=== PATIENT | male | born 1965 | race Hispanic/Latino ===

== ENCOUNTER 2017-10-20 10:09 | Inpatient (IN) | payer MEDICAID, SELFPAY ==
[2017-10-20 11:10] LABS: INR-International Normal Ratio 1.3; PTT 39.8 SEC (22.9-36.1); Prothrombin Time 16.7 SEC (12.0-14.7)
[2017-10-20] MEDS ORDERED: Piperacillin/Tazobactam 4.5 GM in Sodium Chloride 0.9% 100 ML IVPB SCH (11:15)
[2017-10-20] MEDS ORDERED: Oseltamivir 6 MG/ML ORAL SUSP PER TUBE SCH (11:15)
[2017-10-20 11:28] LABS: ALT (SGPT) 16 U/L (8-55); AST (SGOT) 15 U/L (5-34); Albumin 3.6 g/dL (3.5-5.0); Alkaline Phosphatase 88 U/L (40-150); Anion Gap 23 mmol/L (10-20); BUN (Urea Nitrogen) 50 mg/dL (8.4-25.7); Bilirubin, Total 1.1 mg/dL (0.2-1.2); CK (CPK) 77 U/L (30-200); Calc. Creatinine Clearance 0 mL/min (70-130); Calcium 9.8 mg/dL (7.8-10.44); Carbon Dioxide 20 mmol/L (22-29); Chloride 101 mmol/L (98-107); Estimated GFR-MDRD 40; Globulin 3.7 g/dL (2.4-3.5); Glucose 170 mg/dL (70-105); Lipase Less than 4 U/L (8-78); Potassium 4.6 mmol/L (3.5-5.1); Protein, Total 7.3 g/dL (6.0-8.3); Sodium 139 mmol/L (136-145)
[2017-10-20 11:31] LABS: Hemoglobin 13.1 g/dL (14.0-18.0); Red Blood Cell (RBC) Count 4.21 mill/uL (4.70-6.10); Troponin I 0.016 ng/mL (< 0.028); White Blood Cell (WBC) Count 4.6 thou/uL (4.8-10.8)
[2017-10-20 11:32] LABS: Band 50 % (5-11); Lymphocytes 9 % (21-51); MDiff Complete? YES; Mean Corpuscular HGB CONC 32.9 g/dL (32.0-36.0); Mean Corpuscular Hemoglobin 31.1 pg (27.0-31.0); Mean Corpuscular Volume 94.5 fl (80.0-94.0); Mean Platelet Volume 8.5 fL (7.4-10.4); Metamyelocyte 4 % (0-0); Monocytes 3 % (0-10); Neutrophil 34 % (42-75); Platelet Count 349 thou/uL (130-400); RBC Distribution Width 14.8 % (11.5-14.5); Reflex for Review?? YES
[2017-10-20] MEDS ORDERED: Acetaminophen 325 MG/10.15 ML UDCUP ONE ×2 (11:56→12:00)
--- NOTE | 2017-10-20 12:43 | RAD ---
CHEST 1 VIEW: Date: 10/20/17 HISTORY: Nausea and vomiting. COMPARISON: Chest 1 view dated 05/26/17. FINDINGS: There are multiple left-sided skin folds. There are increased perihilar opacities bilaterally. IMPRESSION: 1. Bilateral perihilar air space opacities concerning for infection. 2. Somewhat of a permeative appearance of the left humeral neck and mid diaphysis. Recommend dedicat ed humeral radiographs. POS: [facility]
[2017-10-20 13:35] LABS: Bilirubin Negative (Negative); Blood, Urine Negative (Negative); Clarity CLOUDY (Clear); Glucose, Urine (Dipstick) Negative (Negative); Leukocyte Small (Negative); Nitrite Negative (Negative); Protein, Urine (Dipstick) 30 mg/dL (Neg-Trace); Specific Gravity, Urine 1.035 (1.002-1.036); Urobilinogen 0.2 mg/dL (0.2-1.0); pH, Urine 5.5 (5.0-9.0)
[2017-10-20 13:37] LABS: WBC/HPF 21-50 HPF (0-3)
[2017-10-20 13:39] LABS: Pathc Cast-AUWi Flag 18.42 (0-2.49)
[2017-10-20 13:46] LABS: RBC/HPF 0-3 HPF (0-3); Renal Epithelial None Seen HPF (0-3); Transitional Epithelial 0-3 HPF (0-3)
[2017-10-20 13:47] LABS: Bacteria/HPF 2+ HPF (None Seen); Hyaline Casts/LPF 0-3 HYALINE CAST LPF (0-3 Hyaline); Manual Microscopic Reviewed? No Path Casts Seen; Other Casts/LPF 4-6 FINELY GRAN LPF (0-3 Hyaline)
--- NOTE | 2017-10-20 14:19 | CT ---
CONTRAST ENHANCED CTA CHEST: Date: 10/20/17 HISTORY: Fever, shortness of breath. Contrast enhanced CTA of chest performed. 2D and 3D reconstructed images performed on a 3D workstatio n. FINDINGS: Images demonstrate a gastrostomy tube in place. Calcifications seen in the gallbladder compatible wit h calcified gallstones. No evidence of filling defects seen in the pulmonary arteries to suggest pulmonary emboli. There appears to be some thickening in the mid esophagus compatible with esophagitis or possible esop hageal fluid. There are extensive multilobar air space opacities, less pronounced in the right upper lobe with some opacification seen in the right middle lobe and right lower lobe. The most extensive degree of air s pace opacities are in the left upper lobe and left lower lobe. Findings compatible with extensive multilobar pneumonia. Coronary artery calcifications seen. Sternotomy wires also noted. IMPRESSION: 1. Cholelithiasis. 2. Extensive multilobar pneumonia. The most significant degree of pneumonia appears to be in the lef t upper lobe and left lower lobe. POS: [facility]
[2017-10-20] MEDS ORDERED: EPINEPHrine 1 MG/10 ML Abboject SYRINGE ONE (14:43)
[2017-10-20] MEDS ORDERED: Rocuronium Bromide 50 MG/5 ML VIAL ONE (14:46)
[2017-10-20 14:55] LABS: Hemoglobin 10.2 g/dL (14.0-18.0); Mean Corpuscular HGB CONC 33.4 g/dL (32.0-36.0); Mean Corpuscular Hemoglobin 31.5 pg (27.0-31.0); Mean Corpuscular Volume 94.3 fl (80.0-94.0); Mean Platelet Volume 7.8 fL (7.4-10.4); Platelet Count 225 thou/uL (130-400); RBC Distribution Width 14.8 % (11.5-14.5); Red Blood Cell (RBC) Count 3.24 mill/uL (4.70-6.10); White Blood Cell (WBC) Count 1.6 thou/uL (4.8-10.8)
[2017-10-20] MEDS ORDERED: Fentanyl 100 MCG/2 ML VIAL ONE (15:08)
[2017-10-20] MEDS ORDERED: Pantoprazole 40 MG VIAL ONE (15:16)
[2017-10-20 15:17] LABS: Lactic Acid 7.5 mmol/L (0.5-2.2)
[2017-10-20 15:19] LABS: Troponin I 0.018 ng/mL (< 0.028)
[2017-10-20] MEDS ORDERED: Fentanyl CADD 250 ML IVPB SCH ×2 (15:20→15:59)
[2017-10-20 15:26] LABS: Base Excess (BEa) -5.8 mEq/L (0 (+/-) 2.5); CO2 Tension 46.8 mmHg (35.0-45.0); Calcium, Ionized 1.2 mmol/L (1.12-1.30); Hematocrit-ABG 35.4 % (42.0-52.0); Hemoglobin (Hb) 11.7 g/dL (14.0-18.0); O2 Tension (PaO2) 66.8 mmHg (80.0-100.0); pH, Arterial 7.27 (7.35-7.45)
[2017-10-20 15:28] LABS: Analyzer IN Cardio ER; Puncture Site LRA
[2017-10-20 15:37] LABS: Anisocytosis SLIGHT = 6-15 cells (100X) (0-5/hpf); Band 52 % (5-11); Lymphocytes 18 % (21-51); MDiff Complete? YES; Metamyelocyte 5 % (0-0); Myelocyte 2 % (0-0); Neutrophil 23 % (42-75); PLT Morphology Comment Appears Adequate
--- NOTE | 2017-10-20 15:49 | RAD ---
ABDOMEN 1 VIEW: Date: 10/20/17 HISTORY: Status post tube placement. 52-year-old male with history of fever, shortness of breath, and vomiting . FINDINGS: AP view of abdomen demonstrates a large amount of stool in the colon. There is a radiopaque Tobin tip catheter in place. Radiopaque contrast seen in the bladder and urinary tract. There is a NG tube in place. There is a gastrostomy tube in place. Abdominal gas pattern is nonspecific. IMPRESSION: Placement of a NG tube. POS: [facility]
[2017-10-20] MEDS ORDERED: CCU Electrolyte Replacement 1 EACH FS ONE (15:51)
[2017-10-20] MEDS ORDERED: Ventilator Sedation Protocol 1 EACH FS ONE ×2 (15:51)
[2017-10-20] MEDS ORDERED: Propofol 1,000 MG/100 ML VIAL IV PRN (15:59)
[2017-10-20] MEDS ORDERED: Fentanyl BOLUS 250 ML IVPB PRN (15:59)
[2017-10-20] MEDS ORDERED: CCU ELECTROLYTE REPLACEMENT PROTOCOL FS PRN (15:59)
[2017-10-20] MEDS ORDERED: Potassium Chloride 40 MEQ in Sodium Chloride 0.9% 250 ML 250 ML IVPB PRN (15:59)
[2017-10-20] MEDS ORDERED: Magnesium 2 GM/NS 0.9% 100 ML 2 GM in Premix Bag 1 BAG IVPB PRN (15:59)
[2017-10-20] MEDS ORDERED: Potassium Chloride 20 MEQ TAB PO PRN (15:59)
[2017-10-20] MEDS ORDERED: Potassium Phosphate 15 MMOL in Sodium Chloride 0.9% 250 ML 250 ML IV PRN (15:59)
[2017-10-20] MEDS ORDERED: DISCONTINUE PREVIOUS NARCOTIC PAIN MEDICATIONS AND BENZODIAZEPINES FS SCH (15:59)
[2017-10-20] MEDS ORDERED: Lorazepam 2 MG/ML VIAL SLOW IVP PRN (15:59)
[2017-10-20] MEDS ORDERED: Potassium Phosphate 9 MMOL in Sodium Chloride 0.9% 100 ML IVPB PRN (15:59)
[2017-10-20] MEDS ORDERED: Potassium Phosphate 12 MMOL in Sodium Chloride 0.9% 250 ML 250 ML IV PRN (15:59)
[2017-10-20] MEDS ORDERED: Magnesium Oxide 400 MG TAB PO PRN ×2 (15:59)
--- NOTE | 2017-10-20 17:04 | RAD ---
CHEST ONE VIEW: 10/20/17 HISTORY: 52-year-old male with sepsis. COMPARISON: 10/20/17. NG tube, endotracheal tube, and right subclavian catheters have been placed in satisfactory location. There has been extensive worsening of bilateral confluent alveolar parenchymal disease worse in the left lung involving almost the entire left lung and primarily in the right lung in the perihilar debby ons, evidence for extensive bilateral pneumonia. IMPRESSION: Much worsening extensive bilateral alveolar pneumonia. Life support tube placement in satisfactory l ocation. POS: [facility]
[2017-10-20 17:45] VITALS: BMI 20.2
[2017-10-20 18:01] LABS: Actual Bicarbonate (HCO3a) 22.5 mEq/L (22-26); Base Excess (BEa) -4.3 mEq/L (0 (+/-) 2.5); CO2 Tension 48.7 mmHg (35.0-45.0); Calcium, Ionized 1.2 mmol/L (1.12-1.30); Hematocrit-ABG 38.9 % (42.0-52.0); Hemoglobin (Hb) 12.8 g/dL (14.0-18.0); O2 Tension (PaO2) 76.3 mmHg (80.0-100.0); pH, Arterial 7.28 (7.35-7.45)
[2017-10-20] MEDS: Sodium Chloride 0.9% 1,000 ML IV SCH (18:17)
[2017-10-20 18:25] LABS: ALV-art Gradient 361.925 (0-20); Puncture Site RBA
[2017-10-20] MEDS: Pantoprazole 80 MG in Sodium Chloride 0.9% 100 ML IVP SCH (18:28)
[2017-10-20] MEDS: Cefepime 1 GM, Admixture Fee 1 EACH in Sterile Water 10 ML SLOW IVP SCH (19:00)
--- NOTE | 2017-10-20 19:32 | HP ---
REASON FOR ADMISSION: Acute respiratory failure with hypoxia, sepsis with likely aspiration pneumonia, GI bleed, septic shock, urinary tract infection, influenza A, acute kidney injury, metabolic acidosis. HISTORY OF PRESENT ILLNESS: Please note the majority of this history is obtained by my talking to patient's sister who is at bedside, ER records, ER physician, and prior medical records as patient is aphasic from prior CVA. The patient apparently was having nausea and vomiting and was short of breath from last night. He has been having hiccups from last 3 days prior to this. This morning his vomitus started to have dark material in them. The sister at bedside adds that he chokes every time he tries to feed himself. He has a PEG tube with prior history of left hemiplegia. He has been fed chocolate milk, one bottle 3 times daily. He apparently was living with his girlfriend and a 13 -year-old son in [place]. The girlfriend dropped him off to his sister's place and went to [place]. She had informed that she would not be returning back to him to his sister. Here in the ER, patient was found to have bilateral pneumonia. He had systolic blood pressures in the 60s. He has had nearly 3 liters of IV fluid boluses given. The patient's shortness of breath got worse and he was finely intubated. Also, patient had H and H of 13 and 39. He had a point of care reading for H and H which apparently gave a reading of hematocrit of 10, and he was given 2 units of packed cell transfusion per massive transfusion protocol. He had a temperature of 100 degrees on arrival in the ER. PAST MEDICAL AND SURGICAL HISTORY: History of left hemiplegia with aphasia and dysphagia which he sustained apparently 1 or 2 years ago. He gets all his care in [facility]. Hypertension, depression, history of hernia repair, PEG tube, right carotid endarterectomy. CURRENT MEDICATIONS: His sister does not know what medications he has been taking. Apparently, the girlfriend did not leave much information to her. ALLERGIES: No known drug allergies. PERSONAL HISTORY: Does not smoke or abuse alcohol. He is currently wheelchair bound. No history of drug abuse. FAMILY HISTORY: Father is . Mother lives in [place] with history of diabetes per prior records in the family. MEDICATIONS: Per prior records, the patient was on donepezil 10 mg at bedtime when he was hospitalized here in 04/2017, Norvasc 10 mg daily, baclofen 10 mg 3 times daily, omeprazole 20 mg twice daily, lisinopril 20 mg twice daily, Plavix 75 mg daily, iron 65 mg daily. REVIEW OF SYSTEMS: Cannot be obtained as patient is currently intubated. PHYSICAL EXAMINATION: GENERAL: The patient is a 52-year-old male who is cachectic and is on the ventilator at present. VITAL SIGNS: Blood pressure on arrival was 60/40 currently, it has come up to 150/84, pulse 126 per minute on arrival, respiratory rate 22 per minute, temperature 100.2 degrees Fahrenheit on arrival, saturating 80% on room air on arrival, currently 94% on 100% FiO2 on the ventilator. NECK: Supple. No elevated JVD. HEENT: Eyes, extraocular muscles are intact. Pupils reacting to light. Oral cavity, mucous membranes are dry. No exudates or congestion. Patient does not appear to have any teeth. RESPIRATORY: Air entry 1+ bilateral. Scattered rhonchi plus bilateral. ABDOMEN: Soft. Bowel sounds heard. Has a PEG tube. No rigidity or guarding. There is maceration of the scrotum. EXTREMITIES: No peripheral edema or calf tenderness. VASCULAR: Peripheral pulses 1+ bilateral in the upper extremities, lower extremities are barely palpable. CENTRAL NERVOUS SYSTEM: The patient has chronic left hemiplegia. He was freely moving right upper and lower extremity on arrival. PSYCHIATRIC: Cannot be assessed as the patient is currently intubated. LABORATORY AND DIAGNOSTIC DATA: CT angio chest done on arrival showed cholelithiasis, extensive multilobar pneumonia, abdominal x-ray done shows large amount of stool in the colon. NG tube in place. Gastrostomy tube in place. Bowel gas pattern is nonspecific. Respiratory virus panel, PCR was positive for influenza AH3 and influenza A. Stool occult blood was positive. BUN is 50, creatinine 1.78, glucose 170. Serum bicarbonate 20. Lactic acid 7.6. Liver enzymes within normal limits. Troponin x2 is negative. Albumin is 3.6. PT/INR is 16 and 1.3, PTT 38. D-dimer is 3.0. Blood gas done shows a pH of 7.27, pCO2 of 46, pO2 of 66. H and H on arrival was 13 and 39, a repeat done after 3 hours is 10 and 30. Had a white count of 4.6 with 50% bands on arrival, neutrophils with 34%, platelet count is 349 on arrival. UA is positive for small leukocyte esterase with 2+ bacteria. EKG done shows sinus tachycardia at 126 beats per minute with left anterior fascicular block with nonspecific ST-T wave changes seen. CLINICAL IMPRESSION AND PLAN: Patient will be admitted to ICU for septic shock ; acute respiratory failure with hypoxia, likely aspiration pneumonia, bilateral ; acute kidney injury; metabolic acidosis; gastrointestinal bleed. He will be on Protonix drip. The patient was pancultured and he will be placed on Levaquin , cefepime and vancomycin until cultures are available based on renal function. The dose based on renal function. He will also be given stress dose of steroids. The patient will be kept n.p.o. for the next 24 hours. His overall prognosis is poor. I have explained this to the patient's sister and brother who is here at bedside. The patient is not at present. His girlfriend has left him. The next of kin is his mom who lives in [place]. The number to reach her is [phone]. He also apparently has a 22-year-old daughter , whom he has not seen for last 19 years or so. She lives in [place], her name is Maria M. The number to reach her is [phone]. The girlfriend's name is Dahiana Donnelly, her number is [phone]. For now, he is a FULL CODE. If the patient were to decompensate, likely person to contact for his code status will be his mom. She is currently unavailable on the phone. I have discussed his findings with Dr. Leroy for Pulmonology and Critical Care and Anita for possible upper endoscopy for Gastroenterology. [facility] HOSPITALBecka
[2017-10-20] MEDS: Norepinephrine 8 MG/0.9% NS 250 ML IVPB PRN (20:04)
[2017-10-20] MEDS ORDERED: Vancomycin HCl 1 GM in Sodium Chloride 0.9% 250 ML 250 ML IVPB SCH (21:00)
[2017-10-20] MEDS ORDERED: Cefepime 1 GM in Sodium Chloride 0.9% 100 ML IVPB SCH (21:00)
[2017-10-20] MEDS: Oseltamivir 75 MG CAP PO SCH (21:50)
[2017-10-20] MEDS ORDERED: Vancomycin HCl 1 GM in Premix Bag 1 BAG IVPB SCH (23:59)
[2017-10-21] MEDS: Vancomycin HCl 750 MG in Sodium Chloride 0.9% 250 ML 250 ML IVPB SCH ×2 (00:03→12:48)
--- NOTE | 2017-10-21 00:10 | CON ---
DATE OF CONSULTATION: 10/20/2017 REFERRING PHYSICIAN: Dr. Samira Sutton. REASON FOR CONSULTATION: Hemetemesis. HISTORY OF PRESENT ILLNESS: Tarik Robles is a 52-year-old fragile looking male seen in the ER this afternoon with coughing and spitting up some mucoid material. The patient apparently came in with some respiratory symptoms. While in the ER, he was being evaluated. He started having some vomiting blood, he had a CBC done on arrival to the ER. At that time, CBC was actually normal with a WBC count of 4,600, hemoglobin 13.1 and hematocrit 39.8. He vommited several times in the ER with fresh blood vomiting. The hemoglobin dropped to 10.2, hematocrit dropping down to 30.6, subsequently hypotensive. He was given 2 cc of_ epinephrine, and her blood pressure came back to normal. His repeat CBC showed drop in blood count from 13.1-10.2, hematocrit from 39.8-30.7. The patient had a chest CAT scan, which revealed extensive pneumonia. The patient has been intubated and is on sedation. So most of the history was obtained by talking to the ER doctor and also Dr. Samira Sutton from hospice. The patient apparently has had a stroke in the past and has had PEG tube placement done. He is actually aphasic but as per Dr. Sutton, he was able to understand nodding his head and able to communicate to some extent. The patient had seen Dr. Lopez in the past and some of the history was obtained by going over the consult by Dr. Onesimo Lopez, which was done in 04/2017. ALLERGIES: None. PAST MEDICAL HISTORY: 1. Hypertension. 2. Depression. 3. Status post cerebrovascular accident with gastrostomy tube placement. SURGERIES: 1. Status post herniography. 2. PEG tube placement. 3. Right carotid endarterectomy. SOCIAL HISTORY: He is . He does not smoke or drink alcohol. MEDICATIONS: Include Plavix 70 once a day, lisinopril, omeprazole, baclofen, amlodipine, benazepril. REVIEW OF SYSTEMS: Not obtainable as he is on the ventilator. PHYSICAL EXAMINATION: GENERAL: Reveals a very fragile looking male. He is on the ventilator. VITAL SIGNS: His pulse is around 132, mostly from the epinephrine, his blood pressure is actually stable at the present time, was found on 160/106. HEENT: Conjunctivae clear. NECK: Supple. CARDIOVASCULAR: First and second heart sounds are normal. LUNGS: Clear to auscultation. ABDOMEN: Soft. Nondistended and nontender. He has G tube over the left lower quadrant. No organomegaly. LABORATORY DATA: Shows a hemoglobin dropping to 13.1-10.2. WBC count is 1600. He has got 2 units of packed RBCs so far. He is not on any vasopressors. CLINICAL IMPRESSION: 1. The patient appears to have an upper gastrointestinal bleeding, and the bleeding has actually resolved. His NG tube is not really draining a whole lot of material. It is possible that the patient could have either bleeding ulcer or possibly vascular malformation or some other pathology. 2. Status post cerebrovascular accident with status post PEG tube placement. 3. Hypertension. RECOMMENDATIONS: 1. IV PPI. 2. Serial H&H. 3. Transfuse p.r.n. 4. Possible EGD tomorrow. MTDD
[2017-10-21 05:35] LABS: ALT (SGPT) 26 U/L (8-55); AST (SGOT) 38 U/L (5-34); Albumin 2.5 g/dL (3.5-5.0); Alkaline Phosphatase 49 U/L (40-150); Anion Gap 11 mmol/L (10-20); BUN (Urea Nitrogen) 36 mg/dL (8.4-25.7); Bilirubin, Total 1.3 mg/dL (0.2-1.2); Calc. Creatinine Clearance 61 mL/min (70-130); Calcium 8.3 mg/dL (7.8-10.44); Carbon Dioxide 22 mmol/L (22-29); Chloride 110 mmol/L (98-107); Estimated GFR-MDRD 77; Globulin 2.8 g/dL (2.4-3.5); Glucose 86 mg/dL (70-105); Potassium 4.4 mmol/L (3.5-5.1); Protein, Total 5.3 g/dL (6.0-8.3); Sodium 139 mmol/L (136-145)
[2017-10-21] MEDS: Cefepime 1 GM, Admixture Fee 1 EACH in Sterile Water 10 ML SLOW IVP SCH ×2 (05:41→17:15)
[2017-10-21] MEDS: Sodium Chloride 0.9% 1,000 ML IV SCH ×3 (05:41→21:42)
--- NOTE | 2017-10-21 07:16 | CON ---
DATE OF CONSULTATION: 10/20/2017 Mr. Robles is a 52-year-old male. Apparently the family and the patient is German speaking only. Wh en I evaluated him, he is intubated. He presented with nausea, vomiting, and shortness of breath. He has a history of a CVA and aphasia. He also has a history of swallowing dysfunction according to the admitting records. He has a PEG tub e in place. Apparently he resides with a girlfriend in [place]. His girlfriend apparently dropped him off at his sister's and left for [place] and left a message that she would not be coming back. He was in the emergency room with bilateral chest radiograph abnormalities and bilateral CT of his ch est showing patchy infiltrates bilaterally. He was in the emergency room for several hours and then subsequently intubated. After he is intubated, an NG tube was placed. The NG tube was connected to suction. When I saw him in the emergency department, he had what appeared to be 200 mL of liquid sto ol coming out of his NG tube. PAST MEDICAL HISTORY: 1. Remarkable for cerebrovascular accident. 2. Hypertension. 3. History of herniorrhaphy. 4. History of PEG. 5. History of a carotid endarterectomy. MEDICATIONS: Unknown. There are no known drug allergies. SOCIAL HISTORY: He is a nonsmoker, nondrinker. He apparently gets around in a wheelchair, according to records. FAMILY HISTORY: Mother lives in [place]. There is a family history of diabetes. Father . MEDICATIONS: Prior to admission: Donepezil, Norvasc, baclofen, omeprazole, lisinopril, Plavix, iron . REVIEW OF SYSTEMS: Cannot be obtained. PHYSICAL EXAMINATION: VITAL SIGNS: Blood pressure is in the 80s in the emergency department. Heart rate was in the one-te ens. He is in sinus rhythm, respiratory rate is in the teens, oximetry is 100%. HEENT: Sclerae is anicteric. NECK: Supple. LUNGS: Remarkable for coarse equal breath sounds. HEART: Regular rhythm. ABDOMEN: Soft. EXTREMITIES: Without asymmetry. LABORATORY FINDINGS: At 10:56 this morning, white count was 4.6 with 50% bands; at 2:41, white count was 1.6 with 52% bands, 5% metamyelocytes. Sodium 139, potassium 4.6, chloride 101, bicarb 20, BUN 50, creatinine 1.78. Blood gas pH 7.28, CO2 of 48, pO2 of 76. IMPRESSION: Respiratory failure with bilateral pneumonia, adult respiratory distress syndrome and cl inical sepsis. PLAN: Volume resuscitation central line placement by the ER physician, pressors, antimicrobial thera py, sedation, steroids, DVT prophylaxis. He is apparently flu positive, although I doubt this is inf luenza pneumonia. Critical care time was 30 minutes.
[2017-10-21 07:53] LABS: Actual Bicarbonate (HCO3a) 20.8 mEq/L (22-26); Base Excess (BEa) -3.9 mEq/L (0 (+/-) 2.5); CO2 Tension 35.9 mmHg (35.0-45.0); Calcium, Ionized 1.2 mmol/L (1.12-1.30); Hemoglobin (Hb) 9.8 g/dL (14.0-18.0); O2 Tension (PaO2) 58.5 mmHg (80.0-100.0); pH, Arterial 7.38 (7.35-7.45)
[2017-10-21 07:54] LABS: ALV-art Gradient 181.825 (0-20); Puncture Site RBA
[2017-10-21] MEDS: Pantoprazole 80 MG in Sodium Chloride 0.9% 100 ML IVP SCH (08:17)
[2017-10-21] MEDS: Oseltamivir 75 MG CAP PO SCH ×2 (08:23→21:42)
[2017-10-21] MEDS: Acetaminophen 325 MG TAB PO PRN (08:23)
[2017-10-21] MEDS: Norepinephrine 8 MG/0.9% NS 250 ML IVPB PRN (08:36)
[2017-10-21 09:48] LABS: HBCM Index 0.06 S/CO (0-0.79); HBSAg Index 0.22 S/CO (0-0.99); HIV (1/2) Antibody/Antigen Non-Reactive (NonReactive); HIV 1/2 INDEX 0.17 S/CO (<1.00); Hep A IgM AB Non-Reactive (NonReactive); Hep A IgM S/CO 0.14 S/CO (0-0.79); Hep B Surf Ag Non-Reactive S/CO (NonReactive); Hep C IgG Ab Non-Reactive (NonReactive); Hep C Index 0.17 S/CO (0-0.79); Hepatitis B Core IGM Abs Non-Reactive (NonReactive)
[2017-10-21 09:48] LABS: Band 54 % (5-11); Hemoglobin 11.4 g/dL (14.0-18.0); Lymphocytes 16 % (21-51); MDiff Complete? YES; Mean Corpuscular HGB CONC 33.4 g/dL (32.0-36.0); Mean Corpuscular Hemoglobin 31.6 pg (27.0-31.0); Mean Corpuscular Volume 94.7 fl (80.0-94.0); Metamyelocyte 6 % (0-0); Monocytes 2 % (0-10); Myelocyte 1 % (0-0); Neutrophil 21 % (42-75); Platelet Count 234 thou/uL (130-400); RBC Distribution Width 15.1 % (11.5-14.5); White Blood Cell (WBC) Count 4.2 thou/uL (4.8-10.8)
[2017-10-21] MEDS ORDERED: Fluconazole 100 MG TAB PO SCH (11:21)
--- NOTE | 2017-10-21 11:23 | RAD ---
AP VIEW OF CHEST: Date: 10/21/17 HISTORY: ARDS. FINDINGS: Comparison made to previous exam from 10/20/17. AP view of chest demonstrates sternotomy wires seen. Nasogastric and endotracheal tubes are in place. A right subclavian central line is again seen. There are bilateral air space opacities seen, more pronounced on the left than on the right lung. The se air space opacities are less pronounced than on the previous comparison exam from one day earlier. There does continue to be asymmetry with left lung worse than right. IMPRESSION: Bilateral air space opacities, worse on the left than on the right. Overall extent of air space opaci ties have decreased compared to the previous exam from one day earlier. POS: [facility]
--- NOTE | 2017-10-21 11:24 | PDOC.PN ---
- Subjective Encounter Start Date: 10/21/17 Encounter Start Time: 10:00 Subjective: on vent, sedated - Objective MAR Reviewed: Yes Vital Signs & Weight: Vital Signs (12 hours) Temp Pulse Resp BP Pulse Ox 10/21/17 08:00 101.1 F H 108 H 18 10/21/17 07:35 120 H 92/57 L 10/21/17 07:26 117 H 22 H 100 10/21/17 06:00 22 H 10/21/17 04:00 21 H 10/21/17 02:06 118 H 107/71 10/21/17 02:00 24 H 10/21/17 00:19 115 H 18 100 10/21/17 00:00 18 Weight Admit Weight 114 lb 10.24 oz Weight 114 lb 10.24 oz Most Recent Monitor Data Heart Rate from ECG 112 NIBP 88/62 NIBP BP-Mean 67 Respiration from ECG 18 SpO2 100 I&O: 10/20/17 10/21/17 10/22/17 06:59 06:59 06:59 Intake Total 1584.1 60 Output Total 2221 220 Balance -636.9 -160 Result Diagrams: 10/21/17 04:30 10/21/17 04:30 Phys Exam - Physical Examination HEENT: PERRLA, sclera anicteric Neck: no JVD, supple Respiratory: no wheezing rhonchi+ Cardiovascular: RRR, no significant murmur Gastrointestinal: soft, no distention, positive bowel sounds peg+ Musculoskeletal: no edema, pulses present left hemiplegia, aphasia, dysphagia Dx/Plan (1) Sepsis Code(s): A41.9 - SEPSIS, UNSPECIFIED ORGANISM Status: Acute Qualifiers: Sepsis type: sepsis due to unspecified organism Qualified Code(s): A41.9 - Sepsis, unspecified organism Comment: in septic shock (2) Acute respiratory failure with hypoxia Code(s): J96.01 - ACUTE RESPIRATORY FAILURE WITH HYPOXIA Status: Acute (3) Influenza A Code(s): J10.1 - FLU DUE TO OTH IDENT INFLUENZA VIRUS W OTH RESP MANIFEST Status: Acute (4) Aspiration pneumonia Code(s): J69.0 - PNEUMONITIS DUE TO INHALATION OF FOOD AND VOMIT Status: Acute Qualifiers: Aspiration pneumonia type: due to regurgitated food (5) CVA, old, hemiparesis Code(s): I69.359 - HEMIPLGA FOLLOWING CEREBRAL INFARCTION AFFECTING UNSP SIDE Status: Chronic Comment: left hemiplegia, aphasia and dysphagia (6) HYUN (acute kidney injury) Code(s): N17.9 - ACUTE KIDNEY FAILURE, UNSPECIFIED Status: Acute Comment: resolving (7) Metabolic acidosis Code(s): E87.2 - ACIDOSIS Status: Acute Comment: resolving (8) FTT (failure to thrive) in adult Status: Chronic (9) Dementia Code(s): F03.90 - UNSPECIFIED DEMENTIA WITHOUT BEHAVIORAL DISTURBANCE Status: Chronic Qualifiers: Dementia type: vascular dementia - Plan is on broad spectrum iv antibiotics, tamiflu -: will add fluconazole -: iv hydration, may start peg feeding -: still on levophed, ?egd at bedside or when stable -: poor prognosis, 2 siblings are aware. * . Review of Systems - Medications/Allergies Allergies/Adverse Reactions: Allergies Allergy/AdvReac Type Severity Reaction Status Date / Time No Known Drug Allergies Allergy Verified 05/24/17 10:23 Medications: Current Medications Acetaminophen (Tylenol) 650 mg PO Q4H PRN PRN Reason: Headache/Fever or Pain Last Admin: 10/21/17 08:23 Dose: 650 mg Albuterol/Ipratropium (Duoneb) 3 ml NEB [id number] MIKHAIL Last Admin: 10/21/17 07:26 Dose: 3 ml Fluconazole (Diflucan) 100 mg PO DAILY MIKHAIL Fluconazole (Diflucan) 200 mg PO ONE STA Stop: 10/21/17 11:22 Fentanyl (Fentanyl Cadd) 250 mls @ 0 mls/hr IVPB INF MIKHAIL; Titrate PRN Reason: Protocol Stop: 11/19/17 15:20 Levofloxacin 500 mg/ Device 100 mls @ 100 mls/hr IVPB 1400 MIKHAIL Norepinephrine Bitartrate (Levophed) 250 mls @ 0 mls/hr IVPB INF PRN; Protocol ; Titrate PRN Reason: sbp<80 Last Admin: 10/21/17 08:36 Dose: 250 mls Sodium Chloride (Normal Saline 0.9%) 1,000 mls @ 100 mls/hr IV .Q10H MIKHAIL Last Admin: 10/21/17 05:41 Dose: 1,000 mls Potassium Chloride 40 meq/ (Sodium Chloride) 270 mls @ 135 mls/hr IVPB ASDIR PRN PRN Reason: FOR SERUM K+ 2.5 - 3.5 Potassium Chloride 40 meq/ (Device) 100 mls @ 50 mls/hr IVPB ASDIR PRN PRN Reason: FOR SERUM K+ 2.5 - 3.5 Magnesium Sulfate 1 gm/ Sodium (Chloride) 102 mls @ 102 mls/hr IV PRN PRN PRN Reason: MAG LEVEL 1.4 - 2.0 Magnesium Sulfate 2 gm/ Device 100 mls @ 100 mls/hr IVPB ASDIR PRN PRN Reason: MAGNESIUM < 1.4 Potassium Phosphate 9 mmol/ (Sodium Chloride) 103 mls @ 25.75 mls/hr IVPB ASDIR PRN PRN Reason: Phosphate 1.0-1.8 Potassium Phosphate 12 mmol/ (Sodium Chloride) 254 mls @ 63.5 mls/hr IV ASDIR PRN PRN Reason: Serum phosphate 0.5-0.9 Potassium Phosphate 15 mmol/ (Sodium Chloride) 255 mls @ 63.75 mls/hr IV ASDIR PRN PRN Reason: Serum Phos < 0.5 Fentanyl (Fentanyl Cadd) 250 mls @ 0 mls/hr IVPB INF MIKHAIL; Titrate PRN Reason: Protocol Stop: 11/19/17 15:59 Fentanyl Citrate (Fentanyl Bolus) 250 mls @ 0 mls/hr IVPB PRN PRN; As Directed PRN Reason: Breakthrough pain Stop: 11/19/17 15:59 Pantoprazole Sodium 80 mg/ (Sodium Chloride) 100 mls @ 10 mls/hr IVP INF [facility] Last Admin: 10/21/17 08:17 Dose: 100 mls Cefepime HCl 1 gm/Miscellaneous Medication 1 each/ Sterile Water 10 mls @ 120 mls/hr SLOW IVP 0600,1800 [facility] Last Admin: 10/21/17 05:41 Dose: 10 mls Vancomycin HCl 750 mg/ Sodium (Chloride) 250 mls @ 250 mls/hr IVPB 1200,2359 [facility] Last Admin: 10/21/17 00:03 Dose: 250 mls Lorazepam (Ativan) 2 mg SLOW IVP Q2H PRN PRN Reason: Anxiety to achieve Boyd 2-3 Stop: 11/19/17 15:59 Last Admin: 10/20/17 23:18 Dose: 2 mg Magnesium Oxide (Magnesium Oxide) 400 mg PO BIDPRN PRN PRN Reason: FOR SERUM MAG 1.4 - 2.0 Magnesium Oxide (Magnesium Oxide) 800 mg PO PRN PRN PRN Reason: FOR SERUM MAG < 1.4 Methylprednisolone Sodium Succinate (Solu-Medrol) 20 mg IVP Q8HR [facility] Last Admin: 10/21/17 05:40 Dose: 20 mg Miscellaneous Medication (Phos-Nak) 1 pkt PO TIDPRN PRN PRN Reason: FOR PHOS LEVEL 1.0 - 1.8 Miscellaneous Medication (Phos-Nak) 2 pkt PO TIDPRN PRN PRN Reason: FOR PHOS LEVEL 0.5 - 1.0 Miscellaneous Medication (Pharmacy To Dose) 1 each IVPB PRN PRN PRN Reason: Pharmacy to dose Morphine Sulfate (Morphine) 2 mg IVP Q2H PRN PRN Reason: Breakthrough pain Stop: 11/19/17 15:59 Ccu Electrolyte (Replacement Protocol) 0 each FS PRN PRN PRN Reason: FOR ELECTROLYTE REPLACEMENT Ondansetron HCl (Zofran) 4 mg IVP Q6H PRN PRN Reason: Nausea/Vomiting Oseltamivir Phosphate (Tamiflu) 75 mg PO BID [facility] Stop: 10/25/17 09:01 Last Admin: 10/21/17 08:23 Dose: 75 mg Potassium Chloride (K-Dur) 40 meq PO ASDIR PRN PRN Reason: FOR SERUM K+ 2.5 - 3.5 Potassium Chloride (Klor-Con) 40 meq PER TUBE ASDIR PRN PRN Reason: FOR SERUM K+ 2.5-3.5 Propofol (Diprivan) 1,000 mg IV INF PRN; Protocol PRN Reason: TO ACHIEVE BOYD SCORE 2-3 Stop: 11/19/17 15:59 Sodium Chloride (Flush - Normal Saline) 10 ml IVF PRN PRN PRN Reason: Saline Flush Last Admin: 10/21/17 08:23 Dose: 10 ml
[2017-10-21] MEDS: Levofloxacin 750 mg/D5W 500 MG in Premix Bag 1 BAG IVPB SCH (13:39)
--- NOTE | 2017-10-21 14:39 | PRG ---
DATE OF SERVICE: 10/21/2017 FOLLOWUP VISIT NOTE SUBJECTIVE: Mr. Tarik Robles is a 52-year-old male with previous CVA, status post PEG tube placement. He came to the ER basically because of coughing and some respiratory symptoms. In the ER, he had an episode of hypotension and also vomited what I was told to be a large amount of blood. At times, he was hypotensive. He has some blood transfusion in the ER. His blood pressure came to normal. Over through the night, his NG has been draining mostly dark brownish material, does not appear to be blood or any coffee-ground material. The patient's CAT scan shows bilateral pneumonia. He is also septic. It appears he has more septic shock than hypotensive bleeding. He is on the ventilator. He is sedated. PHYSICAL EXAMINATION: VITAL SIGNS: His pulse rate is 120, blood pressure 92/57 and he is on low-dose Levophed. CARDIOVASCULAR SYSTEM: First and second heart sounds normal. LUNGS: Clear to auscultation. ABDOMEN: Nondistended. He has a PEG tube placed over the left upper quadrant. LABORATORY DATA: From today shows WBC of 4,200, hemoglobin 11.4, hematocrit 36.1, MCV 94.7, and platelet count 234,000. His bandemia is 54% and polymorphs 21. His chemistry panel shows normal electrolytes, BUN is 36, creatinine 1.01, bilirubin 1.3, AST 38, ALT 26, alkaline phosphatase 49, albumin 2.5. CLINICAL IMPRESSION: 1. Septic shock, bilateral pneumonia. 2. History of hematemesis, but appears symptoms more suggestive of septic shock and bilateral pneumonia. Blood count is stable. RECOMMENDATIONS: 1. My plan was for EGD this morning, but I feel that he does not need an EGD at the present time. 2. Follow up labs and continue on antibiotics. 3. Ventilator support. 4. IV Protonix. MTDD
--- NOTE | 2017-10-21 21:19 | PRG ---
DATE OF SERVICE: 10/21/2017 SUBJECTIVE: Mr. Robles remains hemodynamically stable. He is sedated for ventilation. OBJECTIVE: VITAL SIGNS: Heart rate 98, 102 this evening. Blood pressure today is 124/68, respiratory rate is 2 0, oximetry is 100%. Intake and output is negative 636. LUNGS: Remarkable for coarse equal breath sounds. HEART: Regular rhythm, no S3. ABDOMEN: Soft and nontender. EXTREMITIES: Without asymmetry. LABORATORY DATA: White count 4.2, hemoglobin 11.4, platelets 234,000. Sodium 139, potassium 4.4, ch loride 110, bicarbonate 22, BUN 36, creatinine 1.01. Albumin is 2.5, pH 7.38, CO2 of 35, pO2 of 58. IMAGING: Chest radiograph reviewed by me shows right greater than left alveolar infiltrates. IMPRESSION: 1. Pneumonia with adult respiratory distress syndrome. 2. History of cerebrovascular accident. 3. ? gastrointestinal blood loss, I feel the primary problem is sepsis and not a gastrointestinal bl eed and I will think endoscopy is a priority at this point. I have discussed the above with Dr. Howard and he feels the same way. He does have a mild coagulopathy without anyclinical issue at this point in time. He also has active urine sediment. His hepatitis serologies all negative. Will continue mechanical ventilation. He is currently not willing to pull and probably will be for q uite some time. Critical care time 30 minutes.
[2017-10-21 23:25] LABS: Vancomycin, Trough 13.9 ug/mL
[2017-10-22] MEDS: Vancomycin HCl 750 MG in Sodium Chloride 0.9% 250 ML 250 ML IVPB SCH ×2 (00:01→12:04)
[2017-10-22 05:26] LABS: Anion Gap 10 mmol/L (10-20); BUN (Urea Nitrogen) 32 mg/dL (8.4-25.7); Calc. Creatinine Clearance 71 mL/min (70-130); Carbon Dioxide 22 mmol/L (22-29); Chloride 113 mmol/L (98-107); Estimated GFR-MDRD Greater than 90; Glucose 72 mg/dL (70-105); Potassium 3.9 mmol/L (3.5-5.1); Sodium 141 mmol/L (136-145)
[2017-10-22] MEDS: Cefepime 1 GM, Admixture Fee 1 EACH in Sterile Water 10 ML SLOW IVP SCH ×2 (06:15→17:56)
[2017-10-22 06:22] LABS: Band 41 % (5-11); Hemoglobin 9.5 g/dL (14.0-18.0); Lymphocytes 4 % (21-51); MDiff Complete? YES; Mean Corpuscular HGB CONC 33.3 g/dL (32.0-36.0); Mean Corpuscular Hemoglobin 31.6 pg (27.0-31.0); Mean Corpuscular Volume 94.8 fl (80.0-94.0); Mean Platelet Volume 8.8 fL (7.4-10.4); Monocytes 6 % (0-10); Myelocyte 1 % (0-0); Neutrophil 48 % (42-75); Platelet Count 166 thou/uL (130-400); RBC Distribution Width 15.1 % (11.5-14.5); Red Blood Cell (RBC) Count 3.01 mill/uL (4.70-6.10); White Blood Cell (WBC) Count 8.1 thou/uL (4.8-10.8)
[2017-10-22] MEDS: Sodium Chloride 0.9% 1,000 ML IV SCH ×2 (08:17→16:38)
[2017-10-22 08:51] LABS: Actual Bicarbonate (HCO3a) 19.7 mEq/L (22-26); Base Excess (BEa) -4.1 mEq/L (0 (+/-) 2.5); CO2 Tension 30.1 mmHg (35.0-45.0); Calcium, Ionized 1.2 mmol/L (1.12-1.30); Hematocrit-ABG 20.1 % (42.0-52.0); Hemoglobin (Hb) 7.1 g/dL (14.0-18.0); O2 Tension (PaO2) 93.5 mmHg (80.0-100.0); pH, Arterial 7.43 (7.35-7.45)
[2017-10-22 08:53] LABS: ALV-art Gradient 156.875 (0-20); Puncture Site RBA
[2017-10-22] MEDS: Fluconazole 100 MG TAB PO SCH (09:10)
[2017-10-22] MEDS: Pantoprazole 40 MG VIAL IVP SCH (09:11)
[2017-10-22] MEDS: Oseltamivir 75 MG CAP PO SCH ×2 (09:11→21:07)
--- NOTE | 2017-10-22 09:37 | RAD ---
AP VIEW CHEST: Date: 10/22/17 HISTORY: Ventilator dependent patient. FINDINGS: Comparison made to previous exam from 10/21/17. AP view of chest demonstrates lines and tubes to be unchanged. Bilateral air space opacities seen, mo re prominent on the left than on the right. Radiographic appearance of the chest is stable. No newly developed masses or lesions seen. IMPRESSION: Stable AP view of chest. POS: [facility]
--- NOTE | 2017-10-22 10:09 | PRG ---
DATE OF SERVICE: 10/22/2017 Thirty-five minutes critical care time. Mr. Robles remains intubated on mechanical ventilation. He will wake up and follow commands in [place]. PHYSICAL EXAMINATION: VITAL SIGNS: Temperature is 99.0 with a T-max of 99.9, pulse 79, blood pressure 114/71. 24 hour int [facility] daniel 3116, output 1210. HEENT: Pupils react. Sclerae are anicteric. Oropharynx is clear. NECK: No JVD, or bruits. LUNGS: Fairly clear anteriorly without wheezes or rhonchi. CARDIOVASCULAR: S1, S2, slightly tachycardic without murmur, rub or gallop. ABDOMEN: Soft, nontender. EXTREMITIES: Without clubbing, cyanosis or edema or skin findings. LABORATORY DATA: PH 7.43, pCO2 of 30, pO2 of 93 on SIMV rate 18, tidal volume 500, PEEP 5, pressure support 10, FiO2 40%. White blood cell count 8.1, hemoglobin 9.5, hematocrit 28.5, platelet count 16 6. Sodium 141, potassium 3.9, chloride 113, CO2 22, BUN 32, creatinine 0.8, glucose 72. Chest x-ray shows a left upper lobe infiltrate which is improved compared to a film 2 days ago. ASSESSMENT: 1. Pneumonia. 2. History of cerebrovascular accident. 3. Possible gastrointestinal blood loss. PLAN: 1. Spontaneous breathing trial and reevaluate for the potential for extubation. 2. He is being covered for the influenza with Tamiflu. 3. Continue cefepime and Levaquin. 4. Continue vancomycin for the time being, but that can probably stopped by tomorrow. 5. He is off the vasopressors.
--- NOTE | 2017-10-22 10:36 | PDOC.PN ---
- Subjective Encounter Start Date: 10/22/17 Encounter Start Time: 09:50 Subjective: awake, on vent -: is off levophed - Objective MAR Reviewed: Yes Vital Signs & Weight: Vital Signs (12 hours) Temp Pulse Resp BP Pulse Ox 10/22/17 10:00 14 10/22/17 09:26 72 18 10 L 10/22/17 08:31 71 114/68 10/22/17 08:00 99.0 F 74 18 100 10/22/17 07:00 99.0 F 10/22/17 06:00 18 10/22/17 04:00 99.9 F H 18 10/22/17 02:00 18 10/22/17 01:53 88 110/66 10/22/17 00:07 88 18 100 10/22/17 00:00 99.5 F 18 Weight Admit Weight 114 lb 10.24 oz Weight 114 lb 10.24 oz Most Recent Monitor Data Heart Rate from ECG 105 NIBP 114/71 NIBP BP-Mean 88 Respiration from ECG 14 SpO2 99 I&O: 10/21/17 10/22/17 10/23/17 06:59 06:59 06:59 Intake Total 1584.1 3116.1 60 Output Total 2221 1210 160 Balance -636.9 1906.1 -100 Result Diagrams: 10/22/17 04:32 10/22/17 04:32 Phys Exam - Physical Examination HEENT: PERRLA, sclera anicteric Neck: no JVD, supple Respiratory: no wheezing, no rales Cardiovascular: RRR, no significant murmur Gastrointestinal: soft, non-tender, positive bowel sounds peg Musculoskeletal: no edema, pulses present left hemiplegia, dysarthria, dysphagia Dx/Plan (1) Sepsis Code(s): A41.9 - SEPSIS, UNSPECIFIED ORGANISM Status: Acute Qualifiers: Sepsis type: sepsis due to unspecified organism Qualified Code(s): A41.9 - Sepsis, unspecified organism (2) Acute respiratory failure with hypoxia Code(s): J96.01 - ACUTE RESPIRATORY FAILURE WITH HYPOXIA Status: Acute (3) Influenza A Code(s): J10.1 - FLU DUE TO OTH IDENT INFLUENZA VIRUS W OTH RESP MANIFEST Status: Acute (4) Aspiration pneumonia Code(s): J69.0 - PNEUMONITIS DUE TO INHALATION OF FOOD AND VOMIT Status: Acute Qualifiers: Aspiration pneumonia type: due to regurgitated food (5) CVA, old, hemiparesis Code(s): I69.359 - HEMIPLGA FOLLOWING CEREBRAL INFARCTION AFFECTING UNSP SIDE Status: Chronic Comment: left hemiplegia, aphasia/dysarthria and dysphagia (6) HYUN (acute kidney injury) Code(s): N17.9 - ACUTE KIDNEY FAILURE, UNSPECIFIED Status: Acute Comment: resolving (7) Metabolic acidosis Code(s): E87.2 - ACIDOSIS Status: Acute Comment: resolving (8) FTT (failure to thrive) in adult Status: Chronic (9) Dementia Code(s): F03.90 - UNSPECIFIED DEMENTIA WITHOUT BEHAVIORAL DISTURBANCE Status: Chronic Qualifiers: Dementia type: vascular dementia - Plan is on cefi, levaq and vanc -: tamiflu for flu, fluconazole for budding yeast in prelim resp cs -: iv steroids, gentle hydration, is off levophed and sbp around 110 -: is wheelchair bound at baseline due to prior cva -: weaning per pulm advice. Has 12 siblings and likely one of them have to [place] * . -e him with them as pt has no funding for dc plan. Review of Systems - Medications/Allergies Allergies/Adverse Reactions: Allergies Allergy/AdvReac Type Severity Reaction Status Date / Time No Known Drug Allergies Allergy Verified 05/24/17 10:23 Medications: Current Medications Acetaminophen (Tylenol) 650 mg PO Q4H PRN PRN Reason: Headache/Fever or Pain Last Admin: 10/21/17 08:23 Dose: 650 mg Albuterol/Ipratropium (Duoneb) 3 ml NEB [id number] [facility] Last Admin: 10/22/17 09:26 Dose: 3 ml Fluconazole (Diflucan) 100 mg PO DAILY [facility] Last Admin: 10/22/17 09:10 Dose: 100 mg Levofloxacin 500 mg/ Device 100 mls @ 100 mls/hr IVPB 1400 [facility] Last Admin: 10/21/17 13:39 Dose: 100 mls Sodium Chloride (Normal Saline 0.9%) 1,000 mls @ 100 mls/hr IV .Q10H [facility] Last Admin: 10/22/17 08:17 Dose: Not Given Potassium Chloride 40 meq/ (Sodium Chloride) 270 mls @ 135 mls/hr IVPB ASDIR PRN PRN Reason: FOR SERUM K+ 2.5 - 3.5 Potassium Chloride 40 meq/ (Device) 100 mls @ 50 mls/hr IVPB ASDIR PRN PRN Reason: FOR SERUM K+ 2.5 - 3.5 Magnesium Sulfate 1 gm/ Sodium (Chloride) 102 mls @ 102 mls/hr IV PRN PRN PRN Reason: MAG LEVEL 1.4 - 2.0 Magnesium Sulfate 2 gm/ Device 100 mls @ 100 mls/hr IVPB ASDIR PRN PRN Reason: MAGNESIUM < 1.4 Potassium Phosphate 9 mmol/ (Sodium Chloride) 103 mls @ 25.75 mls/hr IVPB ASDIR PRN PRN Reason: Phosphate 1.0-1.8 Potassium Phosphate 12 mmol/ (Sodium Chloride) 254 mls @ 63.5 mls/hr IV ASDIR PRN PRN Reason: Serum phosphate 0.5-0.9 Potassium Phosphate 15 mmol/ (Sodium Chloride) 255 mls @ 63.75 mls/hr IV ASDIR PRN PRN Reason: Serum Phos < 0.5 Fentanyl (Fentanyl Cadd) 250 mls @ 0 mls/hr IVPB INF MIKHAIL; Titrate PRN Reason: Protocol Stop: 11/19/17 15:59 Fentanyl Citrate (Fentanyl Bolus) 250 mls @ 0 mls/hr IVPB PRN PRN; As Directed PRN Reason: Breakthrough pain Stop: 11/19/17 15:59 Last Admin: 10/22/17 09:14 Dose: 50 mls Cefepime HCl 1 gm/Miscellaneous Medication 1 each/ Sterile Water 10 mls @ 120 mls/hr SLOW IVP 0600,1800 [facility] Last Admin: 10/22/17 06:15 Dose: 10 mls Vancomycin HCl 750 mg/ Sodium (Chloride) 250 mls @ 250 mls/hr IVPB 1200,2359 [facility] Last Admin: 10/22/17 00:01 Dose: 250 mls Lorazepam (Ativan) 2 mg SLOW IVP Q2H PRN PRN Reason: Anxiety to achieve Boyd 2-3 Stop: 11/19/17 15:59 Last Admin: 10/20/17 23:18 Dose: 2 mg Magnesium Oxide (Magnesium Oxide) 400 mg PO BIDPRN PRN PRN Reason: FOR SERUM MAG 1.4 - 2.0 Magnesium Oxide (Magnesium Oxide) 800 mg PO PRN PRN PRN Reason: FOR SERUM MAG < 1.4 Methylprednisolone Sodium Succinate (Solu-Medrol) 20 mg IVP Q8HR [facility] Last Admin: 10/22/17 06:15 Dose: 20 mg Miscellaneous Medication (Phos-Nak) 1 pkt PO TIDPRN PRN PRN Reason: FOR PHOS LEVEL 1.0 - 1.8 Miscellaneous Medication (Phos-Nak) 2 pkt PO TIDPRN PRN PRN Reason: FOR PHOS LEVEL 0.5 - 1.0 Miscellaneous Medication (Pharmacy To Dose) 1 each IVPB PRN PRN PRN Reason: Pharmacy to dose Morphine Sulfate (Morphine) 2 mg IVP Q2H PRN PRN Reason: Breakthrough pain Stop: 11/19/17 15:59 Ccu Electrolyte (Replacement Protocol) 0 each FS PRN PRN PRN Reason: FOR ELECTROLYTE REPLACEMENT Ondansetron HCl (Zofran) 4 mg IVP Q6H PRN PRN Reason: Nausea/Vomiting Oseltamivir Phosphate (Tamiflu) 75 mg PO BID [facility] Stop: 10/25/17 09:01 Last Admin: 10/22/17 09:11 Dose: 75 mg Pantoprazole Sodium (Protonix) 40 mg IVP DAILY [facility] Last Admin: 10/22/17 09:11 Dose: 40 mg Potassium Chloride (K-Dur) 40 meq PO ASDIR PRN PRN Reason: FOR SERUM K+ 2.5 - 3.5 Potassium Chloride (Klor-Con) 40 meq PER TUBE ASDIR PRN PRN Reason: FOR SERUM K+ 2.5-3.5 Propofol (Diprivan) 1,000 mg IV INF PRN; Protocol PRN Reason: TO ACHIEVE BOYD SCORE 2-3 Stop: 11/19/17 15:59 Sodium Chloride (Flush - Normal Saline) 10 ml IVF PRN PRN PRN Reason: Saline Flush Last Admin: 10/21/17 08:23 Dose: 10 ml
[2017-10-22] MEDS: Levofloxacin 750 mg/D5W 500 MG in Premix Bag 1 BAG IVPB SCH (13:23)
[2017-10-23 00:29] LABS: Vancomycin, Trough 11.9 ug/mL
[2017-10-23] MEDS: Vancomycin HCl 750 MG in Sodium Chloride 0.9% 250 ML 250 ML IVPB SCH (01:00)
[2017-10-23] MEDS ORDERED: Budesonide 0.5 MG/2 ML NEB ONE (04:34)
[2017-10-23] MEDS: Cefepime 1 GM, Admixture Fee 1 EACH in Sterile Water 10 ML SLOW IVP SCH ×2 (05:15→18:25)
[2017-10-23 05:23] LABS: Anion Gap 8 mmol/L (10-20); BUN (Urea Nitrogen) 23 mg/dL (8.4-25.7); Calc. Creatinine Clearance 89 mL/min (70-130); Calcium 7.8 mg/dL (7.8-10.44); Carbon Dioxide 24 mmol/L (22-29); Chloride 111 mmol/L (98-107); Estimated GFR-MDRD Greater than 90; Glucose 181 mg/dL (70-105); Sodium 140 mmol/L (136-145)
[2017-10-23 05:33] LABS: Anisocytosis SLIGHT = 6-15 cells (100X) (0-5/hpf); Band 17 % (5-11); Hemoglobin 9.7 g/dL (14.0-18.0); Hypochromia SLIGHT = 6-15 cells (100X) (0-5/hpf); Lymphocytes 16 % (21-51); MDiff Complete? YES; Mean Corpuscular HGB CONC 32.7 g/dL (32.0-36.0); Mean Corpuscular Hemoglobin 30.9 pg (27.0-31.0); Mean Corpuscular Volume 94.5 fl (80.0-94.0); Mean Platelet Volume 8.7 fL (7.4-10.4); Monocytes 2 % (0-10); Neutrophil 65 % (42-75); Platelet Count 151 thou/uL (130-400); Potassium 2.9 mmol/L (3.5-5.1); RBC Distribution Width 15.2 % (11.5-14.5); Red Blood Cell (RBC) Count 3.13 mill/uL (4.70-6.10); White Blood Cell (WBC) Count 7.7 thou/uL (4.8-10.8)
[2017-10-23] MEDS: Sodium Chloride 0.9% 1,000 ML IV SCH (05:33)
[2017-10-23] MEDS: Potassium Chloride 40 MEQ in Premix Bag 1 BAG IVPB PRN (06:15)
[2017-10-23] MEDS ORDERED: Sodium Chloride 0.9% 1,000 ML IV SCH (08:00)
[2017-10-23] MEDS ORDERED: DC Sedation Protocol FS ONE (08:41)
--- NOTE | 2017-10-23 08:41 | RAD ---
SINGLE VIEW CHEST: Date: 10/23/17 COMPARISON: 10/22/17. HISTORY: Ventilated patient with respiratory failure. FINDINGS: Single view of the chest shows a normal sized cardiomediastinal silhouette. The patient is status pos t sternotomy. The central venous catheter is unchanged in position. The endotracheal tube and NG tube have been removed. There are multifocal air space opacities scattered throughout the lungs, left gre ater than right. Lower lung volumes are present, but the infiltrate in the left lung appears more pro nounced on today's radiograph. IMPRESSION: Multifocal pneumonia. POS: [facility]
--- NOTE | 2017-10-23 08:54 | PRG ---
DATE OF SERVICE: 10/23/2017 He was extubated yesterday. Influenza A. He has had a CVA with weakness on one side. He is verbali zing with some difficulty. PHYSICAL EXAMINATION: VITAL SIGNS: Sats are 98%, pulse 80, blood pressure 130/80. CHEST: Chest revealed extensive rhonchi. CARDIAC: Normal S1-S2. ABDOMEN: Soft, no masses. IMPRESSION: 1. Respiratory failure. 2. Influenza on Tamiflu. 3. Extensive bilateral pneumonia. 4. Previous cerebrovascular accident with a PEG in place. PLAN: The patient can now be transferred out of the ICU. Continue PT, nutrition, and supportive car e. Cultures are negative. We will discontinue vancomycin. Continue Levaquin. Supportive care. One-half hour critical care time.
[2017-10-23] MEDS: Fluconazole 100 MG TAB PO SCH (09:25)
[2017-10-23] MEDS: Oseltamivir 75 MG CAP PO SCH ×2 (09:25→20:58)
[2017-10-23] MEDS: Pantoprazole 40 MG VIAL IVP SCH (09:30)
[2017-10-23] MEDS: NS 0.9% w/ 20 MEQ KCL 1,000 ML IV SCH (09:50)
[2017-10-23] MEDS: Vancomycin HCl 1.25 GM in Sodium Chloride 0.9% 250 ML 250 ML IVPB SCH ×2 (10:15→20:58)
--- NOTE | 2017-10-23 11:33 | PDOC.PN ---
- Subjective Encounter Start Date: 10/23/17 Encounter Start Time: 10:30 Subjective: no sob, tries to talk -: got extubated yesterday - Objective MAR Reviewed: Yes Vital Signs & Weight: Vital Signs (12 hours) Temp Pulse Resp Pulse Ox 10/23/17 08:00 98.0 F 10/23/17 04:00 97.6 F 10/23/17 02:52 99 10/23/17 00:12 101 H 20 100 10/23/17 00:00 99.5 F Weight Admit Weight 114 lb 10.24 oz Weight 114 lb 10.24 oz Most Recent Monitor Data Heart Rate from ECG 77 NIBP 105/63 NIBP BP-Mean 76 Respiration from ECG 25 SpO2 98 I&O: 10/22/17 10/23/17 10/24/17 06:59 06:59 06:59 Intake Total 3116.1 3281 Output Total 1210 2210 400 Balance 1906.1 1071 -400 Result Diagrams: 10/23/17 04:23 10/23/17 04:23 Phys Exam - Physical Examination HEENT: PERRLA, sclera anicteric Neck: no JVD, supple Respiratory: no wheezing, no rales rhonchi++ Cardiovascular: RRR, no significant murmur Gastrointestinal: soft, no distention, positive bowel sounds peg+ Musculoskeletal: no edema, pulses present left hemiplegia, dysarthria, dysphagia Dx/Plan (1) Sepsis Code(s): A41.9 - SEPSIS, UNSPECIFIED ORGANISM Status: Acute Qualifiers: Sepsis type: sepsis due to unspecified organism Qualified Code(s): A41.9 - Sepsis, unspecified organism (2) Acute respiratory failure with hypoxia Code(s): J96.01 - ACUTE RESPIRATORY FAILURE WITH HYPOXIA Status: Acute Comment: extubated 10/22/2016 (3) Influenza A Code(s): J10.1 - FLU DUE TO OTH IDENT INFLUENZA VIRUS W OTH RESP MANIFEST Status: Acute (4) Aspiration pneumonia Code(s): J69.0 - PNEUMONITIS DUE TO INHALATION OF FOOD AND VOMIT Status: Acute Qualifiers: Aspiration pneumonia type: due to regurgitated food (5) CVA, old, hemiparesis Code(s): I69.359 - HEMIPLGA FOLLOWING CEREBRAL INFARCTION AFFECTING UNSP SIDE Status: Chronic Comment: left hemiplegia, aphasia/dysarthria and dysphagia (6) HYUN (acute kidney injury) Code(s): N17.9 - ACUTE KIDNEY FAILURE, UNSPECIFIED Status: Acute Comment: resolving (7) Metabolic acidosis Code(s): E87.2 - ACIDOSIS Status: Acute Comment: resolving (8) FTT (failure to thrive) in adult Status: Chronic (9) Dementia Code(s): F03.90 - UNSPECIFIED DEMENTIA WITHOUT BEHAVIORAL DISTURBANCE Status: Chronic Qualifiers: Dementia type: vascular dementia - Plan is on cefepime and levaquin -: tamiflu, diflucan, nebs, steroids -: gentle iv hydration -: PT eval, oob to chair as tolerated -: prognosis guarded * . Review of Systems - Medications/Allergies Allergies/Adverse Reactions: Allergies Allergy/AdvReac Type Severity Reaction Status Date / Time No Known Drug Allergies Allergy Verified 05/24/17 10:23 Medications: Current Medications Acetaminophen (Tylenol) 650 mg PO Q4H PRN PRN Reason: Headache/Fever or Pain Last Admin: 10/21/17 08:23 Dose: 650 mg Albuterol/Ipratropium (Duoneb) 3 ml NEB [id number] MIKHAIL Last Admin: 10/23/17 00:12 Dose: 3 ml Fluconazole (Diflucan) 100 mg PO DAILY [facility] Last Admin: 10/23/17 09:25 Dose: 100 mg Levofloxacin 500 mg/ Device 100 mls @ 100 mls/hr IVPB 1400 [facility]KHAIL Last Admin: 10/22/17 13:23 Dose: 100 mls Potassium Chloride 40 meq/ (Sodium Chloride) 270 mls @ 135 mls/hr IVPB ASDIR PRN PRN Reason: FOR SERUM K+ 2.5 - 3.5 Potassium Chloride 40 meq/ (Device) 100 mls @ 50 mls/hr IVPB ASDIR PRN PRN Reason: FOR SERUM K+ 2.5 - 3.5 Last Admin: 10/23/17 06:15 Dose: 100 mls Magnesium Sulfate 1 gm/ Sodium (Chloride) 102 mls @ 102 mls/hr IV PRN PRN PRN Reason: MAG LEVEL 1.4 - 2.0 Magnesium Sulfate 2 gm/ Device 100 mls @ 100 mls/hr IVPB ASDIR PRN PRN Reason: MAGNESIUM < 1.4 Potassium Phosphate 9 mmol/ (Sodium Chloride) 103 mls @ 25.75 mls/hr IVPB ASDIR PRN PRN Reason: Phosphate 1.0-1.8 Potassium Phosphate 12 mmol/ (Sodium Chloride) 254 mls @ 63.5 mls/hr IV ASDIR PRN PRN Reason: Serum phosphate 0.5-0.9 Potassium Phosphate 15 mmol/ (Sodium Chloride) 255 mls @ 63.75 mls/hr IV ASDIR PRN PRN Reason: Serum Phos < 0.5 Cefepime HCl 1 gm/Miscellaneous Medication 1 each/ Sterile Water 10 mls @ 120 mls/hr SLOW IVP 0600,1800 [facility] Last Admin: 10/23/17 05:15 Dose: 10 mls Vancomycin HCl 1.25 gm/ Sodium (Chloride) 250 mls @ 250 mls/hr IVPB 0800,2000 [facility] Last Admin: 10/23/17 10:15 Dose: 250 mls Potassium Chloride/Sodium Chloride (Ns 0.9% W/ 20 Meq Kcl) 1,000 mls @ 50 mls/ hr IV .Q20H [facility] Last Admin: 10/23/17 09:50 Dose: 1,000 mls Lorazepam (Ativan) 2 mg SLOW IVP Q2H PRN PRN Reason: Anxiety to achieve Boyd 2-3 Stop: 11/19/17 15:59 Last Admin: 10/20/17 23:18 Dose: 2 mg Magnesium Oxide (Magnesium Oxide) 400 mg PO BIDPRN PRN PRN Reason: FOR SERUM MAG 1.4 - 2.0 Magnesium Oxide (Magnesium Oxide) 800 mg PO PRN PRN PRN Reason: FOR SERUM MAG < 1.4 Methylprednisolone Sodium Succinate (Solu-Medrol) 20 mg IVP Q8HR [facility] Last Admin: 10/23/17 05:15 Dose: 20 mg Miscellaneous Medication (Phos-Nak) 1 pkt PO TIDPRN PRN PRN Reason: FOR PHOS LEVEL 1.0 - 1.8 Miscellaneous Medication (Phos-Nak) 2 pkt PO TIDPRN PRN PRN Reason: FOR PHOS LEVEL 0.5 - 1.0 Miscellaneous Medication (Pharmacy To Dose) 1 each IVPB PRN PRN PRN Reason: Pharmacy to dose Ccu Electrolyte (Replacement Protocol) 0 each FS PRN PRN PRN Reason: FOR ELECTROLYTE REPLACEMENT Ondansetron HCl (Zofran) 4 mg IVP Q6H PRN PRN Reason: Nausea/Vomiting Oseltamivir Phosphate (Tamiflu) 75 mg PO BID [facility] Stop: 10/25/17 09:01 Last Admin: 10/23/17 09:25 Dose: 75 mg Pantoprazole Sodium (Protonix) 40 mg IVP DAILY [facility] Last Admin: 10/23/17 09:30 Dose: 40 mg Potassium Chloride (K-Dur) 40 meq PO ASDIR PRN PRN Reason: FOR SERUM K+ 2.5 - 3.5 Potassium Chloride (Klor-Con) 40 meq PER TUBE ASDIR PRN PRN Reason: FOR SERUM K+ 2.5-3.5 Propofol (Diprivan) 1,000 mg IV INF PRN; Protocol PRN Reason: TO ACHIEVE BOYD SCORE 2-3 Stop: 11/19/17 15:59 Sodium Chloride (Flush - Normal Saline) 10 ml IVF PRN PRN PRN Reason: Saline Flush Last Admin: 10/21/17 08:23 Dose: 10 ml
[2017-10-23] MEDS: Levofloxacin 750 mg/D5W 500 MG in Premix Bag 1 BAG IVPB SCH (14:19)
[2017-10-23] MEDS ORDERED: Lidocaine 1% w/Epinephrine 1:200K 30 ML VIAL ONE (17:11)
[2017-10-24 04:55] LABS: Anion Gap 9 mmol/L (10-20); BUN (Urea Nitrogen) 20 mg/dL (8.4-25.7); Calc. Creatinine Clearance 97 mL/min (70-130); Calcium 7.7 mg/dL (7.8-10.44); Carbon Dioxide 26 mmol/L (22-29); Chloride 110 mmol/L (98-107); Estimated GFR-MDRD Greater than 90; Glucose 162 mg/dL (70-105); Sodium 142 mmol/L (136-145)
[2017-10-24] MEDS: NS 0.9% w/ 20 MEQ KCL 1,000 ML IV SCH (05:15)
[2017-10-24] MEDS: Cefepime 1 GM, Admixture Fee 1 EACH in Sterile Water 10 ML SLOW IVP SCH ×2 (05:17→18:17)
[2017-10-24 05:19] LABS: Potassium 2.9 mmol/L (3.5-5.1)
[2017-10-24] MEDS: Potassium Chloride 40 MEQ in Premix Bag 1 BAG IVPB PRN (05:21)
[2017-10-24 05:56] LABS: Band 10 % (5-11); Hemoglobin 9.5 g/dL (14.0-18.0); Lymphocytes 2 % (21-51); MDiff Complete? YES; Mean Corpuscular HGB CONC 32.8 g/dL (32.0-36.0); Mean Corpuscular Hemoglobin 30.7 pg (27.0-31.0); Mean Corpuscular Volume 93.6 fl (80.0-94.0); Mean Platelet Volume 8.8 fL (7.4-10.4); Monocytes 2 % (0-10); Neutrophil 86 % (42-75); Platelet Count 139 thou/uL (130-400); RBC Distribution Width 15.2 % (11.5-14.5); Red Blood Cell (RBC) Count 3.09 mill/uL (4.70-6.10); White Blood Cell (WBC) Count 9.6 thou/uL (4.8-10.8)
--- NOTE | 2017-10-24 08:19 | RAD ---
PORTABLE CHEST: Date: 10-24-17 Provided Clinical History: Pneumonia. FINDINGS: Comparison is made with the study dated 10-23-17. Significant interval change with respect to the maximo st is not apparent. IMPRESSION: As above. POS: [facility]
[2017-10-24] MEDS: Pantoprazole 40 MG VIAL IVP SCH (09:02)
[2017-10-24] MEDS: Fluconazole 100 MG TAB PO SCH (09:02)
[2017-10-24] MEDS ORDERED: DC Sedation Protocol FS ONE (09:13)
--- NOTE | 2017-10-24 09:29 | PRG ---
DATE OF SERVICE: 10/24/2017 This is a Croatian speaking gentleman who denies any difficulty breathing or shortness of breath. PHYSICAL EXAMINATION: VITAL SIGNS: Sats are 97% on 3 liters, temperature 98, pulse 80. CHEST: Chest reveals decreased breath sounds without any wheezing. CARDIAC: Normal S1, S2. ABDOMEN: Soft, no masses. LABORATORY DATA: White count 9000, H&H 9 and 28, platelet count 139, potassium 2.9. So far all cult ures are negative. X-ray shows still persistent left-sided infiltrate. IMPRESSION: 1. Influenza A. 2. Left-sided pneumonia. 3. Cerebrovascular accident status post PEG for dysphagia. PLAN: I am discontinuing vancomycin, no other indication of Staph. Continue Maxipime and switch Lev aquin by mouth per PEG. He could probably transfer out of the ICU. I will follow.
[2017-10-24] MEDS: Oseltamivir 75 MG CAP PO SCH ×2 (09:54→20:56)
--- NOTE | 2017-10-24 11:27 | PDOC.PN ---
- Subjective Encounter Start Date: 10/24/17 Encounter Start Time: 07:00 Subjective: awake, no sob - Objective MAR Reviewed: Yes Vital Signs & Weight: Vital Signs (12 hours) Temp Pulse Resp Pulse Ox 10/24/17 08:28 92 21 H 10/24/17 07:44 98.7 F 72 17 97 10/24/17 04:00 98.7 F 10/24/17 00:00 99 F 10/23/17 23:25 88 25 H 100 Weight Admit Weight 114 lb 10.24 oz Weight 114 lb 10.24 oz Most Recent Monitor Data Heart Rate from ECG 82 NIBP 107/67 NIBP BP-Mean 81 Respiration from ECG 32 SpO2 97 I&O: 10/23/17 10/24/17 10/25/17 06:59 06:59 06:59 Intake Total 3281 2551 Output Total 2210 1770 Balance 1071 781 Result Diagrams: 10/24/17 04:10 10/24/17 04:10 Phys Exam - Physical Examination HEENT: PERRLA, sclera anicteric Neck: no JVD, supple Respiratory: no wheezing rhonchi++ Cardiovascular: RRR, no significant murmur Gastrointestinal: soft, no distention, positive bowel sounds peg+ Musculoskeletal: no edema, pulses present chronic left hemiplegia, dysarthria, vasc dementia Dx/Plan (1) Sepsis Code(s): A41.9 - SEPSIS, UNSPECIFIED ORGANISM Status: Acute Qualifiers: Sepsis type: sepsis due to unspecified organism Qualified Code(s): A41.9 - Sepsis, unspecified organism (2) Acute respiratory failure with hypoxia Code(s): J96.01 - ACUTE RESPIRATORY FAILURE WITH HYPOXIA Status: Acute Comment: extubated 10/22/2016 (3) Influenza A Code(s): J10.1 - FLU DUE TO OTH IDENT INFLUENZA VIRUS W OTH RESP MANIFEST Status: Acute (4) Aspiration pneumonia Code(s): J69.0 - PNEUMONITIS DUE TO INHALATION OF FOOD AND VOMIT Status: Acute Qualifiers: Aspiration pneumonia type: due to regurgitated food (5) CVA, old, hemiparesis Code(s): I69.359 - HEMIPLGA FOLLOWING CEREBRAL INFARCTION AFFECTING UNSP SIDE Status: Chronic Comment: left hemiplegia, aphasia/dysarthria and dysphagia (6) HYUN (acute kidney injury) Code(s): N17.9 - ACUTE KIDNEY FAILURE, UNSPECIFIED Status: Acute Comment: resolving (7) Metabolic acidosis Code(s): E87.2 - ACIDOSIS Status: Acute Comment: resolving (8) FTT (failure to thrive) in adult Status: Chronic (9) Dementia Code(s): F03.90 - UNSPECIFIED DEMENTIA WITHOUT BEHAVIORAL DISTURBANCE Status: Chronic Qualifiers: Dementia type: vascular dementia - Plan is on levaq and cefepime -: off vanc. On tamiflu and diflucan -: steroids, nebs -: peg feeding, replace K -: tx to med floor. CM to talk to siblings to arrange outpt dc plan * . Has no insurance and will need to go home with one of his siblings. Review of Systems - Medications/Allergies Allergies/Adverse Reactions: Allergies Allergy/AdvReac Type Severity Reaction Status Date / Time No Known Drug Allergies Allergy Verified 05/24/17 10:23 Medications: Current Medications Acetaminophen (Tylenol) 650 mg PO Q4H PRN PRN Reason: Headache/Fever or Pain Last Admin: 10/21/17 08:23 Dose: 650 mg Albuterol/Ipratropium (Duoneb) 3 ml NEB [id number] [facility] Last Admin: 10/24/17 08:28 Dose: 3 ml Fluconazole (Diflucan) 100 mg PO DAILY [facility] Last Admin: 10/24/17 09:02 Dose: 100 mg Potassium Chloride 40 meq/ (Sodium Chloride) 270 mls @ 135 mls/hr IVPB ASDIR PRN PRN Reason: FOR SERUM K+ 2.5 - 3.5 Potassium Chloride 40 meq/ (Device) 100 mls @ 50 mls/hr IVPB ASDIR PRN PRN Reason: FOR SERUM K+ 2.5 - 3.5 Last Admin: 10/24/17 05:21 Dose: 100 mls Magnesium Sulfate 1 gm/ Sodium (Chloride) 102 mls @ 102 mls/hr IV PRN PRN PRN Reason: MAG LEVEL 1.4 - 2.0 Magnesium Sulfate 2 gm/ Device 100 mls @ 100 mls/hr IVPB ASDIR PRN PRN Reason: MAGNESIUM < 1.4 Potassium Phosphate 9 mmol/ (Sodium Chloride) 103 mls @ 25.75 mls/hr IVPB ASDIR PRN PRN Reason: Phosphate 1.0-1.8 Potassium Phosphate 12 mmol/ (Sodium Chloride) 254 mls @ 63.5 mls/hr IV ASDIR PRN PRN Reason: Serum phosphate 0.5-0.9 Potassium Phosphate 15 mmol/ (Sodium Chloride) 255 mls @ 63.75 mls/hr IV ASDIR PRN PRN Reason: Serum Phos < 0.5 Cefepime HCl 1 gm/Miscellaneous Medication 1 each/ Sterile Water 10 mls @ 120 mls/hr SLOW IVP 0600,1800 [facility] Last Admin: 10/24/17 05:17 Dose: 10 mls Potassium Chloride/Sodium Chloride (Ns 0.9% W/ 20 Meq Kcl) 1,000 mls @ 50 mls/ hr IV .Q20H [facility] Last Admin: 10/24/17 05:15 Dose: Not Given Levofloxacin (Levaquin) 500 mg PO 0600 [facility] Stop: 10/30/17 06:01 Levofloxacin (Levaquin) 500 mg PO NOW [facility] Stop: 10/24/17 11:45 Last Admin: 10/24/17 10:00 Dose: 500 mg Magnesium Oxide (Magnesium Oxide) 400 mg PO BIDPRN PRN PRN Reason: FOR SERUM MAG 1.4 - 2.0 Magnesium Oxide (Magnesium Oxide) 800 mg PO PRN PRN PRN Reason: FOR SERUM MAG < 1.4 Methylprednisolone Sodium Succinate (Solu-Medrol) 20 mg IVP Q8HR [facility] Last Admin: 10/24/17 05:17 Dose: 20 mg Miscellaneous Medication (Phos-Nak) 1 pkt PO TIDPRN PRN PRN Reason: FOR PHOS LEVEL 1.0 - 1.8 Miscellaneous Medication (Phos-Nak) 2 pkt PO TIDPRN PRN PRN Reason: FOR PHOS LEVEL 0.5 - 1.0 Miscellaneous Medication (Pharmacy To Dose) 1 each IVPB PRN PRN PRN Reason: Pharmacy to dose Ccu Electrolyte (Replacement Protocol) 0 each FS PRN PRN PRN Reason: FOR ELECTROLYTE REPLACEMENT Ondansetron HCl (Zofran) 4 mg IVP Q6H PRN PRN Reason: Nausea/Vomiting Oseltamivir Phosphate (Tamiflu) 75 mg PO BID [facility] Stop: 10/25/17 09:01 Last Admin: 10/24/17 09:54 Dose: 75 mg Pantoprazole Sodium (Protonix) 40 mg IVP DAILY [facility] Last Admin: 10/24/17 09:02 Dose: 40 mg Potassium Chloride (K-Dur) 40 meq PO ASDIR PRN PRN Reason: FOR SERUM K+ 2.5 - 3.5 Potassium Chloride (Klor-Con) 40 meq PER TUBE ASDIR PRN PRN Reason: FOR SERUM K+ 2.5-3.5 Sodium Chloride (Flush - Normal Saline) 10 ml IVF PRN PRN PRN Reason: Saline Flush Last Admin: 10/21/17 08:23 Dose: 10 ml
[2017-10-24] MEDS: Vancomycin HCl 1.25 GM in Sodium Chloride 0.9% 250 ML 250 ML IVPB SCH (14:06)
[2017-10-25] MEDS: NS 0.9% w/ 20 MEQ KCL 1,000 ML IV SCH (03:25)
[2017-10-25 04:41] LABS: Anion Gap 10 mmol/L (10-20); BUN (Urea Nitrogen) 17 mg/dL (8.4-25.7); Calc. Creatinine Clearance 100 mL/min (70-130); Calcium 7.7 mg/dL (7.8-10.44); Carbon Dioxide 25 mmol/L (22-29); Chloride 109 mmol/L (98-107); Estimated GFR-MDRD Greater than 90; Glucose 195 mg/dL (70-105); Potassium 3.1 mmol/L (3.5-5.1); Sodium 141 mmol/L (136-145)
[2017-10-25 05:33] LABS: Anisocytosis SLIGHT = 6-15 cells (100X) (0-5/hpf); Band 14 % (5-11); Bite Cells SLIGHT = 2-5 cells (100X) (0-1/hpf); Hemoglobin 10.2 g/dL (14.0-18.0); Lymphocytes 4 % (21-51); MDiff Complete? YES; Mean Corpuscular HGB CONC 32.6 g/dL (32.0-36.0); Mean Corpuscular Hemoglobin 30.1 pg (27.0-31.0); Mean Corpuscular Volume 92.6 fl (80.0-94.0); Mean Platelet Volume 9.4 fL (7.4-10.4); Monocytes 2 % (0-10); Neutrophil 80 % (42-75); PLT Morphology Comment Appears Adequate; Platelet Count 127 thou/uL (130-400); RBC Distribution Width 15.1 % (11.5-14.5); Schistocytes SLIGHT = 2-5 cells (100X) (0-1/hpf); White Blood Cell (WBC) Count 9.8 thou/uL (4.8-10.8)
[2017-10-25] MEDS: Cefepime 1 GM, Admixture Fee 1 EACH in Sterile Water 10 ML SLOW IVP SCH (05:53)
--- NOTE | 2017-10-25 10:21 | PDOC.PN ---
- Subjective Encounter Start Date: 10/25/17 Encounter Start Time: 07:30 Subjective: awake, not in distress - Objective MAR Reviewed: Yes Vital Signs & Weight: Vital Signs (12 hours) Temp Pulse Resp BP Pulse Ox 10/25/17 07:41 98.4 F 89 20 125/68 90 L 10/25/17 06:08 81 16 91 L 10/25/17 05:00 99.5 F 96 16 147/84 H 10/25/17 00:12 98.6 F 77 22 H 125/74 96 Weight Admit Weight 114 lb 10.24 oz Weight 114 lb 10.24 oz Most Recent Monitor Data Heart Rate from ECG 101 NIBP 125/84 NIBP BP-Mean 93 Respiration from ECG 33 SpO2 93 I&O: 10/24/17 10/25/17 10/26/17 06:59 06:59 06:59 Intake Total 2551 1440 Output Total 1770 1260 Balance 781 180 Result Diagrams: 10/25/17 03:32 10/25/17 03:32 Phys Exam - Physical Examination HEENT: PERRLA, sclera anicteric Neck: no JVD, supple Respiratory: no wheezing rhonchi++ Cardiovascular: RRR, no significant murmur Gastrointestinal: soft, non-tender, positive bowel sounds peg+ Musculoskeletal: no edema, pulses present Neurological: non-focal left hemiplegia, aphasia/dysphagia/dysarthria Dx/Plan (1) Sepsis Code(s): A41.9 - SEPSIS, UNSPECIFIED ORGANISM Status: Acute Qualifiers: Sepsis type: sepsis due to unspecified organism Qualified Code(s): A41.9 - Sepsis, unspecified organism (2) Acute respiratory failure with hypoxia Code(s): J96.01 - ACUTE RESPIRATORY FAILURE WITH HYPOXIA Status: Acute Comment: extubated 10/22/2016 (3) Influenza A Code(s): J10.1 - FLU DUE TO OTH IDENT INFLUENZA VIRUS W OTH RESP MANIFEST Status: Acute (4) Aspiration pneumonia Code(s): J69.0 - PNEUMONITIS DUE TO INHALATION OF FOOD AND VOMIT Status: Acute Qualifiers: Aspiration pneumonia type: due to regurgitated food (5) CVA, old, hemiparesis Code(s): I69.359 - HEMIPLGA FOLLOWING CEREBRAL INFARCTION AFFECTING UNSP SIDE Status: Chronic Comment: left hemiplegia, aphasia/dysarthria and dysphagia (6) HYUN (acute kidney injury) Code(s): N17.9 - ACUTE KIDNEY FAILURE, UNSPECIFIED Status: Resolved (7) Metabolic acidosis Code(s): E87.2 - ACIDOSIS Status: Resolved (8) FTT (failure to thrive) in adult Status: Chronic (9) Dementia Code(s): F03.90 - UNSPECIFIED DEMENTIA WITHOUT BEHAVIORAL DISTURBANCE Status: Chronic Qualifiers: Dementia type: vascular dementia - Plan is on levaquin, cefepime -: steroids, nebs -: tamiflu and diflucan -: peg feeding -: poor prognosis, d/w cm reg dc planning * . Review of Systems - Medications/Allergies Allergies/Adverse Reactions: Allergies Allergy/AdvReac Type Severity Reaction Status Date / Time No Known Drug Allergies Allergy Verified 05/24/17 10:23 Medications: Current Medications Acetaminophen (Tylenol) 650 mg PO Q4H PRN PRN Reason: Headache/Fever or Pain Last Admin: 10/21/17 08:23 Dose: 650 mg Albuterol/Ipratropium (Duoneb) 3 ml NEB [id number] [facility] Last Admin: 10/25/17 06:08 Dose: 3 ml Fluconazole (Diflucan) 100 mg PO DAILY [facility] Last Admin: 10/24/17 09:02 Dose: 100 mg Levofloxacin (Levaquin) 500 mg PO 0600 [facility] Stop: 10/30/17 06:01 Last Admin: 10/25/17 05:53 Dose: 500 mg Ondansetron HCl (Zofran) 4 mg IVP Q6H PRN PRN Reason: Nausea/Vomiting Pantoprazole Sodium (Protonix) 40 mg IVP DAILY [facility] Last Admin: 10/24/17 09:02 Dose: 40 mg Prednisone (Prednisone) 20 mg PO QAM-WM [facility]
[2017-10-25] MEDS: Pantoprazole 40 MG VIAL IVP SCH (11:19)
[2017-10-25] MEDS: Fluconazole 100 MG TAB PO SCH (11:19)
[2017-10-25] MEDS: Oseltamivir 75 MG CAP PO SCH (11:19)
--- NOTE | 2017-10-25 18:44 | PRG ---
DATE OF SERVICE: 10/25/2017 SUBJECTIVE: Tarik Robles is status post respiratory failure, status post pneumonia. He is better. H e is afebrile. His last x-ray did show right-sided pneumonia; he is not coughing or wheezing. He has a PEG in place . IMPRESSION: 1. Left-sided pneumonia. 2. Influenza. 3. Cerebrovascular accident. 4. PEG. All cultures are negative. PLAN: I will suggest switching him to oral prednisone and antibiotics. He can be discharged home an ytime in the next 24 to 48 hours.
[2017-10-26 04:54] LABS: Anion Gap 10 mmol/L (10-20); BUN (Urea Nitrogen) 15 mg/dL (8.4-25.7); Calc. Creatinine Clearance 104 mL/min (70-130); Calcium 7.6 mg/dL (7.8-10.44); Carbon Dioxide 27 mmol/L (22-29); Chloride 108 mmol/L (98-107); Estimated GFR-MDRD Greater than 90; Glucose 188 mg/dL (70-105); Sodium 142 mmol/L (136-145)
[2017-10-26 05:00] LABS: Band 12 % (5-11); Hemoglobin 10.3 g/dL (14.0-18.0); Lymphocytes 5 % (21-51); MDiff Complete? YES; Mean Corpuscular HGB CONC 32.3 g/dL (32.0-36.0); Mean Corpuscular Hemoglobin 30.2 pg (27.0-31.0); Mean Corpuscular Volume 93.4 fl (80.0-94.0); Mean Platelet Volume 9.3 fL (7.4-10.4); Monocytes 2 % (0-10); Neutrophil 81 % (42-75); PLT Morphology Comment Appears Adequate; Platelet Count 137 thou/uL (130-400); White Blood Cell (WBC) Count 14.8 thou/uL (4.8-10.8)
[2017-10-26 05:30] LABS: Potassium 2.7 mmol/L (3.5-5.1)
[2017-10-26] MEDS: Fluconazole 100 MG TAB PO SCH (09:41)
[2017-10-26] MEDS: predniSONE 20 MG TAB PO SCH (09:41)
[2017-10-26] MEDS: Pantoprazole 40 MG VIAL IVP SCH (09:41)
[2017-10-26] MEDS: Ondansetron HCl/PF 4 MG/2 ML Vial IVP PRN ×2 (09:57→21:26)
--- NOTE | 2017-10-26 11:50 | PDOC.PN ---
- Subjective Encounter Start Date: 10/26/17 Encounter Start Time: 09:15 Subjective: awake, watching tv -: no sob - Objective MAR Reviewed: Yes Vital Signs & Weight: Vital Signs (12 hours) Temp Pulse Resp BP Pulse Ox 10/26/17 08:50 105 H 20 93 L 10/26/17 08:00 98.1 F 105 H 20 131/83 94 L 10/26/17 00:51 94 L 10/26/17 00:49 94 L Weight Admit Weight 114 lb 10.24 oz Weight 114 lb 10.24 oz Most Recent Monitor Data Heart Rate from ECG 101 NIBP 125/84 NIBP BP-Mean 93 Respiration from ECG 33 SpO2 93 I&O: 10/25/17 10/26/17 10/27/17 06:59 06:59 06:59 Intake Total 1440 383 Output Total 1260 1300 Balance 180 -917 Result Diagrams: 10/26/17 03:40 10/26/17 03:40 Phys Exam - Physical Examination HEENT: PERRLA, sclera anicteric Neck: no JVD, supple Respiratory: no wheezing, no rales Cardiovascular: RRR, no significant murmur Gastrointestinal: soft, no distention, positive bowel sounds peg+ Musculoskeletal: no edema, pulses present left hemiplegia Dx/Plan (1) Sepsis Code(s): A41.9 - SEPSIS, UNSPECIFIED ORGANISM Status: Acute Qualifiers: Sepsis type: sepsis due to unspecified organism Qualified Code(s): A41.9 - Sepsis, unspecified organism (2) Acute respiratory failure with hypoxia Code(s): J96.01 - ACUTE RESPIRATORY FAILURE WITH HYPOXIA Status: Acute Comment: extubated 10/22/2016 (3) Influenza A Code(s): J10.1 - FLU DUE TO OTH IDENT INFLUENZA VIRUS W OTH RESP MANIFEST Status: Acute (4) Aspiration pneumonia Code(s): J69.0 - PNEUMONITIS DUE TO INHALATION OF FOOD AND VOMIT Status: Acute Qualifiers: Aspiration pneumonia type: due to regurgitated food (5) CVA, old, hemiparesis Code(s): I69.359 - HEMIPLGA FOLLOWING CEREBRAL INFARCTION AFFECTING UNSP SIDE Status: Chronic Comment: left hemiplegia, aphasia/dysarthria and dysphagia (6) HYUN (acute kidney injury) Code(s): N17.9 - ACUTE KIDNEY FAILURE, UNSPECIFIED Status: Resolved (7) Metabolic acidosis Code(s): E87.2 - ACIDOSIS Status: Resolved (8) FTT (failure to thrive) in adult Status: Chronic (9) Dementia Code(s): F03.90 - UNSPECIFIED DEMENTIA WITHOUT BEHAVIORAL DISTURBANCE Status: Chronic Qualifiers: Dementia type: vascular dementia - Plan on levaq, prednisone, nebs -: for help with dc plan -: needs help with peg feeds, levaq for 5 days and steroids -: will need nebulizer machine, wheelchair, shower chair etc for home use * . Review of Systems - Medications/Allergies Allergies/Adverse Reactions: Allergies Allergy/AdvReac Type Severity Reaction Status Date / Time No Known Drug Allergies Allergy Verified 05/24/17 10:23 Medications: Current Medications Acetaminophen (Tylenol) 650 mg PO Q4H PRN PRN Reason: Headache/Fever or Pain Last Admin: 10/21/17 08:23 Dose: 650 mg Albuterol/Ipratropium (Duoneb) 3 ml NEB [id number] [facility] Last Admin: 10/26/17 08:50 Dose: 3 ml Fluconazole (Diflucan) 100 mg PO DAILY [facility] Last Admin: 10/26/17 09:41 Dose: 100 mg Levofloxacin (Levaquin) 500 mg PO 0600 [facility] Stop: 10/30/17 06:01 Last Admin: 10/26/17 04:59 Dose: 500 mg Ondansetron HCl (Zofran) 4 mg IVP Q6H PRN PRN Reason: Nausea/Vomiting Last Admin: 10/26/17 09:57 Dose: 4 mg Pantoprazole Sodium (Protonix) 40 mg IVP DAILY [facility] Last Admin: 10/26/17 09:41 Dose: 40 mg Potassium Chloride (Klor-Con) 40 meq PER TUBE TID [facility] Prednisone (Prednisone) 20 mg PO QAM-[facility] Last Admin: 10/26/17 09:41 Dose: 20 mg
--- NOTE | 2017-10-26 12:33 | PRG ---
DATE OF SERVICE: 10/26/2017. SUBJECTIVE: The patient is doing well. No complaints. OBJECTIVE: VITAL SIGNS: Temperature 98.1, pulse 105, respiratory rate 20, sats 93% on 2 liters. HEENT: Unremarkable. NECK: No JVD. CHEST: Clear. LUNGS: Diminished breath sounds at the bases. CARDIAC: S1 and S2 regular. ABDOMEN: Soft. EXTREMITIES: No edema. LABORATORY DATA: White blood cell count 14.8, hematocrit 31.8, platelet count 137. Sodium 142, pota ssium 2.7, BUN 15, creatinine 0.6, glucose 188. ASSESSMENT: 1. Status post respiratory failure, requiring mechanical ventilation. 2. Left-sided pneumonia. 3. Influenza. 4. History of cerebrovascular accident. PLAN: The patient is currently on oral antibiotics and oral steroids. He is approaching the point w here he could be discharged. No further pulmonary critical care input. We will sign off. Please re call if further assistance is needed.
[2017-10-26] MEDS: Acetaminophen 325 MG TAB PO PRN (21:21)
[2017-10-27] MEDS: Pantoprazole 40 MG GRANULES PACKET PO SCH (07:44)
[2017-10-27] MEDS: Fluconazole 100 MG TAB PO SCH (07:44)
[2017-10-27] MEDS: predniSONE 20 MG TAB PO SCH (07:44)
[2017-10-27 08:03] LABS: Band 5 % (5-11); Hemoglobin 11.5 g/dL (14.0-18.0); Lymphocytes 5 % (21-51); MDiff Complete? YES; Mean Corpuscular HGB CONC 30.6 g/dL (32.0-36.0); Mean Corpuscular Hemoglobin 28.7 pg (27.0-31.0); Mean Corpuscular Volume 93.8 fl (80.0-94.0); Mean Platelet Volume 9.6 fL (7.4-10.4); Neutrophil 90 % (42-75); PLT Morphology Comment Appears Adequate; Platelet Count 156 thou/uL (130-400); Polychromasia SLIGHT = 2-3 cells (100X) (0-2/hpf); RBC Distribution Width 15.3 % (11.5-14.5); Red Blood Cell (RBC) Count 4.02 mill/uL (4.70-6.10); Reflex for Review?? NO; White Blood Cell (WBC) Count 18.8 thou/uL (4.8-10.8)
[2017-10-27 08:37] LABS: Anion Gap 10 mmol/L (10-20); BUN (Urea Nitrogen) 12 mg/dL (8.4-25.7); Calc. Creatinine Clearance 104 mL/min (70-130); Calcium 7.7 mg/dL (7.8-10.44); Carbon Dioxide 28 mmol/L (22-29); Chloride 102 mmol/L (98-107); Estimated GFR-MDRD Greater than 90; Glucose 172 mg/dL (70-105); Potassium 3.6 mmol/L (3.5-5.1); Sodium 136 mmol/L (136-145)
--- NOTE | 2017-10-27 11:53 | PDOC.PN ---
- Subjective Encounter Start Date: 10/27/17 Encounter Start Time: 10:15 Subjective: awake, watching tv, follows verbal stimuli -: moves right extre well - Objective MAR Reviewed: Yes Vital Signs & Weight: Vital Signs (12 hours) Temp Pulse Resp BP Pulse Ox 10/27/17 08:00 98.3 F 105 H 22 H 95 10/27/17 07:32 98.3 F 105 H 22 H 135/84 94 L 10/27/17 07:04 99 20 93 L 10/27/17 03:03 94 L 10/27/17 01:30 91 16 94 L Weight Admit Weight 114 lb 10.24 oz Weight 114 lb 10.24 oz Most Recent Monitor Data Heart Rate from ECG 101 NIBP 125/84 NIBP BP-Mean 93 Respiration from ECG 33 SpO2 93 I&O: 10/26/17 10/27/17 10/28/17 06:59 06:59 06:59 Intake Total 383 472 Output Total 1300 1350 Balance -987 -638 Result Diagrams: 10/27/17 06:30 10/27/17 06:30 Additional Labs: Accuchecks 10/27/17 10/26/17 05:16 18:56 POC Glucose 156 H 204 H Phys Exam - Physical Examination HEENT: PERRLA, sclera anicteric Neck: no JVD, supple Respiratory: no wheezing rales+ Cardiovascular: RRR, no significant murmur Gastrointestinal: soft, no distention, positive bowel sounds peg+ Musculoskeletal: no edema, pulses present Neurological: non-focal chronic left hemiplegia, dysarthria and dysphagia Dx/Plan (1) Sepsis Code(s): A41.9 - SEPSIS, UNSPECIFIED ORGANISM Status: Resolved Qualifiers: Sepsis type: sepsis due to unspecified organism Qualified Code(s): A41.9 - Sepsis, unspecified organism (2) Acute respiratory failure with hypoxia Code(s): J96.01 - ACUTE RESPIRATORY FAILURE WITH HYPOXIA Status: Resolved Comment: extubated 10/22/2016 (3) Influenza A Code(s): J10.1 - FLU DUE TO OTH IDENT INFLUENZA VIRUS W OTH RESP MANIFEST Status: Acute (4) Aspiration pneumonia Code(s): J69.0 - PNEUMONITIS DUE TO INHALATION OF FOOD AND VOMIT Status: Acute Qualifiers: Aspiration pneumonia type: due to regurgitated food (5) CVA, old, hemiparesis Code(s): I69.359 - HEMIPLGA FOLLOWING CEREBRAL INFARCTION AFFECTING UNSP SIDE Status: Chronic Comment: left hemiplegia, dysarthria and dysphagia (6) HYUN (acute kidney injury) Code(s): N17.9 - ACUTE KIDNEY FAILURE, UNSPECIFIED Status: Resolved (7) Metabolic acidosis Code(s): E87.2 - ACIDOSIS Status: Resolved (8) FTT (failure to thrive) in adult Status: Chronic (9) Dementia Code(s): F03.90 - UNSPECIFIED DEMENTIA WITHOUT BEHAVIORAL DISTURBANCE Status: Chronic Qualifiers: Dementia type: vascular dementia - Plan may dc home if family has all necessary equipments and feeds to take care o -: -f him, its unclear which family member/sibling will take him home -: oral levaquin and prednisone -: dc diflucan in am -: CM for help with DC plan, overall prognosis is poor * . Review of Systems - Medications/Allergies Allergies/Adverse Reactions: Allergies Allergy/AdvReac Type Severity Reaction Status Date / Time No Known Drug Allergies Allergy Verified 05/24/17 10:23 Medications: Current Medications Acetaminophen (Tylenol) 650 mg PO Q4H PRN PRN Reason: Headache/Fever or Pain Last Admin: 10/26/17 21:21 Dose: 650 mg Albuterol/Ipratropium (Duoneb) 3 ml NEB [id number] [facility] Last Admin: 10/27/17 07:04 Dose: 3 ml Fluconazole (Diflucan) 100 mg PO DAILY [facility] Last Admin: 10/27/17 07:44 Dose: 100 mg Levofloxacin (Levaquin) 500 mg PO 0600 [facility] Stop: 10/30/17 06:01 Last Admin: 10/27/17 06:00 Dose: 500 mg Ondansetron HCl (Zofran) 4 mg IVP Q6H PRN PRN Reason: Nausea/Vomiting Last Admin: 10/26/17 21:26 Dose: 4 mg Pantoprazole Sodium (Protonix) 40 mg PO DAILY [facility] Last Admin: 10/27/17 07:44 Dose: 40 mg Potassium Chloride (Klor-Con) 40 meq PER TUBE TID [facility] Last Admin: 10/27/17 07:44 Dose: 40 meq Prednisone (Prednisone) 20 mg PO QAM-[facility] Last Admin: 10/27/17 07:44 Dose: 20 mg
[2017-10-28 05:21] LABS: Anion Gap 9 mmol/L (10-20); BUN (Urea Nitrogen) 15 mg/dL (8.4-25.7); Calc. Creatinine Clearance 96 mL/min (70-130); Calcium 7.7 mg/dL (7.8-10.44); Carbon Dioxide 28 mmol/L (22-29); Chloride 103 mmol/L (98-107); Estimated GFR-MDRD Greater than 90; Glucose 170 mg/dL (70-105); Sodium 136 mmol/L (136-145)
[2017-10-28 05:39] LABS: Band 8 % (5-11); Hemoglobin 10.3 g/dL (14.0-18.0); Lymphocytes 2 % (21-51); MDiff Complete? YES; Mean Corpuscular HGB CONC 31.7 g/dL (32.0-36.0); Mean Corpuscular Hemoglobin 29.9 pg (27.0-31.0); Mean Corpuscular Volume 94.1 fl (80.0-94.0); Mean Platelet Volume 9.4 fL (7.4-10.4); Monocytes 2 % (0-10); Neutrophil 88 % (42-75); PLT Morphology Comment Appears Adequate; Platelet Count 199 thou/uL (130-400); RBC Distribution Width 15.2 % (11.5-14.5); RBC Morphology Normal; Red Blood Cell (RBC) Count 3.45 mill/uL (4.70-6.10); White Blood Cell (WBC) Count 18.4 thou/uL (4.8-10.8)
[2017-10-28] MEDS: Fluconazole 100 MG TAB PO SCH (07:42)
[2017-10-28] MEDS: Pantoprazole 40 MG GRANULES PACKET PO SCH (07:42)
[2017-10-28] MEDS: predniSONE 20 MG TAB PO SCH (07:43)
--- NOTE | 2017-10-28 17:04 | PDOC.PN ---
- Subjective Encounter Start Date: 10/28/17 Encounter Start Time: 17:03 Subjective: Seen and examined with no new complaint - Objective Vital Signs & Weight: Vital Signs (12 hours) Temp Pulse Resp BP Pulse Ox 10/28/17 13:56 100 18 10/28/17 08:00 98.0 F 110 H 20 125/77 94 L 10/28/17 07:25 90 16 Weight Admit Weight 114 lb 10.24 oz Weight 114 lb 10.24 oz Most Recent Monitor Data Heart Rate from ECG 101 NIBP 125/84 NIBP BP-Mean 93 Respiration from ECG 33 SpO2 93 I&O: 10/27/17 10/28/17 10/29/17 06:59 06:59 06:59 Intake Total 472 680 Output Total 1350 900 Balance -878 -220 Result Diagrams: 10/28/17 03:52 10/28/17 03:52 Phys Exam - Physical Examination Constitutional: NAD HEENT: PERRLA, moist MMs, sclera anicteric, TM's clear Neck: no nodes, no JVD, supple, full ROM Respiratory: no wheezing, no rales, no rhonchi, clear to auscultation bilateral Cardiovascular: RRR, no significant murmur, no rub Gastrointestinal: soft, non-tender, no distention, positive bowel sounds Musculoskeletal: no edema, pulses present Dx/Plan (1) Aspiration pneumonia Code(s): J69.0 - PNEUMONITIS DUE TO INHALATION OF FOOD AND VOMIT Status: Acute Qualifiers: Aspiration pneumonia type: due to regurgitated food (2) Influenza A Code(s): J10.1 - FLU DUE TO OTH IDENT INFLUENZA VIRUS W OTH RESP MANIFEST Status: Acute (3) CVA, old, hemiparesis Code(s): I69.359 - HEMIPLGA FOLLOWING CEREBRAL INFARCTION AFFECTING UNSP SIDE Status: Chronic Comment: left hemiplegia, dysarthria and dysphagia (4) Dementia Code(s): F03.90 - UNSPECIFIED DEMENTIA WITHOUT BEHAVIORAL DISTURBANCE Status: Chronic Qualifiers: Dementia type: vascular dementia (5) FTT (failure to thrive) in adult Status: Chronic (6) HYUN (acute kidney injury) Code(s): N17.9 - ACUTE KIDNEY FAILURE, UNSPECIFIED Status: Resolved (7) Acute respiratory failure with hypoxia Code(s): J96.01 - ACUTE RESPIRATORY FAILURE WITH HYPOXIA Status: Resolved Comment: extubated 10/22/2016 (8) Metabolic acidosis Code(s): E87.2 - ACIDOSIS Status: Resolved - Plan plan discussed w/ family, continue antibiotics, PT/OT, [employer] teacher, respiratory therapy A little bit of a dispo challenge-which family memeber can take care of him * .
[2017-10-29 05:10] LABS: Anion Gap 12 mmol/L (10-20); BUN (Urea Nitrogen) 17 mg/dL (8.4-25.7); Calc. Creatinine Clearance 104 mL/min (70-130); Calcium 7.8 mg/dL (7.8-10.44); Carbon Dioxide 25 mmol/L (22-29); Chloride 105 mmol/L (98-107); Estimated GFR-MDRD Greater than 90; Glucose 143 mg/dL (70-105); Potassium 3.8 mmol/L (3.5-5.1); Sodium 138 mmol/L (136-145)
[2017-10-29 05:30] LABS: Band 14 % (5-11); Lymphocytes 3 % (21-51); MDiff Complete? YES; Mean Corpuscular Volume 93.8 fl (80.0-94.0); Mean Platelet Volume 8.6 fL (7.4-10.4); Monocytes 1 % (0-10); Neutrophil 82 % (42-75); PLT Morphology Comment Appears Adequate; Platelet Count 257 thou/uL (130-400); RBC Distribution Width 14.9 % (11.5-14.5); Red Blood Cell (RBC) Count 3.31 mill/uL (4.70-6.10); White Blood Cell (WBC) Count 20.6 thou/uL (4.8-10.8)
[2017-10-29] MEDS: Fluconazole 100 MG TAB PO SCH (07:43)
[2017-10-29] MEDS: predniSONE 20 MG TAB PO SCH (07:43)
[2017-10-29] MEDS: Pantoprazole 40 MG GRANULES PACKET PO SCH (07:44)
[2017-10-29 09:39] VITALS: BP 100/65; TEMP 98.5
--- NOTE | 2017-10-29 10:57 | PDOC.PN ---
- Subjective Encounter Start Date: 10/29/17 Encounter Start Time: 12:00 Subjective: No complaints. No changes. Family understands how to do PEG feeds. - Objective MAR Reviewed: Yes Vital Signs & Weight: Vital Signs (12 hours) Temp Pulse Resp BP BP Pulse Ox 10/29/17 09:00 98.5 F 93 18 100/65 94 L 10/29/17 08:00 98.2 F 93 20 98 10/29/17 04:00 98.2 F 93 20 107/64 95 10/29/17 00:42 89 18 94 L Weight Admit Weight 114 lb 10.24 oz Weight 114 lb 10.24 oz Most Recent Monitor Data Heart Rate from ECG 101 NIBP 125/84 NIBP BP-Mean 93 Respiration from ECG 33 SpO2 93 I&O: 10/28/17 10/29/17 10/30/17 06:59 06:59 06:59 Intake Total 680 Output Total 900 Balance -220 Result Diagrams: 10/29/17 04:08 10/29/17 04:08 Phys Exam - Physical Examination Constitutional: NAD HEENT: moist MMs Respiratory: no wheezing, no rales, no rhonchi, clear to auscultation bilateral Cardiovascular: RRR, no significant murmur Gastrointestinal: soft, non-tender, positive bowel sounds PEG in place Psychiatric: normal affect Deviation from normal: Dysarthria Dx/Plan (1) Aspiration pneumonia Code(s): J69.0 - PNEUMONITIS DUE TO INHALATION OF FOOD AND VOMIT Status: Acute Qualifiers: Aspiration pneumonia type: due to regurgitated food (2) Influenza A Code(s): J10.1 - FLU DUE TO OTH IDENT INFLUENZA VIRUS W OTH RESP MANIFEST Status: Acute (3) CVA, old, hemiparesis Code(s): I69.359 - HEMIPLGA FOLLOWING CEREBRAL INFARCTION AFFECTING UNSP SIDE Status: Chronic Comment: left hemiplegia, dysarthria and dysphagia (4) Sepsis Code(s): A41.9 - SEPSIS, UNSPECIFIED ORGANISM Status: Acute Qualifiers: Sepsis type: sepsis due to unspecified organism Qualified Code(s): A41.9 - Sepsis, unspecified organism Comment: Temp returned last night, just to 100.3, and WBC climbing. Will check CXR for any fluid collection. If neg likely just rebound WBC now that improved as was suppressed on admit. (5) Dementia Code(s): F03.90 - UNSPECIFIED DEMENTIA WITHOUT BEHAVIORAL DISTURBANCE Status: Chronic Qualifiers: Dementia type: vascular dementia (6) FTT (failure to thrive) in adult Status: Chronic (7) HYUN (acute kidney injury) Code(s): N17.9 - ACUTE KIDNEY FAILURE, UNSPECIFIED Status: Resolved - Plan cont current plan of care, continue antibiotics Home with family if no evidence of worsening pneumonia/effusion on CXR. * . - Discharge Day Encounter end time: 12:30
--- NOTE | 2017-10-29 14:20 | DIS ---
PRIMARY CARE PHYSICIAN: [facility]. ADMISSION DIAGNOSES: 1. Pneumonia. 2. Septic shock. 3. Influenza. 4. Previous stroke with aphasia. 5. PEG tube. DISCHARGE DIAGNOSES: 1. Aspiration pneumonia. 2. Influenza A. 3. Septic shock, resolved. 4. Previous cerebrovascular accident with left hemiparesis, dysphagia and dysarthria. 5. Acute kidney injury, resolved. 6. Failure to thrive in adult. PROCEDURES: 1. CTA of the chest with and without contrast showing cholelithiasis, extensive multilobar pneumonia , worse in the left upper and left lower lobe. 2. Chest x-ray showing persistent pneumonia. 3. Abdominal x-ray showing adequate tube placement. CONSULTATIONS: 1. Pulmonology, Dr. Leroy. 2. Gastroenterology, Dr. Howard. SUMMARY OF HOSPITAL COURSE: This is a 52-year-old male with a known history of previous CVA with dysphagia and dysarthria with a PEG tube. He has had nausea and vomiting for 3 days prior to a dmission. Also, he was choking on everything he tried to feed himself, recently [facility] [place] [facility] who then left with his 13-year-old son to [place], currently his sisters are taking care of [facility]. The patient was seen in the emergency room, he was found to be in septic shock, had multiple lite rs of fluid given, he also was noticed to have a drop in hematocrit was given a couple units of packe d red blood cells, also was febrile in the emergency room. The patient was diagnosed with flu and al so with a pneumonia. Dr. Leroy was consulted for Pulmonology. He was put on broad spectrum IV antib iotics. The patient had cefepime, Levaquin and vancomycin for 5 days at which point he was changed t o oral Levaquin and Diflucan. The patient also had some blood from his G-tube, a small amount and th ere was concern for GI bleed. Dr. Howard was consulted and eventually determined that this was li les due to sepsis and he did not require an EGD. The patient has been doing well since the course o f IV antibiotic treatment. He is breathing well, he has not had any more vomiting. He has been taki ng tube feeds through his PEG tube well and his pneumonia has been improved. The patient did have a low white blood cell count when he came in, this eventually came up to normal and then started increa sing and is now up to 20,000. He did have a current temperature of 100.3 yesterday; however, this mosqueda s come back down and he continues to look clinically better. I did discuss these findings with Pulmo nology, Dr. Russell, and he asked for a repeat chest x-ray which just showed improving pneumonia, no evidence of pleural fluid that needed to be tapped. At this point, Dr. Russell stated that given his clinical improvement, the increased white count was likely an appropriate response to the infection and has more to do with his body actually recovering enough to show a response along with the steroid s he has been given. He has not had any temperature above 100.4 in the last week. On the day of dis charge the patient is doing well. His sisters decided to take him in to care for him and he is being discharged home. DISCHARGE MANAGEMENT: Discharged home with family. ACTIVITY: Activity as tolerated. DIET: Tube feeding diet only with PEG tube care. FOLLOWUP: Follow up with primary care physician in 1 week. DISCHARGE MEDICATIONS: 1. Prednisone 5 mg twice a day for 7 more days. 2. Potassium chloride packets 20 mEq per packet 2 packets twice a day. 3. Levofloxacin 500 mg daily for another 4 days. 4. Diflucan 100 mg daily for another 4 days. 5. Acetaminophen as needed for fever. 6. Continue clopidogrel 75 mg daily. 7. Donepezil 10 mg at night. 8. Omeprazole 20 mg twice a day. 9. Atorvastatin 40 mg at night.
--- NOTE | 2017-10-29 15:23 | RAD ---
RADIOGRAPH CHEST 1 VIEW: Date: 10-29-2017 Time: 11:35 a.m. HISTORY: 52-year-old male with leukocytosis and fever. COMPARISON: 10-24-17 FINDINGS: The severe, extensive, dense airspace opacities throughout most of the left lung have improved. There continues to be significant airspace densities throughout the left upper, mid and lower lung zones, in a contiguous vertical orientation. The milder airspace density at the right lower lobe medially mosqueda s also improved. Right subclavian central line and sternotomy wires are again noted. Lateral costophr enic angles are sharp. No cardiomegaly. No pneumothorax. IMPRESSION: 1. Interval improvement in the very extensive left upper lobe and left lower lobe pneumonia. 2. Interval improvement in the mild right lower lobe pneumonia. JULITO POS: [facility]
--- NOTE | 2017-11-14 15:12 | EKG ---
Test Reason : DYSPNEA Blood Pressure : / mmHG Vent. Rate : 126 BPM Atrial Rate : 126 BPM P-R Int : 150 ms QRS Dur : 090 ms QT Int : 316 ms P-R-T Axes : 070 -77 043 degrees QTc Int : 457 ms Sinus tachycardia Left anterior fascicular block Nonspecific T wave abnormality Abnormal ECG Confirmed by SIDNEY SEO ([id number]), purchasing expeditor JONI PADRON ([id number]) on 11/14/2017 3:12:43 PM Referred By: Confirmed By:SIDNEY SEO
== END 2017-10-29 16:48 | disposition home or self-care (01) | DRG 871 ==
LOC: ERS 10:09 → CCU 17:35 → T4-B 10-24 12:50
PROVIDERS: ADMIT Internal Medicine; ATTEND Internal Medicine
PROC: 30233N1 Transfusion of Nonautologous Red Blood Cells into Peripheral Vein, Percutaneous Approach (ICD-10-PCS; principal; 2017-10-20)
PROC: 5A1945Z Respiratory Ventilation, 24-96 Consecutive Hours (ICD-10-PCS; 2017-10-20)
PROC: 05HY33Z Insertion of Infusion Device into Upper Vein, Percutaneous Approach (ICD-10-PCS; 2017-10-20)
PROC: 3E03329 Introduction of Other Anti-infective into Peripheral Vein, Percutaneous Approach (ICD-10-PCS; 2017-10-20)
PROC: 3E0G76Z Introduction of Nutritional Substance into Upper GI, Via Natural or Artificial Opening (ICD-10-PCS; 2017-10-25)
DX: A41.9 Sepsis, unspecified organism (principal); J69.0 Pneumonitis due to inhalation of food and vomit; J96.01 Acute respiratory failure with hypoxia; R65.21 Severe sepsis with septic shock; E87.2 Acidosis; J10.08 Influenza due to other identified influenza virus with other specified pneumonia; R64 Cachexia; I95.9 Hypotension, unspecified; K92.0 Hematemesis; I69.354 Hemiplegia and hemiparesis following cerebral infarction affecting left non-dominant side; N17.9 Acute kidney failure, unspecified; R13.10 Dysphagia, unspecified; R62.7 Adult failure to thrive; I10 Essential (primary) hypertension; K80.20 Calculus of gallbladder without cholecystitis without obstruction; I69.322 Dysarthria following cerebral infarction; I69.391 Dysphagia following cerebral infarction; I69.320 Aphasia following cerebral infarction; F01.50 Vascular dementia, unspecified severity, without behavioral disturbance, psychotic disturbance, mood disturbance, and anxiety; Z68.20 Body mass index [BMI] 20.0-20.9, adult
CPT/HCPCS: 31500; 36415; 36416; 36430; 36556; 51702; 71010; 71045; 71275; 74000; 80048; 80053; 80074; 80202; 81003; 81015; 82271; 82274; 82533; 82550; 82553; 82805; 83605; 83690; 84484; 85007; 85025; 85027; 85060; 85379; 85610; 85730; 86850; 86900; 86901; 87040; 87070; 87086; 87205; 87389; 87633; 87798; 87804; 89220; 93005; 94002; 94003; 94640; 96365; 96366; 96367; 96375; 96376; A4216; C9113; G8978-GP-CM; G8979-GP-CL; J0171; J0692; J1956; J2060; J2405; J2543; J2920; J3010; J3370; J3480; J7050; J7506; J7620; J7626; P9016

== ENCOUNTER 2017-11-07 18:18 | Emergency (ER) | payer SELFPAY | END 2017-11-07 21:00 | disposition home or self-care (01) | LOC: ERS 18:18 | DX: K94.23 Gastrostomy malfunction (principal); I10 Essential (primary) hypertension; F32.9 Major depressive disorder, single episode, unspecified; Z86.73 Personal history of transient ischemic attack (TIA), and cerebral infarction without residual deficits | CPT/HCPCS: 43760 ==

== ENCOUNTER 2017-11-09 04:23 | Outpatient (CLI) | payer OTHER | END 2017-11-09 04:24 | disposition home or self-care (01) | LOC: BICRAD 04:23 | PROVIDERS: ATTEND Nurse Practitioner Family | DX: Z00.00 Encounter for general adult medical examination without abnormal findings (principal); Z86.19 Personal history of other infectious and parasitic diseases | CPT/HCPCS: 71046 ==

== ENCOUNTER 2018-03-04 10:14 | Inpatient (IN) | payer MEDICAID, SELFPAY ==
[2018-03-04 10:50] LABS: Hemoglobin 12.8 g/dL (14.0-18.0); Mean Corpuscular HGB CONC 32.1 g/dL (32.0-36.0); Mean Corpuscular Hemoglobin 29.8 pg (27.0-31.0); Mean Platelet Volume 7.7 fL (7.4-10.4); Platelet Count 368 thou/uL (130-400); RBC Distribution Width 14.1 % (11.5-14.5); Red Blood Cell (RBC) Count 4.29 mill/uL (4.70-6.10)
--- NOTE | 2018-03-04 10:58 | RAD ---
SINGLE VIEW OF THE CHEST: Comparison: 10-29-17 History: Left sided abdominal pain. FINDINGS: Single view of the chest shows a normal sized cardiomediastinal silhouette. The patient is status pos t sternotomy. There are multifocal mixed alveolar/interstitial opacities. No pleural effusion is seen . IMPRESSION: Multifocal pneumonia. POS: [facility]
[2018-03-04 11:03] LABS: ALT (SGPT) 15 U/L (8-55); AST (SGOT) 13 U/L (5-34); Albumin 3.5 g/dL (3.5-5.0); Alkaline Phosphatase 102 U/L (40-150); Anion Gap 17 mmol/L (10-20); BUN (Urea Nitrogen) 41 mg/dL (8.4-25.7); CK (CPK) 84 U/L (30-200); Calc. Creatinine Clearance 0 mL/min (70-130); Calcium 8.7 mg/dL (7.8-10.44); Carbon Dioxide 21 mmol/L (22-29); Chloride 105 mmol/L (98-107); Estimated GFR-MDRD 80; Globulin 4.1 g/dL (2.4-3.5); Glucose 145 mg/dL (70-105); Lipase 5 U/L (8-78); Potassium 4.2 mmol/L (3.5-5.1); Protein, Total 7.6 g/dL (6.0-8.3); Sodium 139 mmol/L (136-145)
[2018-03-04 11:07] LABS: CKMB 1.3 ng/mL (0-6.6); Troponin I Less than 0.010 ng/mL (< 0.028)
[2018-03-04 11:15] LABS: Band 58 % (5-11); Lymphocytes 11 % (21-51); MDiff Complete? YES; Metamyelocyte 4 % (0-0); Myelocyte 2 % (0-0); Neutrophil 25 % (42-75); PLT Morphology Comment Appears Adequate; Reflex for Review?? YES
[2018-03-04] MEDS ORDERED: Piperacillin/Tazobactam 4.5 GM VIAL ONE (12:05)
[2018-03-04] MEDS ORDERED: Vancomycin HCl 750 MG in Sodium Chloride 0.9% 250 ML 250 ML IVPB SCH (12:30)
[2018-03-04] MEDS ORDERED: SODIUM CHLORIDE IVPB SCH (12:45)
[2018-03-04] MEDS ORDERED: ADMIXTURE FEE IVPB SCH (12:45)
[2018-03-04] MEDS ORDERED: GENTAMICIN SULFATE IVPB SCH (12:45)
[2018-03-04] MEDS ORDERED: Loratadine 10 MG TAB PER TUBE PRN (13:00)
[2018-03-04] MEDS ORDERED: Ondansetron ODT 4 MG TAB SL PRN (13:00)
[2018-03-04] MEDS ORDERED: Acetaminophen 325 MG TAB PER TUBE PRN (13:00)
[2018-03-04] MEDS ORDERED: Chloraseptic Spray 180 ml Bottle PO PRN (13:00)
[2018-03-04] MEDS ORDERED: Loperamide HCl 2 MG CAP PER TUBE PRN (13:00)
[2018-03-04] MEDS ORDERED: traMADol HCl 50 MG TAB PER TUBE PRN (13:00)
[2018-03-04] MEDS ORDERED: Sodium Chloride 0.65% Nasal 44 ML BOT EA NARE PRN (13:00)
[2018-03-04] MEDS ORDERED: Eucerin (Mineral Oil/Petrolatum,White) 30 gm Jar TOP PRN (13:00)
[2018-03-04] MEDS ORDERED: Artificial Tear Sol 15 ML BOT EA EYE PRN (13:00)
[2018-03-04] MEDS ORDERED: Milk Of Magnesia 30 ML UDCUP PER TUBE PRN (13:00)
[2018-03-04] MEDS ORDERED: Zolpidem Tartrate 5 MG TAB PER TUBE PRN (13:00)
[2018-03-04] MEDS ORDERED: Ondansetron HCl/PF 4 MG/2 ML Vial IVP PRN (13:00)
[2018-03-04] MEDS ORDERED: Bisacodyl 10 MG SUPP PR PRN (13:00)
--- NOTE | 2018-03-04 13:10 | HP ---
PRIMARY CARE PHYSICIAN: City call. REASON FOR ADMISSION: Sepsis, multifocal pneumonia. HISTORY OF PRESENT ILLNESS: This is a 53-year-old male, who is Upper Sorbian -speaking only, who was brought to emergency room for evaluation of cough. The patient is sick for the last 3 days. The patient is having cough productive of scant amount of sputum. He is also having increasing shortness of breath. He was having low-grade fever at home. He was reporting abdominal pain, because of coughing. He does not have any constipation or diarrhea. He does not have any hemoptysis. He did not pass out. He was not feeling any dizziness, but he was overall weak. He did have a recent upper respiratory tract infection. This patient has history of stroke and he has oropharyngeal dysphagia with PEG tube. He still gets nutritional support through the PEG tube. He was pointing diffuse, vague abdominal discomfort. When he arrived to emergency room, he was having low-grade fever as well as he was hypoxic with saturation of 84% on room air. Routine blood tests showed bandemia, lactic acidosis, and chest x-ray showed multifocal pneumonia. EMERGENCY ROOM COURSE: Patient is given gentamicin, vancomycin, Zosyn, and ringer lactate 2 liter. PAST MEDICAL HISTORY: History of cerebrovascular accident with residual oropharyngeal dysphagia with PEG as well as weakness; hypertension; dyslipidemia ; history of pneumonia; gastroesophageal reflux disease; history of respiratory failure, required mechanical ventilatory support in the past; protein-calorie malnutrition, moderate; vascular dementia. PAST SURGICAL HISTORY: Endotracheal intubation and mechanical ventilatory support, PEG tube placement, hernia repair. PAST PSYCHIATRIC HISTORY: Anxiety and depression. SOCIAL HISTORY: The patient lives at home with family. No history of tobacco, alcohol, or illicit drug abuse. FAMILY HISTORY: The patient does not have any strong family history of premature coronary artery disease, stroke, or cancer. ALLERGIES: No known drug allergy. CURRENT HOME MEDICATIONS: Aricept 10 mg p.o. daily, omeprazole 20 mg twice daily, Plavix 75 mg p.o. daily, prednisone 5 mg per tube daily, potassium chloride 20 mEq per tube daily, Lipitor 20 mg per tube daily. REVIEW OF SYSTEMS: The following complete review of systems was negative, unless otherwise mentioned in the HPI or below: Constitutional: Weight loss or gain, ability to conduct usual activities. Skin: Rash, itching. Eyes: Double vision, pain. ENT/Mouth: Nose bleeding, neck stiffness, pain, tenderness. Cardiovascular: Palpitations, dyspnea on exertion, orthopnea. Respiratory: Shortness of breath, wheezing, cough, hemoptysis, fever, or night sweats. Gastrointestinal: Poor appetite, abdominal pain, heartburn, nausea, vomiting, constipation, or diarrhea. Genitourinary: Urgency, frequency, dysuria, nocturia. Musculoskeletal: Pain, swelling. Neurologic/Psychiatric: Anxiety, depression. Allergy/Immunologic: Skin rash, bleeding tendency. Please see my HPI for pertinent positive and negative. All other review of systems reviewed and negative except as mentioned in the HPI. PHYSICAL EXAMINATION: VITAL SIGNS: Currently, blood pressure 134/67, pulse 108, respiratory rate 22, temperature 99.8, saturation 84% on room air, weight 49.9 kilograms. GENERAL: The patient currently appears sick, but nontoxic, no obvious acute distress. HEENT: Head: Normocephalic, atraumatic. Eyes: Pupils round and reactive to light. Extraocular muscle intact. ENT: Dry-appearing mucous membranes. No oral lesion, no pharyngeal erythema. NECK: Supple, no JVD, no thyromegaly, no carotid bruit. LUNGS: Bilateral scattered rales noted, a few end-expiratory wheezing heard. CARDIAC: S1 and S2 regular, tachycardia, no gross murmur or gallop noted. ABDOMEN: PEG tube in place. On deep palpation, patient does not have any abdominal tenderness, no peritoneal sign, no rebound, no rigidity, no suprapubic discomfort noted. BACK EXAMINATION: Unremarkable, no CVA tenderness. EXTREMITIES: Upper extremities, passive movement of all joints are normal. Lower extremities, no edema. Good peripheral pulsation. Muscle wasting noted. NEUROLOGIC: Patient is alert, arousable, follows simple command. The patient does have CVA with residual weakness and dysphagia. SKIN: No skin rash. HEMATOLOGICAL SYSTEM: No lymphadenopathy. PSYCHIATRIC: Normal affect. SIGNIFICANT LABORATORY DATA: EKG showing sinus tachycardia, right axis deviation. Repeat EKG showing left anterior fascicular block. Chest x-ray showing multifocal infiltration. CBC: WBC 8.0, hemoglobin 12.8, platelets 368 with bandemia. BMP: Sodium 139, potassium 4.2, chloride 105, carbon dioxide 21 , anion gap 17, BUN 41, creatinine 0.97, glucose 145, calcium 8.7. Lactic acid 9.2. LFT: AST 13, ALT 15, alkaline phosphatase is 102, albumin 3.5, lipase 5. CK 84, CK-MB 1.3, troponin I less than 0.010. ASSESSMENT AND PLAN: 1. Sepsis with acute organ dysfunction. Patient does have bandemia, lactic acidosis and hypoxic respiratory failure, and multifocal pneumonia on chest x- ray. We will also check stool for Clostridium difficile to rule out Clostridium difficile infection as well as we will also check urinalysis and send urine culture to rule out any urinary tract infection. We will also send blood culture in the emergency room and we will follow up on blood culture result. The patient has been given broad-spectrum antibiotic therapy in the emergency room, but I will continue vancomycin, Zosyn, and levofloxacin after admission, and based on culture result, we will change antibiotic therapy accordingly. 2. Multifocal pneumonia. We will check streptococcal urinary antigen, legionella urinary antigen, virus respiratory panel to rule out virus infection. Patient will be on broad-spectrum antibiotic therapy with vancomycin , Zosyn, and levofloxacin. We will give him Solu-Medrol 20 mg IV q.8 hourly 3 doses today only. We will provide Mucinex 600 mg 3 times daily and DuoNeb therapy every 6 hourly. 3. Lactic acidosis. Patient will be given IV fluid with NS at 100 mL per hour and we will repeat lactic acid level later on today as well as tomorrow morning. 4. Dehydration. Patient will be given gentle IV fluid and we will repeat BMP tomorrow. 5. History of cerebrovascular accident with residual weakness and dysphagia. The patient will need supportive care with PT, OT, tube feeding. 6. Gastroesophageal reflux disease. We will continue Pepcid 20 mg IV b.i.d. 7. Vascular dementia. Continue Aricept 10 mg p.o. as per tube at bedtime. 8. Hypertension and history of cerebrovascular accident. We will continue Lipitor 40 mg per tube at bedtime, Plavix 75 mg per tube daily, and we will monitor blood pressure while in hospital. 9. Deep venous thrombosis prophylaxis. Heparin 5000 units subcutaneously twice daily. 10. Gastrointestinal prophylaxis. Patient is already on Pepcid therapy. 11. Acute respiratory failure with hypoxia, likely due to underlying multifocal pneumonia. The patient will be given oxygen to maintain saturation above 92%. We will treat underlying multifocal pneumonia with broad-spectrum antibiotic therapy and we will closely monitor on telemetry floor. CODE STATUS: I spoke with the patient. Patient is FULL CODE. Patient's is surrogate decision maker. Disposition plan based on clinical course. We are expecting patient's stay in hospital more than 2 midnights. Plan of care discussed with the family member at bedside in the emergency room. EDGAR
[2018-03-04 13:32] LABS: Bilirubin Negative (Negative); Blood, Urine Negative (Negative); Clarity CLEAR (Clear); Glucose, Urine (Dipstick) Negative (Negative); Leukocyte Small (Negative); Nitrite Negative (Negative); Protein, Urine (Dipstick) 30 mg/dL (Neg-Trace); Specific Gravity, Urine 1.025 (1.002-1.036); Urobilinogen 0.2 mg/dL (0.2-1.0); pH, Urine 6.5 (5.0-9.0)
[2018-03-04 13:35] LABS: Bacteria/HPF None Seen HPF (None Seen); Hyaline Casts/LPF 4-6 HYALINE CAST LPF (0-3 Hyaline); Pathc Cast-AUWi Flag 0.43 (0-2.49); RBC/HPF 0-3 HPF (0-3); Squamous Epithelial 0-3 HPF (0-3)
[2018-03-04 13:56] LABS: Renal Epithelial None Seen HPF (0-3); Transitional Epithelial 0-3 HPF (0-3)
[2018-03-04] MEDS: guaiFENesin ER 600 MG TAB PER TUBE SCH ×2 (18:23→20:35)
[2018-03-04] MEDS: Piperacillin/Tazobactam 3.375 GM in Sodium Chloride 0.9% 100 ML IVPB SCH (18:37)
[2018-03-04] MEDS: Sodium Chloride 0.9% 1,000 ML IV SCH (18:37)
[2018-03-04] MEDS: Donepezil HCl 10 MG TAB PER TUBE SCH (20:35)
[2018-03-04] MEDS ORDERED: Famotidine/PF 20 mg/2ml Vial SLOW IVP SCH (21:00)
[2018-03-04] MEDS ORDERED: Atorvastatin Calcium 40 MG TAB PER TUBE SCH (21:00)
--- NOTE | 2018-03-04 21:32 | CON ---
DATE OF CONSULTATION: 03/04/2018 CONSULTING PHYSICIAN: Rommel Keys M.D. REASON FOR CONSULTATION: Pneumonia and sepsis. HISTORY OF PRESENT ILLNESS: This is a 53-year-old French-speaking only male. He was brought to the emergency room for evaluation of cough. He was found to have bilateral infiltrative changes on his chest x-ray. Apparently, he has been having some low-grade fever at home and has been coughing profu sely. He has been hospitalized in this hospital in the past and was taken care by my partner -- Dr. Leroy. At that time, he was intubated and on mechanical ventilation in 09/2017. PAST MEDICAL HISTORY: 1. He has had a cerebrovascular accident with left-sided hemiparesis and PEG tube placement. 2. Hypertension. 3. Hyperlipidemia. 4. Pneumonia. 5. Acute respiratory failure, requiring mechanical ventilation. 6. Protein-calorie malnutrition. 7. Vascular dementia. 8. Gastroesophageal reflux. PAST SURGICAL HISTORY: 1. PEG tube placement. 2. Hernia repair. SOCIAL HISTORY: Nonsmoker, does not consume alcohol, does not use illicit drugs. FAMILY MEDICAL HISTORY: Originally from [place]. Diabetes runs in the family. MEDICATIONS PRIOR TO ADMISSION: Aricept 10 mg daily, omeprazole 20 mg twice daily, Plavix 75 mg bernard y, prednisone 5 mg daily, potassium chloride 20 mEq daily, Lipitor 10 mg daily. REVIEW OF SYSTEMS: Could not be obtained secondary to language barrier and the patient's altered men nigel status. PHYSICAL EXAMINATION: VITAL SIGNS: Pulse is 106, blood pressure 139/72, O2 sat 93% on 40% facemask, temperature 99.8. GENERAL: This patient appears chronically ill, having severe muscle wasting in his jain area, in h is supraclavicular area, around his ribs and having profound muscle wasting in his extremities. He h as contracture of his left hand and elbow area. HEENT: Otherwise, unremarkable. NECK: No JVD. LUNGS: Coarse breath sounds bilaterally. CARDIOVASCULAR: S1, S2, slightly tachycardic without murmur. ABDOMEN: Soft, nontender. There is a PEG tube in place coming from the stomach area, which is well cared for. EXTREMITIES: No clubbing, cyanosis, or edema. IMAGING: His chest x-ray shows bilateral infiltrative changes. LABORATORY DATA: White blood cell count 8.0, hematocrit 39.9, platelet count 368 with 25% neutrophil s, 58% bands. Sodium 139, potassium 4.2, chloride 105, CO2 of 21, BUN 41, creatinine 0.9, glucose 14 5. Lactate is 9.2. Troponin less than 0.01. ASSESSMENT: 1. Bilateral pneumonia. 2. Sepsis syndrome. 3. I presume that he probably is a chronic aspirator. 4. Acute hypoxic respiratory failure. 5. Other medical problems as listed above. RECOMMENDATIONS: The patient is being admitted to the [facility] for close care. His respiratory status s eems adequate right now, but he could very well take a turn for the worse and ended up intubated. I do not think he would be a good candidate for noninvasive ventilation based on his mental status and comorbidities. He is being treated with Levaquin, Zosyn, and vancomycin, which should be more than a dequate coverage. He is being hydrated with normal saline. His steroids have been increased given t hat he may be adrenal insufficient with present illness. The above encompassed 70 minutes of time, of that time greater than 50% was spent with the patient an d/or in the patient's unit.
[2018-03-04] MEDS: Famotidine 40 MG/4 ML VIAL SLOW IVP SCH (22:15)
[2018-03-05] MEDS: Vancomycin HCl 750 MG in Sodium Chloride 0.9% 250 ML 250 ML IVPB SCH ×2 (02:27→13:51)
[2018-03-05 03:31] LABS: Legionella Urinary Ag Negative (Negative); Strep pneumo Urine Ag POSITIVE (NEGATIVE)
[2018-03-05 05:07] LABS: ALT (SGPT) 13 U/L (8-55); AST (SGOT) 17 U/L (5-34); Albumin 2.5 g/dL (3.5-5.0); Alkaline Phosphatase 52 U/L (40-150); Anion Gap 12 mmol/L (10-20); BUN (Urea Nitrogen) 31 mg/dL (8.4-25.7); Bilirubin, Total 0.8 mg/dL (0.2-1.2); Calc. Creatinine Clearance 68 mL/min (70-130); Calcium 8.1 mg/dL (7.8-10.44); Carbon Dioxide 23 mmol/L (22-29); Chloride 111 mmol/L (98-107); Estimated GFR-MDRD Greater than 90; Globulin 2.9 g/dL (2.4-3.5); Glucose 100 mg/dL (70-105); Potassium 3.7 mmol/L (3.5-5.1); Protein, Total 5.4 g/dL (6.0-8.3); Sodium 142 mmol/L (136-145)
[2018-03-05] MEDS: Sodium Chloride 0.9% 1,000 ML IV SCH (05:29)
[2018-03-05] MEDS: Piperacillin/Tazobactam 3.375 GM in Sodium Chloride 0.9% 100 ML IVPB SCH ×4 (05:29→17:03)
[2018-03-05 05:35] LABS: Band 51 % (5-11); Eosinophils 1 % (0-10); Lymphocytes 3 % (21-51); MDiff Complete? YES; Mean Corpuscular HGB CONC 32.6 g/dL (32.0-36.0); Mean Corpuscular Hemoglobin 29.9 pg (27.0-31.0); Mean Corpuscular Volume 91.8 fl (80.0-94.0); Mean Platelet Volume 8.1 fL (7.4-10.4); Metamyelocyte 32 % (0-0); Monocytes 3 % (0-10); Neutrophil 10 % (42-75); PLT Morphology Comment Appears Adequate; Platelet Count 223 thou/uL (130-400); White Blood Cell (WBC) Count 7.6 thou/uL (4.8-10.8)
[2018-03-05] MEDS: guaiFENesin ER 600 MG TAB PER TUBE SCH ×3 (07:44→20:09)
[2018-03-05] MEDS: Saccharomyces boulardii 250 MG CAP PER TUBE SCH (07:45)
[2018-03-05] MEDS ORDERED: Enoxaparin Sodium 30 MG/0.3 ML SYRINGE SC SCH (09:00)
[2018-03-05] MEDS ORDERED: Clopidogrel Bisulfate 75 MG TAB PER TUBE SCH (09:00)
[2018-03-05] MEDS: D5 1/2 NS w/20 mEq KCL 1,000 ML IV SCH ×2 (09:40→20:05)
[2018-03-05] MEDS: Famotidine 40 MG/4 ML VIAL SLOW IVP SCH (09:40)
--- NOTE | 2018-03-05 09:52 | PDOC.PN ---
- Subjective Encounter Start Date: 03/05/18 Encounter Start Time: 09:20 -: old records requested/rev last night pt had coffee ground material via peg tube, so kept NPO, GI consulted still requiring high flow oxygen has low grade fever c/o epigastric abdominal pain - Objective MAR Reviewed: Yes Vital Signs & Weight: Vital Signs (12 hours) Temp Pulse Resp BP Pulse Ox 03/05/18 07:52 99.8 F H 118 H 22 H 130/72 100 03/05/18 06:06 99 03/05/18 06:04 110 H 20 99 03/05/18 04:00 97.6 F 79 16 127/78 95 03/05/18 02:30 116 H 20 117/69 100 03/05/18 00:23 105 H 18 100 03/04/18 23:51 97.8 F 111 H 20 135/84 99 Weight Weight 93 lb 8 oz I&O: 03/04/18 03/05/18 03/06/18 06:59 06:59 06:59 Intake Total 1200 Balance 1200 Result Diagrams: 03/05/18 04:19 03/05/18 04:19 EKG Reviewed by me: Yes (tachycardia) Phys Exam - Physical Examination Constitutional: NAD cachectic HEENT: PERRLA, sclera anicteric dry MM Neck: no nodes, no JVD, supple Respiratory: no wheezing, no rhonchi bilateral scattered rales+ Cardiovascular: RRR, no significant murmur, no rub tachycardia Gastrointestinal: soft, no distention, positive bowel sounds peg tube in place, epigastric discomfort noted Musculoskeletal: no edema, pulses present residual weakness on left side Lymphatic: no nodes Psychiatric: normal affect Skin: no rash, normal turgor Dx/Plan (1) Acute respiratory failure with hypoxia Code(s): J96.01 - ACUTE RESPIRATORY FAILURE WITH HYPOXIA Status: Acute Comment: (2) Anemia due to acute blood loss Code(s): D62 - ACUTE POSTHEMORRHAGIC ANEMIA Status: Acute (3) Dehydration Code(s): E86.0 - DEHYDRATION Status: Acute (4) GI bleed Code(s): K92.2 - GASTROINTESTINAL HEMORRHAGE, UNSPECIFIED Status: Acute (5) Lactic acidosis Code(s): E87.2 - ACIDOSIS Status: Acute (6) Multifocal pneumonia Code(s): J18.9 - PNEUMONIA, UNSPECIFIED ORGANISM Status: Acute (7) Sepsis with acute organ dysfunction Code(s): A41.9 - SEPSIS, UNSPECIFIED ORGANISM; R65.20 - SEVERE SEPSIS WITHOUT SEPTIC SHOCK Status: Acute (8) CVA, old, hemiparesis Code(s): I69.359 - HEMIPLGA FOLLOWING CEREBRAL INFARCTION AFFECTING UNSP SIDE Status: Chronic Comment: left hemiplegia, dysarthria and dysphagia (9) HTN (hypertension) Code(s): I10 - ESSENTIAL (PRIMARY) HYPERTENSION Status: Chronic (10) Protein-calorie malnutrition, severe Code(s): E43 - UNSPECIFIED SEVERE PROTEIN-CALORIE MALNUTRITION Status: Chronic (11) Vascular dementia Code(s): F01.50 - VASCULAR DEMENTIA WITHOUT BEHAVIORAL DISTURBANCE Status: Chronic - Plan cont current plan of care, continue antibiotics, respiratory therapy * continue empiric vancomycin, zosyn and levaquin * urine antigen positive for streptococcal * GI consulted, will need EGD * continue IVF * DC plavix and lovenox for suspected GI bleed * repeat labs tomorrow * continue IV pepcid * medication reviewed as below * symptomatic treatment * prognosis is guarded * pulmonary recommendation appreciated. Review of Systems - Review of Systems Constitutional: weakness. negative: fever, chills, sweats, malaise, other ENT: negative: Ear Pain, Ear Discharge, Nose Pain, Nose Discharge, Nose Congestion, Mouth Pain, Mouth Swelling, Throat Pain, Throat Swelling, Other Respiratory: Cough, Shortness of Breath, SOB with Excertion. negative: Dry, Hemoptysis, Pleuritic Pain, Sputum, Wheezing Cardiovascular: negative: chest pain, palpitations, orthopnea, paroxysmal nocturnal dyspnea, edema, light headedness, other Gastrointestinal: Abdominal Pain. negative: Nausea, Vomiting, Diarrhea, Constipation, Melena, Hematochezia, Other Genitourinary: negative: Dysuria, Frequency, Incontinence, Hematuria, Retention , Other Musculoskeletal: negative: Neck Pain, Shoulder Pain, Arm Pain, Back Pain, Hand Pain, Leg Pain, Foot Pain, Other Skin: negative: Rash, Lesions, Michael, Bruising, Other - Medications/Allergies Allergies/Adverse Reactions: Allergies Allergy/AdvReac Type Severity Reaction Status Date / Time No Known Drug Allergies Allergy Verified 05/24/17 10:23 Medications: Current Medications Acetaminophen (Tylenol) 650 mg PER TUBE Q4H PRN PRN Reason: Headache/Fever or Pain Albuterol/Ipratropium (Duoneb) 3 ml NEB [id number] [facility] Last Admin: 03/05/18 06:04 Dose: 3 ml Artificial Tears (Tears Renewed 15ml Bottle) 0 drop EA EYE PRN PRN PRN Reason: Dry Eyes Atorvastatin Calcium (Lipitor) 20 mg PER TUBE [facility] Bisacodyl (Dulcolax) 10 mg TX Q24H PRN PRN Reason: Constipation Donepezil HCl (Aricept) 10 mg PER TUBE HS [facility] Last Admin: 03/04/18 20:35 Dose: Not Given Famotidine (Pepcid) 20 mg SLOW IVP Q12HR [facility] Last Admin: 03/05/18 09:40 Dose: 20 mg Guaifenesin (Robitussin Sf) 200 mg PER TUBE Q4H PRN PRN Reason: Cough Guaifenesin (Mucinex) 600 mg PER TUBE TID [facility] Last Admin: 03/05/18 07:44 Dose: Not Given Hydralazine HCl (Apresoline) 10 mg SLOW IVP Q4H PRN PRN Reason: Systolic BP > 180 Piperacillin Sod/Tazobactam (Sod 3.375 gm/ Sodium Chloride) 100 mls @ 200 mls/ hr IVPB Q6HR [facility] Last Admin: 03/05/18 05:29 Dose: 100 mls Vancomycin HCl 750 mg/ Sodium (Chloride) 250 mls @ 250 mls/hr IVPB 0100,1300 [facility] Last Admin: 03/05/18 02:27 Dose: 250 mls Levofloxacin 500 mg/ Device 100 mls @ 100 mls/hr IVPB 2000 [facility] Last Admin: 03/04/18 20:32 Dose: 100 mls Potassium Chloride/Dextrose/Sod Cl (D5 1/2 Ns W/20 Meq Kcl) 1,000 mls @ 100 mls /hr IV .Q10H [facility] Last Admin: 03/05/18 09:40 Dose: 1,000 mls Loperamide HCl (Imodium) 2 mg PER TUBE PRN PRN PRN Reason: Diarrhea/Loose Stools Loratadine (Claritin) 10 mg PER TUBE DAILYPRN PRN PRN Reason: Sinus Symptoms Magnesium Hydroxide (Milk Of Magnesium) 30 ml PER TUBE DAILYPRN PRN PRN Reason: Constipation Methylprednisolone Sodium Succinate (Solu-Medrol) 20 mg IVP Q8HR [facility] Last Admin: 03/05/18 05:27 Dose: 20 mg Mineral Oil/White Petrolatum (Eucerin Cream) 0 gm TOP BIDPRN PRN PRN Reason: Dry Skin Miscellaneous Medication (Pharmacy To Dose) 1 each IVPB PRN PRN PRN Reason: Pharmacy to dose Ondansetron HCl (Zofran Odt) 4 mg SL Q6H PRN PRN Reason: Nausea/Vomiting Ondansetron HCl (Zofran) 4 mg IVP Q6H PRN PRN Reason: Nausea/Vomiting Phenol (Chloraseptic [place] 180 Ml Bot) 0 ml PO PRN PRN PRN Reason: Sore Throat Saccharomyces Boulardii (Florastor) 250 mg PER TUBE DAILY [facility] Last Admin: 03/05/18 07:45 Dose: Not Given Sodium Chloride ([place] Nasal [place] 0.65%) 0 ml EA NARE QIDPRN PRN PRN Reason: Nasal Congestion Sodium Chloride (Flush - Normal Saline) 10 ml IVF Q12HR [facility] Last Admin: 03/05/18 09:40 Dose: 10 ml Sodium Chloride (Flush - Normal Saline) 10 ml IVF PRN PRN PRN Reason: Saline Flush Tramadol HCl (Ultram) 50 mg PER TUBE Q4H PRN PRN Reason: Moderate Pain (4-6) Zolpidem Tartrate (Ambien) 5 mg PER TUBE HSPRN PRN PRN Reason: Insomnia
[2018-03-05] MEDS: Pantoprazole 40 MG VIAL IVP SCH (15:59)
[2018-03-05] MEDS ORDERED: Pantoprazole 40 MG VIAL IVP SCH (16:00)
--- NOTE | 2018-03-05 16:46 | PRG ---
DATE OF SERVICE: 03/05/2018 SUBJECTIVE: Mr. Robles has no complaints. He says he feels better. He was hospitalized at the end of last year with an illness that required mechanical ventilation. He says he is feeling much better than he felt yesterday. OBJECTIVE: VITAL SIGNS: His temperature today has been less than 100, heart rate 100 right before lunch, respir atory rate 16, oximetry is 97 on room air, blood pressure 110/64. LUNGS: Clear anteriorly. HEART: Regular rhythm, no S3. ABDOMEN: Soft and nontender. EXTREMITIES: Without clubbing, cyanosis, or edema. IMAGING: Chest radiograph shows patchy bilateral alveolar infiltrates yesterday. LABORATORY DATA: White count 7.6, hemoglobin 9.0, platelets 223,000. Electrolytes: Sodium 142, pot assium 3.7, chloride 111, bicarbonate 23, BUN 31, creatinine 0.74. Albumin is 2.5. IMPRESSION: 1. Pneumonia. 2. Recent mechanical ventilation. 3. History of a cerebrovascular accident with left hemiparesis and a PEG. 4. Hypertension. 5. Lipid disorder. 6. Vascular dementia. I suspect he is aspirating oral secretions. He does not have any respiratory distress and likely will be able to avoid mechanical ventilation thi s admission. Continue to follow with the other physician's caring for him.
--- NOTE | 2018-03-05 19:34 | RAD ---
KUB: 03/05/18 HISTORY: Coffee ground emesis from PEG tube. Bowel gas pattern appears nonobstructive. Some linear metallic densities are seen overlying the right kidney. These were present on a prior 10/20/17 study. The PEG tube appears to be in position overlyi ng the body of the stomach. No evidence for free air on the supine film. There are arthritic changes of the spine. IMPRESSION: No acute findings. POS: RABIA
[2018-03-05] MEDS: Atorvastatin Calcium 20 MG TAB PER TUBE SCH (20:08)
[2018-03-05] MEDS: Donepezil HCl 10 MG TAB PER TUBE SCH (20:09)
[2018-03-06] MEDS: Piperacillin/Tazobactam 3.375 GM in Sodium Chloride 0.9% 100 ML IVPB SCH ×3 (00:07→12:46)
[2018-03-06 00:50] LABS: Vancomycin, Trough 4.7 ug/mL
[2018-03-06] MEDS: Vancomycin HCl 750 MG in Sodium Chloride 0.9% 250 ML 250 ML IVPB SCH (01:09)
[2018-03-06] MEDS: Vancomycin HCl 1 GM in Premix Bag 1 BAG IVPB SCH ×3 (02:07→16:48)
--- NOTE | 2018-03-06 02:56 | CON ---
DATE OF CONSULTATION: 03/05/2018 REASON FOR CONSULTATION: Coffee ground return from NG tube. HISTORY OF PRESENT ILLNESS: Mr. Robles is a 53-year-old cachectic gentleman who was brought in with jennie lo. Last year in early October of 2017, which time he was in with aspiration pneumonia. This admission, he was brought to the emergency room yesterday on 03/04/2018 for cough for the past 3 days . Prior to admission, he is having increasing shortness of breath and low grade fevers at home. In the emergency room, he had O2 sat of 84%, had a low grade fever and bandemia, lactic acidosis and x-r ay showed multifocal pneumonia and started on antibiotics, placed on Pepcid. Apparently last night o r early this morning, the patient had coffee ground material removed from his PEG tube when it was as pirated and I have been asked to evaluate him. In talking with the nurses today, he has had no bowel movements and he has had no NG output. The coffee ground material ultimately cleared, he is not yenifer ng fed presently. The patient prior CVA and he does not talk, although he seems to understand questions what I am saying when I talked about examining him. PAST MEDICAL HISTORY: 1. CVA with left-sided paresis and previous PEG tube placement. This was done about 3-4 years ago. It is unclear who placed his PEG. 2. Hypertension. 3. Hyperlipidemia. 4. Pneumonia with previous episodes requiring intubation, mechanical ventilation end of last year. 5. Protein calorie malnutrition. 6. Vascular dementia. 7. Reflux. PAST SURGICAL HISTORY: PEG tube placement, hiatal hernia repair. SOCIAL HISTORY: The patient does not smoke, drink or use drugs. FAMILY HISTORY: family. There is no history of GI illness. MEDICATIONS PRIOR TO ADMISSION: Aricept, omeprazole, Plavix, prednisone, potassium chloride, Lipitor . REVIEW OF SYSTEMS: Unable to obtain. PRESENT MEDICATIONS: Tylenol, DuoNeb, Lipitor, Aricept, Dulcolax, Robitussin, Mucinex, Apresoline, l evofloxacin, Imodium, Claritin, Solu-Medrol 20 IV q.8 hours and Pepcid. He is also on Zosyn, tramado l, vancomycin, Ambien. PHYSICAL EXAMINATION: VITAL SIGNS: Pulse 100-105, temperature is 98, O2 sat 98% on room air, blood pressure 125/65. LUNGS: Decreased breath sounds, some rhonchi. He is very cachectic with temporal muscle wasting and muscle wasting in upper and lower extremities. HEART: Regular rate and rhythm. ABDOMEN: Soft, nontender. PEG tube site is clean and dry. There is no evidence of distention or re bound or masses. The PEG tube bumper is at 3 cm. RECTAL: Reveals yellow stool. EXTREMITIES: Again revealed diffuse muscle wasting. LABORATORY STUDIES: White count was 8 on admission, 7.6 today; hemoglobin was 12.8 and 9 today; carr nathaniel, his baseline hemoglobin runs between 10 and 11 typically. MCV is 91, bands 51%, neutrophils 10% , eosinophils 1%. On 03/04/2018, urine is positive for Strep pneumoniae antigen. Sodium 142, potass ium 3.7, bicarbonate 111, CO2 of 23, BUN and creatinine 31 and 0.74. Lactic acid 3, AST and ALT are 17 and 13, total protein 5.4, albumin is 2.5. Urinalysis was negative on admission. On 09/2017, hep atitis A, B, and C and HIV were negative. ASSESSMENT: 1. Pneumonia, likely aspiration related. It is unclear on talking with the nurses if she has had as piration issues in the past. I will talk with his primary lung doctor. 2. Coffee ground return from NG tube. He did not want to pull this up, but this was removed on suct ioning. There are no signs of overt GI hemorrhage with brown stools from below. He has been on hepa rin for DVT prophylaxis and he was on Plavix before that. Now, he is on omeprazole. Here, he was ju st on a H2 rudy, although there was some drop in hemoglobin from admission of 12.8, it was likely related to dehydration, 9 is more close to his baseline today after hydration. RECOMMENDATIONS: 1. IV Protonix. 2. Plain films abdomen to rule out obstruction or ileus. There are no signs of fecal impaction or r ectal bleeding. At this time, if x-ray is clear, we will start his tube feeds on a low rate if okay with Pulmonary. We will follow along with you. 3. No plans for endoscopy at this time with recent acute multifocal pneumonia. He is high risk for complications with sedation and endoscopy. If he has acute bleeding, we have to consider intubating him for endoscopy. We will follow along with you.
[2018-03-06 04:21] LABS: Lactic Acid 0.9 mmol/L (0.5-2.2)
[2018-03-06] MEDS: D5 1/2 NS w/20 mEq KCL 1,000 ML IV SCH ×2 (04:21→10:03)
[2018-03-06 04:24] LABS: Anion Gap 11 mmol/L (10-20); BUN (Urea Nitrogen) 22 mg/dL (8.4-25.7); Band 41 % (5-11); Calc. Creatinine Clearance 71 mL/min (70-130); Calcium 8.4 mg/dL (7.8-10.44); Carbon Dioxide 22 mmol/L (22-29); Chloride 111 mmol/L (98-107); Estimated GFR-MDRD Greater than 90; Glucose 116 mg/dL (70-105); Hemoglobin 8.7 g/dL (14.0-18.0); Lymphocytes 8 % (21-51); MDiff Complete? YES; Mean Corpuscular HGB CONC 32.6 g/dL (32.0-36.0); Mean Corpuscular Hemoglobin 30.1 pg (27.0-31.0); Mean Corpuscular Volume 92.3 fl (80.0-94.0); Mean Platelet Volume 8.1 fL (7.4-10.4); Neutrophil 51 % (42-75); PLT Morphology Comment Appears Adequate; Platelet Count 207 thou/uL (130-400); Potassium 3.5 mmol/L (3.5-5.1); Red Blood Cell (RBC) Count 2.88 mill/uL (4.70-6.10); Sodium 140 mmol/L (136-145); White Blood Cell (WBC) Count 11.4 thou/uL (4.8-10.8)
[2018-03-06] MEDS: Saccharomyces boulardii 250 MG CAP PER TUBE SCH (09:49)
[2018-03-06] MEDS: guaiFENesin ER 600 MG TAB PER TUBE SCH ×3 (09:49→19:48)
[2018-03-06] MEDS: Pantoprazole 40 MG VIAL IVP SCH (09:49)
--- NOTE | 2018-03-06 10:23 | PDOC.PN ---
- Subjective Encounter Start Date: 03/06/18 Encounter Start Time: 09:00 Patient seen and examined for pneumonia. No new complaints. No overnight events now he is on room air, he still has cough with sputum, guiac is negative, tube feeding started this morning - Objective MAR Reviewed: Yes Vital Signs & Weight: Vital Signs (12 hours) Temp Pulse Resp BP Pulse Ox 03/06/18 08:11 99 03/06/18 08:09 92 28 H 99 03/06/18 07:12 98.0 F 88 16 124/71 100 03/06/18 04:10 100 03/06/18 04:00 99.3 F 98 17 124/77 100 03/06/18 03:42 82 18 100 03/06/18 02:09 83 18 119/65 100 03/05/18 23:46 98.6 F 90 18 122/64 100 Weight Admit Weight 93 lb 8 oz Weight 95 lb 3.835 oz I&O: 03/05/18 03/06/18 03/07/18 06:59 06:59 06:59 Intake Total 1200 1200 Balance 1200 1200 Result Diagrams: 03/06/18 03:52 03/06/18 03:52 Radiology Reviewed by me: Yes (xray abdomen) EKG Reviewed by me: Yes Phys Exam - Physical Examination Constitutional: NAD cachexia HEENT: PERRLA, moist MMs, sclera anicteric Neck: no JVD, supple Respiratory: no wheezing, no rhonchi coarse sound+ Cardiovascular: RRR, no significant murmur, no rub Gastrointestinal: soft, non-tender, no distention, positive bowel sounds PEG+ Musculoskeletal: no edema, pulses present left side residual weakness, contracture, muscle atrophy Lymphatic: no nodes Psychiatric: normal affect Skin: no rash, normal turgor Dx/Plan (1) Acute respiratory failure with hypoxia Code(s): J96.01 - ACUTE RESPIRATORY FAILURE WITH HYPOXIA Status: Resolved Comment: (2) Dehydration Code(s): E86.0 - DEHYDRATION Status: Resolved (3) GI bleed Code(s): K92.2 - GASTROINTESTINAL HEMORRHAGE, UNSPECIFIED Status: Ruled-out (4) Lactic acidosis Code(s): E87.2 - ACIDOSIS Status: Resolved (5) Multifocal pneumonia Code(s): J18.9 - PNEUMONIA, UNSPECIFIED ORGANISM Status: Acute (6) Sepsis with acute organ dysfunction Code(s): A41.9 - SEPSIS, UNSPECIFIED ORGANISM; R65.20 - SEVERE SEPSIS WITHOUT SEPTIC SHOCK Status: Acute (7) CVA, old, hemiparesis Code(s): I69.359 - HEMIPLGA FOLLOWING CEREBRAL INFARCTION AFFECTING UNSP SIDE Status: Chronic Comment: left hemiplegia, dysarthria and dysphagia (8) HTN (hypertension) Code(s): I10 - ESSENTIAL (PRIMARY) HYPERTENSION Status: Chronic (9) Protein-calorie malnutrition, severe Code(s): E43 - UNSPECIFIED SEVERE PROTEIN-CALORIE MALNUTRITION Status: Chronic (10) Vascular dementia Code(s): F01.50 - VASCULAR DEMENTIA WITHOUT BEHAVIORAL DISTURBANCE Status: Chronic - Plan cont current plan of care, continue antibiotics, respiratory therapy * guiac is negative, does not suspect any GI bleed * will start tube feeding * will transfer to medical floor * continue current iv antibiotics today, tomorrow will deescalate antibiotics if culture negative * still has bandemia, c-diff is negative. * medication reviewed as below * symptomatic treatment Review of Systems - Review of Systems Constitutional: negative: fever, chills, sweats, weakness, malaise, other Eyes: negative: Pain, Vision Change, Conjunctivae Inflammation, Eyelid Inflammation, Redness, Other ENT: negative: Ear Pain, Ear Discharge, Nose Pain, Nose Discharge, Nose Congestion, Mouth Pain, Mouth Swelling, Throat Pain, Throat Swelling, Other Respiratory: Cough, Shortness of Breath. negative: Dry, Hemoptysis, SOB with Excertion, Pleuritic Pain, Sputum, Wheezing Cardiovascular: negative: chest pain, palpitations, orthopnea, paroxysmal nocturnal dyspnea, edema, light headedness, other Gastrointestinal: negative: Nausea, Vomiting, Abdominal Pain, Diarrhea, Constipation, Melena, Hematochezia, Other Genitourinary: negative: Dysuria, Frequency, Incontinence, Hematuria, Retention , Other Musculoskeletal: negative: Neck Pain, Shoulder Pain, Arm Pain, Back Pain, Hand Pain, Leg Pain, Foot Pain, Other Skin: negative: Rash, Lesions, Michael, Bruising, Other - Medications/Allergies Allergies/Adverse Reactions: Allergies Allergy/AdvReac Type Severity Reaction Status Date / Time No Known Drug Allergies Allergy Verified 05/24/17 10:23 Medications: Current Medications Acetaminophen (Tylenol) 650 mg PER TUBE Q4H PRN PRN Reason: Headache/Fever or Pain Albuterol/Ipratropium (Duoneb) 3 ml NEB [id number] [facility] Last Admin: 03/06/18 08:09 Dose: 3 ml Artificial Tears (Tears Renewed 15ml Bottle) 0 drop EA EYE PRN PRN PRN Reason: Dry Eyes Atorvastatin Calcium (Lipitor) 20 mg PER TUBE HS [facility] Last Admin: 03/05/18 20:08 Dose: Not Given Bisacodyl (Dulcolax) 10 mg CA Q24H PRN PRN Reason: Constipation Donepezil HCl (Aricept) 10 mg PER TUBE HS [facility] Last Admin: 03/05/18 20:09 Dose: Not Given Guaifenesin (Robitussin Sf) 200 mg PER TUBE Q4H PRN PRN Reason: Cough Guaifenesin (Mucinex) 600 mg PER TUBE TID [facility] Last Admin: 03/06/18 09:49 Dose: 600 mg Hydralazine HCl (Apresoline) 10 mg SLOW IVP Q4H PRN PRN Reason: Systolic BP > 180 Piperacillin Sod/Tazobactam (Sod 3.375 gm/ Sodium Chloride) 100 mls @ 200 mls/ hr IVPB Q6HR [facility] Last Admin: 03/06/18 05:33 Dose: 100 mls Levofloxacin 500 mg/ Device 100 mls @ 100 mls/hr IVPB 2000 [facility] Last Admin: 03/05/18 20:06 Dose: 100 mls Potassium Chloride/Dextrose/Sod Cl (D5 1/2 Ns W/20 Meq Kcl) 1,000 mls @ 100 mls /hr IV .Q10H [facility] Last Admin: 03/06/18 10:03 Dose: 1,000 mls Vancomycin HCl 1 gm/ Device 200 mls @ 200 mls/hr IVPB 0200,1000,1800 [facility] Last Admin: 03/06/18 10:03 Dose: 200 mls Loperamide HCl (Imodium) 2 mg PER TUBE PRN PRN PRN Reason: Diarrhea/Loose Stools Loratadine (Claritin) 10 mg PER TUBE DAILYPRN PRN PRN Reason: Sinus Symptoms Magnesium Hydroxide (Milk Of Magnesium) 30 ml PER TUBE DAILYPRN PRN PRN Reason: Constipation Methylprednisolone Sodium Succinate (Solu-Medrol) 20 mg IVP Q8HR [facility] Last Admin: 03/06/18 05:33 Dose: 20 mg Mineral Oil/White Petrolatum (Eucerin Cream) 0 gm TOP BIDPRN PRN PRN Reason: Dry Skin Miscellaneous Medication (Pharmacy To Dose) 1 each IVPB PRN PRN PRN Reason: Pharmacy to dose Ondansetron HCl (Zofran Odt) 4 mg SL Q6H PRN PRN Reason: Nausea/Vomiting Ondansetron HCl (Zofran) 4 mg IVP Q6H PRN PRN Reason: Nausea/Vomiting Pantoprazole Sodium (Protonix) 40 mg IVP DAILY [facility] Last Admin: 03/06/18 09:49 Dose: 40 mg Phenol (Chloraseptic [place] 180 Ml Bot) 0 ml PO PRN PRN PRN Reason: Sore Throat Saccharomyces Boulardii (Florastor) 250 mg PER TUBE DAILY [facility] Last Admin: 03/06/18 09:49 Dose: 250 mg Sodium Chloride ([place] Nasal [place] 0.65%) 0 ml EA NARE QIDPRN PRN PRN Reason: Nasal Congestion Sodium Chloride (Flush - Normal Saline) 10 ml IVF Q12HR [facility] Last Admin: 03/06/18 09:49 Dose: Not Given Sodium Chloride (Flush - Normal Saline) 10 ml IVF PRN PRN PRN Reason: Saline Flush Sodium Chloride (Flush - Normal Saline) 10 ml IV DAILY [facility] Last Admin: 03/06/18 09:55 Dose: 10 ml Tramadol HCl (Ultram) 50 mg PER TUBE Q4H PRN PRN Reason: Moderate Pain (4-6) Zolpidem Tartrate (Ambien) 5 mg PER TUBE HSPRN PRN PRN Reason: Insomnia
[2018-03-06] MEDS: chlorproMAZINE HCl 50 MG/2 ML AMP IM PRN (16:43)
--- NOTE | 2018-03-06 19:02 | PRG ---
DATE OF SERVICE: 03/06/2018 GI FOLLOWUP REASON FOR CONSULTATION: Coffee-ground return from NG tube. SUBJECTIVE: Mr. Robles is a 53-year-old, who was admitted for pneumonia to the IMU. The nurses noted some output of coffee-ground material from the PEG yesterday, and we were consulted. I talked with the nurses today. He is tolerating tube feeds. He has had no coffee ground output. He has had no b lood in his stool. Hemoglobin is 8.7, white count 11.4. OBJECTIVE: VITAL SIGNS: Temperature is 98.3, blood pressure 150/85, pulse 93. ABDOMEN: Soft and nontender. ASSESSMENT: Coffee-ground via NG tube, resolved. RECOMMENDATIONS: PPI therapy for 8 weeks. The patient has signs of ongoing GI blood loss or GI bleeding. We would be more happy to reevaluate. Please do not hesitate to reconsult. Yesterday, rectal exam revealed brown stool in the vault and plain film showed no signs of bowel obstruction. Today, there is no evidence of any bleeding. Due t o his pneumonia, we have held off on endoscopy with his tenuous respiratory status. Again, if I can be of any further assistance or if there become new signs of bleeding, I would be more happy to reeva luate the patient.
[2018-03-06] MEDS: Donepezil HCl 10 MG TAB PER TUBE SCH (19:48)
[2018-03-06] MEDS: Atorvastatin Calcium 20 MG TAB PER TUBE SCH (19:48)
[2018-03-06] MEDS ORDERED: Amoxicillin/Potassium Clav 875 MG TAB PO SCH (21:00)
--- NOTE | 2018-03-06 23:50 | PRG ---
DATE OF SERVICE: 03/06/2018 SUBJECTIVE: Mr. Robles had no new complaints today. OBJECTIVE: VITAL SIGNS: He is afebrile, heart rate 69, respiratory rate is 18, oximetry is 96 on room air, bloo d pressure 141/79. LUNGS: Clear anteriorly. HEART: Regular rhythm. ABDOMEN: Soft. LABORATORY DATA: White count 11.4, hemoglobin 8.7, platelets 207,000. Electrolytes were unremarkabl e. He had some brown drainage out of his PEG aspirate. Gastroenterology was consulted. Dr. Wilson' rectal exam showed no bloody bowel movements and no heme positive stool. I think any workup for him because of his fragile state should be conservative for any problem. I do not think he ever will be any type of operative candidate. With regards to his pneumonia, he can be switched to enteral antimicrobial therapy. He is on room ai r and he is afebrile. He was having bad hiccups this morning, Thorazine was ordered p.r.n.
[2018-03-07] MEDS: D5 1/2 NS w/20 mEq KCL 1,000 ML IV SCH (00:02)
[2018-03-07 01:24] LABS: Vancomycin, Trough 25.5 ug/mL
[2018-03-07 06:38] LABS: Band 27 % (5-11); Hemoglobin 8.2 g/dL (14.0-18.0); Lymphocytes 2 % (21-51); MDiff Complete? YES; Mean Corpuscular HGB CONC 32.4 g/dL (32.0-36.0); Mean Corpuscular Hemoglobin 29.9 pg (27.0-31.0); Mean Corpuscular Volume 92.5 fl (80.0-94.0); Mean Platelet Volume 8.9 fL (7.4-10.4); Neutrophil 71 % (42-75); Platelet Count 208 thou/uL (130-400); RBC Distribution Width 14.2 % (11.5-14.5); Red Blood Cell (RBC) Count 2.74 mill/uL (4.70-6.10); White Blood Cell (WBC) Count 8.9 thou/uL (4.8-10.8)
--- NOTE | 2018-03-07 07:42 | RAD ---
CHEST 1 VIEW: HISTORY: Pneumonia. Followup. COMPARISON: 03/04/18. FINDINGS: Cardiac silhouette remains magnified by projection. Pulmonary vasculature is upper limits of normal. Patchy areas of parenchymal infiltrate throughout each lung are less pronounced than on the prior e xam. Mediastinum remains midline with aortic calcification. Lungs are otherwise hyperinflated. IMPRESSION: 1. Slight interval improvement in aeration of the lungs. Multifocal pneumonia is improving. 2. Chronic obstructive pulmonary disease. POS: [facility]
[2018-03-07] MEDS: Pantoprazole 40 MG VIAL IVP SCH (08:21)
[2018-03-07] MEDS: Saccharomyces boulardii 250 MG CAP PER TUBE SCH (08:21)
[2018-03-07] MEDS: Vancomycin HCl 750 MG in Sodium Chloride 0.9% 250 ML 250 ML IVPB SCH ×2 (08:21→15:22)
[2018-03-07] MEDS: guaiFENesin ER 600 MG TAB PER TUBE SCH (08:21)
[2018-03-07] MEDS: Amoxicillin/Potassium Clav 875 MG TAB PER TUBE SCH ×2 (08:23→21:27)
--- NOTE | 2018-03-07 09:38 | PDOC.PN ---
- Subjective Encounter Start Date: 03/07/18 Encounter Start Time: 07:40 Patient seen and examined for pneumonia. No new complaints. No overnight events - Objective MAR Reviewed: Yes Vital Signs & Weight: Vital Signs (12 hours) Temp Pulse Resp BP Pulse Ox 03/07/18 07:55 60 12 03/07/18 07:28 97.8 F 58 L 20 155/88 H 100 03/07/18 03:30 99 03/07/18 01:19 64 12 96 Weight Admit Weight 93 lb 8 oz Weight 95 lb 3.835 oz I&O: 03/06/18 03/07/18 03/08/18 06:59 06:59 06:59 Intake Total 1200 3300 Balance 1200 3300 Result Diagrams: 03/07/18 00:48 03/06/18 03:52 Radiology Reviewed by me: Yes (chest xray) Phys Exam - Physical Examination Constitutional: NAD cachectic HEENT: PERRLA, moist MMs, sclera anicteric Neck: no JVD, supple Respiratory: no wheezing, no rales, no rhonchi Cardiovascular: RRR, no significant murmur, no rub Gastrointestinal: soft, non-tender, no distention, positive bowel sounds peg tube+ Musculoskeletal: no edema, pulses present residual weakness Lymphatic: no nodes Psychiatric: normal affect Skin: no rash, normal turgor Dx/Plan (1) Acute respiratory failure with hypoxia Code(s): J96.01 - ACUTE RESPIRATORY FAILURE WITH HYPOXIA Status: Resolved Comment: (2) Dehydration Code(s): E86.0 - DEHYDRATION Status: Resolved (3) GI bleed Code(s): K92.2 - GASTROINTESTINAL HEMORRHAGE, UNSPECIFIED Status: Ruled-out (4) Lactic acidosis Code(s): E87.2 - ACIDOSIS Status: Resolved (5) Multifocal pneumonia Code(s): J18.9 - PNEUMONIA, UNSPECIFIED ORGANISM Status: Acute (6) Sepsis with acute organ dysfunction Code(s): A41.9 - SEPSIS, UNSPECIFIED ORGANISM; R65.20 - SEVERE SEPSIS WITHOUT SEPTIC SHOCK Status: Acute (7) CVA, old, hemiparesis Code(s): I69.359 - HEMIPLGA FOLLOWING CEREBRAL INFARCTION AFFECTING UNSP SIDE Status: Chronic Comment: left hemiplegia, dysarthria and dysphagia (8) HTN (hypertension) Code(s): I10 - ESSENTIAL (PRIMARY) HYPERTENSION Status: Chronic (9) Protein-calorie malnutrition, severe Code(s): E43 - UNSPECIFIED SEVERE PROTEIN-CALORIE MALNUTRITION Status: Chronic (10) Vascular dementia Code(s): F01.50 - VASCULAR DEMENTIA WITHOUT BEHAVIORAL DISTURBANCE Status: Chronic - Plan cont current plan of care, continue antibiotics * continue bolus tube feeding * continue augmentin and vancomycin * still has bandemia, but pt has improvement in pneumonia xray garcia, he is on room air * nutritional support * expecting discharge tomorrow * medication reviewed as below * symptomatic treatment * Dc solumedrol. Review of Systems - Review of Systems Eyes: negative: Pain, Vision Change, Conjunctivae Inflammation, Eyelid Inflammation, Redness, Other ENT: negative: Ear Pain, Ear Discharge, Nose Pain, Nose Discharge, Nose Congestion, Mouth Pain, Mouth Swelling, Throat Pain, Throat Swelling, Other Respiratory: Cough. negative: Dry, Shortness of Breath, Hemoptysis, SOB with Excertion, Pleuritic Pain, Sputum, Wheezing Cardiovascular: negative: chest pain, palpitations, orthopnea, paroxysmal nocturnal dyspnea, edema, light headedness, other Gastrointestinal: negative: Nausea, Vomiting, Abdominal Pain, Diarrhea, Constipation, Melena, Hematochezia, Other Genitourinary: negative: Dysuria, Frequency, Incontinence, Hematuria, Retention , Other Musculoskeletal: negative: Neck Pain, Shoulder Pain, Arm Pain, Back Pain, Hand Pain, Leg Pain, Foot Pain, Other Skin: negative: Rash, Lesions, Michael, Bruising, Other - Medications/Allergies Allergies/Adverse Reactions: Allergies Allergy/AdvReac Type Severity Reaction Status Date / Time No Known Drug Allergies Allergy Verified 05/24/17 10:23 Medications: Current Medications Acetaminophen (Tylenol) 650 mg PER TUBE Q4H PRN PRN Reason: Headache/Fever or Pain Albuterol/Ipratropium (Duoneb) 3 ml NEB [id number] [facility] Last Admin: 03/07/18 07:55 Dose: 3 ml Amoxicillin/Clavulanate Potassium (Augmentin) 875 mg PER TUBE Q12HR [facility] Last Admin: 03/07/18 08:23 Dose: 875 mg Artificial Tears (Tears Renewed 15ml Bottle) 0 drop EA EYE PRN PRN PRN Reason: Dry Eyes Atorvastatin Calcium (Lipitor) 20 mg PER TUBE HS [facility] Last Admin: 03/06/18 19:48 Dose: 20 mg Bisacodyl (Dulcolax) 10 mg [place] Q24H PRN PRN Reason: Constipation Chlorpromazine HCl (Thorazine) 25 mg IM Q6H PRN PRN Reason: Hiccups Last Admin: 03/06/18 16:43 Dose: 25 mg Donepezil HCl (Aricept) 10 mg PER TUBE [facility] Last Admin: 03/06/18 19:48 Dose: 10 mg Guaifenesin (Robitussin Sf) 200 mg PER TUBE Q4H PRN PRN Reason: Cough Guaifenesin (Robitussin Sf) 600 mg PER TUBE TID [facility] Hydralazine HCl (Apresoline) 10 mg SLOW IVP Q4H PRN PRN Reason: Systolic BP > 180 Vancomycin HCl 750 mg/ Sodium (Chloride) 250 mls @ 250 mls/hr IVPB 0800,1600, 2359 [facility] Last Admin: 03/07/18 08:21 Dose: 250 mls Loperamide HCl (Imodium) 2 mg PER TUBE PRN PRN PRN Reason: Diarrhea/Loose Stools Loratadine (Claritin) 10 mg PER TUBE DAILYPRN PRN PRN Reason: Sinus Symptoms Magnesium Hydroxide (Milk Of Magnesium) 30 ml PER TUBE DAILYPRN PRN PRN Reason: Constipation Mineral Oil/White Petrolatum (Eucerin Cream) 0 gm TOP BIDPRN PRN PRN Reason: Dry Skin Miscellaneous Medication (Pharmacy To Dose) 1 each IVPB PRN PRN PRN Reason: Pharmacy to dose Ondansetron HCl (Zofran Odt) 4 mg SL Q6H PRN PRN Reason: Nausea/Vomiting Ondansetron HCl (Zofran) 4 mg IVP Q6H PRN PRN Reason: Nausea/Vomiting Pantoprazole Sodium (Protonix) 40 mg IVP DAILY [facility] Last Admin: 03/07/18 08:21 Dose: 40 mg Phenol (Chloraseptic [place] 180 Ml Bot) 0 ml PO PRN PRN PRN Reason: Sore Throat Saccharomyces Boulardii (Florastor) 250 mg PER TUBE DAILY [facility] Last Admin: 03/07/18 08:21 Dose: 250 mg Sodium Chloride ([place] Nasal [place] 0.65%) 0 ml EA NARE QIDPRN PRN PRN Reason: Nasal Congestion Sodium Chloride (Flush - Normal Saline) 10 ml IVF Q12HR [facility] Last Admin: 03/07/18 08:22 Dose: 10 ml Sodium Chloride (Flush - Normal Saline) 10 ml IVF PRN PRN PRN Reason: Saline Flush Sodium Chloride (Flush - Normal Saline) 10 ml IV DAILY [facility] Last Admin: 03/07/18 08:22 Dose: 10 ml Tramadol HCl (Ultram) 50 mg PER TUBE Q4H PRN PRN Reason: Moderate Pain (4-6) Zolpidem Tartrate (Ambien) 5 mg PER TUBE HSPRN PRN PRN Reason: Insomnia
[2018-03-07] MEDS: Diabetic Tussin 200 MG/10 ML UDCUP PER TUBE SCH ×3 (11:57→21:31)
[2018-03-07] MEDS: chlorproMAZINE HCl 50 MG/2 ML AMP SLOW IVP PRN (11:57)
--- NOTE | 2018-03-07 13:20 | PRG ---
DATE OF SERVICE: 03/07/2018 SUBJECTIVE: Mr. Robles is still having intermittent hiccups. He is not on anything for reflux reviewing his medications. We might add Pepcid twice a day. OBJECTIVE: GENERAL: Without any respiratory distress. LUNGS: Remarkable for a few rhonchi that cleared with cough. HEART: Regular rhythm. ABDOMEN: Soft. ASSESSMENT AND PLAN: We will continue with Thorazine p.r.n. for hiccups, we will give him intravenou sly since he has no muscle mass. Stable from a pneumonia standpoint. He is quite cachectic. We madeleine l continue with supportive care with care environment after he leaves the hospital.
[2018-03-07] MEDS: Donepezil HCl 10 MG TAB PER TUBE SCH (21:27)
[2018-03-07] MEDS: Famotidine 20 MG TAB PO SCH (21:27)
[2018-03-07] MEDS: Atorvastatin Calcium 20 MG TAB PER TUBE SCH (21:28)
[2018-03-08] MEDS: Vancomycin HCl 750 MG in Sodium Chloride 0.9% 250 ML 250 ML IVPB SCH ×3 (00:34→16:43)
[2018-03-08] MEDS: chlorproMAZINE HCl 50 MG/2 ML AMP SLOW IVP PRN (03:43)
[2018-03-08 08:01] LABS: Vancomycin, Trough 19.3 ug/mL
[2018-03-08 09:49] VITALS: BMI 15.3
[2018-03-08] MEDS: Diabetic Tussin 200 MG/10 ML UDCUP PER TUBE SCH ×3 (10:51→21:33)
[2018-03-08] MEDS: Famotidine 20 MG TAB PO SCH ×2 (10:51→21:33)
[2018-03-08] MEDS: Saccharomyces boulardii 250 MG CAP PER TUBE SCH (10:51)
[2018-03-08] MEDS: Amoxicillin/Potassium Clav 875 MG TAB PER TUBE SCH ×2 (10:51→21:34)
[2018-03-08] MEDS: Pantoprazole 40 MG VIAL IVP SCH (10:52)
[2018-03-08] MEDS: chlorproMAZINE HCl 50 MG/2 ML AMP IM PRN (17:03)
--- NOTE | 2018-03-08 17:38 | PDOC.PN ---
- Subjective Encounter Start Date: 03/08/18 Encounter Start Time: 17:15 Subjective: f/u for multifocal PNA, cachexia on Augmentin and Vancomycin. Receives -: TF's per nursing. Lives at home with family. + hiccups receiving Thorazine. - Objective MAR Reviewed: Yes Vital Signs & Weight: Vital Signs (12 hours) Temp Pulse Resp BP Pulse Ox 03/08/18 16:01 98.5 F 120 H 20 165/86 H 03/08/18 08:00 99.1 F 95 16 95 03/08/18 07:42 99.1 F 95 16 144/78 H 95 03/08/18 06:36 99 03/08/18 06:33 89 14 Weight Admit Weight 93 lb 8 oz Weight 95 lb 3.835 oz I&O: 03/07/18 03/08/18 03/09/18 06:59 06:59 06:59 Intake Total 3300 2397 480 Balance 3300 2397 480 Result Diagrams: 03/07/18 00:48 03/06/18 03:52 Additional Labs: Microbiology 03/06/18 04:10 Stool Stool Occult Blood ([facility]) - Final 03/05/18 04:30 Nasopharyngeal swab Respiratory Virus Panel (PCR) ([facility]) - Final 03/05/18 00:00 Stool C. difficile [facility] Antigen & Toxins - Final 03/04/18 13:11 Urine voided Urine Culture - Final NO GROWTH AT 36 HOURS 03/04/18 11:27 Venous blood - Left Arm Blood Culture - Preliminary NO GROWTH AT 48 HOURS 03/04/18 10:37 Venous blood - Left Arm Blood Culture - Preliminary NO GROWTH AT 48 HOURS Radiology Reviewed by me: Yes (PCXR 03/07/18 - mild improvement in aeration, multifocal pna) Phys Exam - Physical Examination cachetic, opens eyes to name, nods to questions briefly HEENT: PERRLA, sclera anicteric, oral pharynx no lesions Neck: no nodes, no JVD, supple coarse sounds bilaterally, transmitted sounds from throat Respiratory: no wheezing S1, S2 Cardiovascular: RRR, no significant murmur, no rub, gallop PEG tube intact Gastrointestinal: soft, non-tender, no distention, positive bowel sounds generalized atrophy Musculoskeletal: no edema, pulses present Neurological: moves all 4 limbs Skin: no rash, normal turgor, cap refill <2 seconds Dx/Plan (1) Multifocal pneumonia Code(s): J18.9 - PNEUMONIA, UNSPECIFIED ORGANISM Status: Acute Comment: Improving slowly, continue Augmentin and Vancomycin, pulmonary supportive measures (2) Sepsis with acute organ dysfunction Code(s): A41.9 - SEPSIS, UNSPECIFIED ORGANISM; R65.20 - SEVERE SEPSIS WITHOUT SEPTIC SHOCK Status: Acute Comment: Resolved (3) Protein-calorie malnutrition, severe Code(s): E43 - UNSPECIFIED SEVERE PROTEIN-CALORIE MALNUTRITION Status: Chronic Comment: Continue TF's Jevity 1.2 bolus, serial gastric residuals (4) Vascular dementia Code(s): F01.50 - VASCULAR DEMENTIA WITHOUT BEHAVIORAL DISTURBANCE Status: Chronic Comment: Continue Aricept 10mg HS - Plan continue antibiotics, social service assistant, speech therapy, DVT proph w/SCDs Stable overall -: Continue Augmentin and Vancomycin -: Nutritional support with Jevity 1.2 bolus feeds -: Thorazine for hiccups -: AM lab: CBC * Likely home when bandemia resolving
[2018-03-08] MEDS ORDERED: chlorproMAZINE HCl 50 MG/2 ML AMP SLOW IVP SCH (18:00)
--- NOTE | 2018-03-08 21:25 | PDOC.EVN ---
Event Note - Event Note Event Note: called by bedside nsg re: tachycardia x3 VS with HR 120s check EKG, troponin if persistent, t/c transition to telemetry
[2018-03-08] MEDS: Atorvastatin Calcium 20 MG TAB PER TUBE SCH (21:34)
[2018-03-08] MEDS: Donepezil HCl 10 MG TAB PER TUBE SCH (21:34)
[2018-03-08 22:25] LABS: Troponin I 0.015 ng/mL (< 0.028)
[2018-03-09] MEDS: Vancomycin HCl 750 MG in Sodium Chloride 0.9% 250 ML 250 ML IVPB SCH ×3 (00:15→15:37)
[2018-03-09] MEDS: chlorproMAZINE HCl 50 MG/2 ML AMP SLOW IVP SCH ×4 (00:16→17:57)
[2018-03-09 05:20] LABS: Band 16 % (5-11); Hemoglobin 9.6 g/dL (14.0-18.0); Lymphocytes 14 % (21-51); MDiff Complete? YES; Mean Corpuscular HGB CONC 33.9 g/dL (32.0-36.0); Mean Corpuscular Hemoglobin 30.9 pg (27.0-31.0); Mean Corpuscular Volume 91.1 fl (80.0-94.0); Mean Platelet Volume 8.8 fL (7.4-10.4); Monocytes 2 % (0-10); Neutrophil 68 % (42-75); Platelet Count 189 thou/uL (130-400); White Blood Cell (WBC) Count 6.9 thou/uL (4.8-10.8)
[2018-03-09] MEDS: Saccharomyces boulardii 250 MG CAP PER TUBE SCH (07:50)
[2018-03-09] MEDS: Diabetic Tussin 200 MG/10 ML UDCUP PER TUBE SCH ×3 (07:50→20:56)
[2018-03-09] MEDS: Pantoprazole 40 MG GRANULES PACKET PER TUBE SCH (07:51)
[2018-03-09] MEDS: Famotidine 20 MG TAB PO SCH ×2 (07:51→20:54)
[2018-03-09] MEDS: Amoxicillin/Potassium Clav 875 MG TAB PER TUBE SCH ×2 (07:51→20:55)
[2018-03-09] MEDS: Atorvastatin Calcium 20 MG TAB PER TUBE SCH (20:54)
[2018-03-09] MEDS: Donepezil HCl 10 MG TAB PER TUBE SCH (20:54)
--- NOTE | 2018-03-09 22:34 | PDOC.PN ---
- Subjective Encounter Start Date: 03/09/18 Encounter Start Time: 16:00 Patient seen and examined for Sepsis/Pneumonia. Hiccups improving. No new complaints. Overnight events noted. - Objective MAR Reviewed: Yes Vital Signs & Weight: Vital Signs (12 hours) Temp Pulse Resp BP Pulse Ox 03/09/18 20:40 98.7 F 105 H 16 116/72 100 03/09/18 19:58 98 03/09/18 19:57 98 03/09/18 16:34 98.6 F 107 H 16 133/82 100 03/09/18 15:18 104 H 28 H 03/09/18 11:00 98.1 F 98 18 167/91 H 91 L Weight Admit Weight 93 lb 8 oz Weight 95 lb 3.835 oz I&O: 03/08/18 03/09/18 03/10/18 06:59 06:59 06:59 Intake Total 2397 2670 1620 Balance 2397 2670 1620 Result Diagrams: 03/09/18 03:36 03/06/18 03:52 EKG Reviewed by me: Yes (Sinus Tachy) Phys Exam - Physical Examination Constitutional: NAD Respiratory: no wheezing, no rhonchi Cardiovascular: RRR, no rub Gastrointestinal: soft, non-tender, positive bowel sounds PEG + Musculoskeletal: no edema Dx/Plan (1) Acute respiratory failure with hypoxia Code(s): J96.01 - ACUTE RESPIRATORY FAILURE WITH HYPOXIA Status: Acute Comment: (2) Sepsis with acute organ dysfunction Code(s): A41.9 - SEPSIS, UNSPECIFIED ORGANISM; R65.20 - SEVERE SEPSIS WITHOUT SEPTIC SHOCK Status: Acute (3) Multifocal pneumonia Code(s): J18.9 - PNEUMONIA, UNSPECIFIED ORGANISM Status: Acute (4) HTN (hypertension) Code(s): I10 - ESSENTIAL (PRIMARY) HYPERTENSION Status: Chronic (5) Protein-calorie malnutrition, severe Code(s): E43 - UNSPECIFIED SEVERE PROTEIN-CALORIE MALNUTRITION Status: Chronic (6) Lactic acidosis Code(s): E87.2 - ACIDOSIS Status: Resolved (7) Hematemesis Code(s): K92.0 - HEMATEMESIS Status: Resolved - Plan continue antibiotics, DVT proph w/SCDs Cont tube feeds -: Cont current Atbx -: Cont current meds as below -: Cont Nebs Review of Systems - Review of Systems Respiratory: negative: Cough, Dry, Shortness of Breath, Hemoptysis, SOB with Excertion, Pleuritic Pain, Sputum, Wheezing Cardiovascular: negative: chest pain, palpitations, orthopnea, paroxysmal nocturnal dyspnea, edema, light headedness, other Gastrointestinal: negative: Nausea, Vomiting, Abdominal Pain, Diarrhea, Constipation, Melena, Hematochezia, Other - Medications/Allergies Allergies/Adverse Reactions: Allergies Allergy/AdvReac Type Severity Reaction Status Date / Time No Known Drug Allergies Allergy Verified 05/24/17 10:23 Medications: Current Medications Acetaminophen (Tylenol) 650 mg PER TUBE Q4H PRN PRN Reason: Headache/Fever or Pain Albuterol/Ipratropium (Duoneb) 3 ml NEB [id number] [facility] Last Admin: 03/09/18 19:57 Dose: 3 ml Amoxicillin/Clavulanate Potassium (Augmentin) 875 mg PER TUBE Q12HR [facility] Last Admin: 03/09/18 20:55 Dose: 875 mg Artificial Tears (Tears Renewed 15ml Bottle) 0 drop EA EYE PRN PRN PRN Reason: Dry Eyes Atorvastatin Calcium (Lipitor) 20 mg PER TUBE HS [facility] Last Admin: 03/09/18 20:54 Dose: 20 mg Bisacodyl (Dulcolax) 10 mg [place] Q24H PRN PRN Reason: Constipation Chlorpromazine HCl (Thorazine) 25 mg IM Q6H PRN PRN Reason: Hiccups Last Admin: 03/08/18 17:03 Dose: 25 mg Chlorpromazine HCl (Thorazine) 25 mg SLOW IVP Q6HR [facility] Last Admin: 03/09/18 17:57 Dose: 25 mg Donepezil HCl (Aricept) 10 mg PER TUBE HS [facility] Last Admin: 03/09/18 20:54 Dose: 10 mg Famotidine (Pepcid) 20 mg PO BID [facility] Last Admin: 03/09/18 20:54 Dose: 20 mg Guaifenesin (Robitussin Sf) 200 mg PER TUBE Q4H PRN PRN Reason: Cough Guaifenesin (Robitussin Sf) 600 mg PER TUBE TID [facility] Last Admin: 03/09/18 20:56 Dose: 600 mg Hydralazine HCl (Apresoline) 10 mg SLOW IVP Q4H PRN PRN Reason: Systolic BP > 180 Vancomycin HCl 750 mg/ Sodium (Chloride) 250 mls @ 250 mls/hr IVPB 0800,1600, 2359 [facility] Last Admin: 03/09/18 15:37 Dose: 250 mls Loperamide HCl (Imodium) 2 mg PER TUBE PRN PRN PRN Reason: Diarrhea/Loose Stools Loratadine (Claritin) 10 mg PER TUBE DAILYPRN PRN PRN Reason: Sinus Symptoms Magnesium Hydroxide (Milk Of Magnesium) 30 ml PER TUBE DAILYPRN PRN PRN Reason: Constipation Mineral Oil/White Petrolatum (Eucerin Cream) 0 gm TOP BIDPRN PRN PRN Reason: Dry Skin Miscellaneous Medication (Pharmacy To Dose) 1 each IVPB PRN PRN PRN Reason: Pharmacy to dose Ondansetron HCl (Zofran Odt) 4 mg SL Q6H PRN PRN Reason: Nausea/Vomiting Last Admin: 03/08/18 16:24 Dose: 4 mg Ondansetron HCl (Zofran) 4 mg IVP Q6H PRN PRN Reason: Nausea/Vomiting Pantoprazole Sodium (Protonix) 40 mg PER TUBE DAILY [facility] Last Admin: 03/09/18 07:51 Dose: 40 mg Phenol (Chloraseptic [place] 180 Ml Bot) 0 ml PO PRN PRN PRN Reason: Sore Throat Saccharomyces Boulardii (Florastor) 250 mg PER TUBE DAILY [facility] Last Admin: 03/09/18 07:50 Dose: 250 mg Sodium Chloride ([place] Nasal [place] 0.65%) 0 ml EA NARE QIDPRN PRN PRN Reason: Nasal Congestion Sodium Chloride (Flush - Normal Saline) 10 ml IVF Q12HR [facility] Last Admin: 03/09/18 20:56 Dose: 10 ml Sodium Chloride (Flush - Normal Saline) 10 ml IVF PRN PRN PRN Reason: Saline Flush Sodium Chloride (Flush - Normal Saline) 10 ml IV DAILY [facility] Last Admin: 03/09/18 11:16 Dose: Not Given Tramadol HCl (Ultram) 50 mg PER TUBE Q4H PRN PRN Reason: Moderate Pain (4-6) Zolpidem Tartrate (Ambien) 5 mg PER TUBE HSPRN PRN PRN Reason: Insomnia
[2018-03-10] MEDS: Vancomycin HCl 750 MG in Sodium Chloride 0.9% 250 ML 250 ML IVPB SCH ×3 (00:18→16:45)
[2018-03-10] MEDS: chlorproMAZINE HCl 25 MG in Sodium Chloride 0.9% 50 ML IVPB SCH ×4 (00:19→17:12)
[2018-03-10] MEDS: Saccharomyces boulardii 250 MG CAP PER TUBE SCH (08:41)
[2018-03-10] MEDS: Pantoprazole 40 MG GRANULES PACKET PER TUBE SCH (08:41)
[2018-03-10] MEDS: Amoxicillin/Potassium Clav 875 MG TAB PER TUBE SCH ×2 (08:41→21:02)
[2018-03-10] MEDS: Famotidine 20 MG TAB PO SCH ×2 (08:41→21:02)
[2018-03-10] MEDS: Diabetic Tussin 200 MG/10 ML UDCUP PER TUBE SCH ×3 (08:45→21:02)
[2018-03-10] MEDS: chlorproMAZINE HCl 50 MG/2 ML AMP IM PRN (17:12)
[2018-03-10] MEDS: Atorvastatin Calcium 20 MG TAB PER TUBE SCH (21:02)
[2018-03-10] MEDS: Donepezil HCl 10 MG TAB PER TUBE SCH (21:02)
--- NOTE | 2018-03-10 23:23 | PDOC.PN ---
- Subjective Encounter Start Date: 03/10/18 Encounter Start Time: 15:00 Patient seen and examined for Sepsis/Pneumonia. Sitting on chair. No new complaints. No overnight events - Objective MAR Reviewed: Yes Vital Signs & Weight: Vital Signs (12 hours) Temp Pulse Resp BP Pulse Ox 03/10/18 19:49 103 H 22 H 93 L 03/10/18 19:39 98.9 F 106 H 22 H 163/77 H 89 L 03/10/18 19:28 93 16 94 L 03/10/18 13:10 117 H 16 Weight Admit Weight 93 lb 8 oz Weight 95 lb 3.835 oz I&O: 03/09/18 03/10/18 03/11/18 06:59 06:59 06:59 Intake Total 2670 3720 2460 Balance 2670 3720 2460 Result Diagrams: 03/09/18 03:36 03/06/18 03:52 Phys Exam - Physical Examination Constitutional: NAD Respiratory: no wheezing Scat rales/rhonchi Cardiovascular: RRR, no rub Gastrointestinal: soft, non-tender, positive bowel sounds Musculoskeletal: no edema Dx/Plan (1) Acute respiratory failure with hypoxia Code(s): J96.01 - ACUTE RESPIRATORY FAILURE WITH HYPOXIA Status: Acute Comment: (2) Sepsis with acute organ dysfunction Code(s): A41.9 - SEPSIS, UNSPECIFIED ORGANISM; R65.20 - SEVERE SEPSIS WITHOUT SEPTIC SHOCK Status: Acute (3) Multifocal pneumonia Code(s): J18.9 - PNEUMONIA, UNSPECIFIED ORGANISM Status: Acute (4) HTN (hypertension) Code(s): I10 - ESSENTIAL (PRIMARY) HYPERTENSION Status: Chronic (5) Protein-calorie malnutrition, severe Code(s): E43 - UNSPECIFIED SEVERE PROTEIN-CALORIE MALNUTRITION Status: Chronic (6) Lactic acidosis Code(s): E87.2 - ACIDOSIS Status: Resolved (7) Hematemesis Code(s): K92.0 - HEMATEMESIS Status: Resolved - Plan continue antibiotics, PT/OT, DVT proph w/SCDs DC schedule Thorazine, Cont PRN meds -: AM labs -: CXR in AM due to persistent tachycardia -: Cont current meds as below Review of Systems - Review of Systems Cardiovascular: negative: chest pain, palpitations, orthopnea, paroxysmal nocturnal dyspnea, edema, light headedness, other Gastrointestinal: negative: Nausea, Vomiting, Abdominal Pain, Diarrhea, Constipation, Melena, Hematochezia, Other - Medications/Allergies Allergies/Adverse Reactions: Allergies Allergy/AdvReac Type Severity Reaction Status Date / Time No Known Drug Allergies Allergy Verified 05/24/17 10:23 Medications: Current Medications Acetaminophen (Tylenol) 650 mg PER TUBE Q4H PRN PRN Reason: Headache/Fever or Pain Albuterol/Ipratropium (Duoneb) 3 ml NEB [id number] [facility] Last Admin: 03/10/18 19:28 Dose: 3 ml Amoxicillin/Clavulanate Potassium (Augmentin) 875 mg PER TUBE Q12HR [facility] Last Admin: 03/10/18 21:02 Dose: 875 mg Artificial Tears (Tears Renewed 15ml Bottle) 0 drop EA EYE PRN PRN PRN Reason: Dry Eyes Atorvastatin Calcium (Lipitor) 20 mg PER TUBE [facility] Last Admin: 03/10/18 21:02 Dose: 20 mg Benzonatate (Tessalon) 100 mg PO Q6H PRN PRN Reason: Cough Bisacodyl (Dulcolax) 10 mg [place] Q24H PRN PRN Reason: Constipation Chlorpromazine HCl (Thorazine) 25 mg IM Q6H PRN PRN Reason: Hiccups Last Admin: 03/10/18 17:12 Dose: 25 mg Donepezil HCl (Aricept) 10 mg PER TUBE HS [facility] Last Admin: 03/10/18 21:02 Dose: 10 mg Famotidine (Pepcid) 20 mg PO BID [facility] Last Admin: 03/10/18 21:02 Dose: 20 mg Guaifenesin (Robitussin Sf) 200 mg PER TUBE Q4H PRN PRN Reason: Cough Guaifenesin (Robitussin Sf) 600 mg PER TUBE TID [facility] Last Admin: 03/10/18 21:02 Dose: 600 mg Hydralazine HCl (Apresoline) 10 mg SLOW IVP Q4H PRN PRN Reason: Systolic BP > 180 Vancomycin HCl 750 mg/ Sodium (Chloride) 250 mls @ 250 mls/hr IVPB 0800,1600, 2359 [facility] Last Admin: 03/10/18 16:45 Dose: 250 mls Chlorpromazine HCl 25 mg/ (Sodium Chloride) 51 mls @ 102 mls/hr IVPB Q6HR [facility] Last Admin: 03/10/18 17:12 Dose: Not Given Loperamide HCl (Imodium) 2 mg PER TUBE PRN PRN PRN Reason: Diarrhea/Loose Stools Loratadine (Claritin) 10 mg PER TUBE DAILYPRN PRN PRN Reason: Sinus Symptoms Magnesium Hydroxide (Milk Of Magnesium) 30 ml PER TUBE DAILYPRN PRN PRN Reason: Constipation Mineral Oil/White Petrolatum (Eucerin Cream) 0 gm TOP BIDPRN PRN PRN Reason: Dry Skin Miscellaneous Medication (Pharmacy To Dose) 1 each IVPB PRN PRN PRN Reason: Pharmacy to dose Ondansetron HCl (Zofran Odt) 4 mg SL Q6H PRN PRN Reason: Nausea/Vomiting Last Admin: 03/08/18 16:24 Dose: 4 mg Ondansetron HCl (Zofran) 4 mg IVP Q6H PRN PRN Reason: Nausea/Vomiting Pantoprazole Sodium (Protonix) 40 mg PER TUBE DAILY [facility] Last Admin: 03/10/18 08:41 Dose: 40 mg Phenol (Chloraseptic [place] 180 Ml Bot) 0 ml PO PRN PRN PRN Reason: Sore Throat Saccharomyces Boulardii (Florastor) 250 mg PER TUBE DAILY [facility] Last Admin: 03/10/18 08:41 Dose: 250 mg Sodium Chloride ([place] Nasal [place] 0.65%) 0 ml EA NARE QIDPRN PRN PRN Reason: Nasal Congestion Sodium Chloride (Flush - Normal Saline) 10 ml IVF Q12HR [facility] Last Admin: 03/10/18 21:02 Dose: 10 ml Sodium Chloride (Flush - Normal Saline) 10 ml IVF PRN PRN PRN Reason: Saline Flush Sodium Chloride (Flush - Normal Saline) 10 ml IV DAILY [facility] Last Admin: 03/10/18 08:54 Dose: 10 ml Tramadol HCl (Ultram) 50 mg PER TUBE Q4H PRN PRN Reason: Moderate Pain (4-6) Zolpidem Tartrate (Ambien) 5 mg PER TUBE HSPRN PRN PRN Reason: Insomnia
[2018-03-11] MEDS: chlorproMAZINE HCl 25 MG in Sodium Chloride 0.9% 50 ML IVPB SCH ×2 (00:28→05:56)
[2018-03-11] MEDS: Vancomycin HCl 750 MG in Sodium Chloride 0.9% 250 ML 250 ML IVPB SCH ×3 (00:29→15:50)
[2018-03-11] MEDS: Benzonatate 100 MG CAP PO PRN ×3 (02:07→21:35)
[2018-03-11] MEDS: hydrALAZINE 20 MG/ML VIAL SLOW IVP PRN (05:56)
[2018-03-11 07:33] LABS: #Eosinphils 0.1 thou/uL (0.0-0.7); #Lymphocytes 0.8 thou/uL (1.20-3.40); #Monocytes 0.3 thou/uL (0.11-0.59); #Neutrophils 6.2 thou/uL (1.40-6.50); %Eosinophils 1.5 % (0.0-10.0); %Lymphocytes 10.6 % (21.0-51.0); %Monocytes 4.6 % (0.0-10.0); %Neutrophils 83.3 % (42.0-75.0); Hemoglobin 9.3 g/dL (14.0-18.0); Mean Corpuscular HGB CONC 32.9 g/dL (32.0-36.0); Mean Corpuscular Hemoglobin 29.9 pg (27.0-31.0); Mean Corpuscular Volume 90.7 fl (80.0-94.0); Mean Platelet Volume 8.3 fL (7.4-10.4); Platelet Count 224 thou/uL (130-400); RBC Distribution Width 14.1 % (11.5-14.5); Red Blood Cell (RBC) Count 3.12 mill/uL (4.70-6.10); White Blood Cell (WBC) Count 7.5 thou/uL (4.8-10.8)
[2018-03-11 07:55] LABS: ALT (SGPT) 11 U/L (8-55); AST (SGOT) 8 U/L (5-34); Albumin 2.5 g/dL (3.5-5.0); Alkaline Phosphatase 88 U/L (40-150); Anion Gap 8 mmol/L (10-20); BUN (Urea Nitrogen) 10 mg/dL (8.4-25.7); Bilirubin, Total 0.6 mg/dL (0.2-1.2); Calc. Creatinine Clearance 80 mL/min (70-130); Calcium 7.7 mg/dL (7.8-10.44); Carbon Dioxide 26 mmol/L (22-29); Chloride 104 mmol/L (98-107); Estimated GFR-MDRD Greater than 90; Globulin 3.4 g/dL (2.4-3.5); Glucose 272 mg/dL (70-105); Magnesium 1.6 mg/dL (1.6-2.6); Phosphorus 2.3 mg/dL (2.3-4.7); Potassium 3.4 mmol/L (3.5-5.1); Protein, Total 5.9 g/dL (6.0-8.3); Sodium 135 mmol/L (136-145)
[2018-03-11 08:31] LABS: Troponin I 0.014 ng/mL (< 0.028)
--- NOTE | 2018-03-11 10:15 | RAD ---
PORTABLE AP CHEST: Date: 03/11/18 HISTORY: Shortness of breath, pneumonia. COMPARISON: 03/07/18. FINDINGS: There are patchy air space opacities seen within each lung base and left mid lung zone. There is mild prominence of the perihilar interstitial densities. Findings are worrisome for multifocal pneumonia, which is not significantly changed from the prior exam. No obvious pleural effusion seen. Median tammi rnotomy wires are again present. Cardiac silhouette is within normal limits. No other interval change . IMPRESSION: Overall stable multifocal pneumonia with what appears to be greater area of consolidation in the retr ocardiac region left lung base. Continued follow-up to complete resolution is recommended. POS: [facility]
[2018-03-11] MEDS: Pantoprazole 40 MG GRANULES PACKET PER TUBE SCH (10:19)
[2018-03-11] MEDS: chlorproMAZINE HCl 25 MG TAB PER TUBE SCH ×2 (10:19→17:53)
[2018-03-11] MEDS: Saccharomyces boulardii 250 MG CAP PER TUBE SCH (10:20)
[2018-03-11] MEDS: Amoxicillin/Potassium Clav 875 MG TAB PER TUBE SCH ×2 (10:20→21:35)
[2018-03-11] MEDS: Famotidine 20 MG TAB PO SCH ×2 (10:20→21:35)
[2018-03-11] MEDS: Diabetic Tussin 200 MG/10 ML UDCUP PER TUBE SCH ×3 (10:20→21:18)
[2018-03-11] MEDS: Heparin 5,000 UNITS/ML VIAL SC SCH ×2 (10:37→21:36)
--- NOTE | 2018-03-11 11:46 | ULT ---
BILATERAL LOWER EXTREMITY VENOUS DUPLEX SONOGRAM: Date: 03/11/18 HISTORY: Bilateral leg pain and edema. FINDINGS: Each common femoral vein and greater saphenous junction were evaluated along with each femoral and de ep femoral, popliteal, and posterior tibial vein. There is good color and spectral Doppler flow, comp ression, and augmentation. IMPRESSION: No sonographic evidence of deep venous thrombosis within either lower extremity. POS: [facility]
[2018-03-11 11:51] LABS: Troponin I 0.019 ng/mL (< 0.028)
[2018-03-11] MEDS ORDERED: ISOVUE-370 76%-LOCM 1 ML ONE (12:59)
[2018-03-11] MEDS: Sodium Chloride 0.9% 1,000 ML IV SCH (14:00)
--- NOTE | 2018-03-11 15:02 | CT ---
CT PULMONARY ANGIO CHEST WITH CONTRAST: Date: 03/11/18 Multiple axial tomograms obtained through chest with IV enhancement following pulmonary angio protoco l with multiplanar reconstruction and 3D postprocessing. INDICATION: Shortness of breath. Multifocal pneumonia. Hypoxia. Assess for pulmonary embolus. Chest pain. FINDINGS: The pulmonary arteries show adequate opacification. There is no evidence of pulmonary embolus identif ied. There are multifocal parenchymal lung infiltrates bilaterally. Dense consolidation in the left lung b ase posteriorly. The left upper lobe shows patchy areas of interstitial and nodular infiltrates. Righ t lung shows areas of diffuse patchy interstitial and nodular alveolar infiltrates. Small left pleura l effusion and tiny right effusion. Nonspecific mediastinal adenopathy. Paratracheal lymph node measures up to 1.5 cm. There are other mi ldly prominent paratracheal, carinal, and AP window nodes. Images through the upper abdomen show what appears to be a peripherally calcified gallstone. The left adrenal gland is also mildly prominent, although no definite nodule identified. IMPRESSION: 1. No evidence of pulmonary embolus. 2. Dense consolidation in the left posterior lung base. 3. Bilateral areas of nodular alveolar and interstitial infiltrates, more extensive in the right low er lobe. 4. Nonspecific mediastinal lymph nodes. 5. Incidentally noted on the last images through the upper abdomen appears to be a peripherally calc ified gallstone measuring up to 2.0 cm. POS: [facility]
[2018-03-11] MEDS: Budesonide 0.5 MG/2 ML NEB INH SCH (19:44)
[2018-03-11] MEDS: Donepezil HCl 10 MG TAB PER TUBE SCH (21:35)
[2018-03-11] MEDS: Atorvastatin Calcium 20 MG TAB PER TUBE SCH (21:35)
--- NOTE | 2018-03-11 22:48 | PDOC.PN ---
- Subjective Encounter Start Date: 03/11/18 Encounter Start Time: 11:00 Patient seen and examined for Pneumonia. Persistent tachycardia. No new complaints. No overnight events - Objective MAR Reviewed: Yes Vital Signs & Weight: Vital Signs (12 hours) Temp Pulse Resp BP Pulse Ox 03/11/18 22:16 111 H 20 93 L 03/11/18 19:46 98.9 F 111 H 22 H 174/93 H 92 L 03/11/18 19:44 110 H 20 92 L 03/11/18 19:42 110 H 20 92 L 03/11/18 16:41 98.1 F 108 H 20 169/90 H 93 L 03/11/18 14:38 116 H 20 96 03/11/18 11:45 97.6 F 116 H 20 160/90 H 96 Weight Admit Weight 93 lb 8 oz Weight 95 lb 3.835 oz I&O: 03/10/18 03/11/18 03/12/18 06:59 06:59 06:59 Intake Total 3720 4360 1491 Balance 3720 4360 1491 Result Diagrams: 03/11/18 07:25 03/11/18 07:25 EKG Reviewed by me: Yes (Sinus tachycardia) Phys Exam - Physical Examination Constitutional: NAD Respiratory: no wheezing Coarse BS B/L Cardiovascular: RRR, no rub tachycardic Gastrointestinal: soft, positive bowel sounds Musculoskeletal: no edema Neurological: moves all 4 limbs Dx/Plan (1) Acute respiratory failure with hypoxia Code(s): J96.01 - ACUTE RESPIRATORY FAILURE WITH HYPOXIA Status: Acute Comment: (2) Sepsis with acute organ dysfunction Code(s): A41.9 - SEPSIS, UNSPECIFIED ORGANISM; R65.20 - SEVERE SEPSIS WITHOUT SEPTIC SHOCK Status: Acute (3) Multifocal pneumonia Code(s): J18.9 - PNEUMONIA, UNSPECIFIED ORGANISM Status: Acute (4) HTN (hypertension) Code(s): I10 - ESSENTIAL (PRIMARY) HYPERTENSION Status: Chronic (5) Protein-calorie malnutrition, severe Code(s): E43 - UNSPECIFIED SEVERE PROTEIN-CALORIE MALNUTRITION Status: Chronic (6) Lactic acidosis Code(s): E87.2 - ACIDOSIS Status: Resolved (7) Hematemesis Code(s): K92.0 - HEMATEMESIS Status: Resolved - Plan DVT proph w/heparin, DVT proph w/SCDs Persistent tachycardia prob due to Sepsis -: DVT/PE ruled out -: Consult ID -: Cont current meds as below Review of Systems - Review of Systems Respiratory: negative: Cough, Dry, Shortness of Breath, Hemoptysis, SOB with Excertion, Pleuritic Pain, Sputum, Wheezing Cardiovascular: negative: chest pain, palpitations, orthopnea, paroxysmal nocturnal dyspnea, edema, light headedness, other - Medications/Allergies Allergies/Adverse Reactions: Allergies Allergy/AdvReac Type Severity Reaction Status Date / Time No Known Drug Allergies Allergy Verified 05/24/17 10:23 Medications: Current Medications Acetaminophen (Tylenol) 650 mg PER TUBE Q4H PRN PRN Reason: Headache/Fever or Pain Albuterol/Ipratropium (Duoneb) 3 ml NEB [id number] [facility] Last Admin: 03/11/18 22:16 Dose: 3 ml Amoxicillin/Clavulanate Potassium (Augmentin) 875 mg PER TUBE Q12HR [facility] Last Admin: 03/11/18 21:35 Dose: 875 mg Artificial Tears (Tears Renewed 15ml Bottle) 0 drop EA EYE PRN PRN PRN Reason: Dry Eyes Atorvastatin Calcium (Lipitor) 20 mg PER TUBE HS [facility] Last Admin: 03/11/18 21:35 Dose: 20 mg Benzonatate (Tessalon) 100 mg PO Q6H PRN PRN Reason: Cough Last Admin: 03/11/18 21:35 Dose: 100 mg Bisacodyl (Dulcolax) [address] Q24H PRN PRN Reason: Constipation Budesonide (Pulmicort Neb Solution) 0.5 mg INH BID-RT [facility] Last Admin: 03/11/18 19:44 Dose: 0.5 mg Chlorpromazine HCl (Thorazine) 25 mg IM Q6H PRN PRN Reason: Hiccups Last Admin: 03/10/18 17:12 Dose: 25 mg Chlorpromazine HCl (Thorazine) 25 mg PER TUBE Q8H [facility] Last Admin: 03/11/18 17:53 Dose: 25 mg Donepezil HCl (Aricept) 10 mg PER TUBE HS [facility] Last Admin: 03/11/18 21:35 Dose: 10 mg Famotidine (Pepcid) 20 mg PO BID [facility] Last Admin: 03/11/18 21:35 Dose: 20 mg Guaifenesin (Robitussin Sf) 200 mg PER TUBE Q4H PRN PRN Reason: Cough Guaifenesin (Robitussin Sf) 600 mg PER TUBE TID [facility] Last Admin: 03/11/18 21:18 Dose: Not Given Heparin Sodium (Porcine) (Heparin) 5,000 units SC BID [facility] Last Admin: 03/11/18 21:36 Dose: 5,000 units Hydralazine HCl (Apresoline) 10 mg SLOW IVP Q4H PRN PRN Reason: Systolic BP > 180 Last Admin: 03/11/18 05:56 Dose: 10 mg Vancomycin HCl 750 mg/ Sodium (Chloride) 250 mls @ 250 mls/hr IVPB 0800,1600, 2359 [facility] Last Admin: 03/11/18 15:50 Dose: 250 mls Sodium Chloride (Normal Saline 0.9%) 1,000 mls @ 50 mls/hr IV .Q20H [facility] Stop: 03/12/18 08:46 Last Admin: 03/11/18 14:00 Dose: 1,000 mls Loperamide HCl (Imodium) 2 mg PER TUBE PRN PRN PRN Reason: Diarrhea/Loose Stools Loratadine (Claritin) 10 mg PER TUBE DAILYPRN PRN PRN Reason: Sinus Symptoms Magnesium Hydroxide (Milk Of Magnesium) 30 ml PER TUBE DAILYPRN PRN PRN Reason: Constipation Mineral Oil/White Petrolatum (Eucerin Cream) 0 gm TOP BIDPRN PRN PRN Reason: Dry Skin Miscellaneous Medication (Pharmacy To Dose) 1 each IVPB PRN PRN PRN Reason: Pharmacy to dose Ondansetron HCl (Zofran Odt) 4 mg SL Q6H PRN PRN Reason: Nausea/Vomiting Last Admin: 03/08/18 16:24 Dose: 4 mg Ondansetron HCl (Zofran) 4 mg IVP Q6H PRN PRN Reason: Nausea/Vomiting Pantoprazole Sodium (Protonix) 40 mg PER TUBE DAILY [facility] Last Admin: 03/11/18 10:19 Dose: 40 mg Phenol (Chloraseptic [place] 180 Ml Bot) 0 ml PO PRN PRN PRN Reason: Sore Throat Saccharomyces Boulardii (Florastor) 250 mg PER TUBE DAILY [facility] Last Admin: 03/11/18 10:20 Dose: 250 mg Sodium Chloride ([place] Nasal [place] 0.65%) 0 ml EA NARE QIDPRN PRN PRN Reason: Nasal Congestion Sodium Chloride (Flush - Normal Saline) 10 ml IVF Q12HR [facility] Last Admin: 03/11/18 21:34 Dose: Not Given Sodium Chloride (Flush - Normal Saline) 10 ml IVF PRN PRN PRN Reason: Saline Flush Sodium Chloride (Flush - Normal Saline) 10 ml IV DAILY [facility] Last Admin: 03/11/18 10:37 Dose: 10 ml Tramadol HCl (Ultram) 50 mg PER TUBE Q4H PRN PRN Reason: Moderate Pain (4-6)
--- NOTE | 2018-03-11 23:06 | CON ---
DATE OF CONSULTATION: 03/11/2018 REASON FOR CONSULTATION: Recent pneumonia, possible aspiration. HISTORY OF PRESENT ILLNESS: A 53-year-old who was admitted about 1 week before this visit and has a history of CVA with significant oropharyngeal dysphagia requiring gastrostomy tube feedings, progressive weight loss, recurrent pneumonias and malnutrition, who developed worsening cough, some vomiting and dyspnea, low grade temperature elevation. The patient had some abdominal pain. He was seen at the emergency room and started on broad spectrum coverage and admitted. His initial BP 130/60, pulse 108, respirations 22 and a temperature of 99.8, O2 sat 84%. Patient's weight was 49.9 kilograms. He appears cachectic. Neck was supple. Lungs with scattered inspiratory crackles. Few wheezes. S1, S2, regular rate. Abdomen is soft with a gastrostomy tube in place with no abnormalities. Initial labs with white cell count of 8.0, hemoglobin 12.8, platelets 368 with 25% neutrophils, 58% bands. He had chemistry with sodium of 135, potassium 3.4 , creatinine 0.64. Liver profile normal, calcium 7, albumin 2.5, serum total protein 5.9, urine wbc of 7 to 10. Legionella pneumophila antigen negative and Streptococcus pneumonia antigen positive. Initial x-ray with multifocal pneumonia. Currently, Mr. Robles is receiving broad spectrum coverage. He is awake. He is coughing frequently and appears emaciated, cachectic. Oriented, follows commands. Denies headaches, no visual symptoms, sore throat, odynophagia, dysphagia, no chest pain, no abdominal pain at this moment. Voiding without difficulty. No joint symptoms. No skin disorder. No pressure ulceration. PAST MEDICAL HISTORY: CVA with oropharyngeal dysfunction and dysphagia requiring gastrostomy tube feedings, hypertension, dyslipidemia, recurrent pneumonias, prior respiratory failure requiring intubation, and malnutrition. PAST SURGICAL HISTORY: ET tube or endotracheal intubation recently, gastrostomy tube placement, and hernia repair. SOCIAL HISTORY: Lives with family. Never smoker. FAMILY HISTORY: Noncontributory. ALLERGIES: None. CURRENT MEDICATIONS: Tylenol, DuoNeb, Augmentin, Lipitor, Tessalon, Dulcolax, Pulmicort, Thorazine, Aricept, Pepcid, Robitussin, heparin, Apresoline, loratadine, Claritin, Eucerin, ondansetron, Protonix, Chloraseptic [place] spray, and vancomycin. PHYSICAL EXAMINATION: VITAL SIGNS: Temperature max 98.9, BP 160/90, respirations 20, pulse 96, O2 sat 3 liters. SKIN: Small area of erythema in the presacral region. Peripheral IV access and patient is voiding spontaneously. No lymphadenopathy or temporal wasting. HEENT: Ocular movements conjugate. Oral cavity with numerous missing teeth. Remainder ones is quite a bit of decay and gum disease. NECK: Supple. No jugular vein distention. LUNGS: With symmetric air entry, coarse inspiratory crackles at the bases, some wheezing. CARDIOVASCULAR: S1, S2, regular rate. No S3 or S4. ABDOMEN: Soft and not distended or tender. No ascites. No bladder distention. EXTREMITIES: No joint inflammatory activity. The gastrostomy tube exit site appears normal. The patient has obvious secretions in the upper airways. He has difficulty in expectorating them. He is awake, oriented. LABORATORY DATA: Urinalysis with 7-10 wbcs. White cell count is 8000 with predominance of bands, now it is at 7.5 with a predominance of mature neutrophils. Sodium 135, creatinine 0.64. Normal calcium 7.7. Liver profile normal, globulin 3.4, albumin 2.5. BNP was 37. Lipase normal. Urinalysis with 7-10 wbcs. Respiratory virus panel, PCR was negative. C. difficile in stool was negative. Blood culture thus far negative 5 days. This is final result. ASSESSMENT: Cerebrovascular accident with aspiration and emaciation with cachexia, malnutrition and now another episode of respiratory tract infection with Streptococcus pneumonia is the likely culprit here. The patient will continue with antimicrobial therapy as currently prescribed. We will discontinue vancomycin. The antigen test for Streptococcus pneumonia in urine is highly specific, although I found some cases where patients have bacteremia with Staphylococcus aureus and flange turner false positive for Streptococcus pneumonia. Reason for the marked weight loss is unclear if he is unable to tolerate his feedings if he is getting off caloric support. He may have micronutrient deficiency including possibility of a deficiency of thiamine, vitamin C, vitamin A and so on. The peripheral blood counts morphology is improving over time with decrease in percentage of bands and increasing the percentage of matured neutrophils. The reason for the weight loss could be associated with inflammatory condition has not yet been properly identified. It seems like the current pneumonia is due to Streptococcus pneumoniae, thus he have any obstruction of the GI tract that hinders the administration of food, maybe patient is fearful of receiving proper nutrition because of possibility of aspiration. Evidently, the patient will have to have this pneumonia treated and then address the issue of aspiration in home setting. It is possible that he has some element of aspiration due to poor technique and administration of the feedings and positioning of the patient or a not yet disclosed inflammatory process or malignancy. Consider abdomen and pelvis CT scan to complete the workup. EDGAR
[2018-03-12] MEDS: Vancomycin HCl 750 MG in Sodium Chloride 0.9% 250 ML 250 ML IVPB SCH ×3 (00:01→16:15)
[2018-03-12] MEDS: hydrALAZINE 20 MG/ML VIAL SLOW IVP PRN (02:08)
[2018-03-12] MEDS: chlorproMAZINE HCl 25 MG TAB PER TUBE SCH ×3 (02:08→17:53)
[2018-03-12] MEDS: Budesonide 0.5 MG/2 ML NEB INH SCH ×2 (07:51→18:36)
[2018-03-12] MEDS: Sodium Chloride 0.9% 1,000 ML IV SCH (08:45)
[2018-03-12] MEDS: Famotidine 20 MG TAB PO SCH ×2 (08:50→20:33)
[2018-03-12] MEDS: Saccharomyces boulardii 250 MG CAP PER TUBE SCH (08:50)
[2018-03-12] MEDS: Pantoprazole 40 MG GRANULES PACKET PER TUBE SCH (08:51)
[2018-03-12] MEDS: Amoxicillin/Potassium Clav 875 MG TAB PER TUBE SCH ×2 (08:51→20:32)
[2018-03-12] MEDS: Heparin 5,000 UNITS/ML VIAL SC SCH ×2 (08:51→20:32)
[2018-03-12] MEDS: Diabetic Tussin 200 MG/10 ML UDCUP PER TUBE PRN ×2 (10:13→17:54)
[2018-03-12] MEDS: Diabetic Tussin 200 MG/10 ML UDCUP PER TUBE SCH ×3 (10:14→22:45)
--- NOTE | 2018-03-12 18:16 | PDOC.PN ---
- Subjective Encounter Start Date: 03/12/18 Encounter Start Time: 12:00 Patient seen and examined for Pneumonia. Still tachycardic and SOB on exertion. Tolerating tube feeds. No new complaints. No overnight events - Objective MAR Reviewed: Yes Vital Signs & Weight: Vital Signs (12 hours) Temp Pulse Resp BP BP Pulse Ox 03/12/18 16:06 98.1 F 93 19 142/82 H 95 03/12/18 14:40 113 H 20 95 03/12/18 11:17 98.6 F 113 H 18 111/66 94 L 03/12/18 10:28 101 H 18 94 L 03/12/18 07:57 97.8 F 101 H 20 155/84 H 94 L 03/12/18 07:53 98.0 F 116 H 20 03/12/18 07:34 116 H 20 95 Weight Admit Weight 93 lb 8 oz Weight 95 lb 3.835 oz I&O: 03/11/18 03/12/18 03/13/18 06:59 06:59 06:59 Intake Total 4360 4191 1055 Balance 4360 4191 1055 Result Diagrams: 03/11/18 07:25 03/11/18 07:25 Phys Exam - Physical Examination Constitutional: NAD Respiratory: no wheezing B/L rhonchi with scat rales at bases Cardiovascular: RRR, no rub tachycardic Gastrointestinal: soft, non-tender, positive bowel sounds Dx/Plan (1) Acute respiratory failure with hypoxia Code(s): J96.01 - ACUTE RESPIRATORY FAILURE WITH HYPOXIA Status: Acute Comment: (2) Sepsis with acute organ dysfunction Code(s): A41.9 - SEPSIS, UNSPECIFIED ORGANISM; R65.20 - SEVERE SEPSIS WITHOUT SEPTIC SHOCK Status: Acute (3) Multifocal pneumonia Code(s): J18.9 - PNEUMONIA, UNSPECIFIED ORGANISM Status: Acute (4) HTN (hypertension) Code(s): I10 - ESSENTIAL (PRIMARY) HYPERTENSION Status: Chronic (5) Protein-calorie malnutrition, severe Code(s): E43 - UNSPECIFIED SEVERE PROTEIN-CALORIE MALNUTRITION Status: Chronic (6) Lactic acidosis Code(s): E87.2 - ACIDOSIS Status: Resolved (7) Hematemesis Code(s): K92.0 - HEMATEMESIS Status: Resolved - Plan continue antibiotics, DVT proph w/SCDs Cont current meds as below -: DC Vancomycin per ID -: Cont tube feeds -: DC planning Review of Systems - Review of Systems Cardiovascular: negative: chest pain, palpitations, orthopnea, paroxysmal nocturnal dyspnea, edema, light headedness, other Gastrointestinal: negative: Nausea, Vomiting, Abdominal Pain, Diarrhea, Constipation, Melena, Hematochezia, Other - Medications/Allergies Allergies/Adverse Reactions: Allergies Allergy/AdvReac Type Severity Reaction Status Date / Time No Known Drug Allergies Allergy Verified 05/24/17 10:23 Medications: Current Medications Acetaminophen (Tylenol) 650 mg PER TUBE Q4H PRN PRN Reason: Headache/Fever or Pain Albuterol/Ipratropium (Duoneb) 3 ml NEB [id number] [facility] Last Admin: 03/12/18 14:40 Dose: 3 ml Amoxicillin/Clavulanate Potassium (Augmentin) 875 mg PER TUBE Q12HR [facility] Last Admin: 03/12/18 08:51 Dose: 875 mg Artificial Tears (Tears Renewed 15ml Bottle) 0 drop EA EYE PRN PRN PRN Reason: Dry Eyes Atorvastatin Calcium (Lipitor) 20 mg PER TUBE [facility] Last Admin: 03/11/18 21:35 Dose: 20 mg Benzonatate (Tessalon) 100 mg PO Q6H PRN PRN Reason: Cough Last Admin: 03/11/18 21:35 Dose: 100 mg Bisacodyl (Dulcolax) 10 mg [place] Q24H PRN PRN Reason: Constipation Budesonide (Pulmicort Neb Solution) 0.5 mg INH BID-RT [facility] Last Admin: 03/12/18 07:51 Dose: 0.5 mg Chlorpromazine HCl (Thorazine) 25 mg IM Q6H PRN PRN Reason: Hiccups Last Admin: 03/10/18 17:12 Dose: 25 mg Chlorpromazine HCl (Thorazine) 25 mg PER TUBE Q8H [facility] Last Admin: 03/12/18 17:53 Dose: 25 mg Donepezil HCl (Aricept) 10 mg PER TUBE [facility] Last Admin: 03/11/18 21:35 Dose: 10 mg Famotidine (Pepcid) 20 mg PO BID [facility] Last Admin: 03/12/18 08:50 Dose: 20 mg Guaifenesin (Robitussin Sf) 200 mg PER TUBE Q4H PRN PRN Reason: Cough Last Admin: 03/12/18 17:54 Dose: 200 mg Guaifenesin (Robitussin Sf) 600 mg PER TUBE TID [facility] Last Admin: 03/12/18 15:00 Dose: Not Given Heparin Sodium (Porcine) (Heparin) 5,000 units SC BID [facility] Last Admin: 03/12/18 08:51 Dose: 5,000 units Hydralazine HCl (Apresoline) 10 mg SLOW IVP Q4H PRN PRN Reason: Systolic BP > 180 Last Admin: 03/12/18 02:08 Dose: 10 mg Vancomycin HCl 750 mg/ Sodium (Chloride) 250 mls @ 250 mls/hr IVPB 0800,1600, 2359 [facility] Last Admin: 03/12/18 16:15 Dose: 250 mls Loperamide HCl (Imodium) 2 mg PER TUBE PRN PRN PRN Reason: Diarrhea/Loose Stools Loratadine (Claritin) 10 mg PER TUBE DAILYPRN PRN PRN Reason: Sinus Symptoms Magnesium Hydroxide (Milk Of Magnesium) 30 ml PER TUBE DAILYPRN PRN PRN Reason: Constipation Mineral Oil/White Petrolatum (Eucerin Cream) 0 gm TOP BIDPRN PRN PRN Reason: Dry Skin Miscellaneous Medication (Pharmacy To Dose) 1 each IVPB PRN PRN PRN Reason: Pharmacy to dose Ondansetron HCl (Zofran Odt) 4 mg SL Q6H PRN PRN Reason: Nausea/Vomiting Last Admin: 03/08/18 16:24 Dose: 4 mg Ondansetron HCl (Zofran) 4 mg IVP Q6H PRN PRN Reason: Nausea/Vomiting Pantoprazole Sodium (Protonix) 40 mg PER TUBE DAILY [facility] Last Admin: 03/12/18 08:51 Dose: 40 mg Phenol (Chloraseptic [place] 180 Ml Bot) 0 ml PO PRN PRN PRN Reason: Sore Throat Saccharomyces Boulardii (Florastor) 250 mg PER TUBE DAILY [facility] Last Admin: 03/12/18 08:50 Dose: 250 mg Sodium Chloride ([place] Nasal [place] 0.65%) 0 ml EA NARE QIDPRN PRN PRN Reason: Nasal Congestion Sodium Chloride (Flush - Normal Saline) 10 ml IVF Q12HR [facility] Last Admin: 03/12/18 08:52 Dose: Not Given Sodium Chloride (Flush - Normal Saline) 10 ml IVF PRN PRN PRN Reason: Saline Flush Sodium Chloride (Flush - Normal Saline) 10 ml IV DAILY [facility] Last Admin: 03/12/18 08:52 Dose: Not Given Tramadol HCl (Ultram) 50 mg PER TUBE Q4H PRN PRN Reason: Moderate Pain (4-6)
[2018-03-12] MEDS: Atorvastatin Calcium 20 MG TAB PER TUBE SCH (20:32)
[2018-03-12] MEDS: Donepezil HCl 10 MG TAB PER TUBE SCH (20:32)
[2018-03-13] MEDS: Vancomycin HCl 750 MG in Sodium Chloride 0.9% 250 ML 250 ML IVPB SCH ×2 (00:05→07:33)
[2018-03-13] MEDS: chlorproMAZINE HCl 25 MG TAB PER TUBE SCH ×3 (02:01→16:05)
[2018-03-13] MEDS: Budesonide 0.5 MG/2 ML NEB INH SCH ×2 (06:44→18:21)
[2018-03-13] MEDS: Pantoprazole 40 MG GRANULES PACKET PER TUBE SCH (07:36)
[2018-03-13] MEDS: Famotidine 20 MG TAB PO SCH ×2 (07:36→21:00)
[2018-03-13] MEDS: Diabetic Tussin 200 MG/10 ML UDCUP PER TUBE SCH ×3 (07:36→22:25)
[2018-03-13] MEDS: Saccharomyces boulardii 250 MG CAP PER TUBE SCH (07:37)
[2018-03-13] MEDS: Heparin 5,000 UNITS/ML VIAL SC SCH ×2 (07:37→22:15)
[2018-03-13] MEDS: Amoxicillin/Potassium Clav 875 MG TAB PER TUBE SCH ×2 (07:37→22:14)
[2018-03-13] MEDS ORDERED: Doxycycline 100 MG CAP PER TUBE SCH (11:45)
--- NOTE | 2018-03-13 18:57 | PDOC.PN ---
- Subjective Encounter Start Date: 03/13/18 Encounter Start Time: 18:00 Patient seen and examined for Pneumonia. No new complaints. No overnight events - Objective MAR Reviewed: Yes Vital Signs & Weight: Vital Signs (12 hours) Temp Pulse Resp BP Pulse Ox 03/13/18 18:17 106 H 16 93 L 03/13/18 16:23 98.3 F 96 18 168/90 H 91 L 03/13/18 14:40 98 18 92 L 03/13/18 11:34 98.4 F 97 20 154/75 H 93 L 03/13/18 10:32 79 16 99 03/13/18 08:00 98.0 F 103 H 20 03/13/18 07:12 98.0 F 103 H 20 115/72 95 Weight Admit Weight 93 lb 8 oz Weight 95 lb 3.835 oz I&O: 03/12/18 03/13/18 03/14/18 06:59 06:59 06:59 Intake Total 4191 2275 1501 Balance 4191 2275 1501 Result Diagrams: 03/11/18 07:25 03/11/18 07:25 Phys Exam - Physical Examination Constitutional: NAD Respiratory: no wheezing Coarse BS B/L Cardiovascular: RRR, no rub Gastrointestinal: soft, non-tender, positive bowel sounds PEG + Dx/Plan (1) Acute respiratory failure with hypoxia Code(s): J96.01 - ACUTE RESPIRATORY FAILURE WITH HYPOXIA Status: Acute Comment: (2) Sepsis with acute organ dysfunction Code(s): A41.9 - SEPSIS, UNSPECIFIED ORGANISM; R65.20 - SEVERE SEPSIS WITHOUT SEPTIC SHOCK Status: Acute (3) Multifocal pneumonia Code(s): J18.9 - PNEUMONIA, UNSPECIFIED ORGANISM Status: Acute (4) HTN (hypertension) Code(s): I10 - ESSENTIAL (PRIMARY) HYPERTENSION Status: Chronic (5) Protein-calorie malnutrition, severe Code(s): E43 - UNSPECIFIED SEVERE PROTEIN-CALORIE MALNUTRITION Status: Chronic (6) Lactic acidosis Code(s): E87.2 - ACIDOSIS Status: Resolved (7) Hematemesis Code(s): K92.0 - HEMATEMESIS Status: Resolved - Plan Cont Augmentin, Add Doxycycline -: CT Abd/Pelvis in AM per ID -: AM labs -: Cont current meds as below Review of Systems - Review of Systems Cardiovascular: negative: chest pain, palpitations, orthopnea, paroxysmal nocturnal dyspnea, edema, light headedness, other Gastrointestinal: negative: Nausea, Vomiting, Abdominal Pain, Diarrhea, Constipation, Melena, Hematochezia, Other - Medications/Allergies Allergies/Adverse Reactions: Allergies Allergy/AdvReac Type Severity Reaction Status Date / Time No Known Drug Allergies Allergy Verified 05/24/17 10:23 Medications: Current Medications Acetaminophen (Tylenol) 650 mg PER TUBE Q4H PRN PRN Reason: Headache/Fever or Pain Albuterol/Ipratropium (Duoneb) 3 ml NEB [id number] [facility] Last Admin: 03/13/18 18:17 Dose: 3 ml Amoxicillin/Clavulanate Potassium (Augmentin) 875 mg PER TUBE Q12HR [facility] Last Admin: 03/13/18 07:37 Dose: 875 mg Artificial Tears (Tears Renewed 15ml Bottle) 0 drop EA EYE PRN PRN PRN Reason: Dry Eyes Atorvastatin Calcium (Lipitor) 20 mg PER TUBE [facility] Last Admin: 03/12/18 20:32 Dose: 20 mg Benzonatate (Tessalon) 100 mg PO Q6H PRN PRN Reason: Cough Last Admin: 03/11/18 21:35 Dose: 100 mg Bisacodyl (Dulcolax) 10 mg [place] Q24H PRN PRN Reason: Constipation Budesonide (Pulmicort Neb Solution) 0.5 mg INH BID-RT [facility] Last Admin: 03/13/18 18:21 Dose: 0.5 mg Chlorpromazine HCl (Thorazine) 25 mg PER TUBE Q8H [facility] Last Admin: 03/13/18 16:05 Dose: 25 mg Donepezil HCl (Aricept) 10 mg PER TUBE [facility] Last Admin: 03/12/18 20:32 Dose: 10 mg Doxycycline Hyclate (Vibramycin) 100 mg PER TUBE BID [facility] Famotidine (Pepcid) 20 mg PO BID [facility] Last Admin: 03/13/18 07:36 Dose: 20 mg Guaifenesin (Robitussin Sf) 200 mg PER TUBE Q4H PRN PRN Reason: Cough Last Admin: 03/12/18 17:54 Dose: 200 mg Guaifenesin (Robitussin Sf) 600 mg PER TUBE TID [facility] Last Admin: 03/13/18 16:05 Dose: 600 mg Heparin Sodium (Porcine) (Heparin) 5,000 units SC BID [facility] Last Admin: 03/13/18 07:37 Dose: 5,000 units Hydralazine HCl (Apresoline) 10 mg SLOW IVP Q4H PRN PRN Reason: Systolic BP > 180 Last Admin: 03/12/18 02:08 Dose: 10 mg Loperamide HCl (Imodium) 2 mg PER TUBE PRN PRN PRN Reason: Diarrhea/Loose Stools Loratadine (Claritin) 10 mg PER TUBE DAILYPRN PRN PRN Reason: Sinus Symptoms Magnesium Hydroxide (Milk Of Magnesium) 30 ml PER TUBE DAILYPRN PRN PRN Reason: Constipation Mineral Oil/White Petrolatum (Eucerin Cream) 0 gm TOP BIDPRN PRN PRN Reason: Dry Skin Ondansetron HCl (Zofran Odt) 4 mg SL Q6H PRN PRN Reason: Nausea/Vomiting Last Admin: 03/08/18 16:24 Dose: 4 mg Ondansetron HCl (Zofran) 4 mg IVP Q6H PRN PRN Reason: Nausea/Vomiting Pantoprazole Sodium (Protonix) 40 mg PER TUBE DAILY [facility] Last Admin: 03/13/18 07:36 Dose: 40 mg Phenol (Chloraseptic [place] 180 Ml Bot) 0 ml PO PRN PRN PRN Reason: Sore Throat Saccharomyces Boulardii (Florastor) 250 mg PER TUBE DAILY [facility] Last Admin: 03/13/18 07:37 Dose: 250 mg Sodium Chloride ([place] Nasal [place] 0.65%) 0 ml EA NARE QIDPRN PRN PRN Reason: Nasal Congestion Sodium Chloride (Flush - Normal Saline) 10 ml IVF Q12HR [facility] Last Admin: 03/13/18 07:50 Dose: 10 ml Sodium Chloride (Flush - Normal Saline) 10 ml IVF PRN PRN PRN Reason: Saline Flush Sodium Chloride (Flush - Normal Saline) 10 ml IV DAILY [facility] Last Admin: 03/13/18 07:51 Dose: Not Given Tramadol HCl (Ultram) 50 mg PER TUBE Q4H PRN PRN Reason: Moderate Pain (4-6)
--- NOTE | 2018-03-13 20:10 | EKG ---
Test Reason : TACHY Blood Pressure : / mmHG Vent. Rate : 123 BPM Atrial Rate : 123 BPM P-R Int : 146 ms QRS Dur : 106 ms QT Int : 320 ms P-R-T Axes : 064 -52 060 degrees QTc Int : 458 ms Sinus tachycardia Low voltage QRS Left anterior fascicular block Inferior infarct , age undetermined Abnormal ECG When compared with ECG of 09-MAR-2018 00:35, (Unconfirmed) Left anterior fascicular block is now Present Confirmed by JANICE ROBLEDO (2) on 03/13/2018 8:10:11 PM Referred By: JESUS Confirmed By:JANICE ROBLEDO
[2018-03-13] MEDS: Doxycycline 100 MG CAP PER TUBE SCH (22:14)
[2018-03-13] MEDS: Donepezil HCl 10 MG TAB PER TUBE SCH (22:15)
[2018-03-13] MEDS: Atorvastatin Calcium 20 MG TAB PER TUBE SCH (22:15)
[2018-03-14] MEDS: chlorproMAZINE HCl 25 MG TAB PER TUBE SCH ×3 (02:23→16:57)
[2018-03-14 04:40] LABS: #Eosinphils 0.1 thou/uL (0.0-0.7); #Monocytes 0.5 thou/uL (0.11-0.59); #Neutrophils 9.1 thou/uL (1.40-6.50); %Basophils 0.1 % (0.0-1.0); %Lymphocytes 9.5 % (21.0-51.0); %Monocytes 4.8 % (0.0-10.0); %Neutrophils 84.6 % (42.0-75.0); Hemoglobin 8.8 g/dL (14.0-18.0); Mean Corpuscular Hemoglobin 30.7 pg (27.0-31.0); Mean Corpuscular Volume 90.2 fl (80.0-94.0); Platelet Count 327 thou/uL (130-400); RBC Distribution Width 14.2 % (11.5-14.5); Red Blood Cell (RBC) Count 2.88 mill/uL (4.70-6.10); White Blood Cell (WBC) Count 10.8 thou/uL (4.8-10.8)
[2018-03-14 04:47] LABS: Anion Gap 14 mmol/L (10-20); BUN (Urea Nitrogen) 8 mg/dL (8.4-25.7); Calc. Creatinine Clearance 89 mL/min (70-130); Calcium 8.2 mg/dL (7.8-10.44); Carbon Dioxide 25 mmol/L (22-29); Chloride 101 mmol/L (98-107); Estimated GFR-MDRD Greater than 90; Glucose 106 mg/dL (70-105); Potassium 3.7 mmol/L (3.5-5.1); Sodium 136 mmol/L (136-145)
[2018-03-14] MEDS: Budesonide 0.5 MG/2 ML NEB INH SCH ×2 (07:11→18:30)
[2018-03-14] MEDS: Amoxicillin/Potassium Clav 875 MG TAB PER TUBE SCH ×2 (10:19→22:50)
[2018-03-14] MEDS: Diabetic Tussin 200 MG/10 ML UDCUP PER TUBE SCH ×3 (10:19→22:51)
[2018-03-14] MEDS: Doxycycline 100 MG CAP PER TUBE SCH ×2 (10:19→22:50)
[2018-03-14] MEDS: Heparin 5,000 UNITS/ML VIAL SC SCH ×2 (10:57→22:51)
[2018-03-14] MEDS: Famotidine 20 MG TAB PO SCH ×2 (10:57→22:50)
[2018-03-14] MEDS: Pantoprazole 40 MG GRANULES PACKET PER TUBE SCH (10:58)
[2018-03-14] MEDS: Saccharomyces boulardii 250 MG CAP PER TUBE SCH (10:58)
--- NOTE | 2018-03-14 13:28 | CT ---
CT OF THE ABDOMEN AND PELVIS WITH IV AND ENTERIC CONTRAST: INDICATION: Cachexia, weight loss. COMPARISON: Prior CTA of the thorax dated 03/11/18. FINDINGS: Dense consolidation is seen involving the left lower lobe consistent with pneumonia. There are patch y areas of bronchoalveolar ground-glass opacities suspicious for pneumonia. There is a gallstone within the gallbladder. The pancreas, right adrenal gland, spleen, and liver ap pear within normal limits. There is diffuse hypertrophy of the left adrenal gland. The kidneys are normal appearing. There is a prominent amount of retained stool within the colon and rectum. The appendix is not defin itely visualized; however, there are secondary signs for appendicitis. No free fluid is evident. There is diffuse osteopenia. There is scattered degenerative change. IMPRESSION: 1. Multifocal pneumonia. 2. Prominent amount of retained stool within the colon and rectum. 3. Cholelithiasis. 4. PEG tube. POS: RABIA
[2018-03-14] MEDS ORDERED: GoLYTELY 4,000 ml Bottle PO SCH (14:30)
[2018-03-14] MEDS ORDERED: Lactulose 10 GM/15 ML Oral Solution PR SCH (15:00)
--- NOTE | 2018-03-14 18:11 | PDOC.PN ---
- Subjective Encounter Start Date: 03/14/18 Encounter Start Time: 16:00 Patient seen and examined for Pneumonia. s/p CT abd per ID recom. No new complaints. No overnight events - Objective MAR Reviewed: Yes Vital Signs & Weight: Vital Signs (12 hours) Temp Pulse Resp BP BP Pulse Ox 03/14/18 16:40 98.7 F 100 18 180/96 H 93 L 03/14/18 14:15 90 20 03/14/18 10:03 88 20 93 L 03/14/18 07:44 98.0 F 92 18 03/14/18 07:40 98.0 F 92 18 179/98 H 91 L 03/14/18 07:11 92 L 03/14/18 07:09 91 20 92 L Weight Admit Weight 93 lb 8 oz Weight 95 lb 3.835 oz I&O: 03/13/18 03/14/18 03/15/18 06:59 06:59 06:59 Intake Total 2275 2178 267 Balance 2275 2178 267 Result Diagrams: 03/14/18 03:28 03/14/18 03:28 Radiology Reviewed by me: Yes (CT abd - Stool in colon/rectum) Phys Exam - Physical Examination Constitutional: NAD Respiratory: no wheezing Scat rales/rhonchi Cardiovascular: RRR, no rub Gastrointestinal: soft, non-tender, positive bowel sounds Musculoskeletal: no edema Dx/Plan (1) Acute respiratory failure with hypoxia Code(s): J96.01 - ACUTE RESPIRATORY FAILURE WITH HYPOXIA Status: Acute Comment: (2) Sepsis with acute organ dysfunction Code(s): A41.9 - SEPSIS, UNSPECIFIED ORGANISM; R65.20 - SEVERE SEPSIS WITHOUT SEPTIC SHOCK Status: Acute (3) Multifocal pneumonia Code(s): J18.9 - PNEUMONIA, UNSPECIFIED ORGANISM Status: Acute (4) HTN (hypertension) Code(s): I10 - ESSENTIAL (PRIMARY) HYPERTENSION Status: Chronic (5) Protein-calorie malnutrition, severe Code(s): E43 - UNSPECIFIED SEVERE PROTEIN-CALORIE MALNUTRITION Status: Chronic Comment: on tube feeds (6) Lactic acidosis Code(s): E87.2 - ACIDOSIS Status: Resolved (7) Fecal impaction Code(s): K56.41 - FECAL IMPACTION Status: Acute (8) Hematemesis Code(s): K92.0 - HEMATEMESIS Status: Resolved - Plan continue antibiotics, DVT proph w/heparin, DVT proph w/SCDs Golytely and enema -: Cont other meds as below -: DC in AM if stable -: Cont tube feeds Review of Systems - Review of Systems Respiratory: negative: Cough, Dry, Shortness of Breath, Hemoptysis, SOB with Excertion, Pleuritic Pain, Sputum, Wheezing Cardiovascular: negative: chest pain, palpitations, orthopnea, paroxysmal nocturnal dyspnea, edema, light headedness, other - Medications/Allergies Allergies/Adverse Reactions: Allergies Allergy/AdvReac Type Severity Reaction Status Date / Time No Known Drug Allergies Allergy Verified 05/24/17 10:23 Medications: Current Medications Acetaminophen (Tylenol) 650 mg PER TUBE Q4H PRN PRN Reason: Headache/Fever or Pain Albuterol/Ipratropium (Duoneb) 3 ml NEB [id number] [facility] Last Admin: 03/14/18 14:15 Dose: 3 ml Amoxicillin/Clavulanate Potassium (Augmentin) 875 mg PER TUBE Q12HR [facility] Last Admin: 03/14/18 10:19 Dose: Not Given Artificial Tears (Tears Renewed 15ml Bottle) 0 drop EA EYE PRN PRN PRN Reason: Dry Eyes Atorvastatin Calcium (Lipitor) 20 mg PER TUBE HS [facility] Last Admin: 03/13/18 22:15 Dose: 20 mg Benzonatate (Tessalon) 100 mg PO Q6H PRN PRN Reason: Cough Last Admin: 03/11/18 21:35 Dose: 100 mg Bisacodyl (Dulcolax) [address] Q24H PRN PRN Reason: Constipation Budesonide (Pulmicort Neb Solution) 0.5 mg INH BID-RT [facility] Last Admin: 03/14/18 07:11 Dose: 0.5 mg Chlorpromazine HCl (Thorazine) 25 mg PER TUBE Q8H [facility] Last Admin: 03/14/18 16:57 Dose: Not Given Donepezil HCl (Aricept) 10 mg PER TUBE HS [facility] Last Admin: 03/13/18 22:15 Dose: 10 mg Doxycycline Hyclate (Vibramycin) 100 mg PER TUBE BID [facility] Last Admin: 03/14/18 10:19 Dose: Not Given Famotidine (Pepcid) 20 mg PO BID [facility] Last Admin: 03/14/18 10:57 Dose: Not Given Guaifenesin (Robitussin Sf) 200 mg PER TUBE Q4H PRN PRN Reason: Cough Last Admin: 03/12/18 17:54 Dose: 200 mg Guaifenesin (Robitussin Sf) 600 mg PER TUBE TID [facility] Last Admin: 03/14/18 14:19 Dose: 600 mg Heparin Sodium (Porcine) (Heparin) 5,000 units SC BID [facility] Last Admin: 03/14/18 10:57 Dose: Not Given Hydralazine HCl (Apresoline) 10 mg SLOW IVP Q4H PRN PRN Reason: Systolic BP > 180 Last Admin: 03/12/18 02:08 Dose: 10 mg Lactulose (Lactulose 10 Gm/15ml Oral [place]) [address] 1500 [facility] Stop: 03/14/18 21:00 Last Admin: 03/14/18 16:48 Dose: 200 gm Loperamide HCl (Imodium) 2 mg PER TUBE PRN PRN PRN Reason: Diarrhea/Loose Stools Loratadine (Claritin) 10 mg PER TUBE DAILYPRN PRN PRN Reason: Sinus Symptoms Magnesium Hydroxide (Milk Of Magnesium) 30 ml PER TUBE DAILYPRN PRN PRN Reason: Constipation Mineral Oil/White Petrolatum (Eucerin Cream) 0 gm TOP BIDPRN PRN PRN Reason: Dry Skin Ondansetron HCl (Zofran Odt) 4 mg SL Q6H PRN PRN Reason: Nausea/Vomiting Last Admin: 03/08/18 16:24 Dose: 4 mg Ondansetron HCl (Zofran) 4 mg IVP Q6H PRN PRN Reason: Nausea/Vomiting Pantoprazole Sodium (Protonix) 40 mg PER TUBE DAILY [facility] Last Admin: 03/14/18 10:58 Dose: Not Given Phenol (Chloraseptic [place] 180 Ml Bot) 0 ml PO PRN PRN PRN Reason: Sore Throat Polyethylene Glycol/Electrolytes (Golytely) 2,000 ml PO ONE [facility] Stop: 03/14/18 23:59 Saccharomyces Boulardii (Florastor) 250 mg PER TUBE DAILY [facility] Last Admin: 03/14/18 10:58 Dose: Not Given Sodium Chloride ([place] Nasal [place] 0.65%) 0 ml EA NARE QIDPRN PRN PRN Reason: Nasal Congestion Sodium Chloride (Flush - Normal Saline) 10 ml IVF Q12HR [facility] Last Admin: 03/14/18 09:35 Dose: 10 ml Sodium Chloride (Flush - Normal Saline) 10 ml IVF PRN PRN PRN Reason: Saline Flush Sodium Chloride (Flush - Normal Saline) 10 ml IV DAILY [facility] Last Admin: 03/14/18 09:35 Dose: Not Given Tramadol HCl (Ultram) 50 mg PER TUBE Q4H PRN PRN Reason: Moderate Pain (4-6)
[2018-03-14] MEDS ORDERED: Polyethylene Glycol 3350 17 GM Packet PO SCH (21:00)
[2018-03-14] MEDS ORDERED: Senokot S 8.6-50 MG TAB PO SCH (21:00)
[2018-03-14] MEDS: Donepezil HCl 10 MG TAB PER TUBE SCH (22:50)
[2018-03-14] MEDS: Atorvastatin Calcium 20 MG TAB PER TUBE SCH (22:51)
[2018-03-15] MEDS: chlorproMAZINE HCl 25 MG TAB PER TUBE SCH ×2 (01:35→10:26)
[2018-03-15] MEDS: Budesonide 0.5 MG/2 ML NEB INH SCH (07:12)
[2018-03-15] MEDS: Heparin 5,000 UNITS/ML VIAL SC SCH (10:01)
[2018-03-15] MEDS: Famotidine 20 MG TAB PO SCH (10:02)
[2018-03-15] MEDS: Doxycycline 100 MG CAP PER TUBE SCH (10:02)
[2018-03-15] MEDS: Saccharomyces boulardii 250 MG CAP PER TUBE SCH (10:02)
[2018-03-15] MEDS: Amoxicillin/Potassium Clav 875 MG TAB PER TUBE SCH (10:02)
[2018-03-15] MEDS: Pantoprazole 40 MG GRANULES PACKET PER TUBE SCH (10:03)
[2018-03-15] MEDS: Diabetic Tussin 200 MG/10 ML UDCUP PER TUBE SCH ×2 (10:25→15:23)
--- NOTE | 2018-03-15 10:37 | DIS ---
DATE OF DISCHARGE: 03/15/2018 DISCHARGE DISPOSITION: Home. FOLLOWUP: 1. Follow up with primary care physician at [facility] in 1 week. 2. Follow up with Infectious Disease, Dr. Saravia, in 2-3 weeks. A repeat chest x-ray after 4 weeks i s recommended. Primary care physician to follow. INPATIENT CONSULTANTS: 1. Pulmonary, Dr. Leroy. 2. Infectious Disease, Dr. Saravia. 3. Gastroenterology, Dr. Wilson. BRIEF HOSPITAL COURSE: The patient is a 53-year-old male with history of CVA with oropharyngeal dysp hagia, status post PEG tube; generalized weakness; hypertension and pneumonia in the past, presented to the hospital with cough and shortness of breath of 3 days' duration. His workup was consistent wi th multifocal pneumonia. He was started on broad spectrum antibiotics. He was initially monitored i n the Intermediate Care Unit. He did not require noninvasive positive pressure ventilation. He was later transferred to the medical floor. His urine for Strep pneumonia was positive. He will be disc harged home with Augmentin and doxycycline per Infectious Disease recommendation. The patient was evaluated by gastroenterology, Dr. Wilson, for coffee ground return from the NG tube. This improved without any intervention. He was advised to continue proton pump inhibitors at home. On 03/11/2018, the patient developed worsening tachycardia along with shortness of breath requiring C T angiogram of the chest that was negative for pulmonary embolism. It showed dense consolidation in the left posterior lung field. He has shown good improvement with antibiotics. Yesterday, he had an abdominal and pelvis CT with oral and IV contrast per Infectious Disease recomme ndation to rule out malignancy. There was no malignancy identified. There was prominent amount of r etained stool within the colon and rectum that resolved after enemas. He will continue MiraLax twice a day. He appears stable for discharge. FINAL DIAGNOSES: 1. Sepsis with acute organ dysfunction secondary to bilateral pneumonia (pneumococcal pneumonia). 2. Acute hypoxic respiratory failure, improved. 3. Hypertension. 4. Severe protein-calorie malnutrition. 5. Lactic acidosis. 6. Fecal impaction. 7. Hematemesis, resolved. 8. Cholelithiasis. 9. History of cerebrovascular accident with oropharyngeal dysphagia. 10. Generalized weakness. 11. Deconditioning. 12. History of hypertension. 13. Dyslipidemia. 14. Anxiety and depression. Total time coordinating the discharge of this patient was 36 minutes.
[2018-03-15 11:07] VITALS: TEMP 98.8
[2018-03-15 17:53] VITALS: BP 136/74
--- NOTE | 2018-03-16 16:15 | EKG ---
Test Reason : Blood Pressure : / mmHG Vent. Rate : 100 BPM Atrial Rate : 100 BPM P-R Int : 172 ms QRS Dur : 090 ms QT Int : 386 ms P-R-T Axes : 076 -89 076 degrees QTc Int : 497 ms Normal sinus rhythm Left anterior fascicular block Inferior infarct , age undetermined Abnormal ECG Confirmed by ARMINDA AVLLE, LES ([id number]), design editor MARCIA CORTEZ ([id number]) on 03/16/2018 4:15:27 PM Referred By: Confirmed By:LES HILLIARD MD
--- NOTE | 2018-03-16 16:15 | EKG ---
Test Reason : Blood Pressure : / mmHG Vent. Rate : 106 BPM Atrial Rate : 106 BPM P-R Int : 164 ms QRS Dur : 088 ms QT Int : 388 ms P-R-T Axes : 071 263 086 degrees QTc Int : 515 ms Sinus tachycardia Right superior axis deviation Abnormal ECG Confirmed by ARMINDA VALLE, LES ([id number]), commissioning editor MARCIA CORTEZ ([id number]) on 03/16/2018 4:15:25 PM Referred By: Confirmed By:LES HILLIARD MD
--- NOTE | 2018-03-18 13:17 | EKG ---
Test Reason : URGENT Blood Pressure : / mmHG Vent. Rate : 107 BPM Atrial Rate : 107 BPM P-R Int : 164 ms QRS Dur : 092 ms QT Int : 382 ms P-R-T Axes : 054 -11 063 degrees QTc Int : 509 ms Sinus tachycardia Low voltage QRS Borderline ECG When compared with ECG of 04-MAR-2018 10:33, (Unconfirmed) Left anterior fascicular block is no longer Present Confirmed by DR. Fabio STRANGE ([id number]) on 03/18/2018 1:17:29 PM Referred By: LEESA Confirmed By:DR. Fabio STRANGE
== END 2018-03-15 17:28 | disposition home or self-care (01) | DRG 871 ==
LOC: ERS 10:14 → ERHOLD 13:03 → IMCU/EMU 15:31 → T4-A 03-06 08:12
PROVIDERS: ADMIT Internal Medicine; ATTEND Internal Medicine
DX: A41.9 Sepsis, unspecified organism (principal); J18.9 Pneumonia, unspecified organism; J96.01 Acute respiratory failure with hypoxia; E43 Unspecified severe protein-calorie malnutrition; E87.2 Acidosis; I69.354 Hemiplegia and hemiparesis following cerebral infarction affecting left non-dominant side; K92.0 Hematemesis; Z68.1 Body mass index [BMI] 19.9 or less, adult; I69.391 Dysphagia following cerebral infarction; R13.12 Dysphagia, oropharyngeal phase; Z93.1 Gastrostomy status; R65.20 Severe sepsis without septic shock; E86.0 Dehydration; I10 Essential (primary) hypertension; K21.9 Gastro-esophageal reflux disease without esophagitis; I69.319 Unspecified symptoms and signs involving cognitive functions following cerebral infarction; F01.50 Vascular dementia, unspecified severity, without behavioral disturbance, psychotic disturbance, mood disturbance, and anxiety; K56.41 Fecal impaction; K80.20 Calculus of gallbladder without cholecystitis without obstruction; E78.5 Hyperlipidemia, unspecified; F41.9 Anxiety disorder, unspecified; F32.9 Major depressive disorder, single episode, unspecified
CPT/HCPCS: 36415; 51701; 71045; 71275; 74018; 74177; 80048; 80053; 80202; 81003; 81015; 82274; 82550; 82553; 83605; 83690; 83735; 83880; 84100; 84484; 85007; 85025; 85027; 85060; 85379; 87040; 87086; 87324; 87449; 87633; 87899; 93005; 93010; 93970; 94640; 94760; 96361; 96365; 96367; A4216; C9113; G8987-GO-CM; G8988-GO-CM; G8989-GO-CM; J0360; J1580; J1644; J1956; J2543; J2920; J3230; J3370; J7050; J7620; J7626; Q0161; Q0162; S0028

== ENCOUNTER 2018-03-31 08:47 | Inpatient (IN) | payer MEDICAID, SELFPAY ==
[2018-03-31 09:55] LABS: Lactic Acid 2.1 mmol/L (0.5-2.2)
[2018-03-31 10:00] LABS: ALT (SGPT) 29 U/L (8-55); AST (SGOT) 17 U/L (5-34); Albumin 3.5 g/dL (3.5-5.0); Alkaline Phosphatase 115 U/L (40-150); Anion Gap 15 mmol/L (10-20); BUN (Urea Nitrogen) 41 mg/dL (8.4-25.7); Calc. Creatinine Clearance 0 mL/min (70-130); Calcium 8.8 mg/dL (7.8-10.44); Carbon Dioxide 25 mmol/L (22-29); Chloride 101 mmol/L (98-107); Estimated GFR-MDRD Greater than 90; Globulin 4.2 g/dL (2.4-3.5); Glucose 207 mg/dL (70-105); Potassium 4.1 mmol/L (3.5-5.1); Protein, Total 7.7 g/dL (6.0-8.3); Sodium 137 mmol/L (136-145)
[2018-03-31 10:22] LABS: Band 17 % (5-11); Hemoglobin 11.2 g/dL (14.0-18.0); MDiff Complete? YES; Mean Corpuscular Hemoglobin 29.5 pg (27.0-31.0); Mean Corpuscular Volume 89.3 fl (80.0-94.0); Mean Platelet Volume 8.2 fL (7.4-10.4); Monocytes 3 % (0-10); Neutrophil 80 % (42-75); PLT Morphology Comment Appears Increased; Platelet Count 480 thou/uL (130-400); Polychromasia SLIGHT = 2-3 cells (100X) (0-2/hpf); RBC Distribution Width 14.2 % (11.5-14.5); Red Blood Cell (RBC) Count 3.78 mill/uL (4.70-6.10); White Blood Cell (WBC) Count 22.4 thou/uL (4.8-10.8)
[2018-03-31] MEDS ORDERED: Metoclopramide HCl 10 MG/2 ML VIAL ONE (10:37)
[2018-03-31] MEDS ORDERED: Piperacillin/Tazobactam 3.375 GM VIAL ONE (10:37)
[2018-03-31 11:16] LABS: Bilirubin Negative (Negative); Blood, Urine Negative (Negative); Clarity CLOUDY (Clear); Glucose, Urine (Dipstick) Negative (Negative); Leukocyte Negative (Negative); Nitrite Negative (Negative); Protein, Urine (Dipstick) 30 mg/dL (Neg-Trace); Specific Gravity, Urine 1.027 (1.002-1.036); Urobilinogen 0.2 mg/dL (0.2-1.0); pH, Urine 5.5 (5.0-9.0)
[2018-03-31 11:19] LABS: Bacteria/HPF None Seen HPF (None Seen)
[2018-03-31 11:22] LABS: Pathc Cast-AUWi Flag 7.12 (0-2.49)
[2018-03-31 11:31] LABS: Sperm/HPF 1+ HPF (None Seen)
--- NOTE | 2018-03-31 11:33 | RAD ---
PORTABLE CHEST 1 VIEW: Date: 03/31/18 Time: 0923 hours HISTORY: Vomiting. Cough. FINDINGS: Comparison made with exam of 03/11/18. Changes of median sternotomy again seen. The heart size is normal. The aorta is tortuous. The lungs a re well expanded without focal areas of consolidation, pneumothorax, or pleural effusions. IMPRESSION: No acute process. POS: [facility]
[2018-03-31 11:35] LABS: Hyaline Casts/LPF 4-6 HYALINE CAST LPF (0-3 Hyaline); Other Casts/LPF 4-6 FINELY GRAN LPF (0-3 Hyaline)
[2018-03-31 11:36] LABS: Renal Epithelial 0-3 HPF (0-3); Transitional Epithelial 0-3 HPF (0-3)
[2018-03-31] MEDS ORDERED: Ondansetron PF 4 MG/2 ML Vial IVP PRN (12:15)
[2018-03-31] MEDS ORDERED: Acetaminophen 325 MG TAB PO PRN (12:58)
[2018-03-31] MEDS ORDERED: Ondansetron ODT 4 MG TAB SL PRN (12:58)
--- NOTE | 2018-03-31 13:33 | HP ---
CHIEF COMPLAINT: Coffee-ground emesis. HISTORY OF PRESENT ILLNESS: Patient is a 53-year-old male, who was recently discharged from the [facility] on 03/15/2018 with discharge diagnosis of sepsis and acute hypoxic respiratory failure. Patient does have a history of CVA with oropharyngeal dysphagia. He is fed through a PEG tube. Also, has a history of hypertension and history of pneumonias in the past. Patient's history is obtained by a s ignificant other, who does not live with him; however, has been visiting him this weekend. His signi ficant other provided history using a phone interpretation, since he is only Eritrean speaking. She s tated that the patient has been having hiccups for the past couple of days; however, today, he starte d vomiting and threw up some really dark brown liquid. She states that he has not been febrile, acco rding to her. He has had no diarrhea and has not complained of any abdominal pain. In talking to th e patient, the patient denies any abdominal pain, any diarrhea, any chest pain or shortness of breath . Further on, patient's significant other states that she has not noticed any coughing spells that i s more than his baseline cough. She does not know when the patient had last bowel movement. The pat yordan currently lives with his sisters and the patient has a 14-year-old son. PAST MEDICAL HISTORY: As of the followin. History of cerebrovascular accident. 2. Hypertension. 3. Dyslipidemia. 4. History of pneumonias. 5. Reflux. 6. Respiratory failure, requiring mechanical ventilation. 7. Protein-calorie malnutrition. 8. Oropharyngeal dysphagia. PAST SURGICAL HISTORY: He has had a PEG tube placement, hernia repair, and endotracheal intubation f or mechanical ventilation. PSYCHIATRIC HISTORY: He has a history of anxiety and depression. SOCIAL HISTORY: This is taken from previous records. The patient lives with sisters at home and den ies any tobacco use, alcohol or drug use. FAMILY HISTORY: No premature history of coronary artery disease or strokes or cancer. ALLERGIES: He has no known drug allergies. MEDICATIONS: I am going to be going off from his last discharge package, which was just recently, si nce the patient's family does not have the current list. Medications are as the followin. Atorvastatin 40 mg daily. 2. Potassium chloride 40 mEq b.i.d. 3. MiraLax 17 grams p.o. b.i.d. 4. Aricept 10 mg p.o. at bedtime. 5. Plavix 75 mg daily. He was on a couple of antibiotics, which I am guessing has been discontinued. REVIEW OF SYSTEMS: Except for the ones mentioned above in the HPI, all negative. PHYSICAL EXAMINATION: VITAL SIGNS: As of the following, temperature of 98.5, respirations are 18, heart rate is 95, blood pressure 145/84, O2 sat 95% on room air. GENERAL: He is awake, follows commands, is able to answer a few questions; however, difficult to und erstand patient. Also, the patient appears very malnourished, cachectic. No oral thrush noted in th e mouth. The patient also appears to be mildly dehydrated. CARDIOVASCULAR: S1 and S2 present. No murmurs, rubs, or gallops. LUNGS: Clear to auscultation. No rhonchi or wheezes noted. ABDOMEN: Soft. Bowel sounds are present x2. The patient does have a PEG tube, which has some crust ing around it. No pain upon palpating the patient's abdomen area. EXTREMITIES: Skin appears to be dry; however, no edema noted. Pedal pulses are present x2. SKIN: The patient does appear to be very dehydrated all over; however, I do not see any bruises or l esions. NEUROLOGIC GARCIA: The patient is moving his right upper and lower extremity well, but the left upper extremity is limited. He is awake, but he does respond to certain questions; however, he is very dif ficult to understand. MUSCULOSKELETAL: The patient has no redness around the joints noted. General garcia again the patient appears very malnourished. LABORATORY DATA: Labs are as the following: WBC of 22.4; hemoglobin of 11.2, which baseline is 8.8; platelets of 480. He has bands of 17. Chemistry: Sodium of 137, potassium of 4.1, BUN of 41, crea tinine of 0.81. LFTs are normal. Chest x-ray: I reviewed the chest x-ray and did not appreciate any acute infiltrates or any effusion . ASSESSMENT AND PLAN: The patient is a 53-year-old sick man, who presents to the hospital with hiccup s/dark coffee-ground emesis. 1. Coffee-ground emesis. Upon reviewing the records, the patient has had a couple of times in the p ast. The patient's significant other who is at the bedside also states that when the patient starts hiccupping he will start having discolored vomit or emesis. When I asked her if there was anything o ther than the vomiting that concerned her she stated no. She denies that the patient has any fevers at home. Patient is on prednisone at home. I do not see that patient was taking any kind of a PPI a t home. We will start patient on Protonix IV b.i.d. I do not see and a recent EGD done. We will co nsult Gastroenterology. However, I am not sure if they are going to scope this patient given this pa javier's multiple comorbidities. Patient's BUN was elevated at 41. This could be either secondary to dehydration versus possible bleed. However, his H&H indicates a hemoglobin of 11.2, but again, I th ink this is hemoconcentrated. 2. Leukocytosis with bandemia. Chest x-ray, as I reviewed, I did not see any acute abnormalities. The patient has been afebrile. Urine is still pending. I am not sure if there is any acute infectio us process going on. However, given the bands of 17, we will start the patient on some Zosyn for bro ad-spectrum coverage. 3. Anemia. The patient at baseline has always been around in the high 8s. Today, he is a 11.2. I believe this is most likely secondary to dehydration. We will repeat laboratories after some gentle hydration. 4. Dehydration. We will start the patient on some gentle IV hydration. Recheck laboratories and go from there. 5. Deep venous thrombosis prophylaxis. We will put patient on sequential compression devices. 6. History of stroke. We will hold off on the Plavix for now until we get a better read of a repeat H and H to make sure that patient is not bleeding from anywhere. We will put the patient on sequent ial compression devices in the meantime. We will also speak with patient's sisters in regard to patient's overall prognosis. Also, may consid er palliative care consult for addressing the patient's code status, and nutrition garcia, we will hold the tube feeds for now, given his coffee-ground emesis. We will also check an abdominal x-ray since the patient has had a history of constipation in the past.
[2018-03-31] MEDS: Sodium Chloride 0.9% 1,000 ML IV SCH (13:35)
[2018-03-31] MEDS: Pantoprazole 40 MG VIAL IVP SCH ×2 (13:36→23:49)
--- NOTE | 2018-03-31 14:08 | RAD ---
ABDOMEN 1 VIEW: Date: 03/31/18 HISTORY: 53-year-old male with history of abdominal pain and vomiting and cough. COMPARISON: 03/05/18. FINDINGS: Gastrostomy tube in place. Postsurgical changes noted overlying the right psoas muscle. Solid fecal m aterial in a dilated rectum, as well as considerable solid fecal material throughout the colon, evide nce for obstipation. There are some patchy alveolar nodular parenchymal changes in both lower lung zo ksenia, although these appear improved from the 03/05/18 study. No evidence for acute large or small bow el obstruction. IMPRESSION: Considerable solid fecal material in the colon and dilated rectum, evidence for obstipation. Gastrost luis tube in place. Chronic-appearing parenchymal changes in both lung zones, showing improvement from prior study. No evidence for acute process. POS: [facility]
[2018-03-31] MEDS ORDERED: Fentanyl 100 MCG/2 ML VIAL ONE (15:29)
[2018-03-31] MEDS ORDERED: Ketamine 50 MG/ML (10ML VIAL) ONE (15:34)
[2018-03-31] MEDS ORDERED: Bisacodyl 10 MG SUPP PR PRN (15:56)
--- NOTE | 2018-03-31 16:17 | CON ---
DATE OF CONSULTATION: 03/31/2018 REASON FOR CONSULTATION: Hematemesis, possible melena. CONSULTING PHYSICIAN: Asha Smart MD. HISTORY OF PRESENT ILLNESS: The patient is a 53-year-old male with past medical history of CVA in , status post PEG tube placement for oropharyngeal dysphagia, hypertension, hyperlipidemia, GERD , severe protein/caloric malnutrition and was recently hospitalized for probable aspiration pneumonia presenting with complaints of hematemesis. Per chart review, the patient has had multiple intermitt ent occurrences of increased nausea and vomiting of brownish colored material both in 09/2017 and mor e recently in 02/2018; however, on both of those occasions he had evidence of pneumonia on both imagi ng as well as bandemia concerning for aspiration pneumonia, currently presenting per family with a hi story of recent increased nausea and vomiting with approximately 8-10 discrete episodes of vomiting p rior to the onset of vomiting brownish colored material; however, in speaking with the patient himsel f. He denies any recent nausea or vomiting nor does he endorse brownish color or blood tinged emesis within the last 24-48 hours; however, he does endorse black solid stools that have been present for the last 2-3 months and that would occur approximately 3-4 times per week. He also endorses having 1 -2 solid stools per day with no difficulty with defecation. In addition to the above, he does endors e some increased throat pain that he localizes to the level of the thyroid cartilage, but otherwise d enies any nausea, vomiting, fevers, chills, abdominal pain, hematemesis, hematochezia, diarrhea, cons tipation. REVIEW OF SYSTEMS: A 10-category review of systems was obtained with all responses negative except f or the pertinent positives as listed in the HPI. PAST MEDICAL HISTORY: As per HPI. PAST SURGICAL HISTORY: Hernia repair, endotracheal intubation for mechanical ventilation, PEG tube p lacement in 03/2016? SOCIAL HISTORY: Denies any tobacco, alcohol or illicit drug use. FAMILY HISTORY: Denies any GI malignancies. OUTPATIENT MEDICATIONS: Reviewed. ALLERGIES: No known drug allergies. PHYSICAL EXAMINATION: VITAL SIGNS: Temperature 100 degrees, pulse 106, blood pressure 154/95, respiratory rate 20, satting 92% on 2 liters nasal cannula. GENERAL: The patient lying in bed comfortably, in no acute distress, alert and oriented x3. NECK: Supple. No JVD noted. CARDIOVASCULAR: Difficult to hear heart sounds, but tachycardic rate, but normal rhythm without any discernible murmurs, gallops or rubs. LUNGS: Mild coarse crackles heard in the bilateral lower lung bases. Otherwise, clear to auscultati on. No discernible wheezes or rales. ABDOMEN: Normoactive bowel sounds, soft, nontender, nondistended. PEG tube site located in the left upper quadrant with a significant amount of crusted material around the PEG tube itself. There is n o evidence of skin breakdown, erythema or purulence at the PEG tube stomal site. EXTREMITIES: Severely cachectic extremities, no observed cyanosis, clubbing or edema. LABORATORY DATA: CBC with a white blood cell count 22.4, hemoglobin 11.2, hematocrit 33.7, platelets 480. Chemistry with a sodium of 137, potassium 4.1, chloride 101, CO2 of 25, BUN 41, creatinine 0.8 1, glucose 207, AST 17, ALT 29, alkaline phosphatase 115, total bilirubin 1.0, albumin 3.5. IMAGING DATA: Chest x-ray obtained on 03/31/2018 shows no acute processes, the lungs are well expand ed without focal areas of consolidation, pneumothorax, or pleural effusions. Abdominal x-ray also ob tained on 03/31/2018 showed considerable fecal material within the colon and dilated rectum, evidence of obstipation. There were also some patchy alveolar nodular parenchymal changes in both lower lung zones, but were improved when compared to the study obtained on 03/05/2018. No evidence of acute la rge or small-bowel obstruction. ASSESSMENT AND PLAN: The patient is a 53-year-old male with past medical history of cerebrovascular accident, status post PEG tube placement for oropharyngeal dysphagia, hypertension, hyperlipidemia, g astroesophageal reflux disease, severe malnutrition, recent hospitalization for probable aspiration p neumonia presenting with complaints of hematemesis/melena. Hematemesis/melena: The clinical picture is unclear. Given that the family members are endorsing in creased nausea and vomiting episodes with coffee ground or brown colored emesis; however, the patient denies this occurring, but also endorses black solid stools that have been present for the last 2-3 months. In either case, he does have an elevated BUN to creatinine ratio, but his H and H is above b aseline which could be due to hemoconcentration given his severe malnutrition appearance with cachect ic limbs and his elevated BUN could be reflective of that. However, given his multiple hospitalizati ons within the last 6 months for repeated episodes of his coffee ground emesis material an upper GI b leed cannot be ruled out at this time. Differential could include esophagitis, gastritis, buried bum per syndrome, arteriovenous malformation, Dieulafoy lesion, peptic ulcer disease and/or possible bud gnancy (much less likely). RECOMMENDATIONS: 1. We would continue to trend H and H and transfuse as necessary to maintain an H and H of 05/18. 2. Continue to monitor clinically for signs of active gastrointestinal bleeding. 3. We would continue with IV fluid administration as you are doing. 4. We will plan for EGD later today for evaluation of the upper GI tract given his stable findings o n x-ray and otherwise lack of findings of acute pneumonia (although the patient does have an increase d white blood cell count). 5. Further recommendations to follow EGD. We will continue to follow. Please call with any questions.
[2018-03-31] MEDS: Piperacillin/Tazobactam 3.375 GM in Sodium Chloride 0.9% 100 ML IVPB SCH ×2 (16:52→23:49)
--- NOTE | 2018-03-31 16:56 | OP ---
DATE OF PROCEDURE: 03/31/2018 PROCEDURE: Esophagogastroduodenoscopy (diagnostic). INDICATION FOR PROCEDURE: Hematemesis, melena. DESCRIPTION OF PROCEDURE: After the risks and the benefits of the procedure were explained to the patient including risks of bleeding, infection, perforation, reaction to anesthesia and/or pain, informed consent was obtained. The patient was then taken to the endoscopy suite where deep sedation was administered via Versed and ketamine administration with anesthesia support. Once adequate sedation was achieved, the standard gastroscope was introduced into the mouth with intubation of the esophagus, stomach and the proximal small intestine with the findings listed below. The patient tolerated the procedure well with no immediate perioperative complications. FINDINGS: Esophagus: Normal appearing mucosa was seen in the proximal and mid esophagus; however, severe erosions of the esophageal mucosa was seen from 30-37 cm that were circumferential and patchy in nature and made worse with the passage of the gastroscope with increased friability and bleeding with the passage of the scope. There was no associated ulcerations or mass lesions with this particular portion of the examination. The GE junction was well seen at 39 cm past the incisors while the diaphragmatic pinch was seen at 42 cm denoting a 3- cm hiatal hernia. Reflux of gastric contents was seen during this examination into the mid and distal esophagus. Stomach: A large amount of dark-colored granular material was seen throughout the entire stomach consistent with history of hematemesis on interview. With aggressive irrigation and suctioning, no abnormalities were seen within the gastric cardia, fundus, body, antrum and incisura. The PEG tube site was clearly visualized along the anterior portion of the stomach with no abnormalities associated with the PEG tube site. There was no evidence of erosions, ulcerations, mass lesions or active/recent bleeding. Duodenum: Again, a mild to moderate amount of darker colored material was seen in both the duodenal bulb and the second portion of the duodenum, but with aggressive irrigation and suctioning, the mucosa was visualized. Normal appearing mucosa was seen in both the duodenal bulb and second portion of the duodenum. There was no evidence of erosions, ulcerations or mass lesions. IMPRESSION: 1. Severe (LA grade D) reflux mediated esophagitis extending from 30-37 cm past the incisors with increased friability and oozing of blood with the passage of the gastroscope (most likely source of the patient's hematemesis and melena). 2. 3-cm hiatal hernia. 3. PEG tube stomal site appeared normal during endoscopic evaluation. 4. Dark black material seen throughout the entire stomach with no underlying pathology observed with irrigation and suctioning. RECOMMENDATIONS: 1. Would continue to trend H&H and transfuse as necessary to maintain an H&H of 7/21. 2. Continue to monitor for signs of clinical gastrointestinal bleeding. 3. We would place the patient on pantoprazole 40 mg b.i.d. given the severe reflux esophagitis. 4. Would follow strict anti-reflux/aspiration precautions in this patient given the degree of esophagitis and recent history of pneumonias, most likely attributable to reflux of gastric contents and aspiration. 5. Place the patient on clear liquid diet for the time being and would keep him on this diet for the next 24-48 hours given severe reflux esophagitis. We will continue to follow. Please call with any questions. EDGAR
[2018-04-01] MEDS: Sodium Chloride 0.9% 1,000 ML IV SCH ×2 (01:21→05:26)
[2018-04-01] MEDS: Piperacillin/Tazobactam 3.375 GM in Sodium Chloride 0.9% 100 ML IVPB SCH ×2 (05:26→12:48)
[2018-04-01 06:09] LABS: Anion Gap 11 mmol/L (10-20); BUN (Urea Nitrogen) 20 mg/dL (8.4-25.7); Calc. Creatinine Clearance 84 mL/min (70-130); Calcium 7.9 mg/dL (7.8-10.44); Carbon Dioxide 21 mmol/L (22-29); Chloride 110 mmol/L (98-107); Estimated GFR-MDRD Greater than 90; Glucose 72 mg/dL (70-105); Potassium 3.6 mmol/L (3.5-5.1); Sodium 138 mmol/L (136-145)
[2018-04-01 06:28] LABS: #Lymphocytes 1.2 thou/uL (1.20-3.40); #Monocytes 0.4 thou/uL (0.11-0.59); %Basophils 0.2 % (0.0-1.0); %Eosinophils 0.2 % (0.0-10.0); %Lymphocytes 11.6 % (21.0-51.0); %Monocytes 3.9 % (0.0-10.0); Hemoglobin 7.5 g/dL (14.0-18.0); Mean Corpuscular HGB CONC 32.6 g/dL (32.0-36.0); Mean Corpuscular Hemoglobin 29.5 pg (27.0-31.0); Mean Corpuscular Volume 90.4 fl (80.0-94.0); Mean Platelet Volume 7.4 fL (7.4-10.4); Platelet Count 234 thou/uL (130-400); RBC Distribution Width 14.2 % (11.5-14.5); Red Blood Cell (RBC) Count 2.54 mill/uL (4.70-6.10); White Blood Cell (WBC) Count 10.7 thou/uL (4.8-10.8)
[2018-04-01] MEDS: Atorvastatin Calcium 20 MG TAB PO SCH (08:25)
[2018-04-01 12:34] VITALS: BMI 20.7
--- NOTE | 2018-04-01 12:35 | PRG ---
DATE OF SERVICE: 04/01/2018 SUBJECTIVE: The patient is without GI complaints. He is belching a lot and hiccupping but seems to be tolerating his tube feedings. OBJECTIVE: VITAL SIGNS: Temperature 99.0, pulse 81, respiratory rate 17, blood pressure 143/73. CHEST: Clear. CARDIOVASCULAR: Regular rate and rhythm. ABDOMEN: Benign. LABORATORY DATA: Shows hemoglobin of 08/30/2017, dropping to 7.5. ASSESSMENT: 1. Severe grade D reflux esophagitis. 2. Anemia secondary to gastrointestinal blood loss. 3. Cerebrovascular accident. RECOMMENDATIONS: 1. May resume Plavix. 2. Serial H&H. 3. PPI b.i.d. 4. Continue tube feedings.
[2018-04-01] MEDS: Pantoprazole 40 MG VIAL IVP SCH (12:48)
[2018-04-01] MEDS ORDERED: Pancrelipase DR 12000 1 CAP FS PRN (16:50)
[2018-04-01] MEDS ORDERED: Sodium Bicarbonate Tab 325 MG TAB PER TUBE PRN (16:50)
[2018-04-01 17:25] LABS: Hemoglobin 7.9 g/dL (14.0-18.0)
--- NOTE | 2018-04-01 21:53 | PDOC.PN ---
- Subjective Encounter Start Date: 04/01/18 Encounter Start Time: 11:00 Subjective: pt up in bed has hiccups - Objective Vital Signs & Weight: Vital Signs (12 hours) Temp Pulse Pulse Pulse Pulse Resp BP 04/01/18 15:16 98.8 F 78 17 04/01/18 11:02 99.0 F 81 76 83 81 17 133/72 BP BP BP Pulse Ox Pulse Ox Pulse Ox Pulse Ox 04/01/18 15:16 120/58 L 97 04/01/18 11:02 130/75 123/69 147/73 H 96 97 94 L 96 Weight Admit Weight 99 lb 12.8 oz Weight 106 lb 7 oz I&O: 03/31/18 04/01/18 04/02/18 06:59 06:59 06:59 Intake Total 1025 Balance 1025 Result Diagrams: 04/02/18 03:22 04/01/18 04:54 Phys Exam - Physical Examination appears malnourished Neck: no nodes, no JVD, supple, full ROM Respiratory: no wheezing, no rales, no rhonchi, wheezing present, clear to auscultation bilateral Cardiovascular: RRR, no significant murmur, no rub, gallop, irregular Gastrointestinal: soft, non-tender, no distention, positive bowel sounds peg tube Musculoskeletal: no edema, pulses present, edema present Dx/Plan - Plan 1) Coffee ground emesis 2) Gastric ulcers 3) Malnutrition 4) leukocytosis with bands 5) stroke 6) anemia plan: pt underwent EGD which indicated severe LA grade D esophogitis. will continue ppi which most likely is causing pt to have n/v. spoke with pt's sister who has not been giving pt any meds including plavix since she did not know she was suppose to. She stated that she only gave him 2 antibiotics which were done on 03/15. She only has been given him tube feedings. will get nutrition consult, pt appears very malnourished. will stop abx cxr no acute process noted. ok to start pt on plavix per gi. will monitor hh and transfuse if hh <7. * . Review of Systems - Review of Systems ENT: negative: Ear Pain, Ear Discharge, Nose Pain, Nose Discharge, Nose Congestion, Mouth Pain, Mouth Swelling, Throat Pain, Throat Swelling, Other Respiratory: negative: Cough, Dry, Shortness of Breath, Hemoptysis, SOB with Excertion, Pleuritic Pain, Sputum, Wheezing Cardiovascular: negative: chest pain, palpitations, orthopnea, paroxysmal nocturnal dyspnea, edema, light headedness, other Gastrointestinal: negative: Nausea, Vomiting, Abdominal Pain, Diarrhea, Constipation, Melena, Hematochezia, Other Genitourinary: negative: Dysuria, Frequency, Incontinence, Hematuria, Retention , Other Musculoskeletal: negative: Neck Pain, Shoulder Pain, Arm Pain, Back Pain, Hand Pain, Leg Pain, Foot Pain, Other - Medications/Allergies Allergies/Adverse Reactions: Allergies Allergy/AdvReac Type Severity Reaction Status Date / Time No Known Drug Allergies Allergy Verified 03/31/18 13:57 Medications: Current Medications Lipase/Protease/Amylase ([place] [address]) 1 cap FS .PER PROTOCOL PRN PRN Reason: TUBE OCCLUSION PROTOCOL Atorvastatin Calcium (Lipitor) 20 mg PO DAILY [facility] Last Admin: 04/01/18 08:25 Dose: 20 mg Bisacodyl (Dulcolax) 10 mg [place] DAILYPRN PRN PRN Reason: Constipation Clopidogrel Bisulfate (Plavix) 75 mg PO DAILY [facility] Sodium Chloride (Normal Saline 0.9%) 1,000 mls @ 75 mls/hr IV .[id number] [facility] Last Admin: 04/02/18 02:10 Dose: 1,000 mls Ondansetron HCl (Zofran) 4 mg IVP Q6H PRN PRN Reason: Nausea/Vomiting Pantoprazole Sodium (Protonix) 40 mg IVP 1200,2359 [facility] Last Admin: 04/02/18 00:04 Dose: 40 mg Sodium Bicarbonate (Bicarbonate, Sodium) 650 mg PER TUBE .PER PROTOCOL PRN PRN Reason: ENTERAL TUBE OCCLUSION
[2018-04-02] MEDS: Pantoprazole 40 MG VIAL IVP SCH ×2 (00:04→12:38)
[2018-04-02 01:00] LABS: Hemoglobin 7.6 g/dL (14.0-18.0)
[2018-04-02] MEDS: Sodium Chloride 0.9% 1,000 ML IV SCH ×2 (02:10→15:50)
[2018-04-02 05:20] LABS: #Eosinphils 0.1 thou/uL (0.0-0.7); #Lymphocytes 1.2 thou/uL (1.20-3.40); #Monocytes 0.5 thou/uL (0.11-0.59); #Neutrophils 5.9 thou/uL (1.40-6.50); %Basophils 0.3 % (0.0-1.0); %Eosinophils 1.1 % (0.0-10.0); %Monocytes 6.1 % (0.0-10.0); %Neutrophils 76.6 % (42.0-75.0); Hemoglobin 7.5 g/dL (14.0-18.0); Mean Corpuscular Volume 90.7 fl (80.0-94.0); Mean Platelet Volume 8.4 fL (7.4-10.4); Platelet Count 238 thou/uL (130-400); Red Blood Cell (RBC) Count 2.58 mill/uL (4.70-6.10); White Blood Cell (WBC) Count 7.7 thou/uL (4.8-10.8)
[2018-04-02] MEDS: Atorvastatin Calcium 20 MG TAB PO SCH (08:11)
[2018-04-02] MEDS: Clopidogrel Bisulfate 75 MG TAB PO SCH (08:11)
--- NOTE | 2018-04-02 17:52 | PRG ---
DATE OF SERVICE: 04/02/2018 SUBJECTIVE: The patient is without new complaints. No report of bleeding per nursing personnel. OBJECTIVE: VITAL SIGNS: Stable. He is afebrile. HEENT: Unchanged. CHEST: Clear. CARDIOVASCULAR: Regular rate and rhythm. ABDOMEN: Benign. LABORATORY DATA: Shows a stable hemoglobin and hematocrit. ASSESSMENT: 1. Reflux esophagitis. 2. Anemia secondary to gastrointestinal blood loss. RECOMMENDATIONS: 1. Continue PPI b.i.d. 2. Stable for discharge from GI standpoint.
[2018-04-02 18:14] LABS: Hemoglobin 8.6 g/dL (14.0-18.0)
--- NOTE | 2018-04-02 23:22 | PDOC.PN ---
- Subjective Encounter Start Date: 04/02/18 Encounter Start Time: 10:30 Subjective: pt up in bed no complains - Objective Vital Signs & Weight: Vital Signs (12 hours) Temp Pulse Resp BP BP Pulse Ox 04/02/18 22:30 98.3 F 70 22 H 159/85 H 94 L 04/02/18 20:00 98.7 F 68 23 H 95 04/02/18 19:11 98.7 F 68 23 H 167/81 H 95 04/02/18 15:42 98.9 F 66 18 164/80 H 92 L 04/02/18 11:32 98.1 F 76 20 122/53 L 95 Weight Admit Weight 99 lb 12.8 oz Weight 104 lb 7 oz I&O: 04/01/18 04/02/18 04/03/18 06:59 06:59 06:59 Intake Total 1972 697 0320 Balance 5152 179 2947 Result Diagrams: 04/02/18 18:07 04/01/18 04:54 Phys Exam - Physical Examination HEENT: PERRLA, moist MMs, sclera anicteric, TM's clear, oral pharynx no lesions , 2+ tonsils Neck: no nodes, no JVD, supple, full ROM Respiratory: no wheezing, no rales, no rhonchi, wheezing present, clear to auscultation bilateral Cardiovascular: RRR, no significant murmur, no rub, gallop, irregular Gastrointestinal: soft, non-tender, no distention, positive bowel sounds peg tube Dx/Plan - Plan * 1) Coffee ground emesis 2) Gastric ulcers 3) Malnutrition 4) leukocytosis with bands 5) stroke 6) anemia plan: pt underwent EGD which indicated severe LA grade D esophogitis. will continue ppi which most likely is causing pt to have n/v. spoke with pt's sister who has not been giving pt any meds including plavix since she did not know she was suppose to. She stated that she only gave him 2 antibiotics which were done on 03/15. She only has been given him tube feedings. will get nutrition consult, pt appears very malnourished. will stop abx cxr no acute process noted. ok to start pt on plavix per gi. will monitor hh and transfuse if hh <7. 6/5 pt up in bed no complains. hh has been stable. pt tolerating feeding. possible discharge in 24hr. Family need to be educated on the importance of taking plavix/statin and his ppi. Review of Systems - Review of Systems ENT: negative: Ear Pain, Ear Discharge, Nose Pain, Nose Discharge, Nose Congestion, Mouth Pain, Mouth Swelling, Throat Pain, Throat Swelling, Other Respiratory: negative: Cough, Dry, Shortness of Breath, Hemoptysis, SOB with Excertion, Pleuritic Pain, Sputum, Wheezing Cardiovascular: negative: chest pain, palpitations, orthopnea, paroxysmal nocturnal dyspnea, edema, light headedness, other Gastrointestinal: negative: Nausea, Vomiting, Abdominal Pain, Diarrhea, Constipation, Melena, Hematochezia, Other Genitourinary: negative: Dysuria, Frequency, Incontinence, Hematuria, Retention , Other - Medications/Allergies Allergies/Adverse Reactions: Allergies Allergy/AdvReac Type Severity Reaction Status Date / Time No Known Drug Allergies Allergy Verified 03/31/18 13:57 Medications: Current Medications Lipase/Protease/Amylase ([place] [address]) 1 cap FS .PER PROTOCOL PRN PRN Reason: TUBE OCCLUSION PROTOCOL Atorvastatin Calcium (Lipitor) 20 mg PO DAILY [facility] Last Admin: 04/02/18 08:11 Dose: 20 mg Bisacodyl (Dulcolax) 10 mg [place] DAILYPRN PRN PRN Reason: Constipation Clopidogrel Bisulfate (Plavix) 75 mg PO DAILY [facility] Last Admin: 04/02/18 08:11 Dose: 75 mg Sodium Chloride (Normal Saline 0.9%) 1,000 mls @ 75 mls/hr IV .[id number] [facility] Last Admin: 04/02/18 15:50 Dose: 1,000 mls Ondansetron HCl (Zofran) 4 mg IVP Q6H PRN PRN Reason: Nausea/Vomiting Pantoprazole Sodium (Protonix) 40 mg IVP 1200,2359 [facility] Last Admin: 04/02/18 12:38 Dose: 40 mg Sodium Bicarbonate (Bicarbonate, Sodium) 650 mg PER TUBE .PER PROTOCOL PRN PRN Reason: ENTERAL TUBE OCCLUSION
[2018-04-03] MEDS: Pantoprazole 40 MG VIAL IVP SCH ×2 (00:33→12:27)
[2018-04-03] MEDS: Sodium Chloride 0.9% 1,000 ML IV SCH ×2 (04:28→06:40)
[2018-04-03] MEDS: Atorvastatin Calcium 20 MG TAB PO SCH (08:15)
[2018-04-03] MEDS: Clopidogrel Bisulfate 75 MG TAB PO SCH (08:15)
[2018-04-03 11:28] VITALS: TEMP 97.8
--- NOTE | 2018-04-03 11:28 | DIS ---
TRANSFER OF CARE NOTE PRIMARY CARE PROVIDER: Giovanna Crouch DATE OF ADMISSION: 03/31/2018 DATE OF DISCHARGE: 04/03/2018 DISCHARGE DISPOSITION: Home. FINAL DIAGNOSES: 1. Upper gastrointestinal bleeding. 2. Gastric ulcers. 3. Anemia secondary to blood loss. 4. History of stroke with dysphagia requiring PEG tube and left hemiparesis. 5. History of hypertension. 6. Dyslipidemia. 7. Esophagitis, severe. DISCHARGE MEDICATIONS: Protonix 40 mg per tube b.i.d., Plavix 75 mg per tube daily, atorvastatin, Li pitor 20 mg per tube daily, Jevity 1.5 calorie liquid diet. ALLERGIES: No known drug allergies. PENDING AT THE TIME OF DISCHARGE: Nothing. CODE STATUS: Full. HOSPITAL COURSE: The patient admitted to the hospital with hematemesis, found to have an initial hem oglobin of 11.2 per H&P, rapidly dropped down to 7.5, has now come up to 8.6 at the time of discharge , white cell count was initially 22.4, it is now 10.7. He was seen in consultation by Dr. Dima montes, Gastroenterology. Upper GI was planned. He was placed on IV Protonix twice a day. EGD done 12/2017 revealed severe reflux mediated esophagitis. He is now considered stable for discharge and c ontinuing care. He will need follow up with Giovanna Crouch in 1 week. Follow up with Dr. John zavala is directions. He will need a CBC at followup.
[2018-04-03 12:42] VITALS: BP 166/85
--- NOTE | 2018-05-11 19:56 | EKG ---
Test Reason : Blood Pressure : / mmHG Vent. Rate : 099 BPM Atrial Rate : 099 BPM P-R Int : 170 ms QRS Dur : 088 ms QT Int : 380 ms P-R-T Axes : 068 -82 078 degrees QTc Int : 487 ms Normal sinus rhythm Left anterior fascicular block Inferior infarct , age undetermined Abnormal ECG Confirmed by NISHANT ZIMMER ([id number]), development editor JONI PADRON ([id number]) on 05/11/2018 7:55:53 PM Referred By: Confirmed By:NISHANT ZIMMER
== END 2018-04-03 15:05 | disposition home or self-care (01) | DRG 378 ==
LOC: ERS 08:47 → IMCU/EMU 12:58 → T4-B 04-02 22:16
PROVIDERS: ADMIT Internal Medicine; ATTEND Internal Medicine
PROC: 0DJ08ZZ Inspection of Upper Intestinal Tract, Via Natural or Artificial Opening Endoscopic (ICD-10-PCS; principal; 2018-03-31)
DX: K92.2 Gastrointestinal hemorrhage, unspecified (principal); D62 Acute posthemorrhagic anemia; D72.829 Elevated white blood cell count, unspecified; E86.0 Dehydration; Z86.73 Personal history of transient ischemic attack (TIA), and cerebral infarction without residual deficits; Z79.02 Long term (current) use of antithrombotics/antiplatelets; Z79.82 Long term (current) use of aspirin; E78.5 Hyperlipidemia, unspecified; K21.0 Gastro-esophageal reflux disease with esophagitis; Z93.1 Gastrostomy status
CPT/HCPCS: 36415; 51701; 71045; 74018; 80048; 80053; 81003; 81015; 83605; 85025; 87040; 93005; 96365; C9113; G8981-GP-CM; G8982-GP-CK; G8987-GO-CM; G8988-GO-CM; G8989-GO-CM; J2405; J2543; J2765; J3010; J7050

== ENCOUNTER 2018-05-20 08:30 | Inpatient (IN) | payer MEDICAID, SELFPAY ==
[2018-05-20 09:07] LABS: #Lymphocytes 0.6 thou/uL (1.20-3.40); #Monocytes 0.4 thou/uL (0.11-0.59); #Neutrophils 13.6 thou/uL (1.40-6.50); %Basophils 0.1 % (0.0-1.0); %Lymphocytes 4.4 % (21.0-51.0); %Monocytes 2.9 % (0.0-10.0); %Neutrophils 92.6 % (42.0-75.0); Hemoglobin 11.6 g/dL (14.0-18.0); Mean Corpuscular HGB CONC 32.9 g/dL (32.0-36.0); Mean Corpuscular Hemoglobin 28.2 pg (27.0-31.0); Mean Corpuscular Volume 85.8 fL (78.0-98.0); Mean Platelet Volume 8.7 fL (7.4-10.4); Platelet Count 315 thou/uL (130-400); RBC Distribution Width 14.3 % (11.5-14.5); White Blood Cell (WBC) Count 14.7 thou/uL (4.8-10.8)
[2018-05-20 09:22] LABS: ALT (SGPT) 21 U/L (8-55); AST (SGOT) 17 U/L (5-34); Albumin 3.9 g/dL (3.5-5.0); Alkaline Phosphatase 123 U/L (40-150); Anion Gap 14 mmol/L (10-20); BUN (Urea Nitrogen) 33 mg/dL (8.4-25.7); Bilirubin, Total 0.9 mg/dL (0.2-1.2); Calc. Creatinine Clearance 0 mL/min (70-130); Carbon Dioxide 27 mmol/L (22-29); Chloride 102 mmol/L (98-107); Estimated GFR-MDRD 85; Globulin 4.2 g/dL (2.4-3.5); Glucose 162 mg/dL (70-105); Potassium 3.7 mmol/L (3.5-5.1); Protein, Total 8.1 g/dL (6.0-8.3); Sodium 139 mmol/L (136-145)
--- NOTE | 2018-05-20 10:19 | RAD ---
PORTABLE CHEST: History: Cough, dyspnea. Comparison: 03-31-18 FINDINGS: Lung berrios remain clear of infiltrate. NO evidence of vascular congestion. Heart size is normal. Pos t op sternotomy changes noted. Review of the osseous structures reveals an abnormal mottled appearance to the proximal left humerus. This was also present on the 03-31-18 exam. Similar findings were also see in the chest on the exam. IMPRESSION: 1. No acute lung process. 2. Abnormal density at the proximal left humerus. An infiltrative process cannot be excluded. Recomme nd clinical correlation and further imaging as indicated. Code T POS: GORGE
[2018-05-20] MEDS ORDERED: Pantoprazole 40 MG VIAL ONE (11:33)
[2018-05-20] MEDS ORDERED: Acetaminophen 650 MG Suppository PR PRN (14:22)
[2018-05-20] MEDS ORDERED: Acetaminophen 325 MG TAB PO PRN (14:22)
[2018-05-20] MEDS ORDERED: Bisacodyl 5 MG TAB PO PRN (14:22)
[2018-05-20 15:14] VITALS: BMI 18.9
[2018-05-20 15:29] LABS: Hemoglobin 10.8 g/dL (14.0-18.0)
--- NOTE | 2018-05-20 16:03 | HP ---
PRIMARY CARE PROVIDER: Rita Dove M.D. CHIEF COMPLAINT: Coffee ground emesis. HISTORY OF PRESENT ILLNESS: Mr. Robles is a pleasant 53-year-old gentleman, who was seen at [facility] on 05/20/2018. He was hospitalized at this facility from 03/31/2018-04/03/2018 of this year for upper GI bleed. He was found to have severe reflux mediated esophagitis on EGD during that hospitalization. He was reportedly doing well at home. Today morning, he started having cough and vomiting last night . He vomited twice last night. The vomitus was black in color. He does not recall seeing any blood . He denies any fevers or chills. He denies any sputum. He denies any abdominal pain. REVIEW OF SYSTEM: All other systems reviewed and found to be negative. PAST MEDICAL HISTORY: Cerebrovascular accident, hypertension, dyslipidemia, pneumonia, reflux, respi ratory failure, requiring mechanical ventilation, protein calorie malnutrition, oropharyngeal dysphag ia. PAST SURGICAL HISTORY: PEG tube placement, hernia repair and endotracheal intubation for mechanical ventilation. PSYCHIATRIC HISTORY: Anxiety and depression. SOCIAL HISTORY: No history of tobacco use, alcohol use or recreational drug use. FAMILY HISTORY: No history of premature coronary artery disease. ALLERGIES: No known drug allergies. CURRENT MEDICATIONS: Plavix 75 mg daily, atorvastatin 10 mg daily, and pantoprazole 40 mg 2 times a day. PHYSICAL EXAMINATION: GENERAL: Mr. Robles is awake and alert, not in acute distress. VITAL SIGNS: Blood pressure is 127/90, pulse 96, respiratory rate 20, and oxygen saturation 100% on 50% Ventimask. Temperature is 99 degrees Fahrenheit. He appears malnourished. EYES: No scleral icterus. No conjunctival pallor. ENT: Moist mucosal membranes, no oropharyngeal erythema or exudates. NECK: Supple, nontender, trachea is midline. RESPIRATORY: Accessory muscles of breathing are not active. Chest wall movements are symmetric bila terally. He has bibasilar crackles. CARDIOVASCULAR: S1 and S2 are heard, regular. Peripheral pulses palpable. No carotid bruit, no per icardial rub. ABDOMEN: Soft, nontender, bowel sounds heard. He has a PEG tube. NEUROLOGIC: Cranial nerves II-XII intact. Deep tendon reflexes 2+. MUSCULOSKELETAL: Emaciated appearing extremities. SKIN: No rashes or subcutaneous nodules. LYMPHATIC: No cervical lymphadenopathy. PSYCHIATRIC: Normal mood, normal affect, patient is oriented to person and place, not to time. LABORATORY DATA: Mr. Robles labs and investigations were reviewed. He had a chest x-ray done, which does not show any acute changes in the lungs. He has abnormal density at the proximal left humerus, which was also present on x-ray done on 03/31/2018. He has leukocytosis with 14,700 white cells, of which 92.6% are neutrophils, normocytic anemia with h emoglobin 11.6, last known hemoglobin was 8.6 on 04/02/2018, normal platelet count, normal electrolyt es, elevated blood urea nitrogen of 33, normal creatinine, and an unremarkable liver profile. ASSESSMENT AND PLAN: Mr. Robles is a pleasant 53-year-old gentleman, who was seen at [facility] on 05/20/2018. His problem list includes: 1. Upper gastrointestinal bleed: Mr. Robles is presenting with upper gastrointestinal bleed. He madeleine l be admitted to the hospital and started on PPI drip. Gastroenterology Service has been consulted b y emergency room physician. We will keep patient n.p.o. We will follow serial H&H. 2. Hypoxia: Given patient's history of coughing as well as vomiting, it is possible that patient mosqueda s aspirated. He does have leukocytosis. He does have a low-grade temperature. We will start him on empiric antibiotics for probable aspiration. 3. History of cerebrovascular accident: We will hold Plavix for now. 4. Dyslipidemia: Continue statins when patient is able to take oral medications. Many thanks for allowing me to participate in your patient's care. Please feel free to contact me wi th any questions or concerns. LEVEL OF RISK: Moderate. LEVEL OF COMPLEXITY: Moderate.
[2018-05-20] MEDS: Pantoprazole 80 MG in Sodium Chloride 0.9% 100 ML IVP SCH (17:11)
[2018-05-20] MEDS: cefTRIAXone\\ROCEPHIN 1 GM in Sodium Chloride 0.9% 100 ML IVPB SCH (17:11)
[2018-05-20] MEDS ORDERED: Ondansetron HCl/PF 4 MG/2 ML Vial SLOW IVP PRN (18:25)
--- NOTE | 2018-05-20 18:44 | PDOC.EVN ---
Event Note - Event Note Event Note: 17:10-17:27 Pt was reassessed for hypoxia and hypotension. motor vehicle parts interpreter present for the encounter. Updated pt re: current clinical condition. Also discussed code status. Pt is Full code.
[2018-05-20 20:55] LABS: Hemoglobin 10.7 g/dL (14.0-18.0)
[2018-05-20] MEDS: metroNIDAZOLE 500 MG in Premix Bag 1 BAG IVPB SCH (22:16)
--- NOTE | 2018-05-21 00:58 | CON ---
DATE OF CONSULTATION: 05/20/2018 HISTORY OF PRESENT ILLNESS: This is a 53-year-old gentleman, speaks little Jamaican. He came to the ER with upper GI bleed. Nurses called me that patient was having significant respiratory distress. I reviewed his chest x-ray from the ER, there are no acute infiltrates. No blood gases were done. H e started coughing and apparently was vomiting some blood last night. The patient has a PEG tube in place. The previous history of pneumonia. Extensive previous medical records reveal that patient was seen by Dr. Leroy sometime back. In fact, the patient was here recently in 03/2018, was not seen by Pulmonary at that time, once again presented with coffee-ground emesis at that time. PAST MEDICAL HISTORY: CVA, dysphagia, hypertension, reflux, cachexia. PREVIOUS SURGERIES: PEG, hernia repair, previous intubation. HOME MEDICATIONS: Include Protonix 40, Plavix 75, presumably Lipitor. He has a sister, but none of them are present at the bedside. ALLERGIES: None. TOBACCO: At this stage none. ALCOHOL: None. REVIEW OF SYSTEMS: Difficult to obtain. PHYSICAL EXAMINATION: VITAL SIGNS: Sats are 99% on Ventimask, pulse 117, temperature 98, blood pressure 98/52. CHEST: Decreased breath sounds, no wheezing. CARDIAC: Normal S1, S2. No gallops. ABDOMEN: Soft, no masses. LABORATORY AND X-RAY FINDINGS: His chest x-ray shows hyperinflation without any acute infiltrates. His lab shows otherwise white count 14,000, H and H 11 and 35, platelet count is 315. Electrolytes a re normal. IMPRESSION: 1. Acute on chronic respiratory failure. 2. Gastrointestinal bleed. 3. Cerebrovascular accident. 4. Percutaneous endoscopic gastrostomy in place. I have initiated neb treatments, steroids. He is already on antibiotics. Noninvasive ventilation as needed. This is a consultation note, 70 minutes of which 50% in direct patient care.
--- NOTE | 2018-05-21 02:03 | RAD ---
ABDOMEN TWO VIEWS: HISTORY: Vomiting. Nausea. COMPARISON: 03/31/2018 FINDINGS: There appears to be a percutaneous gastric feeding tube in the left upper quadrant. There is a copio us amount of fecal material in the distal colon and rectum. Correlate for constipation. No evidence of pneumoperitoneum on the supine or upright views. Overall, bowel gas pattern appears to be nonspe cific. IMPRESSION: Copious fecal material. Correlate for constipation/fecal impaction. POS: RABIA
[2018-05-21 03:59] LABS: Anion Gap 19 mmol/L (10-20); BUN (Urea Nitrogen) 62 mg/dL (8.4-25.7); Calc. Creatinine Clearance 42 mL/min (70-130); Calcium 8.7 mg/dL (7.8-10.44); Carbon Dioxide 17 mmol/L (22-29); Chloride 111 mmol/L (98-107); Estimated GFR-MDRD 61; Glucose 129 mg/dL (70-105); Potassium 3.7 mmol/L (3.5-5.1); Sodium 143 mmol/L (136-145)
[2018-05-21] MEDS: Pantoprazole 80 MG in Sodium Chloride 0.9% 100 ML IVP SCH ×2 (05:31→15:50)
[2018-05-21] MEDS: metroNIDAZOLE 500 MG in Premix Bag 1 BAG IVPB SCH ×3 (05:32→21:43)
[2018-05-21 06:10] LABS: Band 44 % (5-11); Hemoglobin 10.5 g/dL (14.0-18.0); Lymphocytes 15 % (21-51); MDiff Complete? YES; Mean Corpuscular HGB CONC 31.7 g/dL (32.0-36.0); Mean Corpuscular Hemoglobin 27.5 pg (27.0-31.0); Mean Corpuscular Volume 86.8 fL (78.0-98.0); Mean Platelet Volume 9.8 fL (7.4-10.4); Metamyelocyte 7 % (0-0); Monocytes 1 % (0-10); Myelocyte 4 % (0-0); Neutrophil 29 % (42-75); Platelet Count 196 thou/uL (130-400); RBC Distribution Width 14.6 % (11.5-14.5)
[2018-05-21] MEDS: Fleet Enema 133 ML BOT FS PRN ×2 (11:27→15:50)
--- NOTE | 2018-05-21 14:54 | PDOC.PN ---
- Subjective Encounter Start Date: 05/21/18 Encounter Start Time: 09:00 Pt seen for followup re: GI bleed. Denies chest pain, shortness of breath, fevers or chills. No further vomiting. - Objective MAR Reviewed: Yes Vital Signs & Weight: Vital Signs (12 hours) Temp Pulse Resp BP Pulse Ox 05/21/18 12:30 96 05/21/18 11:32 99.0 F 112 H 23 H 122/81 94 L 05/21/18 11:06 97 05/21/18 11:05 111 H 26 H 97 05/21/18 08:30 97.3 F L 114 H 29 H 100 05/21/18 07:41 114 H 29 H 100 05/21/18 07:40 97.3 F L 113 H 27 H 121/79 100 05/21/18 07:37 112 H 29 H 100 05/21/18 06:03 119 H 30 H 116/71 98 05/21/18 04:00 99.3 F 109 H 27 H 124/78 96 Weight Weight 97 lb 1.6 oz I&O: 05/20/18 05/21/18 05/22/18 06:59 06:59 06:59 Intake Total 892 Output Total 1 Balance 891 Result Diagrams: 05/21/18 03:13 05/21/18 03:13 EKG Reviewed by me: Yes (Tele: sinus tachycardia) Phys Exam - Physical Examination Malnourished HEENT: moist MMs, sclera anicteric, oral pharynx no lesions, 2+ tonsils Neck: no nodes, no JVD, supple, full ROM Respiratory: no wheezing, no rales, no rhonchi, clear to auscultation bilateral S1, s2, reg, tachy Gastrointestinal: soft, non-tender, positive bowel sounds G-tube Neurological: moves all 4 limbs LUE contracture Psychiatric: normal affect Deviation from normal: Oriented to person and place, not to time Dx/Plan (1) UGIB (upper gastrointestinal bleed) Code(s): K92.2 - GASTROINTESTINAL HEMORRHAGE, UNSPECIFIED Status: Acute Comment: H/H stable. No further vomiting (2) Acute respiratory failure with hypoxia Code(s): J96.01 - ACUTE RESPIRATORY FAILURE WITH HYPOXIA Status: Acute Comment: Improved with BiPAP, oxygen, steroids, antibiotics and bronchodilators (3) HTN (hypertension) Code(s): I10 - ESSENTIAL (PRIMARY) HYPERTENSION Status: Chronic Comment: controlled (4) Protein-calorie malnutrition, severe Code(s): E43 - UNSPECIFIED SEVERE PROTEIN-CALORIE MALNUTRITION Status: Chronic Comment: continue tube feeds - Plan * . Review of Systems - Review of Systems Constitutional: negative: fever, chills, sweats, weakness, malaise Respiratory: Cough, SOB with Excertion. negative: Dry, Shortness of Breath, Hemoptysis, Pleuritic Pain, Sputum, Wheezing Cardiovascular: negative: chest pain, palpitations, orthopnea, paroxysmal nocturnal dyspnea, edema, light headedness Gastrointestinal: negative: Nausea, Vomiting, Abdominal Pain, Diarrhea, Constipation, Melena, Hematochezia Genitourinary: negative: Dysuria, Frequency, Incontinence, Hematuria, Retention Skin: negative: Rash, Lesions, Michael, Bruising - Medications/Allergies Allergies/Adverse Reactions: Allergies Allergy/AdvReac Type Severity Reaction Status Date / Time No Known Drug Allergies Allergy Verified 03/31/18 13:57 Medications: Current Medications Acetaminophen (Tylenol) 650 mg PO Q4H PRN PRN Reason: Headache/Fever or Pain Acetaminophen (Tylenol) 650 mg GA Q4H PRN PRN Reason: Headache/Fever or Pain Albuterol/Ipratropium (Duoneb) 3 ml NEB [id number] [facility] Last Admin: 05/21/18 11:05 Dose: 3 ml Bisacodyl (Dulcolax) 10 mg PO DAILYPRN PRN PRN Reason: Constipation Pantoprazole Sodium 80 mg/ (Sodium Chloride) 100 mls @ 10 mls/hr IVP INF [facility] Last Admin: 05/21/18 05:31 Dose: 100 mls Ceftriaxone Sodium 1 gm/ (Sodium Chloride) 100 mls @ 200 mls/hr IVPB Q24HR [facility] Last Admin: 05/20/18 17:11 Dose: 100 mls Metronidazole 500 mg/ Device 100 mls @ 100 mls/hr IVPB Q8HR [facility] Last Admin: 05/21/18 13:52 Dose: 100 mls Methylprednisolone Sodium Succinate (Solu-Medrol) 40 mg IVP Q6HR [facility] Last Admin: 05/21/18 11:28 Dose: 40 mg Ondansetron HCl (Zofran) 4 mg SLOW IVP Q6H PRN PRN Reason: Nausea/Vomiting Sodium Biphosphate/Sodium Phosphate (Fleet Enema) 133 ml FS PRN PRN PRN Reason: UNTIL CLEAR Last Admin: 05/21/18 11:27 Dose: 133 ml
[2018-05-21] MEDS: cefTRIAXone\\ROCEPHIN 1 GM in Sodium Chloride 0.9% 100 ML IVPB SCH (15:50)
--- NOTE | 2018-05-21 18:21 | PRG ---
DATE OF SERVICE: 05/21/2018 SUBJECTIVE: Mr. Robles is in no distress. He had hiccups last admission and has hiccups this admissi on. OBJECTIVE: VITAL SIGNS: He is afebrile, heart rate is 106, respiratory rate is 19, oximetry is 94, and blood pr essure 153/85. LUNGS: Clear anteriorly. HEART: Regular rhythm. ABDOMEN: Soft. Abdominal film shows findings suggestive of fecal impaction. He has had fecal impactions in the past . History of cerebrovascular accident with a PEG in place, questionable gastrointestinal bleed this adm ission. PLAN: Continue IV fluids and attempts at clearing his impaction. His prognosis is quite guarded.
[2018-05-21] MEDS ORDERED: Bisacodyl 10 MG SUPP PR PRN (20:18)
[2018-05-21] MEDS: Pantoprazole 40 MG VIAL IVP SCH (20:40)
[2018-05-22 04:34] LABS: Anion Gap 14 mmol/L (10-20); BUN (Urea Nitrogen) 60 mg/dL (8.4-25.7); Calc. Creatinine Clearance 67 mL/min (70-130); Calcium 8.6 mg/dL (7.8-10.44); Carbon Dioxide 20 mmol/L (22-29); Chloride 119 mmol/L (98-107); Estimated GFR-MDRD Greater than 90; Glucose 129 mg/dL (70-105); Sodium 150 mmol/L (136-145)
[2018-05-22 04:35] LABS: Potassium 2.8 mmol/L (3.5-5.1)
[2018-05-22 04:52] LABS: Band 70 % (5-11); Hemoglobin 7.4 g/dL (14.0-18.0); Lymphocytes 2 % (21-51); MDiff Complete? YES; Mean Corpuscular Hemoglobin 28.6 pg (27.0-31.0); Mean Corpuscular Volume 86.8 fL (78.0-98.0); Mean Platelet Volume 9.3 fL (7.4-10.4); Metamyelocyte 8 % (0-0); Monocytes 2 % (0-10); Myelocyte 1 % (0-0); Neutrophil 17 % (42-75); PLT Morphology Comment Appears Adequate; Platelet Count 163 thou/uL (130-400); RBC Distribution Width 14.7 % (11.5-14.5); Red Blood Cell (RBC) Count 2.57 mill/uL (4.70-6.10); White Blood Cell (WBC) Count 6.5 thou/uL (4.8-10.8)
[2018-05-22] MEDS: metroNIDAZOLE 500 MG in Premix Bag 1 BAG IVPB SCH ×3 (06:24→22:44)
[2018-05-22] MEDS: Pantoprazole 40 MG VIAL IVP SCH ×2 (08:36→21:59)
[2018-05-22] MEDS: cefTRIAXone\\ROCEPHIN 1 GM in Sodium Chloride 0.9% 100 ML IVPB SCH (15:30)
--- NOTE | 2018-05-22 16:32 | PRG ---
DATE OF SERVICE: 05/22/2018 Mr. Robles is unchanged. PHYSICAL EXAMINATION: VITAL SIGNS: He is afebrile, heart rate 93, respiratory rate is 18, oximetry is 100% on 1 liter, blo od pressure 145/78. LUNGS: Lungs are clear. He still has hiccups. HEART: Regular rhythm. ABDOMEN: Abdomen is soft. Hemoglobin 7. He was admitted with hemoglobin 10.5. I suspect some of this is anemia of chronic dis ease. Maybe some of this is blood loss given his presenting complaints. At this point in time he seems to be medically stable to move out of the Intermediate Care Unit to a medical bed. I would consider transfusing him. ADDENDUM: I was reviewing records and noticed there was a humerus lesion on his chest radiograph. T his needs to be addressed at some point. A transfusion would be appropriate today. I suspect his respiratory issues on presentation were related to retained secretions more than anythi ng. His chest radiograph was completely unremarkable. He is not having any respiratory issues at th is point. He has not been febrile. I think his antibiotics can be simplified if not completely discontinued.
[2018-05-22] MEDS ORDERED: Potassium Chloride 20 MEQ TAB PER TUBE SCH (17:00)
[2018-05-22] MEDS ORDERED: chlorproMAZINE HCl 12.5 MG in Sodium Chloride 0.9% 50 ML IVPB PRN (17:00)
--- NOTE | 2018-05-22 17:02 | PDOC.PN ---
- Subjective Encounter Start Date: 05/22/18 Encounter Start Time: 09:40 Pt seen for followup re: GI bleed. Reports hiccups. No chest pain, shortness of breath, fevers or chills. - Objective MAR Reviewed: Yes Vital Signs & Weight: Vital Signs (12 hours) Temp Pulse Resp BP Pulse Ox 05/22/18 15:00 97.8 F 99 20 174/83 H 100 05/22/18 14:53 92 18 100 05/22/18 11:01 93 18 100 05/22/18 11:00 97.9 F 101 H 22 H 145/78 H 100 05/22/18 08:42 89 20 100 05/22/18 08:00 97.9 F 88 22 H 100 05/22/18 07:00 97.7 F 88 22 H 140/80 100 Weight Admit Weight 97 lb 1.6 oz Weight 97 lb 1.6 oz I&O: 05/21/18 05/22/18 05/23/18 06:59 06:59 06:59 Intake Total 892 1316 117 Output Total 1 Balance 891 1316 117 Result Diagrams: 05/22/18 06:57 05/22/18 03:32 EKG Reviewed by me: Yes (Tele: NSR) Phys Exam - Physical Examination appears frail HEENT: moist MMs, sclera anicteric, oral pharynx no lesions, 2+ tonsils Neck: no nodes, no JVD, supple, full ROM Respiratory: no wheezing, no rales, no rhonchi, clear to auscultation bilateral Cardiovascular: RRR, no rub S1, s2 Gastrointestinal: soft, non-tender, no distention, positive bowel sounds G-tube Neurological: moves all 4 limbs Psychiatric: normal affect Dx/Plan (1) UGIB (upper gastrointestinal bleed) Code(s): K92.2 - GASTROINTESTINAL HEMORRHAGE, UNSPECIFIED Status: Acute Comment: H/H decreased, pt to get pRBC transfusions. Continue IV protonix, if hemoglobin continue sto drop pt will need reeval by GI (2) Hiccups Code(s): R06.6 - HICCOUGH Status: Acute Comment: start PRN IV Largactil (3) Acute respiratory failure with hypoxia Code(s): J96.01 - ACUTE RESPIRATORY FAILURE WITH HYPOXIA Status: Acute Comment: Improved, transfer out of [facility] (4) HTN (hypertension) Code(s): I10 - ESSENTIAL (PRIMARY) HYPERTENSION Status: Chronic Comment: BP high, start PRN IV hydralazine (5) Protein-calorie malnutrition, severe Code(s): E43 - UNSPECIFIED SEVERE PROTEIN-CALORIE MALNUTRITION Status: Chronic Comment: continue tube feeds - Plan * . Review of Systems - Review of Systems Constitutional: negative: fever, chills, sweats, weakness, malaise Respiratory: negative: Cough, Shortness of Breath, SOB with Excertion, Pleuritic Pain, Wheezing Cardiovascular: negative: chest pain, palpitations, orthopnea, paroxysmal nocturnal dyspnea, edema, light headedness Gastrointestinal: Other (hiccups). negative: Nausea, Vomiting, Abdominal Pain, Diarrhea, Constipation, Melena, Hematochezia Genitourinary: negative: Dysuria, Frequency, Incontinence, Hematuria, Retention Skin: negative: Rash, Lesions, Michael, Bruising - Medications/Allergies Allergies/Adverse Reactions: Allergies Allergy/AdvReac Type Severity Reaction Status Date / Time No Known Drug Allergies Allergy Verified 03/31/18 13:57 Medications: Current Medications Acetaminophen (Tylenol) 650 mg PO Q4H PRN PRN Reason: Headache/Fever or Pain Acetaminophen (Tylenol) 650 mg TN Q4H PRN PRN Reason: Headache/Fever or Pain Albuterol/Ipratropium (Duoneb) 3 ml NEB [id number] [facility] Last Admin: 05/22/18 14:53 Dose: 3 ml Bisacodyl (Dulcolax) 10 mg PO DAILYPRN PRN PRN Reason: Constipation Bisacodyl (Dulcolax) 10 mg TN Q8H PRN PRN Reason: Constipation Last Admin: 05/21/18 20:42 Dose: 10 mg Ceftriaxone Sodium 1 gm/ (Sodium Chloride) 100 mls @ 200 mls/hr IVPB Q24HR [facility] Last Admin: 05/22/18 15:30 Dose: 100 mls Metronidazole 500 mg/ Device 100 mls @ 100 mls/hr IVPB Q8HR [facility] Last Admin: 05/22/18 13:23 Dose: 100 mls Chlorpromazine HCl 12.5 mg/ (Sodium Chloride) 50.5 mls @ 101 mls/hr IVPB Q8H PRN PRN Reason: Hiccups Methylprednisolone Sodium Succinate (Solu-Medrol) 40 mg IVP Q6HR [facility] Last Admin: 05/22/18 13:23 Dose: 40 mg Pantoprazole Sodium (Protonix) 40 mg IVP Q12HR [facility] Last Admin: 05/22/18 08:36 Dose: 40 mg Potassium Chloride (K-Dur) 40 meq PER TUBE Q4H [facility] Stop: 05/23/18 01:01 Sodium Biphosphate/Sodium Phosphate (Fleet Enema) 133 ml FS PRN PRN PRN Reason: UNTIL CLEAR Last Admin: 05/21/18 15:50 Dose: 133 ml
[2018-05-22] MEDS ORDERED: hydrALAZINE 20 MG/ML VIAL SLOW IVP PRN (17:07)
[2018-05-22] MEDS: Senokot S 8.6-50 MG TAB PO SCH (21:59)
[2018-05-23] MEDS: metroNIDAZOLE 500 MG in Premix Bag 1 BAG IVPB SCH ×3 (04:14→21:40)
--- NOTE | 2018-05-23 04:40 | PRG ---
DATE OF SERVICE: 05/22/2018 SUBJECTIVE: Mr. Robles is unresponsive. He has moved to the floor. He has had no bleeding overnight . PHYSICAL EXAMINATION: GENERAL: He is cachectic with muscle wasting. VITAL SIGNS: Pulse is 100, temperature is 98, blood pressure 167/91. ABDOMEN: Scaphoid. RECTAL EXAM: Reveals soft stool in the vault. LABORATORY STUDIES: White count 6.5, hemoglobin 7.4 today, platelets 163. Chemistries today sodium 150, potassium 3.8, chloride 119, BUN of 60, creatinine is 0.78. ASSESSMENT AND PLAN: 1. Fecal impaction, chronic constipation related to immobile state, being bedridden. 2. Malnutrition. It is unclear to me how he is being fed at home. The nurses report that his famil y chose to feed him by mouth and not use the PEG. 3. Hypernatremia secondary to dehydration. 4. Prerenal azotemia. 5. Hemoconcentration. On admission, his hemoglobin was 11.6 and when he left the hospital it was 8, just less than a month ago. This is related to profound dehydration. Recommendation, continue aggr essive rehydration. 6. Drop in hemoglobin. I think more of this is related to rehydration than anything. It is okay to give him a unit of blood. 7. Impaction. He needs another enema and then we will start him on Senokot b.i.d. and MiraLax once daily and see if that bowel regimen helps him to keep from becoming recurrently impacted. 8. Communication needs to be made with the family to determine that this patient is being fed. ____ not, I think an evaluation by Adult Protective Services will be reasonable.
[2018-05-23 05:27] LABS: Anion Gap 12 mmol/L (10-20); BUN (Urea Nitrogen) 33 mg/dL (8.4-25.7); Calc. Creatinine Clearance 75 mL/min (70-130); Calcium 8.8 mg/dL (7.8-10.44); Carbon Dioxide 23 mmol/L (22-29); Chloride 121 mmol/L (98-107); Estimated GFR-MDRD Greater than 90; Glucose 170 mg/dL (70-105); Potassium 3.8 mmol/L (3.5-5.1); Sodium 152 mmol/L (136-145)
[2018-05-23 05:54] LABS: Band 23 % (5-11); Hemoglobin 9.4 g/dL (14.0-18.0); Hypochromia SLIGHT = 6-15 cells (100X) (0-5/hpf); Lymphocytes 3 % (21-51); MDiff Complete? YES; Mean Corpuscular Hemoglobin 29.9 pg (27.0-31.0); Mean Corpuscular Volume 87.9 fL (78.0-98.0); Mean Platelet Volume 9.6 fL (7.4-10.4); Monocytes 11 % (0-10); Neutrophil 63 % (42-75); PLT Morphology Comment Appears Adequate; Platelet Count 143 thou/uL (130-400); Red Blood Cell (RBC) Count 3.13 mill/uL (4.70-6.10); White Blood Cell (WBC) Count 6.9 thou/uL (4.8-10.8)
--- NOTE | 2018-05-23 08:39 | CON ---
DATE OF CONSULTATION: 05/20/2018 REASON FOR CONSULTATION: Coffee-ground emesis in the emergency room. HISTORY OF PRESENT ILLNESS: Mr. Robles is a 53-year-old, who has had a previous stroke. He is very c achectic. He has been in and out of the Intermediate Care Unit here at [facility] for the past sev eral months, just about every time he will present from home with either coffee-ground emesis or shor tness of breath. He is usually brought in by his sister, who takes care of him at home. When I saw him in February with a similar presentation as this time, I felt he had aspiration pneumonia and probably some either reflux or Rhoda-Lundy tear or gastritis. He was not in any condition for upper endosco py at that time. Ultimately, after being re-admitted several times with similar presentations, he un derwent upper endoscopy on 03/31/2018 and was found to have large amount of dark material in the stom ach consistent with coffee-ground like material, and he was found to have LA grade D esophagitis from 30 to 37 cm from the incisural orifice. This admission, he was brought in by his sister for evaluat ion of cough and also vomiting twice the night before, which was black in color. The patient is appa rently paralyzed below the waist. He has limitation to balance and the sister who takes care of him at home has not been around. Presently, he denies any abdominal pain. The nurses state that he has had a couple of enemas and passed some stool. The patient denies any vomiting or nausea at this time . Reviewing his last discharge summary, it seems that he was discharged with Protonix b.i.d., Plavix , atorvastatin, Lipitor, and Jevity, but was not discharged home on a bowel regimen. HOME MEDICATIONS: Protonix, Jevity, Plavix, Lipitor. PRESENT MEDICATIONS: Tylenol, DuoNeb, bisacodyl, Rocephin, Solu-Medrol, metronidazole, Protonix, ___ __ drip. PAST MEDICAL HISTORY: CVA in 2016, hypertension, dyslipidemia, pneumonia, reflux, respiratory failur e in the past, protein-calorie malnutrition, oropharyngeal dysphagia. Apparently, the patient is not mobile and is bedridden. PAST SURGICAL HISTORY: PEG tube placement, hernia repair, tracheal tube intubation, mechanical venti lation. REVIEW OF SYSTEMS: Could not be obtained as the patient has dysarthria. SOCIAL HISTORY: No history of alcohol, drugs, or tobacco. PHYSICAL EXAMINATION: VITAL SIGNS: Temperature 98, pulse 110, blood pressure 148/66. GENERAL: The patient is very cachectic. He is awake. He is watching TV. He has a struggle to get oxygens on. He uses accessory muscles to breathe. LUNGS: Clear anteriorly. HEART: Regular rate and rhythm. ABDOMEN: Soft, nontender. PEG seems to be migrated far into the belly cavity. LABORATORY DATA AND RADIOLOGY FINDINGS: X-ray shows fecal impaction. Hemoglobin 10.5, this is up fr om 8.6 when he was discharged on 04/02/2018. White count 5, platelet count 196. Chemistry: Sodium 143, potassium 3.7, bicarbonate 17, chloride 111, BUN 67, creatinine 1.62, albumin 3.9. ASSESSMENT: 1. Likely dehydration based on renal function labs when compared to previous admission. 2. Fecal impaction. He keeps coming with recurrent fecal impactions. The report is from home. He is not ambulatory out of bed. He needs to be on a bowel regimen daily. I think that the fecal impac tion leads to the vomiting, which leads to the coffee-ground emesis and the reflux and recurrent admi ssions and aspiration. He probably has very poor motility anyway, but being stuck in bed and getting fecal impactions does not help. RECOMMENDATIONS: 1. Protonix IV q.12 hours. 2. Start tube feeds tomorrow. 3. Nurses work on disimpaction. 4. When the patient goes home, he needs to be on a bowel regimen with Senokot and MiraLax everyday a nd Dulcolax suppositories 3 times a week.
[2018-05-23] MEDS ORDERED: Polyethylene Glycol 3350 17 GM Packet PO SCH (09:00)
[2018-05-23] MEDS: Senokot S 8.6-50 MG TAB PO SCH ×2 (10:29→21:39)
[2018-05-23] MEDS: Fleet Enema 133 ML BOT FS PRN (10:30)
[2018-05-23] MEDS: Pantoprazole 40 MG VIAL IVP SCH ×2 (10:30→21:39)
--- NOTE | 2018-05-23 14:07 | PDOC.PN ---
- Subjective Encounter Start Date: 05/23/18 Encounter Start Time: 16:00 Subjective: nsg notes rev, suzie ovn no new c/o - Objective Vital Signs & Weight: Vital Signs (12 hours) Temp Pulse Resp BP Pulse Ox 05/23/18 12:00 98.0 F 84 05/23/18 11:35 98.1 F 115 H 16 153/88 H 93 L 05/23/18 10:43 85 16 92 L 05/23/18 08:00 98.6 F 85 16 173/87 H 93 L 05/23/18 07:45 83 16 93 L 05/23/18 03:51 99.9 F H 89 16 164/75 H 94 L 05/23/18 02:09 92 16 94 L Weight Admit Weight 97 lb 1.6 oz Weight 97 lb 1.6 oz I&O: 05/22/18 05/23/18 05/24/18 06:59 06:59 06:59 Intake Total 1316 3117 450 Balance 1316 3117 450 Result Diagrams: 05/24/18 04:13 05/24/18 04:13 Phys Exam - Physical Examination Constitutional: NAD lying in the hospital bed watching tv slightly dry mm Respiratory: no wheezing, no rales, no rhonchi, clear to auscultation bilateral Cardiovascular: RRR, no significant murmur, no rub Gastrointestinal: no distention, positive bowel sounds Musculoskeletal: pulses present Dx/Plan - Plan (1) UGIB (upper gastrointestinal bleed) s/p 2u pRBC ovn, currently stable h/h continue t o monitor (2) Hiccups Code(s): R06.6 - HICCOUGH Status: Acute Comment: start PRN IV Largactil (3) Acute respiratory failure with hypoxia Code(s): J96.01 - ACUTE RESPIRATORY FAILURE WITH HYPOXIA Status: Acute Comment: Improved, transfer out of [facility] (4) HTN (hypertension) Code(s): I10 - ESSENTIAL (PRIMARY) HYPERTENSION Status: Chronic Comment: BP high, start PRN IV hydralazine (5) Protein-calorie malnutrition, severe Code(s): E43 - UNSPECIFIED SEVERE PROTEIN-CALORIE MALNUTRITION Status: Chronic Comment: continue tube feeds no oral intake monitor K Will need to assess safety of d/c planning Review of Systems - Medications/Allergies Allergies/Adverse Reactions: Allergies Allergy/AdvReac Type Severity Reaction Status Date / Time No Known Drug Allergies Allergy Verified 03/31/18 13:57 Medications: Current Medications Acetaminophen (Tylenol) 650 mg PO Q4H PRN PRN Reason: Headache/Fever or Pain Acetaminophen (Tylenol) 650 mg AL Q4H PRN PRN Reason: Headache/Fever or Pain Albuterol/Ipratropium (Duoneb) 3 ml NEB [id number] [facility] Last Admin: 05/23/18 10:43 Dose: 3 ml Bisacodyl (Dulcolax) 10 mg PO DAILYPRN PRN PRN Reason: Constipation Bisacodyl (Dulcolax) 10 mg AL Q8H PRN PRN Reason: Constipation Last Admin: 05/21/18 20:42 Dose: 10 mg Hydralazine HCl (Apresoline) 10 mg SLOW IVP Q6H PRN PRN Reason: SBP Greater Than 170 Ceftriaxone Sodium 1 gm/ (Sodium Chloride) 100 mls @ 200 mls/hr IVPB Q24HR [facility] Last Admin: 05/22/18 15:30 Dose: 100 mls Metronidazole 500 mg/ Device 100 mls @ 100 mls/hr IVPB Q8HR [facility] Last Admin: 05/23/18 04:14 Dose: 100 mls Chlorpromazine HCl 12.5 mg/ (Sodium Chloride) 50.5 mls @ 101 mls/hr IVPB Q8H PRN PRN Reason: Hiccups Methylprednisolone Sodium Succinate (Solu-Medrol) 40 mg IVP Q6HR [facility] Last Admin: 05/23/18 04:13 Dose: 40 mg Pantoprazole Sodium (Protonix) 40 mg IVP Q12HR [facility] Last Admin: 05/23/18 10:30 Dose: 40 mg Polyethylene Glycol (Miralax) 17 gm PO DAILY [facility] Last Admin: 05/23/18 10:29 Dose: 17 gm Senna/Docusate Sodium (Senokot S) 1 tab PO BID [facility] Last Admin: 05/23/18 10:29 Dose: 1 tab Sodium Biphosphate/Sodium Phosphate (Fleet Enema) 133 ml FS PRN PRN PRN Reason: UNTIL CLEAR Last Admin: 05/23/18 10:30 Dose: 133 ml
[2018-05-23] MEDS ORDERED: Acetaminophen 325 MG TAB PO PRN (14:57)
[2018-05-23] MEDS ORDERED: Acetaminophen 650 MG Suppository PR PRN (14:57)
[2018-05-23] MEDS ORDERED: Bisacodyl 5 MG TAB PO PRN (14:57)
[2018-05-23] MEDS ORDERED: Fleet Enema 133 ML BOT FS PRN (14:59)
[2018-05-23] MEDS ORDERED: hydrALAZINE 20 MG/ML VIAL SLOW IVP PRN (14:59)
[2018-05-23] MEDS ORDERED: Bisacodyl 10 MG SUPP PR PRN (14:59)
[2018-05-23] MEDS: cefTRIAXone\\ROCEPHIN 1 GM in Sodium Chloride 0.9% 100 ML IVPB SCH (16:33)
[2018-05-23] MEDS: Metoclopramide HCl 10 MG TAB PO SCH (21:39)
[2018-05-24 04:46] LABS: Hemoglobin 9.4 g/dL (14.0-18.0)
[2018-05-24 04:57] LABS: Anion Gap 10 mmol/L (10-20); BUN (Urea Nitrogen) 29 mg/dL (8.4-25.7); Calc. Creatinine Clearance 74 mL/min (70-130); Calcium 8.1 mg/dL (7.8-10.44); Carbon Dioxide 28 mmol/L (22-29); Chloride 113 mmol/L (98-107); Estimated GFR-MDRD Greater than 90; Glucose 330 mg/dL (70-105); Sodium 148 mmol/L (136-145)
[2018-05-24 05:04] LABS: Potassium 2.9 mmol/L (3.5-5.1)
[2018-05-24] MEDS: metroNIDAZOLE 500 MG in Premix Bag 1 BAG IVPB SCH ×3 (05:52→20:26)
[2018-05-24] MEDS: Metoclopramide HCl 10 MG TAB PO SCH ×4 (08:03→20:25)
[2018-05-24] MEDS: Pantoprazole 40 MG VIAL IVP SCH ×2 (08:04→20:25)
[2018-05-24] MEDS: Polyethylene Glycol 3350 17 GM Packet PO SCH (08:04)
[2018-05-24] MEDS: Senokot S 8.6-50 MG TAB PO SCH ×2 (08:04→20:26)
--- NOTE | 2018-05-24 09:00 | PRG ---
DATE OF SERVICE: 05/23/2018 SUBJECTIVE: Mr. Robles is a little bit more alert. He shakes his head "no" when asked if he is havin g any problems or pain. The patient's sister came today whom the sister he lives with. The nurse gemma mcgowan speaks Portuguese talked with him and she notes that he is only being fed through his PEG tube, but he is on no bowel regimen. He is not ambulatory at home. It is also noted that he had very large alejandrina l movement today. The nurse states that his Enema seem to be getting more watery now. MEDICATIONS: Tylenol p.r.n., DuoNeb, Dulcolax, Rocephin, methylprednisolone, metronidazole, pantopra zole, polyethylene glycol, senna, Fleet Enema. He is receiving tube feeds. PHYSICAL EXAMINATION: GENERAL: He is very malnourished and cachectic. VITAL SIGNS: Blood pressure is 169/83, temperature is 98, respirations 18. LUNGS: Clear. HEART: Regular rate and rhythm. ABDOMEN: Soft, nontender. ASSESSMENT: 1. Fecal impaction, resolved. 2. His bowels are not moving well at home secondary to his sedentary state and he is basically bedri dden. 3. LA grade D reflux esophagitis from repetitive vomiting when he comes in with impactions. RECOMMENDATIONS: 1. Continue bowel regimen, stop Fleet Enema, most importantly we need to continue bowel regimens on discharge. 2. Continue PPI daily on discharge. We would discontinue antibiotics as soon as possible. Decrease risk of Clostridium difficile.
--- NOTE | 2018-05-24 15:20 | RAD ---
MODIFIED BARIUM SWALLOW WITH SPEECH THERAPIST: Date; 05/24/18 HISTORY: 53-year-old male with history of stroke. Dysphagia following other I69.891, dysphagia unspecified R13 .10, and feeding difficulties R63.3. FINDINGS: Upon each feeding of both puree and thin liquid, there is premature free spillage into the vallecula and piriform sinuses, delayed swallow response, penetration, and aspiration, with both consistencies. There is no cough response to the aspiration. IMPRESSION: Pharyngeal dysphagia, including silent aspiration. POS: RABIA
[2018-05-24] MEDS: cefTRIAXone\\ROCEPHIN 1 GM in Sodium Chloride 0.9% 100 ML IVPB SCH (16:12)
--- NOTE | 2018-05-24 18:22 | PDOC.PN ---
- Subjective Encounter Start Date: 05/24/18 Encounter Start Time: 08:20 -: non-verbal Pt seen for followup re: GI bleed. Sleepy but arousable, not answering questions, unable to complete ROS. - Objective MAR Reviewed: Yes Vital Signs & Weight: Vital Signs (12 hours) Temp Pulse Resp BP Pulse Ox 05/24/18 11:38 99.0 F 77 20 157/82 H 94 L 05/24/18 08:00 98.4 F 76 20 95 05/24/18 07:39 98.4 F 76 20 130/75 95 Weight Admit Weight 97 lb 1.6 oz Weight 97 lb 1.6 oz I&O: 05/23/18 05/24/18 05/25/18 06:59 06:59 06:59 Intake Total 3117 4140 1060 Balance 3117 4140 1060 Result Diagrams: 05/24/18 04:13 05/24/18 04:13 Additional Labs: Labs reviewed by me Phys Exam - Physical Examination Constitutional: NAD HEENT: moist MMs, sclera anicteric, oral pharynx no lesions, 2+ tonsils Neck: no nodes, no JVD, supple, full ROM Bibasal crackles Cardiovascular: RRR, no rub S1, S2 Gastrointestinal: soft, non-tender, positive bowel sounds G-tube Neurological: moves all 4 limbs Deviation from normal: Unable to assess affect or orientation to person, place or time Dx/Plan (1) UGIB (upper gastrointestinal bleed) Code(s): K92.2 - GASTROINTESTINAL HEMORRHAGE, UNSPECIFIED Status: Acute Comment: H/H stable (2) Hypokalemia Code(s): E87.6 - HYPOKALEMIA Status: Acute Comment: replace potassium (3) Acute respiratory failure with hypoxia Code(s): J96.01 - ACUTE RESPIRATORY FAILURE WITH HYPOXIA Status: Acute Comment: Improving (4) HTN (hypertension) Code(s): I10 - ESSENTIAL (PRIMARY) HYPERTENSION Status: Chronic Comment: Monitor vital signs, titrate antihypertensives as needed (5) Protein-calorie malnutrition, severe Code(s): E43 - UNSPECIFIED SEVERE PROTEIN-CALORIE MALNUTRITION Status: Chronic Comment: continue tube feeds (6) Hiccups Code(s): R06.6 - HICCOUGH Status: Resolved - Plan * . Review of Systems - Medications/Allergies Allergies/Adverse Reactions: Allergies Allergy/AdvReac Type Severity Reaction Status Date / Time No Known Drug Allergies Allergy Verified 03/31/18 13:57 Medications: Current Medications Acetaminophen (Tylenol) 650 mg PO Q4H PRN PRN Reason: Headache/Fever or Pain Last Admin: 05/24/18 12:19 Dose: 650 mg Acetaminophen (Tylenol) 650 mg SD Q4H PRN PRN Reason: Headache/Fever or Pain Albuterol/Ipratropium (Duoneb) 3 ml NEB Q4H PRN PRN Reason: SOB &/or Wheezing Bisacodyl (Dulcolax) 10 mg PO DAILYPRN PRN PRN Reason: Constipation Bisacodyl (Dulcolax) 10 mg SD Q8H PRN PRN Reason: Constipation Hydralazine HCl (Apresoline) 10 mg SLOW IVP Q6H PRN PRN Reason: SBP Greater Than 170 Ceftriaxone Sodium 1 gm/ (Sodium Chloride) 100 mls @ 200 mls/hr IVPB Q24HR [facility] Last Admin: 05/24/18 16:12 Dose: 100 mls Metronidazole 500 mg/ Device 100 mls @ 100 mls/hr IVPB Q8HR [facility] Last Admin: 05/24/18 14:57 Dose: 100 mls Chlorpromazine HCl 12.5 mg/ (Sodium Chloride) 50.5 mls @ 101 mls/hr IVPB Q8H PRN PRN Reason: Hiccups Methylprednisolone Sodium Succinate (Solu-Medrol) 40 mg IVP Q6HR [facility] Last Admin: 05/24/18 17:08 Dose: 40 mg Metoclopramide HCl (Reglan) 5 mg PO ACHS [facility] Last Admin: 05/24/18 17:07 Dose: 5 mg Pantoprazole Sodium (Protonix) 40 mg IVP Q12HR [facility] Last Admin: 05/24/18 08:04 Dose: 40 mg Polyethylene Glycol (Miralax) 17 gm PO DAILY [facility] Last Admin: 05/24/18 08:04 Dose: 17 gm Senna/Docusate Sodium (Senokot S) 1 tab PO BID [facility] Last Admin: 05/24/18 08:04 Dose: 1 tab Sodium Chloride (Flush - Normal Saline) 10 ml IVF Q12HR [facility] Last Admin: 05/24/18 08:04 Dose: 10 ml Sodium Chloride (Flush - Normal Saline) 10 ml IVF PRN PRN PRN Reason: Saline Flush
--- NOTE | 2018-05-24 19:32 | PRG ---
DATE OF SERVICE: 05/24/2018 SUBJECTIVE: Mr. Robles had a modified swallow today. The speech pathologist notes, he had a joey aspiration. He is not currently being little bit short of breath. OBJECTIVE: VITAL SIGNS: Temperature is 99, pulse 97, and blood pressure 157/82. GENERAL: He is cachectic, appearing. LUNGS: Coarse breath sounds at bases. O2 sat 94% on room air. PEG tube site is clean and dry. LABORATORY STUDIES: Hemoglobin is 9.4, potassium 2.9 with sodium is down to 148. ASSESSMENT: 1. Oropharyngeal dysphagia. Presumptively, this is from previous cerebrovascular accident, although I cant discern from the chart, and the patient's family cannot add any history. 2. Recurrent constipation secondary to sedentary state medications. He has been on no bowel regimen on home talking to the family. 3. Coffee ground emesis, which results from his obstipation, constipation and impaction and then regurgitation, which causes esophagitis. 4. Recurrent aspiration, likely impaction as well. He has been disimpacted this admission again. RECOMMENDATIONS: On discharge, he is remained on b.i.d. PPI. He is to feed only for the PEG tube or he will aspirate. He needs to be positioned sitting upwards when feeding. He needs not to be fed when he is sleeping or right before going to bed. He needs to be on a bowel regimen as outlined in yesterday 's note with Senokot and MiraLax. At this time, we will sign off . If I can be of any further assistance in his care, please do not hesitate to contact me. EDGAR
[2018-05-25] MEDS: metroNIDAZOLE 500 MG in Premix Bag 1 BAG IVPB SCH ×3 (05:54→22:21)
[2018-05-25] MEDS: Metoclopramide HCl 10 MG TAB PO SCH ×4 (09:03→21:38)
[2018-05-25] MEDS: Pantoprazole 40 MG VIAL IVP SCH ×2 (09:03→21:39)
[2018-05-25] MEDS: Polyethylene Glycol 3350 17 GM Packet PO SCH (09:03)
[2018-05-25] MEDS: Senokot S 8.6-50 MG TAB PO SCH ×2 (09:03→21:39)
[2018-05-25] MEDS: cefTRIAXone\\ROCEPHIN 1 GM in Sodium Chloride 0.9% 100 ML IVPB SCH (15:59)
--- NOTE | 2018-05-25 16:28 | PDOC.PN ---
- Subjective Encounter Start Date: 05/25/18 Encounter Start Time: 09:40 Patient seen for followup re: hypokalemia. Denies chest pain, shortness of breath, fevers or chills. - Objective MAR Reviewed: Yes Vital Signs & Weight: Vital Signs (12 hours) Temp Pulse Resp BP Pulse Ox 05/25/18 11:59 94 L 05/25/18 11:44 98.0 F 85 18 157/86 H 90 L 05/25/18 08:00 97.7 F 70 16 96 05/25/18 07:41 97.7 F 70 16 151/87 H 96 Weight Admit Weight 97 lb 1.6 oz Weight 97 lb 1.6 oz I&O: 05/24/18 05/25/18 05/26/18 06:59 06:59 06:59 Intake Total 4140 4400 980 Balance 4140 4400 980 Result Diagrams: 05/24/18 04:13 05/24/18 04:13 Phys Exam - Physical Examination Constitutional: NAD HEENT: moist MMs Neck: supple Respiratory: clear to auscultation bilateral Cardiovascular: RRR Gastrointestinal: soft Neurological: moves all 4 limbs Psychiatric: normal affect Dx/Plan (1) Hypokalemia Code(s): E87.6 - HYPOKALEMIA Status: Acute Comment: replace potassium and recheck (2) Acute respiratory failure with hypoxia Code(s): J96.01 - ACUTE RESPIRATORY FAILURE WITH HYPOXIA Status: Acute Comment: Improving (3) HTN (hypertension) Code(s): I10 - ESSENTIAL (PRIMARY) HYPERTENSION Status: Chronic Comment: add amlodipine, BP elevated (4) Protein-calorie malnutrition, severe Code(s): E43 - UNSPECIFIED SEVERE PROTEIN-CALORIE MALNUTRITION Status: Chronic Comment: on tube feeds (5) Hiccups Code(s): R06.6 - HICCOUGH Status: Resolved (6) UGIB (upper gastrointestinal bleed) Code(s): K92.2 - GASTROINTESTINAL HEMORRHAGE, UNSPECIFIED Status: Resolved Comment: H/H stable - Plan * . Review of Systems - Review of Systems Respiratory: Cough, Sputum Cardiovascular: negative: chest pain, palpitations, orthopnea, paroxysmal nocturnal dyspnea, edema, light headedness - Medications/Allergies Allergies/Adverse Reactions: Allergies Allergy/AdvReac Type Severity Reaction Status Date / Time No Known Drug Allergies Allergy Verified 03/31/18 13:57 Medications: Current Medications Acetaminophen (Tylenol) 650 mg PO Q4H PRN PRN Reason: Headache/Fever or Pain Last Admin: 05/24/18 12:19 Dose: 650 mg Acetaminophen (Tylenol) 650 mg HI Q4H PRN PRN Reason: Headache/Fever or Pain Albuterol/Ipratropium (Duoneb) 3 ml NEB Q4H PRN PRN Reason: SOB &/or Wheezing Bisacodyl (Dulcolax) 10 mg PO DAILYPRN PRN PRN Reason: Constipation Bisacodyl (Dulcolax) 10 mg HI Q8H PRN PRN Reason: Constipation Hydralazine HCl (Apresoline) 10 mg SLOW IVP Q6H PRN PRN Reason: SBP Greater Than 170 Ceftriaxone Sodium 1 gm/ (Sodium Chloride) 100 mls @ 200 mls/hr IVPB Q24HR [facility] Last Admin: 05/25/18 15:59 Dose: 100 mls Metronidazole 500 mg/ Device 100 mls @ 100 mls/hr IVPB Q8HR [facility] Last Admin: 05/25/18 14:36 Dose: 100 mls Chlorpromazine HCl 12.5 mg/ (Sodium Chloride) 50.5 mls @ 101 mls/hr IVPB Q8H PRN PRN Reason: Hiccups Methylprednisolone Sodium Succinate (Solu-Medrol) 40 mg IVP Q6HR [facility] Last Admin: 05/25/18 12:02 Dose: 40 mg Metoclopramide HCl (Reglan) 5 mg PO ACHS [facility] Last Admin: 05/25/18 12:02 Dose: 5 mg Pantoprazole Sodium (Protonix) 40 mg IVP Q12HR [facility] Last Admin: 05/25/18 09:03 Dose: 40 mg Polyethylene Glycol (Miralax) 17 gm PO DAILY [facility] Last Admin: 05/25/18 09:03 Dose: 17 gm Senna/Docusate Sodium (Senokot S) 1 tab PO BID [facility] Last Admin: 05/25/18 09:03 Dose: 1 tab Sodium Chloride (Flush - Normal Saline) 10 ml IVF Q12HR [facility] Last Admin: 05/25/18 09:03 Dose: 10 ml Sodium Chloride (Flush - Normal Saline) 10 ml IVF PRN PRN PRN Reason: Saline Flush
[2018-05-25] MEDS ORDERED: Amlodipine 5 MG TAB PER TUBE SCH (16:45)
[2018-05-26] MEDS: chlorproMAZINE HCl 12.5 MG in Sodium Chloride 0.9% 50 ML IVPB PRN (02:44)
[2018-05-26] MEDS: metroNIDAZOLE 500 MG in Premix Bag 1 BAG IVPB SCH ×3 (05:59→20:12)
[2018-05-26] MEDS: Metoclopramide HCl 10 MG TAB PO SCH ×4 (09:17→20:11)
[2018-05-26] MEDS: Senokot S 8.6-50 MG TAB PO SCH ×2 (09:17→20:02)
[2018-05-26] MEDS: Polyethylene Glycol 3350 17 GM Packet PO SCH (09:18)
[2018-05-26] MEDS: Pantoprazole 40 MG VIAL IVP SCH ×2 (09:18→20:02)
[2018-05-26] MEDS: Amlodipine 5 MG TAB PER TUBE SCH (09:21)
--- NOTE | 2018-05-26 15:07 | PDOC.PN ---
- Subjective Encounter Start Date: 05/26/18 Encounter Start Time: 08:40 Pt seen for followup re: acute resp failure. Denies fevers or chills. - Objective MAR Reviewed: Yes Vital Signs & Weight: Vital Signs (12 hours) Temp Pulse Resp BP BP Pulse Ox 05/26/18 12:00 97.8 F 66 16 141/79 H 05/26/18 09:21 83 144/81 H 144/81 H 05/26/18 08:00 97.3 F L 83 14 93 L 05/26/18 07:34 97.3 F L 83 14 109/66 93 L 05/26/18 04:00 71 18 118/68 93 L Weight Admit Weight 97 lb 1.6 oz Weight 97 lb 1.6 oz I&O: 05/25/18 05/26/18 05/27/18 06:59 06:59 06:59 Intake Total 4400 5360 980 Balance 4400 5360 980 Result Diagrams: 05/26/18 15:28 05/26/18 15:28 Additional Labs: Labs reviewed by me Phys Exam - Physical Examination Constitutional: NAD HEENT: moist MMs Neck: supple Bibasal crackles Cardiovascular: RRR Gastrointestinal: soft PEG tube Neurological: moves all 4 limbs Psychiatric: normal affect Dx/Plan (1) Acute respiratory failure with hypoxia Code(s): J96.01 - ACUTE RESPIRATORY FAILURE WITH HYPOXIA Status: Acute Comment: Improving (2) Hypokalemia Code(s): E87.6 - HYPOKALEMIA Status: Acute Comment: recheck potassium level (3) HTN (hypertension) Code(s): I10 - ESSENTIAL (PRIMARY) HYPERTENSION Status: Chronic Comment: amlodipine added yesterday (4) Protein-calorie malnutrition, severe Code(s): E43 - UNSPECIFIED SEVERE PROTEIN-CALORIE MALNUTRITION Status: Chronic Comment: continue tube feeds (5) Hiccups Code(s): R06.6 - HICCOUGH Status: Resolved (6) UGIB (upper gastrointestinal bleed) Code(s): K92.2 - GASTROINTESTINAL HEMORRHAGE, UNSPECIFIED Status: Resolved - Plan * . Review of Systems - Review of Systems Respiratory: Cough, Dry. negative: Shortness of Breath, Hemoptysis, SOB with Excertion, Pleuritic Pain, Wheezing Cardiovascular: negative: chest pain, palpitations, orthopnea, paroxysmal nocturnal dyspnea, edema, light headedness - Medications/Allergies Allergies/Adverse Reactions: Allergies Allergy/AdvReac Type Severity Reaction Status Date / Time No Known Drug Allergies Allergy Verified 03/31/18 13:57 Medications: Current Medications Acetaminophen (Tylenol) 650 mg PO Q4H PRN PRN Reason: Headache/Fever or Pain Last Admin: 05/24/18 12:19 Dose: 650 mg Acetaminophen (Tylenol) 650 mg VA Q4H PRN PRN Reason: Headache/Fever or Pain Albuterol/Ipratropium (Duoneb) 3 ml NEB Q4H PRN PRN Reason: SOB &/or Wheezing Amlodipine Besylate (Norvasc) 2.5 mg PER TUBE DAILY [facility] Last Admin: 05/26/18 09:21 Dose: 2.5 mg Bisacodyl (Dulcolax) 10 mg PO DAILYPRN PRN PRN Reason: Constipation Bisacodyl (Dulcolax) 10 mg VA Q8H PRN PRN Reason: Constipation Hydralazine HCl (Apresoline) 10 mg SLOW IVP Q6H PRN PRN Reason: SBP Greater Than 170 Ceftriaxone Sodium 1 gm/ (Sodium Chloride) 100 mls @ 200 mls/hr IVPB Q24HR [facility] Last Admin: 05/25/18 15:59 Dose: 100 mls Metronidazole 500 mg/ Device 100 mls @ 100 mls/hr IVPB Q8HR [facility] Last Admin: 05/26/18 13:47 Dose: 100 mls Chlorpromazine HCl 12.5 mg/ (Sodium Chloride) 50.5 mls @ 101 mls/hr IVPB Q8H PRN PRN Reason: Hiccups Last Admin: 05/26/18 02:44 Dose: 50.5 mls Methylprednisolone Sodium Succinate (Solu-Medrol) 40 mg IVP Q6HR [facility] Last Admin: 05/26/18 11:48 Dose: 40 mg Metoclopramide HCl (Reglan) 5 mg PO ACHS [facility] Last Admin: 05/26/18 11:48 Dose: 5 mg Pantoprazole Sodium (Protonix) 40 mg IVP Q12HR [facility] Last Admin: 05/26/18 09:18 Dose: 40 mg Polyethylene Glycol (Miralax) 17 gm PO DAILY [facility] Last Admin: 05/26/18 09:18 Dose: 17 gm Senna/Docusate Sodium (Senokot S) 1 tab PO BID [facility] Last Admin: 05/26/18 09:17 Dose: 1 tab Sodium Chloride (Flush - Normal Saline) 10 ml IVF Q12HR [facility] Last Admin: 05/26/18 09:18 Dose: 10 ml Sodium Chloride (Flush - Normal Saline) 10 ml IVF PRN PRN PRN Reason: Saline Flush Last Admin: 05/26/18 06:01 Dose: 10 ml
[2018-05-26] MEDS: cefTRIAXone\\ROCEPHIN 1 GM in Sodium Chloride 0.9% 100 ML IVPB SCH (15:09)
[2018-05-26 15:41] LABS: Hemoglobin 10.4 g/dL (14.0-18.0); Mean Corpuscular HGB CONC 33.9 g/dL (32.0-36.0); Mean Corpuscular Hemoglobin 29.8 pg (27.0-31.0); Mean Corpuscular Volume 87.9 fL (78.0-98.0); Platelet Count 128 thou/uL (130-400); RBC Distribution Width 14.2 % (11.5-14.5); Red Blood Cell (RBC) Count 3.47 mill/uL (4.70-6.10); White Blood Cell (WBC) Count 6.9 thou/uL (4.8-10.8)
[2018-05-26 15:56] LABS: Anion Gap 11 mmol/L (10-20); BUN (Urea Nitrogen) 22 mg/dL (8.4-25.7); Calc. Creatinine Clearance 87 mL/min (70-130); Calcium 7.6 mg/dL (7.8-10.44); Carbon Dioxide 26 mmol/L (22-29); Chloride 100 mmol/L (98-107); Estimated GFR-MDRD Greater than 90; Glucose 286 mg/dL (70-105); Sodium 133 mmol/L (136-145)
[2018-05-26 16:01] LABS: Band 5 % (5-11); Lymphocytes 5 % (21-51); MDiff Complete? YES; Neutrophil 90 % (42-75); Ovalocytes SLIGHT = 2-5 cells (100X) (0-1/hpf); PLT Morphology Comment Appears Decreased; Polychromasia SLIGHT = 2-3 cells (100X) (0-2/hpf); Tear Drops SLIGHT = 2-5 cells (100X) (0-1/hpf)
[2018-05-27] MEDS: metroNIDAZOLE 500 MG in Premix Bag 1 BAG IVPB SCH ×3 (05:16→22:30)
[2018-05-27] MEDS: Metoclopramide HCl 10 MG TAB PO SCH ×4 (09:36→21:00)
[2018-05-27] MEDS: Senokot S 8.6-50 MG TAB PO SCH ×2 (09:39→21:01)
[2018-05-27] MEDS: Pantoprazole 40 MG VIAL IVP SCH ×2 (09:39→21:01)
[2018-05-27] MEDS: Amlodipine 5 MG TAB PER TUBE SCH (09:39)
[2018-05-27] MEDS: Polyethylene Glycol 3350 17 GM Packet PO SCH (09:40)
[2018-05-27] MEDS ORDERED: guaiFENesin 200 MG TAB PER TUBE SCH (10:30)
[2018-05-27] MEDS: chlorproMAZINE HCl 12.5 MG in Sodium Chloride 0.9% 50 ML IVPB PRN (12:08)
[2018-05-27] MEDS: cefTRIAXone\\ROCEPHIN 1 GM in Sodium Chloride 0.9% 100 ML IVPB SCH (15:49)
--- NOTE | 2018-05-27 19:48 | PDOC.PN ---
- Subjective Encounter Start Date: 05/27/18 Encounter Start Time: 19:40 Subjective: f/u for dysphagia and aspiration s/p PEG tube with Jevity 1.2 TF's -: currently q4h up to 6 cans a day. Tolerating without difficulty and -: minimal residuals per nursing. - Objective MAR Reviewed: Yes Vital Signs & Weight: Vital Signs (12 hours) Temp Pulse Resp BP BP Pulse Ox 05/27/18 16:00 97.6 F 69 18 138/82 97 05/27/18 12:00 97.7 F 67 20 169/92 H 97 05/27/18 09:39 82 156/84 H 05/27/18 08:00 97.9 F 82 18 Weight Admit Weight 97 lb 1.6 oz Weight 97 lb 1.6 oz I&O: 05/26/18 05/27/18 05/28/18 06:59 06:59 06:59 Intake Total 5360 6280 3140 Output Total 1 Balance 5360 6280 3139 Result Diagrams: 05/26/18 15:28 05/26/18 15:28 Phys Exam - Physical Examination Constitutional: NAD alert, mumbles a few phrases HEENT: PERRLA, sclera anicteric, oral pharynx no lesions Neck: no nodes, no JVD, supple, full ROM Respiratory: no wheezing, no rales, no rhonchi, clear to auscultation bilateral S1, S2 Cardiovascular: RRR, no significant murmur, no rub, gallop PEG tube in place Gastrointestinal: soft, non-tender, no distention, positive bowel sounds severe cachexia and atrophy globally Musculoskeletal: no edema, pulses present Skin: no rash, normal turgor, cap refill <2 seconds Dx/Plan (1) Dysphagia Code(s): R13.10 - DYSPHAGIA, UNSPECIFIED Status: Acute Qualifiers: Dysphagia type: oropharyngeal phase Qualified Code(s): R13.12 - Dysphagia, oropharyngeal phase Comment: s/p PEG placement and NPO status, safe feeding practices, [employer]IST following (2) UGIB (upper gastrointestinal bleed) Code(s): K92.2 - GASTROINTESTINAL HEMORRHAGE, UNSPECIFIED Status: Resolved Comment: Resolved, continue PPI (3) Protein-calorie malnutrition, severe Code(s): E43 - UNSPECIFIED SEVERE PROTEIN-CALORIE MALNUTRITION Status: Chronic Comment: Nutritional support with Jevity 1.2, 1.5 cans q6h (4) Hypokalemia Code(s): E87.6 - HYPOKALEMIA Status: Acute Comment: Improved with TF's (5) HTN (hypertension) Code(s): I10 - ESSENTIAL (PRIMARY) HYPERTENSION Status: Chronic Comment: Continue Amlodipine, titrate BP regimen for optimal response - Plan continue antibiotics, PT/OT, social worker, speech therapy, respiratory therapy, DVT proph w/SCDs Stable overall -: Change TF's 1.5cans q6h -: PT for mobilization -: Continue Rocephin and Flagyl -: CM for HH options * .
[2018-05-27] MEDS: guaiFENesin 200 MG TAB PER TUBE SCH (21:00)
[2018-05-28] MEDS: metroNIDAZOLE 500 MG in Premix Bag 1 BAG IVPB SCH ×2 (05:11→13:42)
[2018-05-28] MEDS: Pantoprazole 40 MG VIAL IVP SCH (07:35)
[2018-05-28] MEDS: Amlodipine 5 MG TAB PER TUBE SCH (07:36)
[2018-05-28] MEDS: guaiFENesin 200 MG TAB PER TUBE SCH (07:36)
[2018-05-28] MEDS: Senokot S 8.6-50 MG TAB PO SCH (07:37)
[2018-05-28] MEDS: Polyethylene Glycol 3350 17 GM Packet PO SCH (07:37)
[2018-05-28] MEDS: Metoclopramide HCl 10 MG TAB PO SCH ×3 (07:37→15:54)
--- NOTE | 2018-05-28 11:57 | DIS ---
DATE OF ADMISSION: 05/20/2018 DATE OF DISCHARGE: 05/28/2018 DISCHARGE DIAGNOSES: 1. Grade D esophagitis. 2. Upper gastrointestinal bleed, secondary to severe reflux, resolved. 3. Status post fecal impaction. 4. Dysphagia, status post PEG tube placement. 5. Severe protein-calorie malnutrition. 6. Hypokalemia, improved. 7. Hypertension, stable. CONSULTATIONS: Dr. Wilson with GI Service. Dr. Leroy with Pulmonology Service. PERTINENT LABORATORY AND X-RAY FINDINGS: Potassium ranged between 2.8-4.0, creatinine ranged between 0.60-1.23. Estimated GFR ranged between 61 to greater than 90. Lactic acid level 2.0. LFTs within normal limits. Albumin 3.9. CBC showed a hemoglobin ranging between 7.0-11.6. Blood cultures x2 f rom 05/20/2018 showed no growth at 5 days. Stool Hemoccult dated 05/20/2018, positive x1. Portable chest x-ray dated 05/20/2018 showed abnormal density in the proximal left humerus. Abdominal radiogr aphs dated 05/20/2018 showed a large amount of retained stool concerning for constipation/fecal impac tion. Modified barium swallow evaluation, 05/24/2018, showed pharyngeal dysphagia including silent a spiration. HOSPITAL COURSE: The patient was initially admitted after presenting with coffee-ground emesis in th e context of known dysphagia, severe protein-calorie malnutrition, and history of reflux-mediated eso phagitis. The patient with recent EGD in 03/2018 showing severe esophagitis, grade D, with recommend ations for proton pump inhibitor. The patient was also noted with fecal impaction and given a compre hensive bowel regimen as well as IV fluids. The patient was successfully able to pass stool with dir ected bowel regimen and was evaluated by the GI service with recommendations to continue prokinetic a gents as well as a daily bowel regimen with stool softeners and bowel stimulants. The patient also n oted with coffee-ground emesis at the time of admission, likely due to emesis. The patient received 2 units of packed red blood cells during the hospital course with serial H and H monitoring showing a n overall stable trend for the remainder of the hospital course. The patient was resumed on tube fee ds with Jevity 1.2, currently at 1.5 cans q.6 hours, tolerating bolus feeds. The patient received ge neral supportive care throughout the hospital course and overall remained clinically stable. Infecti ous workup was essentially unrevealing and portable chest x-ray showed no acute infiltrates. The pat ient was evaluated by case management services and deemed appropriate for indigent care program [facility] agency. I have examined the patient at the time of discharge and the famil y has verbalized understanding and agreement of plan for discharge. The patient overall clinically s table and ready for discharge, 05/28/2018. DISCHARGE MEDICATIONS: 1. Lipitor 20 mg p.o. daily. 2. Pepcid 20 mg per PEG tube b.i.d. 3. Reglan 5 mg per PEG tube a.c. and at bedtime. 4. MiraLax 17 grams per PEG tube daily. 5. Senokot-S 1 tablet per PEG tube b.i.d. FOLLOWUP: Patient will follow up with his primary care provider, Dr. Rita Dove within 7 days of discharge. CONDITION ON DISCHARGE: Guarded. ACTIVITY: Bed-bound status. DIET: Tube feeds with Jevity 1.2, 1.5 cans q.6 hours. Water flushes 30-45 mL q.4-6 hours. CODE STATUS: FULL. DISPOSITION: Home with [facility] services, 05/28/2018. Total time preparing and coordinating discharge is 50 minutes
[2018-05-28] MEDS: cefTRIAXone\\ROCEPHIN 1 GM in Sodium Chloride 0.9% 100 ML IVPB SCH (15:54)
[2018-05-28 16:23] VITALS: TEMP 97.7
[2018-05-28 17:12] VITALS: BP 157/84
== END 2018-05-28 17:14 | disposition home or self-care (01) | DRG 391 ==
LOC: ERS 08:30 → IMCU/EMU 12:13 → T4-A 05-22 16:30 → UNDODISIN 05-23 13:30
PROVIDERS: ADMIT Internal Medicine; ATTEND Internal Medicine
PROC: 30233N1 Transfusion of Nonautologous Red Blood Cells into Peripheral Vein, Percutaneous Approach (ICD-10-PCS; principal; 2018-05-22)
DX: K21.0 Gastro-esophageal reflux disease with esophagitis (principal); E43 Unspecified severe protein-calorie malnutrition; J96.21 Acute and chronic respiratory failure with hypoxia; K92.2 Gastrointestinal hemorrhage, unspecified; R64 Cachexia; I10 Essential (primary) hypertension; E78.5 Hyperlipidemia, unspecified; F41.9 Anxiety disorder, unspecified; F32.9 Major depressive disorder, single episode, unspecified; Z79.02 Long term (current) use of antithrombotics/antiplatelets; R09.02 Hypoxemia; D72.829 Elevated white blood cell count, unspecified; I69.891 Dysphagia following other cerebrovascular disease; R13.12 Dysphagia, oropharyngeal phase; K59.03 Drug induced constipation; Z93.1 Gastrostomy status; D63.8 Anemia in other chronic diseases classified elsewhere; D50.0 Iron deficiency anemia secondary to blood loss (chronic); K22.8 Other specified diseases of esophagus; E87.6 Hypokalemia; Z74.01 Bed confinement status
CPT/HCPCS: 36415; 36430; 71045; 74019; 74230; 80048; 80053; 82274; 83605; 83735; 85014; 85018; 85025; 86850; 86900; 86901; 87040; 94640; 94660; 96361; 96374; A4216; C9113; G8996-GN-CM; G8996-GN-CN; G8997-GN-CL; G8997-GN-CM; J0696; J2920; J3230; J7050; J7620; P9016

== ENCOUNTER 2018-10-23 09:36 | Emergency (ER) | payer MEDICAID, SELFPAY ==
[2018-10-23] MEDS ORDERED: Lidocaine 1% (PF) 30 ML VIAL ONE (13:29)
--- NOTE | 2018-10-23 14:07 | RAD ---
PORTABLE AP CHEST X-RAY: 10/23/2018 HISTORY: Cough. The patient needs PEG tube replaced. COMPARISON: 05/20/2018 FINDINGS: There are patchy parenchymal densities seen within the lateral aspect of the left mid lung zone, with linear and patchy densities also seen at the left lung base. Findings are worrisome for an infectio us process and developing pneumonia. Followup to resolution is recommended. The right lung appears clear. Median sternotomy wires are again present. Vascular calcification is seen in the thoracic aorta. Th ere is mention of an area of increased density and a slight mottled appearance involving the proximal left humerus. This is only partially imaged on this examination. However, this area was present on multiple prior chest x-rays, dating back to 05/23/2017. The exact etiology is uncertain. This coul d possibly be related to a remote fracture. There is cortical tunneling and mild irregularity. Campbell nathaniel, other etiologies cannot be entirely excluded. IMPRESSION: 1. Evidence for infectious process/developing pneumonia in the left mid lung zone and at the left carlin ng base. Followup to complete resolution is recommended. 2. Slight irregularity and cortical tunneling involving the proximal left humerus, incompletely imag ed on this examination. There is slight irregularity involving the medial aspect of the body of the scapula. These findings are unchanged, dating back to studies in 2017, and may be chronic in origin, and related to a chronic process, such as the possibility of a remote fracture; however, bone scan m ay be beneficial for further evaluation. CODE T POS: RABIA
== END 2018-10-23 15:48 | disposition home or self-care (01) ==
LOC: ERS 09:36
DX: Z43.1 Encounter for attention to gastrostomy (principal); K21.9 Gastro-esophageal reflux disease without esophagitis; E78.5 Hyperlipidemia, unspecified; Z86.73 Personal history of transient ischemic attack (TIA), and cerebral infarction without residual deficits; I10 Essential (primary) hypertension; F32.9 Major depressive disorder, single episode, unspecified
CPT/HCPCS: 43760; 71045; B4087; J2001

== ENCOUNTER 2019-08-19 19:02 | Emergency (ER) | payer MEDICAID, SELFPAY ==
--- NOTE | 2019-08-19 21:56 | RAD ---
AP AND OBLIQUE VIEWS OF THE ABDOMEN: 08/19/19 HISTORY: PEG tube check. FINDINGS: Views of the abdomen are obtained in AP and oblique imaging after injection of gastrografin into the stomach. Gastrostomy tube is noted to be within the fundus of the stomach and in unchanged position c ompared to study on 06/17/18. There is contrast seen in the confines of the stomach as well as in loop s of proximal small bowel without extravasation of contrast. There is small amount of reflex into the distal esophagus. There is a moderate to large amount of retained fecal material seen throughout the colon, especially in the region of the rectum. IMPRESSION: 1. Large amount of retained fecal material seen throughout the colon, especially in the region o f the rectum. No gas filled dilated loops of small bowel are appreciated. 2. Gastrostomy tube noted in place within the stomach without extravasation of contrast. 3. Linear metallic densities again overlying the right mid abdomen unchanged from prior study. POS: OFF
== END 2019-08-19 21:59 | disposition home or self-care (01) ==
LOC: ERS 19:02
DX: K94.23 Gastrostomy malfunction (principal); I10 Essential (primary) hypertension
CPT/HCPCS: 43762; 74018

== ENCOUNTER 2020-06-02 07:46 | Emergency (ER) | payer MEDICAID, SELFPAY ==
--- NOTE | 2020-06-02 10:25 | RAD ---
EXAM: Single view of the abdomen HISTORY: PEG tube placement COMPARISON: 08/19/2019 FINDINGS: Single view of the abdomen shows a nonspecific, nonobstructive bowel gas pattern. Contrast is seen in the stomach and in the patient's PEG tube. No suspicious calcifications are seen. The bones are unremarkable. IMPRESSION: PEG tube located in the stomach.
[2020-06-02] MEDS ORDERED: GASTROGRAFIN 30 ML BOT ONE (15:34)
== END 2020-06-02 10:41 | disposition home or self-care (01) ==
LOC: ERS 07:46
DX: K94.23 Gastrostomy malfunction (principal); E78.5 Hyperlipidemia, unspecified; I10 Essential (primary) hypertension
CPT/HCPCS: 74018; Q9963

== ENCOUNTER 2021-01-19 10:10 | Emergency (ER) | payer SELFPAY ==
[2021-01-19 10:55] LABS: #Lymphocytes 0.6 thou/uL (1.20-3.40); #Monocytes 0.6 thou/uL (0.11-0.59); #Neutrophils 8.7 thou/uL (1.40-6.50); %Basophils 0.3 % (0.0-1.0); %Eosinophils 0.1 % (0.0-10.0); %Lymphocytes 5.7 % (21.0-51.0); %Neutrophils 87.9 % (42.0-75.0); Hemoglobin 12.3 g/dL (14.0-18.0); Mean Corpuscular HGB CONC 33.9 g/dL (32.0-36.0); Mean Corpuscular Hemoglobin 33.3 pg (27.0-31.0); Mean Corpuscular Volume 98.2 fL (78.0-98.0); Platelet Count 159 thou/uL (130-400); RBC Distribution Width 11.7 % (11.5-14.5); Red Blood Cell (RBC) Count 3.68 mill/uL (4.70-6.10); White Blood Cell (WBC) Count 9.9 thou/uL (4.8-10.8)
[2021-01-19 11:10] LABS: ALT (SGPT) 23 U/L (8-55); AST (SGOT) 19 U/L (5-34); Albumin 3.4 g/dL (3.5-5.0); Alkaline Phosphatase 120 U/L (40-110); Anion Gap 13 mmol/L (10-20); BUN (Urea Nitrogen) 34 mg/dL (8.4-25.7); Bilirubin, Total 1.2 mg/dL (0.2-1.2); Calc. Creatinine Clearance 0 mL/min (70-130); Calcium 8.8 mg/dL (7.8-10.44); Carbon Dioxide 23 mmol/L (22-29); Chloride 107 mmol/L (98-107); Globulin 4.4 g/dL (2.4-3.5); Glucose 197 mg/dL (70-105); Potassium 3.8 mmol/L (3.5-5.1); Protein, Total 7.8 g/dL (6.0-8.3); Sodium 139 mmol/L (136-145)
== END 2021-01-19 13:56 | disposition home or self-care (01) ==
LOC: ERS 10:10
DX: R06.02 Shortness of breath (principal); R07.89 Other chest pain; E78.5 Hyperlipidemia, unspecified; E78.00 Pure hypercholesterolemia, unspecified; I10 Essential (primary) hypertension; Z86.73 Personal history of transient ischemic attack (TIA), and cerebral infarction without residual deficits
CPT/HCPCS: 71045; 80053; 84484; 85025; 93005

== ENCOUNTER 2021-02-04 21:57 | Inpatient (IN) | payer OTHER, SELFPAY ==
[2021-02-04] MEDS ORDERED: Acetaminophen 325 MG TAB ONE (22:30)
[2021-02-04 22:55] LABS: #Lymphocytes 0.6 thou/uL (1.20-3.40); #Monocytes 0.4 thou/uL (0.11-0.59); #Neutrophils 8.7 thou/uL (1.40-6.50); %Lymphocytes 6.3 % (21.0-51.0); %Monocytes 4.4 % (0.0-10.0); %Neutrophils 89.2 % (42.0-75.0); Hemoglobin 9.3 g/dL (14.0-18.0); Mean Corpuscular HGB CONC 32.3 g/dL (32.0-36.0); Mean Corpuscular Volume 99.2 fL (78.0-98.0); Mean Platelet Volume 8.5 fL (7.4-10.4); Platelet Count 289 thou/uL (130-400); RBC Distribution Width 12.2 % (11.5-14.5); White Blood Cell (WBC) Count 9.7 thou/uL (4.8-10.8)
[2021-02-04 23:17] LABS: ALT (SGPT) 50 U/L (8-55); AST (SGOT) 35 U/L (5-34); Albumin 2.3 g/dL (3.5-5.0); Alkaline Phosphatase 166 U/L (40-110); Anion Gap 13 mmol/L (10-20); BUN (Urea Nitrogen) 29 mg/dL (8.4-25.7); Bilirubin, Total 0.5 mg/dL (0.2-1.2); Calc. Creatinine Clearance 0 mL/min (70-130); Calcium 7.1 mg/dL (7.8-10.44); Carbon Dioxide 27 mmol/L (22-29); Chloride 107 mmol/L (98-107); Globulin 4.5 g/dL (2.4-3.5); Glucose 368 mg/dL (70-105); Potassium 3.8 mmol/L (3.5-5.1); Protein, Total 6.8 g/dL (6.0-8.3); Sodium 143 mmol/L (136-145)
[2021-02-05] MEDS ORDERED: Vancomycin 1 GM/200 ML BAG ONE (02:31)
[2021-02-05] MEDS ORDERED: Cefepime 2 GM VIAL ONE (02:31)
[2021-02-05 04:18] LABS: SARS-CoV-2 NAA Rapid Test DETECTED (NotDetected)
[2021-02-05] MEDS ORDERED: Ondansetron PF 4 MG/2 ML Vial IVP PRN ×2 (06:30→07:56)
[2021-02-05] MEDS ORDERED: Ondansetron ODT 4 MG TAB SL PRN (06:30)
[2021-02-05] MEDS ORDERED: Acetaminophen 325 MG TAB PO PRN ×2 (06:30→07:56)
[2021-02-05] MEDS ORDERED: Sodium Chloride 0.9% 1,000 ML IV SCH (06:30)
[2021-02-05] MEDS ORDERED: HYDROcodone/Acetaminophen 5/325 mg Tablet PO PRN (07:56)
[2021-02-05] MEDS ORDERED: hydrALAZINE 20 MG/ML VIAL SLOW IVP PRN (07:56)
[2021-02-05] MEDS ORDERED: Senokot S 8.6-50 MG TAB PO PRN (07:56)
[2021-02-05] MEDS ORDERED: Dextrose 5% in Water 1,000 ML IV PRN (07:56)
[2021-02-05] MEDS ORDERED: HumaLOG 300 UNITS/3 ML VIAL SC PRN (07:56)
[2021-02-05] MEDS ORDERED: Dextrose 50% Abboject 50 ML SYRINGE SLOW IVP PRN (07:56)
[2021-02-05] MEDS ORDERED: Loratadine 10 MG TAB PO PRN (07:56)
[2021-02-05] MEDS ORDERED: Cepastat Lozenges 1 LOZ PO PRN (07:56)
[2021-02-05] MEDS ORDERED: Loperamide HCl 2 MG CAP PO PRN (07:56)
[2021-02-05] MEDS ORDERED: Bisacodyl 10 MG SUPP PR PRN (07:56)
[2021-02-05] MEDS ORDERED: Ondansetron ODT 4 MG TAB PO PRN (07:56)
[2021-02-05] MEDS ORDERED: Calcium Carbonate 500 MG ChewTAB PO PRN (07:56)
[2021-02-05] MEDS ORDERED: Sodium Chloride 0.65% Nasal 44 ML BOT EA NARE PRN (07:56)
[2021-02-05] MEDS ORDERED: Prevnar 13-Val Conj/PF 0.5 ML SYRINGE IM ONE (09:00)
[2021-02-05] MEDS: Ascorbic Acid 500 mg Chewable Tablet PO SCH (09:09)
[2021-02-05] MEDS: Cholecalciferol 1,000 UNITS (25 MCG) TAB PO SCH (09:09)
[2021-02-05] MEDS: Famotidine/PF 20 mg/2ml Vial SLOW IVP SCH ×2 (09:10→21:06)
[2021-02-05] MEDS: Zinc Sulfate 220 MG CAP PO SCH (09:10)
[2021-02-05] MEDS: Famotidine 20 MG TAB PO SCH ×2 (09:10→21:06)
[2021-02-05] MEDS: Saccharomyces boulardii 250 MG CAP PO SCH (09:10)
[2021-02-05] MEDS: Enoxaparin Sodium 30 MG/0.3 ML SYRINGE SC SCH (09:10)
[2021-02-05] MEDS: Vancomycin HCl 750 MG in Sodium Chloride 0.9% 250 ML 250 ML IVPB SCH ×2 (09:14→21:06)
[2021-02-05 09:20] LABS: Hemoglobin A1c 6.3 % (4.0-6.0)
[2021-02-05 09:31] LABS: Phosphorus 2.5 mg/dL (2.3-4.7)
[2021-02-05 09:32] LABS: CRP (Inflammatory) 15.36 mg/dL (= or < 0.5); Magnesium 2.1 mg/dL (1.6-2.6)
[2021-02-05] MEDS ORDERED: Cefepime 2 GM in Sodium Chloride 0.9% 100 ML IVPB SCH (10:00)
[2021-02-05 10:44] LABS: Legionella Urinary Ag Negative (Negative); Strep pneumo Urine Ag NEGATIVE (NEGATIVE)
[2021-02-05] MEDS: Piperacillin/Tazobactam 3.375 GM in Sodium Chloride 0.9% 100 ML IVPB SCH ×3 (13:29→23:39)
[2021-02-06] MEDS: Piperacillin/Tazobactam 3.375 GM in Sodium Chloride 0.9% 100 ML IVPB SCH ×3 (05:32→17:38)
[2021-02-06 06:12] LABS: #Lymphocytes 0.8 thou/uL (1.20-3.40); #Monocytes 0.4 thou/uL (0.11-0.59); #Neutrophils 9.2 thou/uL (1.40-6.50); %Basophils 0.1 % (0.0-1.0); %Eosinophils 0.1 % (0.0-10.0); %Lymphocytes 7.4 % (21.0-51.0); %Monocytes 3.8 % (0.0-10.0); %Neutrophils 88.7 % (42.0-75.0); Mean Corpuscular HGB CONC 32.9 g/dL (32.0-36.0); Mean Corpuscular Hemoglobin 32.6 pg (27.0-31.0); Mean Corpuscular Volume 99.3 fL (78.0-98.0); Mean Platelet Volume 8.3 fL (7.4-10.4); Platelet Count 283 thou/uL (130-400); RBC Distribution Width 12.3 % (11.5-14.5); Red Blood Cell (RBC) Count 2.75 mill/uL (4.70-6.10); White Blood Cell (WBC) Count 10.4 thou/uL (4.8-10.8)
[2021-02-06 06:29] LABS: ALT (SGPT) 41 U/L (8-55); AST (SGOT) 36 U/L (5-34); Albumin 2.1 g/dL (3.5-5.0); Alkaline Phosphatase 107 U/L (40-110); Anion Gap 10 mmol/L (10-20); BUN (Urea Nitrogen) 23 mg/dL (8.4-25.7); Bilirubin, Total 0.7 mg/dL (0.2-1.2); Calc. Creatinine Clearance 78 mL/min (70-130); Calcium 7.3 mg/dL (7.8-10.44); Carbon Dioxide 28 mmol/L (22-29); Chloride 111 mmol/L (98-107); Globulin 4.6 g/dL (2.4-3.5); Glucose 106 mg/dL (70-105); Protein, Total 6.7 g/dL (6.0-8.3); Sodium 146 mmol/L (136-145)
[2021-02-06] MEDS ORDERED: Fentanyl 250 MCG/5 ML VIAL ONE (07:10)
[2021-02-06] MEDS ORDERED: EPINEPHrine 1 MG/ML AMP ONE (07:37)
[2021-02-06] MEDS ORDERED: Ropivacaine 0.2% HCl/PF 0 ML ONE (07:37)
[2021-02-06] MEDS ORDERED: Bupivacaine PF 0.5% 30 ML VIAL ONE (07:37)
[2021-02-06] MEDS ORDERED: Talc 30 GM AEROSOL CAN ONE (07:42)
[2021-02-06] MEDS: Cholecalciferol 1,000 UNITS (25 MCG) TAB PO SCH (07:52)
[2021-02-06] MEDS: Ascorbic Acid 500 mg Chewable Tablet PO SCH (07:52)
[2021-02-06] MEDS: Zinc Sulfate 220 MG CAP PO SCH (07:53)
[2021-02-06] MEDS: Famotidine 20 MG TAB PO SCH ×2 (07:53→21:50)
[2021-02-06] MEDS: Saccharomyces boulardii 250 MG CAP PO SCH (07:53)
[2021-02-06] MEDS ORDERED: Succinylcholine 200 MG/10 ml SYRINGE FS ONE (08:49)
[2021-02-06] MEDS ORDERED: PROPOFOL 200 MG/20 ML VIAL ONE (08:49)
[2021-02-06] MEDS ORDERED: Ondansetron PF 4 MG/2 ML Vial ONE (08:49)
[2021-02-06] MEDS ORDERED: Rocuronium Bromide 10 MG/ML (10ML VIAL) ONE (08:49)
[2021-02-06] MEDS ORDERED: Lidocaine 1% PF 5 ML VIAL ONE (08:49)
[2021-02-06] MEDS: Vancomycin HCl 750 MG in Sodium Chloride 0.9% 250 ML 250 ML IVPB SCH ×2 (09:00→22:25)
[2021-02-06] MEDS: Enoxaparin Sodium 30 MG/0.3 ML SYRINGE SC SCH (09:13)
[2021-02-06] MEDS: Famotidine/PF 20 mg/2ml Vial SLOW IVP SCH ×2 (09:14→22:25)
[2021-02-06] MEDS ORDERED: ROPIVACAINE 0.2% FS SCH (10:15)
[2021-02-06] MEDS ORDERED: Ropivacaine HCl/PF 500 ML in Premix Bag 1 BAG NERVE BLCK SCH (10:15)
[2021-02-06] MEDS ORDERED: HCL FS SCH (10:15)
[2021-02-06] MEDS ORDERED: ADMIXTURE FEE FS SCH (10:15)
[2021-02-06 10:37] LABS: RBC Count-Automated (BF) 152873 /cu.mm
[2021-02-06] MEDS ORDERED: Norepinephrine 4 MG/4 ML VIAL ONE (10:40)
[2021-02-06 10:41] LABS: BF Color Red; Body Fluid Source Pleural Fluid; Clarity Cloudy/Turbid (Clear); Tube # EDTA; WBC/Nucleated-Auto (BF) Greater than 51000 uL
[2021-02-06] MEDS ORDERED: Albumin 25% 100 ML ONE (10:47)
[2021-02-06 11:04] LABS: Fluid, Amylase 28 U/L (Not Available); Fluid, Protein 4.5 g/dL (Not Available)
[2021-02-06 11:12] LABS: BF Segmented Neutrophils 6 %; Cell Count Non Hematic 75 %; Lymphocytes 19 %
[2021-02-06 11:17] LABS: Fluid, Glucose 42 mg/dL (Not Available)
[2021-02-06] MEDS ORDERED: Ondansetron PF 4 MG/2 ML Vial IVP PRN (12:12)
[2021-02-06] MEDS ORDERED: HYDROcodone/Acetaminophen 5/325 mg Tablet PO PRN ×2 (12:12)
[2021-02-06] MEDS ORDERED: Fentanyl 100 MCG/2 ML VIAL SLOW IVP PRN ×2 (12:12)
[2021-02-06 12:20] LABS: Fluid, LDH Greater than 22500 U/L (Not Available)
[2021-02-06 13:01] LABS: Actual Bicarbonate (HCO3a) 19.3 mEq/L (22-28); Base Excess (BEa) -4.1 mEq/L (-2.0 to +3.0); CO2 Tension 28.9 mmHg (35.0-45.0); Calcium, Ionized (arterial) 0.98 mmol/L (1.12-1.30); Carboxyhemoglobin (COHb) 0.3 gm% (0.0-3.0); Potassium - ABG Lab 3.69 mmol/L (3.70-5.30); pH, Arterial 7.44 (7.35-7.45)
[2021-02-06 13:03] LABS: Puncture Site Arterial Line
[2021-02-06 13:04] LABS: ALV-art Gradient 208.675 mmHg (0-20)
[2021-02-06] MEDS ORDERED: Electrolyte Replacement Protocol 1 EACH FS PRN (13:06)
[2021-02-06] MEDS ORDERED: Fentanyl BOLUS 250 ML IVPB PRN (13:15)
[2021-02-06] MEDS ORDERED: Morphine 2 MG/ML VIAL SLOW IVP PRN (13:15)
[2021-02-06] MEDS ORDERED: DISCONTINUE PREVIOUS NARCOTIC PAIN MEDICATIONS AND BENZODIAZEPINES FS SCH (13:15)
[2021-02-06] MEDS ORDERED: Ventilator Sedation Protocol 1 EACH FS SCH (13:15)
[2021-02-06] MEDS ORDERED: Sodium Chloride 0.9% 1,000 ML IV SCH (13:15)
[2021-02-06] MEDS ORDERED: Propofol 1,000 MG/100 ML VIAL IV PRN (13:15)
[2021-02-06] MEDS ORDERED: Propofol BOLUS 1,000 MG/100 ML VIAL IV PRN (13:15)
[2021-02-06] MEDS ORDERED: Fentanyl CADD 100 ML ONE (13:18)
[2021-02-06] MEDS: Fentanyl CADD 100 ML IV SCH (13:22)
[2021-02-06] MEDS ORDERED: Potassium Chloride 40 MEQ in Sodium Chloride 0.9% 250 ML 250 ML IVPB SCH (13:45)
[2021-02-06] MEDS ORDERED: VASOPRESSIN IV SCH (14:00)
[2021-02-06] MEDS ORDERED: ADMIXTURE FEE IV SCH (14:00)
[2021-02-06] MEDS ORDERED: SODIUM CHLORIDE IV SCH (14:00)
[2021-02-06] MEDS: Sodium Chloride 0.9% 1,000 ML IV SCH ×2 (14:15→22:40)
[2021-02-06] MEDS ORDERED: Sodium Bicarb 50 MEQ/50 ML Abboject 8.4% SYRINGE ONE ×2 (14:44→16:34)
[2021-02-06] MEDS: Norepinephrine 8 MG/0.9% NS 250 ML IVPB PRN ×2 (15:14→17:49)
[2021-02-06 15:49] LABS: Vancomycin, Trough 18.8 ug/mL
[2021-02-06 16:19] LABS: INR-International Normal Ratio 1.8
[2021-02-06 16:20] LABS: PTT 62.7 sec (22.9-36.1)
[2021-02-06 16:20] LABS: Actual Bicarbonate (HCO3a) 12.8 mEq/L (22-28); Base Excess (BEa) -12.1 mEq/L (-2.0 to +3.0); Calcium, Ionized (arterial) 0.85 mmol/L (1.12-1.30); Hemoglobin (Hb) 7.3 g/dL (14.0-18.0); O2 Tension (PaO2), arterial 219.9 mmHg (80.0-100.0); Potassium - ABG Lab 3.58 mmol/L (3.70-5.30); pH, Arterial 7.32 (7.35-7.45)
[2021-02-06 16:22] LABS: ALV-art Gradient 104.475 mmHg (0-20); CO2 Tension 25.7 mmHg (35.0-45.0); Puncture Site Arterial Line
[2021-02-06] MEDS ORDERED: Sodium Bicarb 50 MEQ/50 ML Abboject 8.4% SYRINGE IVP SCH ×2 (16:45→17:45)
[2021-02-06 17:34] LABS: Actual Bicarbonate (HCO3a) 16.1 mEq/L (22-28); Base Excess (BEa) -7.6 mEq/L (-2.0 to +3.0); Calcium, Ionized (arterial) 0.83 mmol/L (1.12-1.30); Carboxyhemoglobin (COHb) 1.7 gm% (0.0-3.0); Hemoglobin (Hb) 8.3 g/dL (14.0-18.0); Potassium - ABG Lab 3.72 mmol/L (3.70-5.30); pH, Arterial 7.41 (7.35-7.45)
[2021-02-06 17:35] LABS: Puncture Site Arterial Line
[2021-02-06 21:43] LABS: Actual Bicarbonate (HCO3a) 15.4 mEq/L (22-28); Base Excess (BEa) -8.8 mEq/L (-2.0 to +3.0); CO2 Tension 26.7 mmHg (35.0-45.0); Calcium, Ionized (arterial) 0.73 mmol/L (1.12-1.30); Carboxyhemoglobin (COHb) 0.9 gm% (0.0-3.0); Hemoglobin (Hb) 6.9 g/dL (14.0-18.0); O2 Tension (PaO2), arterial 200.4 mmHg (80.0-100.0); Potassium - ABG Lab 3.87 mmol/L (3.70-5.30); pH, Arterial 7.38 (7.35-7.45)
[2021-02-06 21:45] LABS: ALV-art Gradient 122.725 mmHg (0-20); Puncture Site Arterial Line
[2021-02-06] MEDS: Lorazepam 2 MG/ML VIAL SLOW IVP PRN (22:25)
[2021-02-07] MEDS ORDERED: Calcium Chloride 13.6 MEQ in Sodium Chloride 0.9% 100 ML IVPB SCH (00:15)
[2021-02-07] MEDS: Norepinephrine 8 MG/0.9% NS 250 ML IVPB PRN ×4 (01:26→18:54)
[2021-02-07] MEDS: Piperacillin/Tazobactam 3.375 GM in Sodium Chloride 0.9% 100 ML IVPB SCH ×5 (01:30→23:05)
[2021-02-07 03:53] LABS: Hemoglobin 6.9 g/dL (14.0-18.0); Mean Corpuscular HGB CONC 32.8 g/dL (32.0-36.0); Mean Corpuscular Volume 94.4 fL (78.0-98.0); Mean Platelet Volume 9.2 fL (7.4-10.4); Platelet Count 134 thou/uL (130-400); RBC Distribution Width 15.4 % (11.5-14.5); Red Blood Cell (RBC) Count 2.23 mill/uL (4.70-6.10); White Blood Cell (WBC) Count 14.4 thou/uL (4.8-10.8)
[2021-02-07 03:54] LABS: Band 37 % (5-11); Lymphocytes 3 % (21-51); Monocytes 1 % (0-10); Platelet Morphology Comment Appears Adequate
[2021-02-07 03:55] LABS: INR-International Normal Ratio 1.5; Prothrombin Time 18.7 sec (12.0-14.7)
[2021-02-07 03:56] LABS: PTT 39.4 sec (22.9-36.1)
[2021-02-07 04:58] LABS: Neutrophil 59 % (42-75)
[2021-02-07 05:47] LABS: Anion Gap 23 mmol/L (10-20); BUN (Urea Nitrogen) 31 mg/dL (8.4-25.7); Calc. Creatinine Clearance 59 mL/min (70-130); Calcium 6.1 mg/dL (7.8-10.44); Carbon Dioxide 13 mmol/L (22-29); Chloride 122 mmol/L (98-107); Glucose 92 mg/dL (70-105); Potassium 4.7 mmol/L (3.5-5.1); Sodium 153 mmol/L (136-145)
[2021-02-07 06:01] LABS: Band 41 % (5-11); Hemoglobin 8.4 g/dL (14.0-18.0); Lymphocytes 1 % (21-51); MDiff Complete? YES; Mean Corpuscular HGB CONC 33.6 g/dL (32.0-36.0); Mean Corpuscular Hemoglobin 30.5 pg (27.0-31.0); Mean Corpuscular Volume 90.7 fL (78.0-98.0); Mean Platelet Volume 10.3 fL (7.4-10.4); Monocytes 5 % (0-10); Neutrophil 53 % (42-75); Nucleated RBC 1 % (0); Platelet Count 100 thou/uL (130-400); Platelet Morphology Comment Appears Decreased; RBC Distribution Width 14.6 % (11.5-14.5); Red Blood Cell (RBC) Count 2.77 mill/uL (4.70-6.10); White Blood Cell (WBC) Count 16.6 thou/uL (4.8-10.8)
[2021-02-07] MEDS: Hydrocortisone Sod Succ/PF 100 mg/2 ml Vial IVP SCH ×4 (07:15→23:05)
[2021-02-07 07:27] LABS: Vancomycin, Trough 13.1 ug/mL
[2021-02-07 07:38] LABS: Actual Bicarbonate (HCO3a) 11.6 mEq/L (22-28); Base Excess (BEa) -13.5 mEq/L (-2.0 to +3.0); Calcium, Ionized (arterial) 0.85 mmol/L (1.12-1.30); Hemoglobin (Hb) 7.8 g/dL (14.0-18.0); O2 Tension (PaO2), arterial 136.8 mmHg (80.0-100.0); Potassium - ABG Lab 4.35 mmol/L (3.70-5.30)
[2021-02-07 07:39] LABS: CO2 Tension 24.3 mmHg (35.0-45.0); Puncture Site Arterial Line
[2021-02-07 07:40] LABS: ALV-art Gradient 189.325 mmHg (0-20)
[2021-02-07] MEDS ORDERED: Sodium Bicarb 50 MEQ/50 ML Abboject 8.4% SYRINGE ONE (08:20)
[2021-02-07] MEDS: Enoxaparin Sodium 30 MG/0.3 ML SYRINGE SC SCH (09:44)
[2021-02-07] MEDS: Cholecalciferol 1,000 UNITS (25 MCG) TAB PO SCH (09:44)
[2021-02-07] MEDS: Ascorbic Acid 500 mg Chewable Tablet PO SCH (09:44)
[2021-02-07] MEDS: Pantoprazole 40 MG VIAL IVP SCH (09:44)
[2021-02-07] MEDS: Zinc Sulfate 220 MG CAP PO SCH (09:44)
[2021-02-07] MEDS: Saccharomyces boulardii 250 MG CAP PO SCH (09:44)
[2021-02-07] MEDS: Sodium Chloride 0.45% 1,000 ML IV SCH ×2 (09:45→18:54)
[2021-02-07] MEDS: Vancomycin 1 GM in Premix Bag 1 BAG IVPB SCH ×2 (10:16→21:52)
[2021-02-07] MEDS: Lorazepam 2 MG/ML VIAL SLOW IVP PRN ×2 (10:16→14:44)
[2021-02-07] MEDS ORDERED: Fentanyl CADD 100 ML ONE (11:42)
[2021-02-07] MEDS: Fentanyl CADD 100 ML IV SCH (11:53)
[2021-02-07 13:59] LABS: Hemoglobin 5.6 g/dL (14.0-18.0); Mean Corpuscular HGB CONC 33.9 g/dL (32.0-36.0); Mean Corpuscular Hemoglobin 29.9 pg (27.0-31.0); Mean Corpuscular Volume 88.2 fL (78.0-98.0); Mean Platelet Volume 9.5 fL (7.4-10.4); Platelet Count 116 thou/uL (130-400); RBC Distribution Width 14.8 % (11.5-14.5); Red Blood Cell (RBC) Count 1.86 mill/uL (4.70-6.10); White Blood Cell (WBC) Count 23.6 thou/uL (4.8-10.8)
[2021-02-07 14:15] LABS: Band 85 % (5-11); Hypochromia SLIGHT = 6-15 cells (100X) (0-5/hpf); Lymphocytes 2 % (21-51); MDiff Complete? YES; Monocytes 2 % (0-10); Neutrophil 11 % (42-75); Ovalocytes SLIGHT = 2-5 cells (100X) (0-1/hpf); Platelet Morphology Comment Appears Decreased; Polychromasia MODERATE = 3-4 cells (100X) (0-2/hpf); Tear Drops SLIGHT = 2-5 cells (100X) (0-1/hpf)
[2021-02-07] MEDS ORDERED: Fentanyl 100 MCG/2 ML VIAL ONE (14:51)
[2021-02-07 15:55] LABS: Actual Bicarbonate (HCO3a) 25.8 mEq/L (22-28); Analyzer IN Cardio OR; Base Excess (BEa) -1.2 mEq/L (-2.0 to +3.0); CO2 Tension 56.7 mmHg (35.0-45.0); Calcium, Ionized (arterial) 1.03 mmol/L (1.12-1.30); Carboxyhemoglobin (COHb) 0.9 gm% (0.0-3.0); Hemoglobin (Hb) 7.6 g/dL (14.0-18.0); O2 Tension (PaO2), arterial 71.3 mmHg (80.0-100.0); Puncture Site Arterial Line; pH, Arterial 7.28 (7.35-7.45)
[2021-02-07] MEDS ORDERED: Calcium Chloride 1 GM/10 ML Abboject SYRINGE ONE (16:14)
[2021-02-07] MEDS ORDERED: Rocuronium Bromide 10 MG/ML (10ML VIAL) ONE (16:14)
[2021-02-07] MEDS ORDERED: PROPOFOL 200 MG/20 ML VIAL ONE (16:14)
[2021-02-07] MEDS ORDERED: Lidocaine 1% PF 5 ML VIAL ONE (16:14)
[2021-02-07 17:43] LABS: Hemoglobin 7.6 g/dL (14.0-18.0); Mean Corpuscular HGB CONC 33.3 g/dL (32.0-36.0); Mean Corpuscular Hemoglobin 30.9 pg (27.0-31.0); Mean Corpuscular Volume 92.9 fL (78.0-98.0); Mean Platelet Volume 8.3 fL (7.4-10.4); Platelet Count 153 thou/uL (130-400); RBC Distribution Width 14.4 % (11.5-14.5); Red Blood Cell (RBC) Count 2.46 mill/uL (4.70-6.10)
[2021-02-07 17:46] LABS: Fibrinogen 162 mg/dL (253-463)
[2021-02-07 17:47] LABS: INR-International Normal Ratio 2.2; PTT 47.2 sec (22.9-36.1); Prothrombin Time 24.8 sec (12.0-14.7)
[2021-02-07 17:48] LABS: D-Dimer Test 2.12 *mcg/mL (0.27-0.43)
[2021-02-07] MEDS ORDERED: Rocuronium Bromide 50 MG/5 ML VIAL ONE (17:54)
[2021-02-07 18:28] LABS: Band 82 % (5-11); Lymphocytes 1 % (21-51); MDiff Complete? YES; Metamyelocyte 1 % (0-0); Monocytes 2 % (0-10); Neutrophil 14 % (42-75); Nucleated RBC 2 % (0); Platelet Morphology Comment Appears Adequate; Polychromasia MODERATE = 3-4 cells (100X) (0-2/hpf)
[2021-02-07 18:48] LABS: FSP-Qualitative ABNORMAL (Normal)
[2021-02-07 18:49] LABS: FSP-Semiquantitative >=5 & <20 mcg/mL (Less than 5); Platelet Count 153 thou/uL (130-400)
[2021-02-07 18:56] LABS: Actual Bicarbonate (HCO3a) 19.8 mEq/L (22-28); Base Excess (BEa) -3.9 mEq/L (-2.0 to +3.0); CO2 Tension 30.2 mmHg (35.0-45.0); Calcium, Ionized (arterial) 0.93 mmol/L (1.12-1.30); Carboxyhemoglobin (COHb) 0.4 gm% (0.0-3.0); Hemoglobin (Hb) 8.3 g/dL (14.0-18.0); Potassium - ABG Lab 3.96 mmol/L (3.70-5.30); pH, Arterial 7.43 (7.35-7.45)
[2021-02-07 19:00] LABS: Puncture Site Arterial Line
[2021-02-07 20:04] LABS: Hemoglobin 8.7 g/dL (14.0-18.0); Mean Corpuscular HGB CONC 34.4 g/dL (32.0-36.0); Mean Corpuscular Hemoglobin 31.4 pg (27.0-31.0); Mean Corpuscular Volume 91.5 fL (78.0-98.0); Mean Platelet Volume 8.5 fL (7.4-10.4); Platelet Count 122 thou/uL (130-400); Red Blood Cell (RBC) Count 2.77 mill/uL (4.70-6.10); White Blood Cell (WBC) Count 18.7 thou/uL (4.8-10.8)
[2021-02-07 20:21] LABS: Band 77 % (5-11); Hypochromia SLIGHT = 6-15 cells (100X) (0-5/hpf); Lymphocytes 4 % (21-51); MDiff Complete? YES; Monocytes 2 % (0-10); Neutrophil 17 % (42-75); Nucleated RBC 1 % (0); Platelet Morphology Comment Appears Decreased; Polychromasia MODERATE = 3-4 cells (100X) (0-2/hpf)
[2021-02-07 20:24] LABS: Anion Gap 13 mmol/L (10-20); BUN (Urea Nitrogen) 37 mg/dL (8.4-25.7); Calc. Creatinine Clearance 53 mL/min (70-130); Calcium 6.2 mg/dL (7.8-10.44); Carbon Dioxide 21 mmol/L (22-29); Chloride 120 mmol/L (98-107); Glucose 194 mg/dL (70-105); Potassium 4.1 mmol/L (3.5-5.1); Sodium 150 mmol/L (136-145)
[2021-02-07] MEDS: Vancomycin HCl 750 MG in Sodium Chloride 0.9% 250 ML 250 ML IVPB SCH (21:54)
[2021-02-07] MEDS: HumaLOG 300 UNITS/3 ML VIAL SC PRN (23:36)
[2021-02-08] MEDS: Sodium Chloride 0.45% 1,000 ML IV SCH ×3 (04:02→20:18)
[2021-02-08 05:20] LABS: Anion Gap 13 mmol/L (10-20); BUN (Urea Nitrogen) 35 mg/dL (8.4-25.7); Calc. Creatinine Clearance 52 mL/min (70-130); Calcium 6.3 mg/dL (7.8-10.44); Carbon Dioxide 21 mmol/L (22-29); Chloride 119 mmol/L (98-107); Glucose 178 mg/dL (70-105); Potassium 3.1 mmol/L (3.5-5.1); Sodium 150 mmol/L (136-145)
[2021-02-08] MEDS: Hydrocortisone Sod Succ/PF 100 mg/2 ml Vial IVP SCH ×3 (05:35→17:35)
[2021-02-08] MEDS: Piperacillin/Tazobactam 3.375 GM in Sodium Chloride 0.9% 100 ML IVPB SCH ×3 (05:35→17:35)
[2021-02-08 06:18] LABS: Anisocytosis SLIGHT = 6-15 cells (100X) (0-5/hpf); Band 51 % (5-11); Hemoglobin 8.9 g/dL (14.0-18.0); Lymphocytes 3 % (21-51); MDiff Complete? YES; Mean Corpuscular HGB CONC 33.2 g/dL (32.0-36.0); Mean Corpuscular Hemoglobin 30.1 pg (27.0-31.0); Mean Corpuscular Volume 90.7 fL (78.0-98.0); Neutrophil 46 % (42-75); Platelet Count 77 thou/uL (130-400); Platelet Morphology Comment Appears Decreased; RBC Distribution Width 13.5 % (11.5-14.5); Red Blood Cell (RBC) Count 2.94 mill/uL (4.70-6.10); White Blood Cell (WBC) Count 11.7 thou/uL (4.8-10.8)
[2021-02-08 07:30] LABS: Actual Bicarbonate (HCO3a) 21.2 mEq/L (22-28); Base Excess (BEa) -0.3 mEq/L (-2.0 to +3.0); Calcium, Ionized (arterial) 0.92 mmol/L (1.12-1.30); Carboxyhemoglobin (COHb) 0.2 gm% (0.0-3.0); Hemoglobin (Hb) 8.7 g/dL (14.0-18.0); Potassium - ABG Lab 2.78 mmol/L (3.70-5.30)
[2021-02-08 07:33] LABS: pH, Arterial 7.56 (7.35-7.45)
[2021-02-08] MEDS: Potassium Chloride 20 MEQ in Premix Bag 1 BAG IVPB SCH ×2 (07:33→10:03)
[2021-02-08 07:34] LABS: ALV-art Gradient 188.375 mmHg (0-20); CO2 Tension 24.1 mmHg (35.0-45.0); Puncture Site Arterial Line
[2021-02-08] MEDS: Enoxaparin Sodium 30 MG/0.3 ML SYRINGE SC SCH (07:51)
[2021-02-08] MEDS: Zinc Sulfate 220 MG CAP PO SCH (07:54)
[2021-02-08] MEDS: Saccharomyces boulardii 250 MG CAP PO SCH (07:54)
[2021-02-08] MEDS: Ascorbic Acid 500 mg Chewable Tablet PO SCH (07:54)
[2021-02-08] MEDS: Cholecalciferol 1,000 UNITS (25 MCG) TAB PO SCH (07:55)
[2021-02-08] MEDS: Pantoprazole 40 MG VIAL IVP SCH (07:55)
[2021-02-08] MEDS: Vancomycin 1 GM in Premix Bag 1 BAG IVPB SCH ×2 (10:03→21:10)
[2021-02-08] MEDS ORDERED: Fentanyl CADD 100 ML ONE (14:15)
[2021-02-08] MEDS ORDERED: Potassium Chloride 40 MEQ in Premix Bag 1 BAG IVPB SCH (19:00)
[2021-02-08 21:57] LABS: Vancomycin, Trough 29.9 ug/mL
[2021-02-09] MEDS: Piperacillin/Tazobactam 3.375 GM in Sodium Chloride 0.9% 100 ML IVPB SCH ×5 (00:44→23:53)
[2021-02-09] MEDS: Hydrocortisone Sod Succ/PF 100 mg/2 ml Vial IVP SCH ×5 (00:45→23:54)
[2021-02-09 01:31] LABS: Potassium 3.1 mmol/L (3.5-5.1)
[2021-02-09] MEDS ORDERED: Potassium Chloride 40 MEQ in Premix Bag 1 BAG IVPB SCH (02:15)
[2021-02-09] MEDS: Sodium Chloride 0.45% 1,000 ML IV SCH ×4 (02:18→15:45)
[2021-02-09 04:11] LABS: Hemoglobin 8.6 g/dL (14.0-18.0); Mean Corpuscular HGB CONC 33.8 g/dL (32.0-36.0); Mean Corpuscular Hemoglobin 31.4 pg (27.0-31.0); Mean Corpuscular Volume 92.8 fL (78.0-98.0); Mean Platelet Volume 9.5 fL (7.4-10.4); Platelet Count 59 thou/uL (130-400); RBC Distribution Width 13.8 % (11.5-14.5); Red Blood Cell (RBC) Count 2.73 mill/uL (4.70-6.10); White Blood Cell (WBC) Count 14.3 thou/uL (4.8-10.8)
[2021-02-09 04:26] LABS: Anion Gap 10 mmol/L (10-20); BUN (Urea Nitrogen) 28 mg/dL (8.4-25.7); Calc. Creatinine Clearance 65 mL/min (70-130); Calcium 6.3 mg/dL (7.8-10.44); Carbon Dioxide 24 mmol/L (22-29); Chloride 115 mmol/L (98-107); Glucose 128 mg/dL (70-105); Potassium 3.1 mmol/L (3.5-5.1); Sodium 146 mmol/L (136-145)
[2021-02-09 04:52] LABS: Band 40 % (5-11); Lymphocytes 1 % (21-51); MDiff Complete? YES; Monocytes 1 % (0-10); Myelocyte 1 % (0-0); Neutrophil 57 % (42-75); Platelet Morphology Comment Appears Decreased
[2021-02-09 05:58] LABS: Potassium 4.1 mmol/L (3.5-5.1)
[2021-02-09 07:51] LABS: Actual Bicarbonate (HCO3a) 20.3 mEq/L (22-28); Base Excess (BEa) -2.6 mEq/L (-2.0 to +3.0); CO2 Tension 27.6 mmHg (35.0-45.0); Calcium, Ionized (arterial) 0.94 mmol/L (1.12-1.30); Carboxyhemoglobin (COHb) 0.5 gm% (0.0-3.0); Hemoglobin (Hb) 8.1 g/dL (14.0-18.0); O2 Tension (PaO2), arterial 92.6 mmHg (80.0-100.0); pH, Arterial 7.48 (7.35-7.45)
[2021-02-09 07:52] LABS: Puncture Site Arterial Line
[2021-02-09] MEDS: Furosemide 40 MG/4 ML VIAL SLOW IVP SCH ×2 (09:25→19:57)
[2021-02-09] MEDS: Ascorbic Acid 500 mg Chewable Tablet PO SCH (09:25)
[2021-02-09] MEDS: Saccharomyces boulardii 250 MG CAP PO SCH (09:25)
[2021-02-09] MEDS: Cholecalciferol 1,000 UNITS (25 MCG) TAB PO SCH (09:25)
[2021-02-09] MEDS: Zinc Sulfate 220 MG CAP PO SCH (09:25)
[2021-02-09] MEDS: Pantoprazole 40 MG VIAL IVP SCH (09:25)
[2021-02-09 10:17] LABS: Fungus Stain Final report (.)
[2021-02-09 10:17] LABS: Fungus Stain Final report (.)
[2021-02-09] MEDS ORDERED: Fentanyl CADD 100 ML ONE (11:29)
[2021-02-09] MEDS: Albumin 25% 25 GM/100 ML BOT IVPB SCH ×3 (11:36→23:53)
[2021-02-09 11:58] LABS: Vancomycin, Random 28.7 ug/mL (See Comment)
[2021-02-10] MEDS: Sodium Chloride 0.45% 1,000 ML IV SCH ×3 (01:10→21:25)
[2021-02-10] MEDS: Hydrocortisone Sod Succ/PF 100 mg/2 ml Vial IVP SCH ×4 (05:00→23:33)
[2021-02-10] MEDS: Albumin 25% 25 GM/100 ML BOT IVPB SCH ×2 (05:00→10:31)
[2021-02-10] MEDS: Piperacillin/Tazobactam 3.375 GM in Sodium Chloride 0.9% 100 ML IVPB SCH ×4 (05:47→23:33)
[2021-02-10] MEDS: HumaLOG 300 UNITS/3 ML VIAL SC PRN ×4 (05:47→23:40)
[2021-02-10 05:54] LABS: #Lymphocytes 0.2 thou/uL (1.20-3.40); #Monocytes 0.2 thou/uL (0.11-0.59); #Neutrophils 8.4 thou/uL (1.40-6.50); %Lymphocytes 2.5 % (21.0-51.0); %Monocytes 2.7 % (0.0-10.0); %Neutrophils 94.8 % (42.0-75.0); Hemoglobin 8.7 g/dL (14.0-18.0); Mean Corpuscular HGB CONC 34.1 g/dL (32.0-36.0); Mean Corpuscular Hemoglobin 31.7 pg (27.0-31.0); Platelet Count 54 thou/uL (130-400); RBC Distribution Width 13.9 % (11.5-14.5); Red Blood Cell (RBC) Count 2.75 mill/uL (4.70-6.10); White Blood Cell (WBC) Count 8.9 thou/uL (4.8-10.8)
[2021-02-10 06:17] LABS: Anion Gap 11 mmol/L (10-20); BUN (Urea Nitrogen) 29 mg/dL (8.4-25.7); Calc. Creatinine Clearance 71 mL/min (70-130); Calcium 6.7 mg/dL (7.8-10.44); Carbon Dioxide 29 mmol/L (22-29); Chloride 109 mmol/L (98-107); Glucose 216 mg/dL (70-105); Potassium 1.9 mmol/L (3.5-5.1); Sodium 147 mmol/L (136-145)
[2021-02-10] MEDS ORDERED: Fentanyl CADD 100 ML ONE (07:20)
[2021-02-10] MEDS: Potassium Chloride 40 MEQ in Sodium Chloride 0.9% 250 ML 250 ML IVPB SCH ×2 (07:22→11:30)
[2021-02-10] MEDS: Lorazepam 2 MG/ML VIAL SLOW IVP PRN ×3 (07:23→16:07)
[2021-02-10] MEDS: Cholecalciferol 1,000 UNITS (25 MCG) TAB PO SCH (07:23)
[2021-02-10] MEDS: Zinc Sulfate 220 MG CAP PO SCH (07:23)
[2021-02-10] MEDS: Saccharomyces boulardii 250 MG CAP PO SCH (07:23)
[2021-02-10] MEDS: Ascorbic Acid 500 mg Chewable Tablet PO SCH (07:23)
[2021-02-10 07:53] LABS: Actual Bicarbonate (HCO3a) 25.9 mEq/L (22-28); Base Excess (BEa) 2.9 mEq/L (-2.0 to +3.0); CO2 Tension 33.1 mmHg (35.0-45.0); Calcium, Ionized (arterial) 0.93 mmol/L (1.12-1.30); Carboxyhemoglobin (COHb) 0.3 gm% (0.0-3.0); Hemoglobin (Hb) 8.7 g/dL (14.0-18.0); O2 Tension (PaO2), arterial 73.4 mmHg (80.0-100.0); Potassium - ABG Lab 1.75 mmol/L (3.70-5.30); Puncture Site RRA; pH, Arterial 7.51 (7.35-7.45)
[2021-02-10 07:54] LABS: ALV-art Gradient 170.425 mmHg (0-20)
[2021-02-10 08:58] LABS: Potassium 1.9 mmol/L (3.5-5.1)
[2021-02-10] MEDS: Pantoprazole 40 MG VIAL IVP SCH (09:02)
[2021-02-10 09:08] LABS: Vancomycin, Random 18.5 ug/mL (See Comment)
[2021-02-10] MEDS ORDERED: ADMIXTURE FEE IVPB SCH (10:00)
[2021-02-10] MEDS ORDERED: VANCOMYCIN HCL IVPB SCH (10:00)
[2021-02-10] MEDS ORDERED: Magnesium 2 GM/50 ML 2 GM in Premix Bag 1 BAG IVPB SCH (10:15)
[2021-02-10] MEDS: Vancomycin HCl 750 MG in Sodium Chloride 0.9% 250 ML 250 ML IVPB SCH ×2 (11:11→22:40)
[2021-02-10] MEDS: Potassium Bicarbonate/Cit Ac 20 MEQ TAB PO SCH (22:39)
[2021-02-11] MEDS: Potassium Bicarbonate/Cit Ac 20 MEQ TAB PO SCH ×3 (02:54→15:56)
[2021-02-11] MEDS ORDERED: Fentanyl CADD 100 ML ONE ×2 (03:13→22:03)
[2021-02-11] MEDS: Piperacillin/Tazobactam 3.375 GM in Sodium Chloride 0.9% 100 ML IVPB SCH ×4 (05:03→22:48)
[2021-02-11] MEDS: Hydrocortisone Sod Succ/PF 100 mg/2 ml Vial IVP SCH ×4 (05:04→22:49)
[2021-02-11 06:00] LABS: #Lymphocytes 0.3 thou/uL (1.20-3.40); #Monocytes 0.2 thou/uL (0.11-0.59); %Basophils 0.3 % (0.0-1.0); %Lymphocytes 2.6 % (21.0-51.0); %Monocytes 2.1 % (0.0-10.0); Hemoglobin 8.8 g/dL (14.0-18.0); Mean Corpuscular HGB CONC 33.6 g/dL (32.0-36.0); Mean Corpuscular Hemoglobin 31.2 pg (27.0-31.0); Mean Platelet Volume 11.1 fL (7.4-10.4); Platelet Count 64 thou/uL (130-400); RBC Distribution Width 13.8 % (11.5-14.5); Red Blood Cell (RBC) Count 2.83 mill/uL (4.70-6.10); White Blood Cell (WBC) Count 10.5 thou/uL (4.8-10.8)
[2021-02-11 06:09] LABS: Anion Gap 11 mmol/L (10-20); BUN (Urea Nitrogen) 24 mg/dL (8.4-25.7); Calc. Creatinine Clearance 88 mL/min (70-130); Calcium 6.6 mg/dL (7.8-10.44); Carbon Dioxide 29 mmol/L (22-29); Chloride 109 mmol/L (98-107); Glucose 237 mg/dL (70-105); Sodium 147 mmol/L (136-145)
[2021-02-11] MEDS: HumaLOG 300 UNITS/3 ML VIAL SC PRN ×3 (06:13→16:32)
[2021-02-11 06:18] LABS: Potassium 2.1 mmol/L (3.5-5.1)
[2021-02-11] MEDS: Zinc Sulfate 220 MG CAP PO SCH (07:23)
[2021-02-11] MEDS: Ascorbic Acid 500 mg Chewable Tablet PO SCH (07:23)
[2021-02-11] MEDS: Potassium Chloride 20 MEQ in Premix Bag 1 BAG IVPB SCH ×4 (07:23→13:51)
[2021-02-11] MEDS: Saccharomyces boulardii 250 MG CAP PO SCH (07:23)
[2021-02-11] MEDS: Cholecalciferol 1,000 UNITS (25 MCG) TAB PO SCH (07:23)
[2021-02-11 07:24] LABS: Actual Bicarbonate (HCO3a) 25.6 mEq/L (22-28); Base Excess (BEa) 4.1 mEq/L (-2.0 to +3.0); CO2 Tension 27.9 mmHg (35.0-45.0); Calcium, Ionized (arterial) 0.94 mmol/L (1.12-1.30); Carboxyhemoglobin (COHb) 0.3 gm% (0.0-3.0); Hemoglobin (Hb) 9.5 g/dL (14.0-18.0); O2 Tension (PaO2), arterial 68.4 mmHg (80.0-100.0); Potassium - ABG Lab 2.41 mmol/L (3.70-5.30)
[2021-02-11] MEDS: Pantoprazole 40 MG VIAL IVP SCH (07:24)
[2021-02-11 07:25] LABS: Puncture Site RBA; pH, Arterial 7.58 (7.35-7.45)
[2021-02-11 07:26] LABS: ALV-art Gradient 181.925 mmHg (0-20)
[2021-02-11] MEDS: Metoclopramide HCl 10 MG/2 ML VIAL IVP SCH ×3 (08:49→20:58)
[2021-02-11] MEDS: Sodium Chloride 0.45% 1,000 ML IV SCH ×2 (08:52→16:33)
[2021-02-11] MEDS: Lorazepam 2 MG/ML VIAL SLOW IVP PRN ×2 (08:57→13:53)
[2021-02-11] MEDS ORDERED: Potassium Bicarbonate/Cit Ac 20 MEQ TAB PER TUBE SCH (20:00)
[2021-02-12] MEDS: Sodium Chloride 0.45% 1,000 ML IV SCH ×2 (04:21→15:15)
[2021-02-12] MEDS: Metoclopramide HCl 10 MG/2 ML VIAL IVP SCH ×4 (04:21→22:04)
[2021-02-12 04:44] LABS: #Basophils 0.1 thou/uL (0.0-0.2); #Lymphocytes 0.2 thou/uL (1.20-3.40); #Monocytes 0.2 thou/uL (0.11-0.59); #Neutrophils 10.6 thou/uL (1.40-6.50); %Basophils 0.9 % (0.0-1.0); %Eosinophils 0.2 % (0.0-10.0); %Lymphocytes 1.7 % (21.0-51.0); %Neutrophils 95.2 % (42.0-75.0); Hemoglobin 9.6 g/dL (14.0-18.0); Mean Corpuscular HGB CONC 33.1 g/dL (32.0-36.0); Mean Corpuscular Volume 93.7 fL (78.0-98.0); Mean Platelet Volume 11.3 fL (7.4-10.4); Platelet Count 73 thou/uL (130-400); Red Blood Cell (RBC) Count 3.08 mill/uL (4.70-6.10); White Blood Cell (WBC) Count 11.2 thou/uL (4.8-10.8)
[2021-02-12 05:03] LABS: Anion Gap 9 mmol/L (10-20); BUN (Urea Nitrogen) 20 mg/dL (8.4-25.7); Calc. Creatinine Clearance 101 mL/min (70-130); Calcium 6.7 mg/dL (7.8-10.44); Carbon Dioxide 33 mmol/L (22-29); Chloride 108 mmol/L (98-107); Glucose 194 mg/dL (70-105); Sodium 147 mmol/L (136-145)
[2021-02-12 05:07] LABS: Potassium 2.5 mmol/L (3.5-5.1)
[2021-02-12] MEDS ORDERED: Potassium Bicarbonate/Cit Ac 20 MEQ TAB PO SCH (05:15)
[2021-02-12] MEDS: Hydrocortisone Sod Succ/PF 100 mg/2 ml Vial IVP SCH ×4 (05:32→22:03)
[2021-02-12] MEDS: Piperacillin/Tazobactam 3.375 GM in Sodium Chloride 0.9% 100 ML IVPB SCH ×2 (05:32→10:05)
[2021-02-12] MEDS: HumaLOG 300 UNITS/3 ML VIAL SC PRN ×3 (05:34→22:39)
[2021-02-12] MEDS: Zinc Sulfate 220 MG CAP PO SCH (07:35)
[2021-02-12] MEDS: Potassium Bicarbonate/Cit Ac 20 MEQ TAB PO SCH ×2 (07:35→15:15)
[2021-02-12] MEDS: Saccharomyces boulardii 250 MG CAP PO SCH (07:36)
[2021-02-12] MEDS: Pantoprazole 40 MG VIAL IVP SCH (07:36)
[2021-02-12] MEDS: Cholecalciferol 1,000 UNITS (25 MCG) TAB PO SCH (07:36)
[2021-02-12] MEDS: Lorazepam 2 MG/ML VIAL SLOW IVP PRN (07:36)
[2021-02-12] MEDS: Ascorbic Acid 500 mg Chewable Tablet PO SCH (07:36)
[2021-02-12] MEDS: acetaZOLAMIDE Sodium 250 MG in Sodium Chloride 0.9% 50 ML IVPB SCH ×2 (08:26→22:04)
[2021-02-12] MEDS: Potassium Chloride 40 MEQ in Sodium Chloride 0.9% 250 ML 250 ML IVPB SCH ×2 (10:05→13:51)
[2021-02-12] MEDS: Vancomycin HCl 750 MG in Sodium Chloride 0.9% 250 ML 250 ML IVPB SCH (13:51)
[2021-02-12] MEDS ORDERED: Fentanyl CADD 100 ML ONE (15:24)
[2021-02-12] MEDS: Fentanyl CADD 100 ML IV SCH (15:25)
[2021-02-12 15:35] LABS: Platelet Count 76 thou/uL (130-400)
[2021-02-12 15:39] LABS: Fibrinogen 188 mg/dL (253-463)
[2021-02-12 15:40] LABS: INR-International Normal Ratio 1.3
[2021-02-12 15:41] LABS: D-Dimer Test 1.92 *mcg/mL (0.27-0.43)
[2021-02-12 15:43] LABS: FSP-Qualitative ABNORMAL (Normal); FSP-Semiquantitative >=5 & <20 mcg/mL (Less than 5)
[2021-02-12 15:51] LABS: Anion Gap 10 mmol/L (10-20); BUN (Urea Nitrogen) 18 mg/dL (8.4-25.7); Calc. Creatinine Clearance 107 mL/min (70-130); Calcium 6.5 mg/dL (7.8-10.44); Carbon Dioxide 28 mmol/L (22-29); Chloride 111 mmol/L (98-107); Glucose 82 mg/dL (70-105); Potassium 3.3 mmol/L (3.5-5.1); Sodium 146 mmol/L (136-145)
[2021-02-13] MEDS: Sodium Chloride 0.45% 1,000 ML IV SCH ×4 (01:55→16:21)
[2021-02-13] MEDS: Vancomycin HCl 750 MG in Sodium Chloride 0.9% 250 ML 250 ML IVPB SCH ×2 (01:57→13:13)
[2021-02-13] MEDS: Hydrocortisone Sod Succ/PF 100 mg/2 ml Vial IVP SCH ×4 (03:29→22:17)
[2021-02-13] MEDS: Metoclopramide HCl 10 MG/2 ML VIAL IVP SCH (03:30)
[2021-02-13 04:42] LABS: #Lymphocytes 1.2 thou/uL (1.20-3.40); #Monocytes 0.3 thou/uL (0.11-0.59); #Neutrophils 12.2 thou/uL (1.40-6.50); %Basophils 0.1 % (0.0-1.0); %Eosinophils 0.3 % (0.0-10.0); %Lymphocytes 8.7 % (21.0-51.0); %Monocytes 1.9 % (0.0-10.0); Hemoglobin 9.9 g/dL (14.0-18.0); Mean Corpuscular HGB CONC 31.6 g/dL (32.0-36.0); Mean Corpuscular Hemoglobin 30.2 pg (27.0-31.0); Mean Corpuscular Volume 95.5 fL (78.0-98.0); Mean Platelet Volume 11.6 fL (7.4-10.4); Platelet Count 102 thou/uL (130-400); Red Blood Cell (RBC) Count 3.28 mill/uL (4.70-6.10); White Blood Cell (WBC) Count 13.7 thou/uL (4.8-10.8)
[2021-02-13 05:00] LABS: Anion Gap 11 mmol/L (10-20); BUN (Urea Nitrogen) 21 mg/dL (8.4-25.7); Calc. Creatinine Clearance 102 mL/min (70-130); Calcium 6.7 mg/dL (7.8-10.44); Carbon Dioxide 26 mmol/L (22-29); Chloride 109 mmol/L (98-107); Glucose 157 mg/dL (70-105); Sodium 143 mmol/L (136-145)
[2021-02-13 05:07] LABS: Potassium 2.5 mmol/L (3.5-5.1)
[2021-02-13] MEDS: HumaLOG 300 UNITS/3 ML VIAL SC PRN (05:15)
[2021-02-13] MEDS: Potassium Chloride 40 MEQ in Premix Bag 1 BAG IVPB SCH ×2 (05:18→08:22)
[2021-02-13] MEDS ORDERED: Magnesium 2 GM/50 ML 2 GM in Premix Bag 1 BAG IVPB SCH (06:15)
[2021-02-13] MEDS: Saccharomyces boulardii 250 MG CAP PO SCH (07:39)
[2021-02-13] MEDS: Ascorbic Acid 500 mg Chewable Tablet PO SCH (07:39)
[2021-02-13] MEDS: Lorazepam 2 MG/ML VIAL SLOW IVP PRN ×2 (07:39→16:20)
[2021-02-13] MEDS: Potassium Bicarbonate/Cit Ac 20 MEQ TAB PO SCH ×5 (07:39→22:17)
[2021-02-13] MEDS: Pantoprazole 40 MG VIAL IVP SCH (07:40)
[2021-02-13] MEDS: Cholecalciferol 1,000 UNITS (25 MCG) TAB PO SCH (07:40)
[2021-02-13] MEDS: Zinc Sulfate 220 MG CAP PO SCH (07:40)
[2021-02-13] MEDS: acetaZOLAMIDE Sodium 250 MG in Sodium Chloride 0.9% 50 ML IVPB SCH (08:34)
[2021-02-13] MEDS: Fentanyl CADD 100 ML IV SCH (10:34)
[2021-02-13] MEDS ORDERED: Fentanyl CADD 100 ML ONE (10:34)
[2021-02-13] MEDS: Albumin 25% 25 GM/100 ML BOT IVPB SCH ×2 (13:13→19:58)
[2021-02-13 14:18] LABS: Bilirubin Negative (Negative); Blood, Urine Negative (Negative); Clarity Clear (Clear); Glucose, Urine (Dipstick) Normal (Negative); Ketone, Urine Negative (Negative); Leukocyte Negative Leu/uL (Negative); Nitrite Negative (Negative); Protein, Urine (Dipstick) 20 mg/dL (Neg-Trace); Specific Gravity, Urine 1.015 (1.002-1.036); pH, Urine 8.5 (5.0-9.0)
[2021-02-13 14:34] LABS: Creatinine, Urine Less than 20.00 mg/dL (63-166); Sodium, Urine 91 mmol/L (Not Available)
[2021-02-13 15:56] LABS: Potassium 2.6 mmol/L (3.5-5.1)
[2021-02-13] MEDS ORDERED: Spironolactone 25 MG TAB PO SCH (17:00)
[2021-02-14] MEDS: Potassium Bicarbonate/Cit Ac 20 MEQ TAB PO SCH (00:05)
[2021-02-14 01:16] LABS: Vancomycin, Trough 20.7 ug/mL
[2021-02-14] MEDS: Vancomycin HCl 500 MG in Sodium Chloride 0.9% 100 ML IVPB SCH ×2 (02:18→14:02)
[2021-02-14] MEDS: Albumin 25% 25 GM/100 ML BOT IVPB SCH ×3 (02:18→14:01)
[2021-02-14] MEDS: Hydrocortisone Sod Succ/PF 100 mg/2 ml Vial IVP SCH ×4 (03:47→21:07)
[2021-02-14 04:30] LABS: Anion Gap 8 mmol/L (10-20); BUN (Urea Nitrogen) 22 mg/dL (8.4-25.7); Calc. Creatinine Clearance 97 mL/min (70-130); Calcium 7.1 mg/dL (7.8-10.44); Carbon Dioxide 26 mmol/L (22-29); Chloride 111 mmol/L (98-107); Glucose 187 mg/dL (70-105); Potassium 3.8 mmol/L (3.5-5.1); Sodium 141 mmol/L (136-145)
[2021-02-14 04:35] LABS: Phosphorus 1.5 mg/dL (2.3-4.7)
[2021-02-14 05:09] LABS: #Eosinphils 0.1 thou/uL (0.0-0.7); #Lymphocytes 0.3 thou/uL (1.20-3.40); #Monocytes 0.2 thou/uL (0.11-0.59); #Neutrophils 7.3 thou/uL (1.40-6.50); %Basophils 0.1 % (0.0-1.0); %Eosinophils 0.8 % (0.0-10.0); %Monocytes 2.1 % (0.0-10.0); %Neutrophils 93.1 % (42.0-75.0); Hemoglobin 7.2 g/dL (14.0-18.0); Mean Corpuscular HGB CONC 32.8 g/dL (32.0-36.0); Mean Corpuscular Hemoglobin 31.3 pg (27.0-31.0); Mean Corpuscular Volume 95.5 fL (78.0-98.0); Platelet Count 95 thou/uL (130-400); RBC Distribution Width 15.2 % (11.5-14.5); White Blood Cell (WBC) Count 7.9 thou/uL (4.8-10.8)
[2021-02-14] MEDS ORDERED: Potassium Phosphate 30 MMOL in Sodium Chloride 0.9% 250 ML 250 ML IVPB SCH (07:30)
[2021-02-14] MEDS: Sodium Chloride 0.45% 1,000 ML IV SCH (07:52)
[2021-02-14] MEDS: Ascorbic Acid 500 mg Chewable Tablet PO SCH (07:55)
[2021-02-14] MEDS: Saccharomyces boulardii 250 MG CAP PO SCH (07:55)
[2021-02-14] MEDS: Zinc Sulfate 220 MG CAP PO SCH (07:56)
[2021-02-14] MEDS: Cholecalciferol 1,000 UNITS (25 MCG) TAB PO SCH (07:56)
[2021-02-14] MEDS: Pantoprazole 40 MG VIAL IVP SCH (07:56)
[2021-02-14 08:25] VITALS: TEMP 97.8
[2021-02-14] MEDS ORDERED: Fentanyl CADD 100 ML ONE (09:31)
[2021-02-14] MEDS: HumaLOG 300 UNITS/3 ML VIAL SC PRN ×2 (10:01→16:27)
[2021-02-14 12:53] VITALS: BP 131/66
[2021-02-14 13:17] VITALS: BMI 20.7
[2021-02-14] MEDS: Lorazepam 2 MG/ML VIAL SLOW IVP PRN (14:57)
[2021-02-14] MEDS: acetaZOLAMIDE Sodium 250 MG in Sodium Chloride 0.9% 50 ML IVPB SCH (21:07)
[2021-02-15] MEDS: Vancomycin HCl 500 MG in Sodium Chloride 0.9% 100 ML IVPB SCH (03:28)
[2021-02-15] MEDS: Hydrocortisone Sod Succ/PF 100 mg/2 ml Vial IVP SCH (03:32)
[2021-02-15] MEDS ORDERED: Amoxicillin/Potassium Clav 875 MG TAB PO SCH (09:00)
[2021-02-15] MEDS: Pantoprazole 40 MG VIAL IVP SCH (11:04)
[2021-02-15] MEDS: Cholecalciferol 1,000 UNITS (25 MCG) TAB PO SCH (11:04)
[2021-02-15] MEDS: Ascorbic Acid 500 mg Chewable Tablet PO SCH (11:04)
[2021-02-15] MEDS: Saccharomyces boulardii 250 MG CAP PO SCH (11:04)
[2021-02-15] MEDS: Zinc Sulfate 220 MG CAP PO SCH (11:05)
[2021-02-15] MEDS ORDERED: Morphine 10 MG/ML VIAL SLOW IVP PRN (11:18)
[2021-02-21 11:14] LABS: Actual Bicarbonate (HCO3a) 21.2 mEq/L (22-28); Analyzer IN Cardio OR; Base Excess (BEa) -3.9 mEq/L (-2.0 to +3.0); CO2 Tension 38.2 mmHg (35.0-45.0); Calcium, Ionized (arterial) 0.82 mmol/L (1.12-1.30); Carboxyhemoglobin (COHb) 0.5 gm% (0.0-3.0); Hemoglobin (Hb) 7.8 g/dL (14.0-18.0); O2 Tension (PaO2), arterial 306.4 mmHg (80.0-100.0); Potassium - ABG Lab 4.04 mmol/L (3.70-5.30); Puncture Site Arterial Line; pH, Arterial 7.36 (7.35-7.45)
[2021-03-07 08:37] LABS: Fungus Culture Final report (.)
[2021-03-07 08:37] LABS: Fungus Culture Final report (.)
== END 2021-02-15 14:31 | disposition expired | DRG 163 ==
LOC: ERS 21:57 → SURG B 02-05 03:07 → T4-B 02-05 05:35 → CCU 02-06 11:10
PROVIDERS: ADMIT Internal Medicine; ATTEND Internal Medicine
PROC: 8E0ZXY6 Isolation (ICD-10-PCS; 2021-02-05)
PROC: 0BNL0ZZ Release Left Lung, Open Approach (ICD-10-PCS; principal; 2021-02-06)
PROC: 0BJL4ZZ Inspection of Left Lung, Percutaneous Endoscopic Approach (ICD-10-PCS; 2021-02-06)
PROC: 5A1955Z Respiratory Ventilation, Greater than 96 Consecutive Hours (ICD-10-PCS; 2021-02-06)
PROC: 05H633Z Insertion of Infusion Device into Left Subclavian Vein, Percutaneous Approach (ICD-10-PCS; 2021-02-06)
PROC: 0W9B30Z Drainage of Left Pleural Cavity with Drainage Device, Percutaneous Approach (ICD-10-PCS; 2021-02-06)
PROC: 3E033XZ Introduction of Vasopressor into Peripheral Vein, Percutaneous Approach (ICD-10-PCS; 2021-02-06)
PROC: 30233K1 Transfusion of Nonautologous Frozen Plasma into Peripheral Vein, Percutaneous Approach (ICD-10-PCS; 2021-02-06)
PROC: 30233N1 Transfusion of Nonautologous Red Blood Cells into Peripheral Vein, Percutaneous Approach (ICD-10-PCS; 2021-02-06)
PROC: 0BH17EZ Insertion of Endotracheal Airway into Trachea, Via Natural or Artificial Opening (ICD-10-PCS; 2021-02-06)
PROC: 0W3Q0ZZ Control Bleeding in Respiratory Tract, Open Approach (ICD-10-PCS; 2021-02-07)
DX: U07.1 COVID-19 (principal); J86.9 Pyothorax without fistula; J96.01 Acute respiratory failure with hypoxia; E43 Unspecified severe protein-calorie malnutrition; D65 Disseminated intravascular coagulation [defibrination syndrome]; J69.0 Pneumonitis due to inhalation of food and vomit; A41.89 Other specified sepsis; R65.21 Severe sepsis with septic shock; J91.8 Pleural effusion in other conditions classified elsewhere; J95.830 Postprocedural hemorrhage of a respiratory system organ or structure following a respiratory system procedure; E23.2 Diabetes insipidus; I69.354 Hemiplegia and hemiparesis following cerebral infarction affecting left non-dominant side; Z66 Do not resuscitate; Z51.5 Encounter for palliative care; Y83.8 Other surgical procedures as the cause of abnormal reaction of the patient, or of later complication, without mention of misadventure at the time of the procedure; D63.8 Anemia in other chronic diseases classified elsewhere; F01.50 Vascular dementia, unspecified severity, without behavioral disturbance, psychotic disturbance, mood disturbance, and anxiety; B95.4 Other streptococcus as the cause of diseases classified elsewhere; B95.7 Other staphylococcus as the cause of diseases classified elsewhere; R13.12 Dysphagia, oropharyngeal phase; E78.5 Hyperlipidemia, unspecified; F32.9 Major depressive disorder, single episode, unspecified; E78.00 Pure hypercholesterolemia, unspecified; I10 Essential (primary) hypertension; I25.10 Atherosclerotic heart disease of native coronary artery without angina pectoris; R94.5 Abnormal results of liver function studies; E83.39 Other disorders of phosphorus metabolism; E83.42 Hypomagnesemia; E83.51 Hypocalcemia; Z53.32 Thoracoscopic surgical procedure converted to open procedure; Z79.899 Other long term (current) drug therapy; Z93.1 Gastrostomy status; Z78.1 Physical restraint status; Z68.20 Body mass index [BMI] 20.0-20.9, adult; I69.391 Dysphagia following cerebral infarction; Z95.1 Presence of aortocoronary bypass graft; Z90.49 Acquired absence of other specified parts of digestive tract
CPT/HCPCS: 0240U; 36415; 36416; 36430; 36600; 71045; 71250; 80048; 80053; 80202; 81003; 82040; 82150; 82306; 82570; 82728; 82805; 82945; 83036; 83605; 83615; 83735; 83880; 83935; 83986; 84100; 84133; 84157; 84300; 84484; 85025; 85049; 85060; 85300; 85362; 85379; 85384; 85610; 85730; 86140; 86850; 86900; 86901; 87040; 87070; 87076; 87077; 87102; 87116; 87186; 87205; 87206; 87449; 87635; 87899; 88112; 88305; 89051; 93005; 94002; 94003; 96365; 96367; A4306; C9113; J0171; J0692; J1120; J1650; J1720; J1815; J1940; J2060; J2270; J2405; J2543; J2704; J2765; J2795; J3010; J3370; J3475; J3480; J3490; J7050; P9016; P9035; P9045; P9047; P9059; S0020; S0028; U0003; U0005